=== PATIENT | female | born 1955 | race Caucasian/White ===

== ENCOUNTER 2017-01-29 12:54 | Inpatient (IN) | payer MEDICARE, OTHER ==
[~2017-01-29] VITALS: Ht 165.1 cm; Wt 75.8 kg
[2017-01-29] VITALS (8 sets, daily range): BP systolic 97–145; BP diastolic 56–80; PULSE 78–107; RESP 16–20; TEMP 96.8–97.9; O2SAT 95–98
[~2017-01-29 12:54] MED LIST: ADVA250A INH; ARIC5TAB PO; AZIT250T74 PO; BETH25TA PO; COLC1TAB7 PO; CYMB60CA PO; DIME240C PO; FURO20 PO; METO10TA PO; METO25 PO; MORP30SU PO; PERC10TA27 PO; POTA-243 PO; PRED5TAB PO; PROT40TA PO; ROSU40 PO; SUCR1TAB PO; TIZA4 PO; VENTAER INH; XANA0.5T PO; ZOLP10TA3 PO
[2017-01-29] MEDS ORDERED: SODIUM CHLOR 0.9% 1000 ML INJ 1,000 ML IV ONE (13:45)
--- NOTE | 2017-01-29 13:47 | PD ---
HPI Chief Complaint: General Weakness Time Seen by Provider: 13:19 Travel History International Travel<30 days: No Contact w/Intl Traveler<30days: No Traveled to known affect area: No History of Present Illness HPI 61yo F with PMH of HTN, DM, multiple sclerosis presents to the ED with c/o generalized weakness and hypotension for a few days. States she has not been eating much since she was diagnosed with gastric ulcers with endoscopy 1.5 months ago. Pt also has esophageal disease and had needed dilation. Pt states she has also been more unsteady on her gait in the last [address] Silveira. Denies any fever, chest pain, sob, n/v, abdominal pain, urinary complaints, focal weakness or numbness. PFSH Past Medical History Hx Anticoagulant Therapy: No Arthritis: Yes Asthma: Yes Blood Disorders: No Anxiety: Yes Depression: Yes Heart Rhythm Problems: Yes ("SKIPS A BEAT") Cancer: No Cardiovascular Problems: Yes ( CHOL) High Cholesterol: Yes Chest Pain: Yes Congestive Heart Failure: Yes COPD: Yes Cerebrovascular Accident: Yes (TIA) Diabetes: No Diminished Hearing: No Endocrine: No Gastrointestinal Disorders: Yes GERD: Yes Genitourinary: Yes Headaches: Yes Hiatal Hernia: Yes Hypertension: Yes Immune Disorder: No Implanted Vascular Access Dvce: Yes (NOT OF 01/22/16, PER ) Kidney Stones: Yes (HX) Musculoskeletal: Yes Neurologic: Yes (DIAGNOSED WITH MS IN 2005) Psychiatric: Yes Reproductive: Yes (HYSTERECOMY) Respiratory: Yes (COPD) Renal Failure: No Ulcer: Yes Tetanus Vaccination: > 5 Years Influenza Vaccination: No PNEUMOCCOCAL Vaccine (Year): 2 ?: Not Menopausal: Yes Past Surgical History Abdominal Surgery: No Appendectomy: Yes (TOOK OUT WITH OTHER SURGERY) Body Medical Devices: ALLEGRA RIGHT LEG, 2 PLATES,8 SCREWS IN NECK Cardiac Surgery: Yes (HEART CATH -06/29/08, carotid endardectomy) Cholecystectomy: Yes Ear Surgery: No Endocrine Surgery: No Eye Surgery: No Genitourinary Surgery: No Gynecologic Surgery: Yes (HYSTERECTOMY (JACKIE-BSO)) Hysterectomy: Yes Joint Replacement: Yes (PLATES AND RODS) Neurologic Surgery: Yes Oral Surgery: No Thoracic Surgery: No Tonsillectomy: Yes Other Surgery: Yes (RECTAL FISSURE 12/2005, 2 L BREAST BIOPSIES, JACKIE-BSO @ AGE 27) Social History Alcohol Use: No Tobacco Use: Yes (1/2 -1 PPD) Substance Use: No Allergies-Medications (Allergen,Severity, Reaction): Coded Allergies: No Known Allergies (Verified , 01/29/17) Reported Meds & Prescriptions Reported Meds & Active Scripts Active Reported Ventolin Hfa 18 GM Inh (Albuterol Sulfate) 90 Mcg/Act Aer 1 Puff INH Q4H PRN Mupirocin Topical (Mupirocin) 2 % Oint 1 Applic TOPICAL BID Clobetasol Emollient Topical 0.05% Cream 1 Applic TOPICAL BID Dronabinol 2.5 Mg Cap 2.5 Mg PO BID Zolpidem (Zolpidem Tartrate) 10 Mg Tab 10 Mg PO HS PRN Propranolol (Propranolol HCl) 20 Mg Tab 20 Mg PO Q12HR Metoprolol Tartrate 25 Mg Tab 25 Mg PO BID Rosuvastatin (Rosuvastatin Calcium) 5 Mg Tab 5 Mg PO DAILY Colchicine 0.6 Mg Cap 0.6 Mg PO DAILY Bethanechol 10 Mg Tab 10 Mg PO Q8HR Lyrica (Pregabalin) 100 Mg Cap 100 Mg PO DAILY Tizanidine (Tizanidine HCl) 4 Mg Cap 4 Mg PO TID Duloxetine DR (Duloxetine HCl) 60 Mg Capdr 60 Mg PO DAILY Furosemide 40 Mg Tab 40 Mg PO DAILY Advair Diskus Inh (Fluticasone-Salmeterol Inh) 100-50 Mcg/Blist Aer 1 Puff INH BID Rinse mouth after use. Alprazolam 0.5 Mg Tab 0.5 Mg PO Q8H PRN Tecfidera (Dimethyl Fumarate) 240 Mg Cap 240 Mg PO BID Percocet (Oxycodone-Acetaminophen) 5-325 mg Tab 1 Tab PO Q6H PRN Ondansetron (Ondansetron HCl) 8 Mg Tab 8 Mg PO TID Morphine ER (Morphine Sulfate) 30 Mg Tab 30 Mg PO Q4HR Review of Systems Except as stated in HPI: all other systems reviewed are Neg Physical Exam Narrative GENERAL: 61yo F in mild distress. SKIN: Focused skin assessment warm/dry. HEAD: Atraumatic. Normocephalic. EYES: Pupils equal and round. No scleral icterus. No injection or drainage. ENT: No nasal bleeding or discharge. Mucous membranes pink and moist. NECK: Trachea midline. No JVD. CARDIOVASCULAR: Regular rate and rhythm. No murmur appreciated. RESPIRATORY: No accessory muscle use. Clear to auscultation. Breath sounds equal bilaterally. GASTROINTESTINAL: Abdomen soft, non-tender, nondistended. MUSCULOSKELETAL: No obvious deformities. No clubbing. No cyanosis. +Bilateral lower ext edema. NEUROLOGICAL: Awake and alert. No obvious cranial nerve deficits. Motor grossly within normal limits. Normal speech. PSYCHIATRIC: Appropriate mood and affect; insight and judgment normal. Data Data Last Documented VS Vital Signs Date Time Temp Pulse Resp B/P Pulse Ox O2 Delivery O2 Flow Rate FiO2 01/29/17 15:13 88 16 117/74 97 Room Air 01/29/17 13:02 97.9 Orders Complete Blood Count With Diff (01/29/17 13:37) Comprehensive Metabolic Panel (01/29/17 13:37) Magnesium (Mg) (01/29/17 13:37) Sodium Chlor 0.9% 1000 Ml Inj (Ns 1000 M (01/29/17 13:45) Urinalysis - C+S If Indicated (01/29/17 13:39) Electrocardiogram (01/29/17 ) Lactic Acid Sepsis Protocol (01/29/17 13:47) Blood Culture (01/29/17 13:47) Ckmb (Isoenzyme) Profile (01/29/17 14:00) Troponin I (01/29/17 14:00) Potassium Chlor 20 Meq Premix (Kcl 20 Me (01/29/17 14:30) Potassium Chloride (Kcl) (01/29/17 14:30) Calcium Gluconate Inj (Calcium Gluconate (01/29/17 14:30) Manager Business Continuity / Telemetry TIM.Q8H (01/29/17 14:25) Consult Neurology (01/29/17 ) CKMB (01/29/17 14:15) CKMB% (01/29/17 14:15) Admit Order (Ed Use Only) (01/29/17 15:30) Labs Laboratory Tests Test 01/29/17 01/29/17 01/29/17 13:45 14:15 15:30 White Blood Count 9.2 TH/MM3 Red Blood Count 4.82 MIL/MM3 Hemoglobin 14.1 GM/DL Hematocrit 41.5 % Mean Corpuscular Volume 86.0 FL Mean Corpuscular Hemoglobin 29.2 PG Mean Corpuscular Hemoglobin 33.9 % Concent Red Cell Distribution Width 14.7 % Platelet Count 308 TH/MM3 Mean Platelet Volume 8.0 FL Neutrophils (%) (Auto) 73.8 % Lymphocytes (%) (Auto) 13.8 % Monocytes (%) (Auto) 10.4 % Eosinophils (%) (Auto) 0.5 % Basophils (%) (Auto) 1.5 % Neutrophils # (Auto) 6.8 TH/MM3 Lymphocytes # (Auto) 1.3 TH/MM3 Monocytes # (Auto) 1.0 TH/MM3 Eosinophils # (Auto) 0.0 TH/MM3 Basophils # (Auto) 0.1 TH/MM3 CBC Comment DIFF FINAL Differential Comment Sodium Level 140 MEQ/L Potassium Level 1.9 MEQ/L Chloride Level 97 MEQ/L Carbon Dioxide Level 31.8 MEQ/L Anion Gap 11 MEQ/L Blood Urea Nitrogen 14 MG/DL Creatinine 1.90 MG/DL Estimat Glomerular Filtration 27 ML/MIN Rate Random Glucose 123 MG/DL Calcium Level 6.4 MG/DL Protein Corrected Calcium 7.6 MG/DL Magnesium Level 1.1 MG/DL Total Bilirubin 0.2 MG/DL Aspartate Amino Transf 25 U/L (AST/SGOT) Alanine Aminotransferase 27 U/L (ALT/SGPT) Alkaline Phosphatase 118 U/L Total Protein 4.7 GM/DL Albumin 2.4 GM/DL Lactic Acid Level 1.7 mmol/L Total Creatine Kinase 188 U/L Creatine Kinase MB 8.4 NG/ML Troponin I 0.08 NG/ML Urine Color YELLOW Urine Turbidity CLEAR Urine pH 7.5 Urine Specific [place] 1.014 Urine Protein NEG mg/dL Urine Glucose (UA) NEG mg/dL Urine Ketones NEG mg/dL Urine Occult Blood NEG Urine Nitrite NEG Urine Bilirubin NEG Urine Leukocyte Esterase NEG Urine WBC 0-2 /hpf Urine Squamous Epithelial 0-5 /hpf Cells Microscopic Urinalysis Comment CULT NOT INDICATED MDM Medical Decision Making Medical Screen Exam Complete: Yes Emergency Medical Condition: Yes Interpretation(s) EKG: NSR 91bpm. Normal axis. ST depression/T wave inversion diffusely. Differential Diagnosis Dehydration vs. electrolyte abnormality vs. shock Narrative Course 61yo F c/o generalized weakness. Discussed with Dr. Silveira regarding worsening gait and he recommended correcting electrolytes and then reevaluate to see if steroid needed. Recommend placing neurology consult and someone correctional therapy teacher will see the patient. Labs reviewed, no leukocytosis. Severe hypokalemia at 1.9. Replaced with KCl 20mEq IV and KCl 60mEq KCl PO. Ca is 6.4, replaced with 1gm calcium gluconate. Magnesium is low at 1.1, replaced with magnesium sulfate 1gm x2. Creatinine is elevated at 1.90 which is new. Pt appears very dehydration and likely prerenal cause. Troponin is elevated at 0.08, pt has no chest pain and has a lot of electrolyte abnormalities. Will trend. UA negative. Discussed with Dr. Butler and accepted to his service. Pt initially with BP with systolic in the 80s, NS IVF given and pt responded to the IVF and BP improved to 117/74 and HR came down to 88bpm. Critical Care Narrative Aggregate critical care time was 45 minutes. Time to perform other separately billable procedures was not included in the critical care time. My time did not include minutes spent treating any other patients simultaneously or on activities that did not directly contribute to the patient's treatment. The services I provided to this patient were to treat and/or prevent clinically significant deterioration that could result in: cardiovascular collapse or . I provided critical care services requiring my management, as noted below: Chart data review, documentation time, medication orders and management, vital sign assessments/reviewing monitor data, ordering and reviewing lab tests, ordering and interpreting/reviewing x-rays and diagnostic studies, care of the patient and discussion of the patient with the admitting physicians. Diagnosis Primary Impression: ARIADNA (acute kidney injury) Additional Impression: Hypokalemia Admitting Information Admitting Physician Requests: Admit Kristina Rollins DO Jan 29, 2017 13:47
[2017-01-29 14:00] LABS: AUTOMATED NEUTROPHIL # 6.8 TH/MM3 (1.8-7.7); BASOPHIL # 0.1 TH/MM3 (0-0.2); BASOPHIL % 1.5 % (0.0-2.0); EOSINOPHIL % 0.5 % (0.0-4.0); HEMATOCRIT 41.5 % (35.0-46.0); HEMO FLAGS DIFF FINAL; LYMPH % 13.8 % (9.0-44.0); LYMPHOCYTE # 1.3 TH/MM3 (1.0-4.8); MEAN CORPUSCULAR HEMOGLOBIN 29.2 PG (27.0-34.0); MEAN CORPUSCULAR HGB CONC 33.9 % (32.0-36.0); MONO % 10.4 % (0.0-8.0); NEUT % 73.8 % (16.0-70.0); PLATELET COUNT 308 TH/MM3 (150-450); RED BLOOD COUNT 4.82 MIL/MM3 (4.00-5.30); RED CELL DISTRIBUTION WIDTH 14.7 % (11.6-17.2); WHITE BLOOD COUNT 9.2 TH/MM3 (4.0-11.0)
[2017-01-29 14:17] LABS: BICARBONATE 31.8 MEQ/L (21.0-32.0); MAGNESIUM 1.1 MG/DL (1.5-2.5)
[2017-01-29 14:20] LABS: POTASSIUM 1.9 MEQ/L (3.5-5.1)
[2017-01-29 14:21] LABS: CALCIUM-PROTEIN CORRECTED 7.6 MG/DL (8.5-10.1); TOTAL BILIRUBIN ADULT 0.2 MG/DL (0.2-1.0)
[2017-01-29] MEDS ORDERED: MORP1TAB25 PO (14:22)
[2017-01-29] MEDS ORDERED: DRON2.5C PO (14:22)
[2017-01-29] MEDS ORDERED: FURO40TA PO (14:22)
[2017-01-29] MEDS ORDERED: ONDA1TAB17 PO (14:22)
[2017-01-29] MEDS ORDERED: ZOLP10TA3 PO (14:22)
[2017-01-29] MEDS ORDERED: DULO1CAP3 PO (14:22)
[2017-01-29] MEDS ORDERED: METO25TA3 PO (14:22)
[2017-01-29] MEDS ORDERED: DIME240C PO (14:22)
[2017-01-29] MEDS ORDERED: TIZA4CAP3 PO (14:22)
[2017-01-29] MEDS ORDERED: CLOB0.0571 TOPICAL (14:22)
[2017-01-29] MEDS ORDERED: ADVA100A INH (14:22)
[2017-01-29] MEDS ORDERED: COLC1CAP3 PO (14:22)
[2017-01-29] MEDS ORDERED: PROP20TA3 PO (14:22)
[2017-01-29] MEDS ORDERED: BETH10TA2 PO (14:22)
[2017-01-29] MEDS ORDERED: ALPR0.5T3 PO (14:22)
[2017-01-29] MEDS ORDERED: PERC5TAB12 PO (14:22)
[2017-01-29] MEDS ORDERED: ROSU1TAB4 PO (14:22)
[2017-01-29] MEDS ORDERED: LYRI100C PO (14:22)
[2017-01-29] MEDS ORDERED: VENTAER INH (14:23)
[2017-01-29] MEDS ORDERED: MUPI2OIN TOPICAL (14:23)
[2017-01-29] MEDS ORDERED: POTASSIUM CHLORIDE 20 MEQ CONTROLLED RELEASE TAB PO ONE (14:30)
[2017-01-29] MEDS ORDERED: POTASSIUM CHLOR 20 MEQ PREMIX 100 ML IV ONE (14:30)
[2017-01-29] MEDS ORDERED: CALCIUM GLUCONATE INJ 1 GM in DEXTROSE 5% IN WATER 100ML INJ 100 ML IV ONE ×2 (14:30)
[2017-01-29 14:47] LABS: CREATINE KINASE 188 U/L (26-192)
[2017-01-29 14:59] LABS: CKMB 8.4 NG/ML (0.5-3.6)
[2017-01-29 15:47] LABS: BLOOD, URINE NEG (NEG); GLUCOSE,URINE NEG (NEG); KETONE, URINE NEG (NEG); NITRITE,URINE NEG (NEG); PH, URINE 7.5 (5.0-8.5)
[2017-01-29 15:53] LABS: COMMENT (UR) CULT NOT INDICATED; CULTURE IF INDICATED CULT NOT INDICATED; SQUAMOUS EPITHELIAL CELL URINE 0-5 /hpf (0-5); URINE COLOR YELLOW (YELLW/STRAW); WBC, URINE 0-2 /hpf (0-5)
[2017-01-29] MEDS ORDERED: ZOLPIDEM TARTRATE 10 MG TAB PO PRN (16:45)
[2017-01-29] MEDS ORDERED: ALBUTEROL SULFATE 90 MCG/ACT HFA 8 GM INHALER INH PRN (16:45)
[2017-01-29] MEDS ORDERED: ALPRAZolam 0.5 MG TAB PO PRN (16:45)
[2017-01-29] MEDS ORDERED: NALOXONE HCL 0.4 MG/ML AMP IV PRN (17:00)
[2017-01-29] MEDS ORDERED: SODIUM CHLORIDE 0.9% FLUSH 10 ML FLUSH IV FLUSH PRN (17:00)
[2017-01-29] MEDS ORDERED: BISACODYL 10 MG SUPP RECTAL PRN (17:00)
--- NOTE | 2017-01-29 17:06 | HHI.HP ---
HPI Service [facility] Hospitalists Primary Care Physician Torrey Gacria MD Admission Diagnosis Hypokalemia, elevated troponin Chief Complaint: several weeks to months with generalized weakness no appetite Travel History International Travel<30 Days: No Contact w/Intl Traveler <30 Da: No Traveled to Known Affected Are: No History of Present Illness 61yo F with PMH of HTN, DM, multiple sclerosis presents to the ED with c/o generalized weakness and hypotension for a few days. States she has not been eating much since she was diagnosed with gastric ulcers with endoscopy 1.5 months ago. Pt also has esophageal disease and had needed dilation. Patient has upcoming endoscopy first week of february. Patient currently on carafate and protonix and recent appetite stimulant. Pt states she has also been more unsteady on her gait in the last [address] Silveira. Denies any fever, chest pain, sob, n/v, abdominal pain, urinary complaints, focal weakness or numbness. In er found to have significant electrolyte abnormality potassium 1.6,calcium 7 ,ER discussed with neurology has gait problem and could be related to MS will correct labs and neurology will follow. Review of Systems Constitutional: COMPLAINS OF: Fatigue, Weight loss, Dizziness Gastrointestinal: COMPLAINS OF: Nausea Musculoskeletal: COMPLAINS OF: Back pain, Neck pain Neurologic: COMPLAINS OF: Abnormal gait, Localized weakness Past Family Social History Past Medical History multiple ulcers,djd,hyperlipidemia,anxiety,depression chronic pain ,weaned down from narcotics,chf,tia edema,GERD MS dx 2006 Past Surgical History hysterectomy,mario leg,gallbladder,rectal fissure Reported Medications Ventolin Hfa 18 GM Inh (Albuterol Sulfate) 90 Mcg/Act Aer 1 Puff INH Q4H PRN Mupirocin Topical (Mupirocin) 2 % Oint 1 Applic TOPICAL BID Clobetasol Emollient Topical 0.05% Cream 1 Applic TOPICAL BID Dronabinol 2.5 Mg Cap 2.5 Mg PO BID Zolpidem (Zolpidem Tartrate) 10 Mg Tab 10 Mg PO HS PRN Propranolol (Propranolol HCl) 20 Mg Tab 20 Mg PO Q12HR Metoprolol Tartrate 25 Mg Tab 25 Mg PO BID Rosuvastatin (Rosuvastatin Calcium) 5 Mg Tab 5 Mg PO DAILY Colchicine 0.6 Mg Cap 0.6 Mg PO DAILY Bethanechol 10 Mg Tab 10 Mg PO Q8HR Lyrica (Pregabalin) 100 Mg Cap 100 Mg PO DAILY Tizanidine (Tizanidine HCl) 4 Mg Cap 4 Mg PO TID Duloxetine DR (Duloxetine HCl) 60 Mg Capdr 60 Mg PO DAILY Furosemide 40 Mg Tab 40 Mg PO DAILY Advair Diskus Inh (Fluticasone-Salmeterol Inh) 100-50 Mcg/Blist Aer 1 Puff INH BID Rinse mouth after use. Alprazolam 0.5 Mg Tab 0.5 Mg PO Q8H PRN Tecfidera (Dimethyl Fumarate) 240 Mg Cap 240 Mg PO BID Percocet (Oxycodone-Acetaminophen) 5-325 mg Tab 1 Tab PO Q6H PRN Ondansetron (Ondansetron HCl) 8 Mg Tab 8 Mg PO TID Morphine ER (Morphine Sulfate) 30 Mg Tab 30 Mg PO Q4HR Allergies: Coded Allergies: No Known Allergies (Verified , 01/29/17) Social History smokes 1/2 to 1 ppd Physical Exam Vital Signs Vital Signs Date Time Temp Pulse Resp B/P Pulse Ox O2 Delivery O2 Flow Rate FiO2 01/29/17 16:25 90 16 145/80 98 01/29/17 15:13 88 16 117/74 97 Room Air 01/29/17 14:46 78 16 97/56 95 Room Air 01/29/17 13:02 97.9 107 16 110/74 98 Physical Exam GENERAL: This is a well-nourished, well-developed patient, in no apparent distress. SKIN: No rashes, ecchymoses or lesions. Cool and dry. HEAD: Atraumatic. Normocephalic. No temporal or scalp tenderness. EYES: Pupils equal round and reactive. Extraocular motions intact. No scleral icterus. No injection or drainage. ENT: Nose without bleeding, purulent drainage or septal hematoma. Throat without erythema, tonsillar hypertrophy or exudate. Uvula midline. Airway patent. NECK: Trachea midline. No JVD or lymphadenopathy. Supple, nontender, no meningeal signs. CARDIOVASCULAR: Regular rate and rhythm without murmurs, gallops, or rubs. RESPIRATORY: Clear to auscultation. Breath sounds equal bilaterally. No wheezes , rales, or rhonchi. GASTROINTESTINAL: Abdomen soft, non-tender, nondistended. No hepato-splenomegaly , or palpable masses. No guarding. MUSCULOSKELETAL: Extremities without clubbing, cyanosis, or edema. No joint tenderness, effusion, or edema noted. No calf tenderness. Negative Homans sign bilaterally. NEUROLOGICAL: Awake and alert. Cranial nerves II through XII intact. Motor and sensory grossly within normal limits. Five out of 5 muscle strength in all muscle groups. Normal speech. Laboratory Laboratory Tests Test 01/29/17 01/29/17 01/29/17 13:45 14:15 15:30 White Blood Count 9.2 Red Blood Count 4.82 Hemoglobin 14.1 Hematocrit 41.5 Mean Corpuscular Volume 86.0 Mean Corpuscular Hemoglobin 29.2 Mean Corpuscular Hemoglobin 33.9 Concent Red Cell Distribution Width 14.7 Platelet Count 308 Mean Platelet Volume 8.0 Neutrophils (%) (Auto) 73.8 Lymphocytes (%) (Auto) 13.8 Monocytes (%) (Auto) 10.4 Eosinophils (%) (Auto) 0.5 Basophils (%) (Auto) 1.5 Neutrophils # (Auto) 6.8 Lymphocytes # (Auto) 1.3 Monocytes # (Auto) 1.0 Eosinophils # (Auto) 0.0 Basophils # (Auto) 0.1 CBC Comment DIFF FINAL Differential Comment Sodium Level 140 Potassium Level 1.9 Chloride Level 97 Carbon Dioxide Level 31.8 Anion Gap 11 Blood Urea Nitrogen 14 Creatinine 1.90 Estimat Glomerular Filtration 27 Rate Random Glucose 123 Calcium Level 6.4 Protein Corrected Calcium 7.6 Magnesium Level 1.1 Total Bilirubin 0.2 Aspartate Amino Transf 25 (AST/SGOT) Alanine Aminotransferase 27 (ALT/SGPT) Alkaline Phosphatase 118 Total Protein 4.7 Albumin 2.4 Lactic Acid Level 1.7 Total Creatine Kinase 188 Creatine Kinase MB 8.4 Troponin I 0.08 Urine Color YELLOW Urine Turbidity CLEAR Urine pH 7.5 Urine Specific [place] 1.014 Urine Protein NEG Urine Glucose (UA) NEG Urine Ketones NEG Urine Occult Blood NEG Urine Nitrite NEG Urine Bilirubin NEG Urine Leukocyte Esterase NEG Urine WBC 0-2 Urine Squamous Epithelial 0-5 Cells Microscopic Urinalysis Comment CULT NOT INDICATED Date/Time Procedure Status Source Growth 01/29/17 14:30 Aerobic Blood Culture Received Blood Peripheral Pending 01/29/17 14:30 Anaerobic Blood Culture Received Blood Peripheral Pending Result Diagram: 01/29/17 1345 01/29/17 1345 Course in er given IV fluid potassium and calcium Assessment and Plan Problem List: (1) Hypokalemia Status: Acute Plan: replace potassium and follow labs recheck tonight (2) Hypocalcemia Status: Acute Plan: replace calcium (3) Hx of multiple sclerosis Status: Chronic Plan: will get neuroevaluation as has had gait problems (4) Peptic ulcer disease Status: Acute Plan: has follow up next week with GI new DX peptic ulcer disease on protonix and carafate Assessment and Plan further plan as case develops also added smoker's patch Code Status full Discussed Condition With patient Physician Certification 2 Midnight Certification Type: Admission for Inpatient Services Order for Inpatient Services The services are ordered in accordance with Medicare regulations or non- Medicare payer requirements, as applicable. In the case of services not specified as inpatient-only, they are appropriately provided as inpatient services in accordance with the 2-midnight benchmark. Estimated LOS (days): 3 3 days is the estimated time the patient will need to remain in the hospital, assuming treatment plan goals are met and no additional complications. Post-Hospital Plan: Not yet determined Bib Boles MD Jan 29, 2017 17:06
[2017-01-29] MEDS: PANTOPRAZOLE SODIUM 40 MG VIAL IV PUSH SCH (18:26)
[2017-01-29] MEDS: MAGNESIUM SULFATE 1 GM PREMIX 100 ML IV SCH ×4 (18:27→21:00)
[2017-01-29] MEDS: 1/2 NS + KCL 20 MEQ INJ 1,000 ML IV SCH (18:27)
[2017-01-29] MEDS: BUDESONIDE-FORMOTEROL 80/4.5 MCG INHALER INH SCH (20:34)
[2017-01-29] MEDS: BETHANECHOL CHL 10 MG TAB PO SCH (20:36)
[2017-01-29] MEDS: SODIUM CHLORIDE 0.9% FLUSH 10 ML FLUSH IV FLUSH SCH (20:36)
[2017-01-29] MEDS: PROPRANOLOL HCL 20 MG TAB PO SCH (20:36)
[2017-01-29] MEDS: SUCRALFATE 1 GM TAB PO SCH (20:36)
[2017-01-29] MEDS: DRONABINOL 2.5 MG CAP PO SCH (20:36)
[2017-01-29] MEDS: BETAMETHASONE DIPROPIONATE 0.05% CREAM 15 GM TOPICAL SCH (20:39)
[2017-01-29] MEDS: MUPIROCIN 2% OINT 22 GM TUBE TOPICAL SCH (20:40)
[2017-01-29] MEDS ORDERED: POTASSIUM CHLOR 10 MEQ PREMIX 100 ML IV ONE (23:45)
[2017-01-29] MEDS: oxyCODONE/ACETAMINOPHEN 5 MG/325 MG TAB PO PRN (23:50)
[2017-01-30] VITALS (7 sets, daily range): BP systolic 87–109; BP diastolic 51–69; PULSE 71–82; RESP 16–20; TEMP 95.6–97.9; O2SAT 96–100
[2017-01-30] MEDS: SODIUM CHLOR 0.45% 1000 ML INJ 1,000 ML IV SCH ×2 (05:51→19:29)
[2017-01-30] MEDS: 1/2 NS + KCL 20 MEQ INJ 1,000 ML IV SCH ×2 (05:52→16:19)
[2017-01-30] MEDS: SUCRALFATE 1 GM TAB PO SCH ×4 (05:52→21:01)
[2017-01-30] MEDS: BETHANECHOL CHL 10 MG TAB PO SCH ×3 (05:52→21:01)
[2017-01-30 06:42] LABS: AUTOMATED NEUTROPHIL # 5.7 TH/MM3 (1.8-7.7); BASOPHIL % 0.5 % (0.0-2.0); EOSINOPHIL % 0.5 % (0.0-4.0); HEMATOCRIT 37.7 % (35.0-46.0); HEMO FLAGS DIFF FINAL; LYMPH % 16.1 % (9.0-44.0); LYMPHOCYTE # 1.3 TH/MM3 (1.0-4.8); MEAN CELL VOLUME 87.5 FL (80.0-100.0); MEAN CORPUSCULAR HGB CONC 34.3 % (32.0-36.0); MONO % 10.9 % (0.0-8.0); PLATELET COUNT 241 TH/MM3 (150-450); RED BLOOD COUNT 4.31 MIL/MM3 (4.00-5.30); RED CELL DISTRIBUTION WIDTH 15.6 % (11.6-17.2); WHITE BLOOD COUNT 7.9 TH/MM3 (4.0-11.0)
[2017-01-30 07:05] LABS: CALCIUM-PROTEIN CORRECTED 7.6 MG/DL (8.5-10.1); MAGNESIUM 1.6 MG/DL (1.5-2.5); TOTAL BILIRUBIN ADULT 0.3 MG/DL (0.2-1.0)
[2017-01-30 07:09] LABS: POTASSIUM 2.2 MEQ/L (3.5-5.1)
[2017-01-30] MEDS: SODIUM CHLORIDE 0.9% FLUSH 10 ML FLUSH IV FLUSH SCH ×2 (07:57→21:05)
[2017-01-30] MEDS: COLCHICINE 0.6 MG TAB PO SCH (07:58)
[2017-01-30] MEDS: PROPRANOLOL HCL 20 MG TAB PO SCH ×2 (07:59→21:00)
[2017-01-30] MEDS: PREGABALIN 100 MG CAP PO SCH (07:59)
[2017-01-30] MEDS: DRONABINOL 2.5 MG CAP PO SCH ×2 (07:59→21:02)
[2017-01-30] MEDS: oxyCODONE/ACETAMINOPHEN 5 MG/325 MG TAB PO PRN ×3 (07:59→21:04)
[2017-01-30] MEDS: ATORVASTATIN 10 MG TAB PO SCH (08:00)
[2017-01-30] MEDS: NICOTINE 21 MG/24 HR PATCH T-DERMAL SCH (08:00)
[2017-01-30] MEDS: MUPIROCIN 2% OINT 22 GM TUBE TOPICAL SCH ×2 (08:00→21:00)
[2017-01-30] MEDS: BETAMETHASONE DIPROPIONATE 0.05% CREAM 15 GM TOPICAL SCH ×2 (08:00→21:00)
[2017-01-30] MEDS: BUDESONIDE-FORMOTEROL 80/4.5 MCG INHALER INH SCH ×2 (08:01→21:03)
[2017-01-30] MEDS: DULoxetine HCl DR 60 MG CAP PO SCH (08:19)
[2017-01-30] MEDS: REMOVE OLD PATCH T-DERMAL SCH (09:00)
--- NOTE | 2017-01-30 09:03 | EKG ---
Date Performed: 01/29/2017 Time Performed: 13:44:30 PTAGE: 61 years EKG: Sinus rhythm Extensive ST-T changes may be due to myocardial ischemia Abnormal ECG PREVIOUS TRACING : 01/22/2016 09.14 Compared to previous tracing, diffuse ST/T changes are now present. DOCTOR: Abdulkadir Bagley Interpretating Date/Time 01/30/2017 09:02:31
[2017-01-30] MEDS ORDERED: POTASSIUM CHLORIDE 20 MEQ CONTROLLED RELEASE TAB PO ONE (10:00)
--- NOTE | 2017-01-30 10:11 | HHI.PR ---
Subjective Remarks Patient feeling better and wants to go home but potassium still at 2.2 and calcium at 7.6 troponin normal kidney function back to baseline will give 20 meq IV times two and calcium IV times one and repeat labs and i will recheck later. Objective Vitals GENERAL: SKIN: Warm and dry. HEAD: Atraumatic. Normocephalic. EYES: Pupils equal and round. No scleral icterus. No injection or drainage. ENT: No nasal bleeding or discharge. Mucous membranes pink and moist. NECK: Trachea midline. No JVD. CARDIOVASCULAR: Regular rate and rhythm. RESPIRATORY: No accessory muscle use. Clear to auscultation. Breath sounds equal bilaterally. GASTROINTESTINAL: Abdomen soft, non-tender, nondistended. Hepatic and splenic margins not palpable. MUSCULOSKELETAL: Extremities without clubbing, cyanosis, or edema. No obvious deformities. NEUROLOGICAL: Awake and alert. No obvious cranial nerve deficits. Motor grossly within normal limits. Five out of 5 muscle strength in the arms and legs. Normal speech. PSYCHIATRIC: Appropriate mood and affect; insight and judgment normal. Vital Signs Date Time Temp Pulse Resp B/P Pulse Ox O2 Delivery O2 Flow Rate FiO2 01/30/17 08:00 97.0 82 18 109/66 98 01/30/17 04:00 95.6 78 18 96/58 96 01/30/17 00:00 96.3 71 16 99/69 96 01/29/17 20:05 92 01/29/17 20:00 97.8 90 20 105/68 95 01/29/17 17:32 88 01/29/17 17:29 96.8 88 18 108/69 95 01/29/17 16:25 90 16 145/80 98 01/29/17 15:13 88 16 117/74 97 Room Air 01/29/17 14:46 78 16 97/56 95 Room Air 01/29/17 13:02 97.9 107 16 110/74 98 01/29/17 01/29/17 01/30/17 15:00 23:00 07:00 Intake Total 1446 ml 1137 ml Balance 1446 ml 1137 ml Intake Oral 460 ml IV Total 1446 ml 677 ml # Voids 1 2 # Bowel Movements 0 1 Result Diagram: 01/30/1751901/30/17 0520 A/P Problem List: (1) Hypokalemia Status: Acute Plan: replace potassium and follow labs recheck (2) Hypocalcemia Status: Acute Plan: replace calcium (3) Hx of multiple sclerosis Status: Chronic Plan: will get neuroevaluation as has had gait problems (4) Peptic ulcer disease Status: Acute Plan: has follow up next week with GI new DX peptic ulcer disease on protonix and carafate Assessment and Plan hopefully labs better and can be discharged later Bib Boles MD Jan 30, 2017 10:10
[2017-01-30] MEDS ORDERED: CALCIUM CHLORIDE INJ 1 GM in SODIUM CHLORIDE 0.9% INJ 100 ML IV ONE (11:00)
[2017-01-30] MEDS ORDERED: CALCIUM GLUCONATE INJ 1 GM in SODIUM CHLORIDE 0.9% INJ 100 ML IV ONE (11:24)
[2017-01-30] MEDS ORDERED: METHOCARBAMOL 500 MG TAB PO PRN (11:30)
[2017-01-30] MEDS ORDERED: SPIRONOLACTONE 100 MG TAB PO SCH (12:00)
[2017-01-30] MEDS: POTASSIUM CHLOR 20 MEQ PREMIX 100 ML IV SCH ×2 (12:03→14:13)
[2017-01-30] MEDS: ONDANSETRON HCL 4 MG/2 ML VIAL IVP PRN (12:32)
[2017-01-30] MEDS: PANTOPRAZOLE SODIUM 40 MG VIAL IV PUSH SCH (17:23)
[2017-01-30 20:01] LABS: POTASSIUM 2.9 MEQ/L (3.5-5.1)
[2017-01-30 20:19] LABS: CALCIUM-PROTEIN CORRECTED 8.5 MG/DL (8.5-10.1)
[2017-01-30] MEDS ORDERED: POTASSIUM CHLOR 20 MEQ PREMIX 100 ML IV ONE (21:00)
[2017-01-30] MEDS: TECFIDERA 240 MG PO SCH (21:02)
[2017-01-30] MEDS: CALCIUM CARBONATE 500 MG CHEWABLE TAB PO SCH (21:02)
[2017-01-31] VITALS: BP 87/64; PULSE 74; RESP 16; TEMP 98; O2SAT 99
[2017-01-31] MEDS: ONDANSETRON HCL 4 MG/2 ML VIAL IVP PRN ×2 (02:58→12:07)
[2017-01-31] MEDS: oxyCODONE/ACETAMINOPHEN 5 MG/325 MG TAB PO PRN ×2 (02:59→08:48)
[2017-01-31 04:00] VITALS: BP 113/75; PULSE 80; RESP 16; TEMP 95.8; O2SAT 97
[2017-01-31] MEDS: 1/2 NS + KCL 20 MEQ INJ 1,000 ML IV SCH ×2 (06:02→16:40)
[2017-01-31] MEDS: BETHANECHOL CHL 10 MG TAB PO SCH ×2 (06:03→14:41)
[2017-01-31] MEDS: SUCRALFATE 1 GM TAB PO SCH ×3 (06:03→16:31)
[2017-01-31 08:00] VITALS: BP 105/66; PULSE 82; RESP 18; TEMP 97.7; O2SAT 98
[2017-01-31] MEDS ORDERED: POTASSIUM CHLOR 20 MEQ PREMIX 100 ML IV ONE (08:00)
--- NOTE | 2017-01-31 08:34 | MB ---
cc: SEVERO GARZON MD DATE OF CONSULTATION 01/30/2017 REASON FOR CONSULTATION History of multiple sclerosis. HISTORY OF PRESENT ILLNESS Ms. Mike is a 61-year-old female with past medical history of hypertension, diabetes mellitus, multiple sclerosis and heavy smoking who presented to the [facility] emergency room complaining of generalized weakness and hypotension for a few days. She complains that she has not been eating much since she was diagnosed with a gastric ulcer by endoscopy one and a half month ago. She also has a history of esophageal disease status post dilation. The patient was diagnosed with multiple sclerosis 11 years ago. She follows with Dr. Silveira. She is currently on Tecfidera 240 mg twice daily. She was at some point on Copaxone on review. The patient states that the last relapse of MS was a few months ago. She states that she denies any headache, double vision, blurred vision, speech difficulty, however, she states that she has some gait difficulty that has been worsening over time and she reports a couple of falls. The patient states that an MRI of the brain was done two months ago and was unremarkable as per Dr. Silveira. REVIEW OF SYSTEMS A 12-point review of systems is negative except for what is stated in the HPI. PAST MEDICAL HISTORY 1. Gastric ulcer 2. Hyperlipidemia 3. Anxiety depression 4. Multiple sclerosis PAST SURGICAL HISTORY 1. Hysterectomy 2. Gallbladder surgery 3. Rectal fissure MEDICATIONS 1. Ventolin 2. Mupirocin 3. Clobetasol 4. Dronabinol 5. Zolpidem 6. Propranolol 7. Metoprolol 8. Rosuvastatin 9. Colchicine 10. Bethanechol 11. Lyrica 12. Tizanidine 13. Duloxetine 14. Furosemide 15. Advair discus 16. Alprazolam 17. Tecfidera 18. Percocet 19. Ondansetron 20. Morphine 21. ALLERGIES No known drug allergies. SOCIAL HISTORY Smokes A half pack to one pack per day. FAMILY HISTORY Noncontributory EXAMINATION GENERAL: The patient sits comfortably in bed not in apparent distress. Good historian. HEENT: Atraumatic, normocephalic. Intact hearing. Intact vision. NECK: Supple, no signs of meningeal irritation. No carotid bruits. CARDIOVASCULAR: Regular rate and rhythm. No murmurs. RESPIRATORY: Clear to auscultation. No wheezes. GASTROINTESTINAL: Soft abdomen, nontender. No distension. MUSCULOSKELETAL: Without clubbing, cyanosis or edema. There is nicotine stains on her fingers. There is no joint tenderness and she moves extremities equally. NEUROLOGIC: Awake, alert, and oriented to time, person and place. Intact speech and intact memory. Cranial nerves II-XII are grossly intact. Pupils are equally reacting. Normal external ocular motility. Bilateral upper extremities 5/5. There is flapping tremor/asterixis, bilateral lower extremity 5-/5 bilateral hip flexion with give-way due to pain. Otherwise, 5/5. Reflexes 2+ bilateral and symmetrical and there is bilateral downgoing. Sensation intact throughout bilateral and symmetrical to pain and temperature and touch. [id number], [id number] is intact. PSYCHOLOGIC: Normal mood and behavior. Good comprehension and judgment. No hallucination. LABORATORY DATA Next white blood cells 9.2, hemoglobin 14.1, MCV 86. Potassium 1.9, chloride 97, anion gap 11, BUN 14, creatinine 1.9, calcium 6.4, magnesium 1.1, alkaline phosphatase 118, total protein 4.7, albumin 2.4, lactic acid 1.7, CK 188, troponin 0.08. DIAGNOSTIC IMPRESSION 1. History of multiple sclerosis diagnosed 11 years ago follows up with Dr. Silveira. The last relapse was a few months ago. Currently on Tecfidera 240 twice daily. 2. Recent brain MRI was reported as unremarkable not new enhanced lesions. 3. Electrolyte derangement. 4. Hypokalemia 5. Hypocalcemia 6. Hypocalcemia 7. Peptic ulcer disease PLAN 1. Neuro checks. 2. The patient may have included sense of MS symptoms but there is no clinical evidence of a new lesion. The patient had an MRI of the brain recently which was negative. The patient may be assessed by PT/OT, recommendations are appreciated and she may follow-up with her neurologist, Dr. Silveira. 3. Continued Tecfidera at 240 mg twice daily. Thank you for the opportunity to participate in the care of your patient. MD MARSHA Ortega/RONAK /11:50 PM /8:05 AM [place]
[2017-01-31] MEDS: BETAMETHASONE DIPROPIONATE 0.05% CREAM 15 GM TOPICAL SCH (08:49)
[2017-01-31] MEDS: MUPIROCIN 2% OINT 22 GM TUBE TOPICAL SCH (08:50)
[2017-01-31] MEDS: BUDESONIDE-FORMOTEROL 80/4.5 MCG INHALER INH SCH (08:51)
[2017-01-31] MEDS: NICOTINE 21 MG/24 HR PATCH T-DERMAL SCH (08:52)
[2017-01-31] MEDS: REMOVE OLD PATCH T-DERMAL SCH (08:52)
[2017-01-31] MEDS: DRONABINOL 2.5 MG CAP PO SCH (08:52)
[2017-01-31] MEDS: PROPRANOLOL HCL 20 MG TAB PO SCH (08:53)
[2017-01-31] MEDS: PREGABALIN 100 MG CAP PO SCH (08:54)
[2017-01-31] MEDS: COLCHICINE 0.6 MG TAB PO SCH (08:54)
[2017-01-31] MEDS: CALCIUM CARBONATE 500 MG CHEWABLE TAB PO SCH (08:54)
[2017-01-31] MEDS: ATORVASTATIN 10 MG TAB PO SCH (08:54)
[2017-01-31] MEDS: DULoxetine HCl DR 60 MG CAP PO SCH (08:54)
[2017-01-31] MEDS: TECFIDERA 240 MG PO SCH (08:55)
[2017-01-31] MEDS: SODIUM CHLORIDE 0.9% FLUSH 10 ML FLUSH IV FLUSH SCH (08:55)
[2017-01-31] MEDS ORDERED: POTASSIUM CHLORIDE 10 MEQ CONTROLLED RELEASE TAB PO SCH (09:00)
[2017-01-31] MEDS ORDERED: POTASSIUM CHLOR 20 MEQ PREMIX 100 ML IV SCH (10:00)
--- NOTE | 2017-01-31 10:49 | HHI.PR ---
Subjective Remarks Patient feeling good and wants to go home still with low potassium ,patient has severe gastroparesis ,and most likely poor ability to metabolize potassium , normally is on po potassium at home up to 4 tablets daily had been on bid lasix 40 which was cut last week to q day ,when discharge would decrease to every other day and continue for now potassium 2 tablets bid with recheck blood work this week . I will give additional 20meq in normal saline times 2 and give po potassium as well calcium has normalized will start on calcium tablets. Neurology saw patient no evidence of exacerbation of MS they did want PT to see . Objective Vitals GENERAL: SKIN: Warm and dry. HEAD: Atraumatic. Normocephalic. EYES: Pupils equal and round. No scleral icterus. No injection or drainage. ENT: No nasal bleeding or discharge. Mucous membranes pink and moist. NECK: Trachea midline. No JVD. CARDIOVASCULAR: Regular rate and rhythm. RESPIRATORY: No accessory muscle use. Clear to auscultation. Breath sounds equal bilaterally. GASTROINTESTINAL: Abdomen soft, non-tender, nondistended. Hepatic and splenic margins not palpable. MUSCULOSKELETAL: Extremities without clubbing, cyanosis, or edema. No obvious deformities. NEUROLOGICAL: Awake and alert. No obvious cranial nerve deficits. Motor grossly within normal limits. Five out of 5 muscle strength in the arms and legs. Normal speech. PSYCHIATRIC: Appropriate mood and affect; insight and judgment normal. Vital Signs Date Time Temp Pulse Resp B/P Pulse Ox O2 Delivery O2 Flow Rate FiO2 01/31/17 08:00 97.7 82 18 105/66 98 01/31/17 04:00 95.8 80 16 113/75 97 01/31/17 00:00 98.0 74 16 87/64 99 01/30/17 20:57 102/68 01/30/17 20:00 73 01/30/17 20:00 97.9 72 18 87/51 96 01/30/17 16:00 97.2 80 20 104/60 99 01/30/17 12:00 97.8 77 18 101/63 100 01/30/17 01/30/17 01/31/17 15:00 23:00 07:00 Intake Total 725 ml 1951 ml 1564 ml Balance 725 ml 1951 ml 1564 ml Intake Oral 725 ml 240 ml 840 ml IV Total 1711 ml 724 ml # Voids 2 1 6 # Bowel Movements 0 1 Result Diagram: 01/30/17 0520 01/31/17 0535 A/P Problem List: (1) Hypokalemia Status: Acute Plan: replace potassium and follow labs recheck adjust dosing (2) Hypocalcemia Status: Acute Plan: replace calcium (3) Hx of multiple sclerosis Status: Chronic Plan: neurological evaluation no exacerbation of MS (4) Peptic ulcer disease Status: Acute Plan: has follow up next week with GI new DX peptic ulcer disease on protonix and carafate Assessment and Plan hopefully labs better and can be discharged later today Discharge Planning follow labs will be ordered as outpatient Bib Boles MD Jan 31, 2017 10:49
[2017-01-31 12:54] VITALS: BP 94/66; PULSE 77; RESP 18; TEMP 96; O2SAT 96
[2017-01-31] MEDS ORDERED: CALC500C16 PO (15:49)
[2017-01-31] MEDS ORDERED: PROP10TA6 PO (15:52)
[2017-01-31] MEDS ORDERED: FURO1TAB62 PO (15:54)
[2017-01-31] MEDS ORDERED: POTA-163 PO (15:58)
[2017-01-31 16:00] VITALS: BP 112/62; PULSE 69; RESP 18; TEMP 96.2; O2SAT 98
[2017-01-31] MEDS ORDERED: POTASSIUM CHLORIDE 10 MEQ CONTROLLED RELEASE TAB PO ONE (16:00)
--- NOTE | 2017-01-31 16:08 | HHI.DS ---
Discharge Summary Admission Date Jan 29, 2017 at 15:31 Admitting Diagnosis Hypokalemia, elevated troponin (1) Hypokalemia Diagnosis: Principal (2) Hypocalcemia Diagnosis: Principal (3) Hx of multiple sclerosis Diagnosis: Secondary (4) Peptic ulcer disease Diagnosis: Secondary Brief History 61yo F with PMH of HTN, DM, multiple sclerosis presents to the ED with c/o generalized weakness and hypotension for a few days. States she has not been eating much since she was diagnosed with gastric ulcers with endoscopy 1.5 months ago. Pt also has esophageal disease and had needed dilation. Patient has upcoming endoscopy first week of february. Patient currently on carafate and protonix and recent appetite stimulant. Pt states she has also been more unsteady on her gait in the last [address] follows with Dr[address] Silveira. Denies any fever, chest pain, sob, n/v, abdominal pain, urinary complaints, focal weakness or numbness. In er found to have significant electrolyte abnormality potassium 1.6,calcium 7 ,ER discussed with neurology has gait problem and could be related to MS will correct labs and neurology will follow. CBC/BMP: 01/30/17 0520 01/31/17 1430 Significant Findings Laboratory Tests Test 01/29/17 01/29/17 01/29/17 01/30/17 13:45 14:15 21:40 05:20 Neutrophils (%) (Auto) 73.8 % 72.0 % (16.0-70.0) (16.0-70.0) Monocytes (%) (Auto) 10.4 % 10.9 % (0.0-8.0) (0.0-8.0) Monocytes # (Auto) 1.0 TH/MM3 (0-0.9) Potassium Level 1.9 MEQ/L 2.3 MEQ/L 2.2 MEQ/L (3.5-5.1) (3.5-5.1) (3.5-5.1) Chloride Level 97 MEQ/L (98-107) Creatinine 1.90 MG/DL 1.30 MG/DL (0.50-1.00) (0.50-1.00) Estimat Glomerular Filtration 27 ML/MIN (>89) 41 ML/MIN (>89) Rate Random Glucose 123 MG/DL (74-106) Calcium Level 6.4 MG/DL 6.2 MG/DL (8.5-10.1) (8.5-10.1) Protein Corrected Calcium 7.6 MG/DL 7.6 MG/DL (8.5-10.1) (8.5-10.1) Magnesium Level 1.1 MG/DL (1.5-2.5) Alkaline Phosphatase 118 U/L (45-117) Total Protein 4.7 GM/DL 4.2 GM/DL (6.4-8.2) (6.4-8.2) Albumin 2.4 GM/DL 2.1 GM/DL (3.4-5.0) (3.4-5.0) Creatine Kinase MB 8.4 NG/ML (0.5-3.6) Troponin I 0.08 NG/ML (0.02-0.05) Test 01/30/17 01/31/17 01/31/17 18:38 05:35 14:30 Potassium Level 2.9 MEQ/L 2.7 MEQ/L 3.4 MEQ/L (3.5-5.1) (3.5-5.1) (3.5-5.1) Calcium Level 6.7 MG/DL (8.5-10.1) Total Protein 3.8 GM/DL (6.4-8.2) PE at Discharge GENERAL: SKIN: Warm and dry. HEAD: Atraumatic. Normocephalic. EYES: Pupils equal and round. No scleral icterus. No injection or drainage. ENT: No nasal bleeding or discharge. Mucous membranes pink and moist. NECK: Trachea midline. No JVD. CARDIOVASCULAR: Regular rate and rhythm. RESPIRATORY: No accessory muscle use. Clear to auscultation. Breath sounds equal bilaterally. GASTROINTESTINAL: Abdomen soft, non-tender, nondistended. Hepatic and splenic margins not palpable. MUSCULOSKELETAL: Extremities without clubbing, cyanosis, or edema. No obvious deformities. NEUROLOGICAL: Awake and alert. No obvious cranial nerve deficits. Motor grossly within normal limits. Five out of 5 muscle strength in the arms and legs. Normal speech. PSYCHIATRIC: Appropriate mood and affect; insight and judgment normal. Hospital Course Patient admitted with significant low potassium ,and calcium not eating well with history of GI problems followed by GI with trouble digesting food and had poor appetite. In hospital required several IV's of potassium and 2 IV of calcium which did normalize calcium and was started on calcium tablets 500 bid , her potassium eventually went to 3.4 and will be instructed to take 20mg kcl 2 tablets bid for now and to decrease her lasix which she takes for edema to 20mg every other day for now also blood pressure was running low and her inderal will be decreased to 10mg q 12h . Patient did eat better in hospital and does have recheck scheduled with GI next week regarding her digestive system and the difficulty she has absorbing potassium . Patient discharged in good condition with lab work scheduled for sunday. Patient has history of MS and neurology did see patient and felt her initial symptoms not related to exacerbation of MS and to continue her current medications. Pt Condition on Discharge: Good Discharge Disposition: Discharge Home Discharge Instructions DIET: Follow Instructions for: As Tolerated, No Restrictions Activities you can perform: Regular-No Restrictions New Medications: Furosemide (Lasix) 20 Mg Tab 20 MG PO EVERY OTHER DAY edema #30 Ref 0 TAB Potassium Chloride ER (Potassium Chloride ER) 20 Meq Tab 20 MEQ PO two tablets bid Electrolyte Replacement Days 30 Ref 0 TAB Propranolol (Propranolol) 10 Mg Tab 10 MG PO Q12HR tachycardia #60 Ref 0 TAB Calcium Carbonate (Antacid) (Calcium Carbonate (Antacid)) 500 Mg Chew 500 MG PO BID hypocalcemia #60 EA Continued Medications: Albuterol 18 GM Inh (Ventolin Hfa 18 GM Inh) 90 Mcg/Act Aer 1 PUFF INH Q4H PRN SHORTNESS OF BREATH #1 Ref 0 INHALER Alprazolam (Alprazolam) 0.5 Mg Tab 0.5 MG PO Q8H PRN ANXIETY Ref 0 TAB Bethanechol (Bethanechol) 10 Mg Tab 10 MG PO Q8HR Urinary Symptom Managemen Ref 0 TAB Clobetasol Emollient Topical (Clobetasol Emollient Topical) 0.05% Cream 1 APPLIC TOPICAL BID #15 Ref 0 GM Colchicine (Colchicine) 0.6 Mg Cap 0.6 MG PO DAILY Gout Ref 0 CAP Dimethyl Fumarate (Tecfidera) 240 Mg Cap 240 MG PO BID Multiple sclerosis #60 Ref 0 CAP Dronabinol (Dronabinol) 2.5 Mg Cap 2.5 MG PO BID Ref [address] (Duloxetine DR) 60 Mg Capdr 60 MG PO DAILY #30 Ref 0 CAP Fluticasone-Salmeterol Inh (Advair Diskus Inh) 100-50 Mcg/Blist Aer 1 PUFF INH BID Rinse mouth after use. Asthma Management #1 Ref 0 INHALER Mupirocin Topical (Mupirocin Topical) 2 % Oint 1 APPLIC TOPICAL BID Mgmt Bacterial Infection #1 Ref 0 TUBE Ondansetron (Ondansetron) 8 Mg Tab 8 MG PO TID Nausea/Vomiting Ref 0 TAB Oxycodone-Acetaminophen (Percocet) 5-325 mg Tab 1 TAB PO Q6H PRN PAIN Ref 0 TAB Pregabalin (Lyrica) 100 Mg Cap 100 MG PO DAILY #30 Ref 0 CAP Rosuvastatin (Rosuvastatin) 5 Mg Tab 5 MG PO DAILY Cholesterol Management #30 Ref 0 TAB Tizanidine (Tizanidine) 4 Mg Cap 4 MG PO TID Muscle Spasm Ref 0 CAP Zolpidem (Zolpidem) 10 Mg Tab 10 MG PO HS PRN INSOMNIA Ref 0 TAB Discontinued Medications: Furosemide (Furosemide) 40 Mg Tab 40 MG PO DAILY #30 Ref 0 TAB Propranolol (Propranolol) 20 Mg Tab 20 MG PO Q12HR #60 Ref 0 TAB Additional Information to have repeat blood work this sunday Bib Boles MD Jan 31, 2017 16:08
== END 2017-01-31 17:27 | disposition home or self-care (01) | DRG 641 ==
LOC: PHED 12:54 → PHEDA 15:31 → PH3B 17:20
PROVIDERS: ADMIT Internal Medicine; ATTEND Internal Medicine
DX: E87.6 Hypokalemia (principal); E86.0 Dehydration; N17.9 Acute kidney failure, unspecified; I11.0 Hypertensive heart disease with heart failure; E83.51 Hypocalcemia; I50.9 Heart failure, unspecified; G35 Multiple sclerosis; K31.84 Gastroparesis; E78.5 Hyperlipidemia, unspecified; K27.9 Peptic ulcer, site unspecified, unspecified as acute or chronic, without hemorrhage or perforation; E11.9 Type 2 diabetes mellitus without complications; J44.9 Chronic obstructive pulmonary disease, unspecified; J45.909 Unspecified asthma, uncomplicated; K21.9 Gastro-esophageal reflux disease without esophagitis; F17.210 Nicotine dependence, cigarettes, uncomplicated; Z86.73 Personal history of transient ischemic attack (TIA), and cerebral infarction without residual deficits; Z87.442 Personal history of urinary calculi
CPT/HCPCS: 80053; 81001; 82550; 82552; 83605; 83735; 84132; 84155; 84484; 85025; 87040; 93005; 96365; 96375; C9113; J0610; J2405; J3475; J3480; J7030; Q0167

== ENCOUNTER 2018-01-09 14:06 | Inpatient (IN) | payer MEDICARE ==
[~2018-01-09] VITALS: Ht 177.8 cm; Wt 83.6 kg
[2018-01-09] VITALS (29 sets, daily range): BP systolic 60–155; BP diastolic 28–78; PULSE 80–96; RESP 17–24; TEMP 97.7–100; O2SAT 91–100
[~2018-01-09 14:06] MED LIST changes: +ADVA100A INH; -ADVA250A INH; +ALPR0.5T3 PO; -ARIC5TAB PO; -AZIT250T74 PO; +BETH10TA2 PO; -BETH25TA PO; +CALC1TAB12 PO; +CALC500C16 PO; +CLOB0.0571 TOPICAL; +COLC1CAP3 PO; -COLC1TAB7 PO; -CYMB60CA PO; +DRON2.5C PO; +DULO1CAP3 PO; +EPINEPHrine HCL (1:10,000) 1 MG/10 ML SYRINGE IV ONE; +FURO1TAB62 PO; -FURO20 PO; +FURO40TA PO; +LEVA500T33 PO; +LYRI100C PO; +LYRI150C PO; -METO10TA PO; -METO25 PO; +METO25TA3 PO; -MORP30SU PO; +MUPI2OIN TOPICAL; +ONDA8TAB7 PO; -PERC10TA27 PO; +PERC5TAB12 PO; +POTA-163 PO; -POTA-243 PO; -PRED5TAB PO; +PROP10TA6 PO; -PROT40TA PO; +ROSU1TAB4 PO; -ROSU40 PO; +SODIUM BICARBONATE 8.4% INJ 50 MEQ/50 ML SYR IV ONE; -SUCR1TAB PO; -TIZA4 PO; +TIZA4CAP3 PO; +VARE1PAK3 PO; -XANA0.5T PO
[2018-01-09] MEDS ORDERED: NOREPINEPHRINE 4 MG/4 ML AMP ONE (14:13)
[2018-01-09] MEDS ORDERED: SODIUM CHLOR 0.9% 1000 ML INJ 1,000 ML IV ONE ×2 (14:30)
[2018-01-09] MEDS ORDERED: TERBUTALINE INJ 1 MG/ML AMP SQ PRN (14:30)
--- NOTE | 2018-01-09 14:37 | PD ---
HPI Chief Complaint: Code Blue Time Seen by Provider: 14:15 Travel History International Travel<30 days: No Contact w/Intl Traveler<30days: No Traveled to known affect area: No History of Present Illness HPI The patient was seen and examined in the presence of the nurse. I am told by paramedics that this patient went down for a nap at noon. At 1 PM a family member found her unresponsive and not breathing. Paramedics were called. The patient was found pulseless and apneic. She was in PEA and CPR was initiated. She was given 2 rounds of epinephrine and intubated. After 10 minutes of CPR she regained a pulse. She never regained consciousness. She arrives intubated and unresponsive with a GCS of 3. She cannot provide any history or review of systems. PFSH Past Medical History Hx Anticoagulant Therapy: No Arthritis: Yes Asthma: Yes Blood Disorders: No Anxiety: Yes Depression: No Heart Rhythm Problems: Yes ("SKIPS A BEAT") Cancer: No Cardiovascular Problems: No High Cholesterol: Yes Chest Pain: Yes Congestive Heart Failure: Yes COPD: Yes Cerebrovascular Accident: Yes (TIA) Diabetes: No Diminished Hearing: No Endocrine: No Gastrointestinal Disorders: Yes GERD: Yes Genitourinary: Yes Headaches: Yes Hiatal Hernia: Yes Hypertension: Yes Immune Disorder: No Implanted Vascular Access Dvce: Yes (NOT OF 01/22/16, PER ) Kidney Stones: Yes (pt estimated 20-25 years ago) Musculoskeletal: Yes Neurologic: No Psychiatric: Yes Reproductive: No Respiratory: Yes Renal Failure: No Sleep Apnea: No Ulcer: Yes PNEUMOCCOCAL Vaccine (Year): 2 Menopausal: Yes Past Surgical History Abdominal Surgery: No Appendectomy: Yes (TOOK OUT WITH OTHER SURGERY) Body Medical Devices: ALLEGRA RIGHT LEG, 2 PLATES,8 SCREWS IN NECK Cardiac Surgery: No Cholecystectomy: Yes Ear Surgery: No Endocrine Surgery: No Eye Surgery: No Genitourinary Surgery: No Gynecologic Surgery: Yes (hysterectomy) Hysterectomy: Yes Joint Replacement: Yes (PLATES AND RODS) Neurologic Surgery: Yes Oral Surgery: No Thoracic Surgery: No Tonsillectomy: Yes Other Surgery: Yes (RECTAL FISSURE 12/2005, 2 L BREAST BIOPSIES, JACKIE-BSO @ AGE 27) Social History Tobacco Use: Yes (family reports 1PPD or greater smoking) Substance Use: No Allergies-Medications (Allergen,Severity, Reaction): Coded Allergies: No Known Allergies (Verified Adverse Reaction, Unknown, 01/09/18) Reported Meds & Prescriptions Reported Meds & Active Scripts Active Active Prescriptions or Reported Medications Unobtainable Review of Systems ROS Limitations: Clinical Condition, Intubated, Altered Mental Status, Unresponsive, Poor Historian Physical Exam Narrative GENERAL: Well-nourished, well-developed patient who is intubated and unresponsive . SKIN: Focused skin assessment reveals no rash and nodules. Skin is Warm and dry. HEAD: Atraumatic. Normocephalic. EYES: Pupils are detailed below. No scleral icterus. No injection or drainage. She has no corneal reflex ENT: No nasal bleeding or discharge. Mucous membranes pink and moist. NECK: Trachea midline. No JVD. CARDIOVASCULAR: Regular rate and rhythm. No murmur appreciated. RESPIRATORY: No accessory muscle use. Clear to auscultation. Breath sounds equal bilaterally. GASTROINTESTINAL: Abdomen soft, non-tender, nondistended. Hepatic and splenic margins not palpable. MUSCULOSKELETAL: No obvious deformities. No clubbing. No cyanosis. No edema. NEUROLOGICAL: Unresponsive. GCS 3. She has unequal pupils. Both are round and fixed. Left is 5 mm in the right is 7 mm. She is nonverbal. Unresponsive to pain stimuli. Impossible to test motor strength or sensation PSYCHIATRIC: Impossible to test mood and affect; insight and judgment poor . Data Data Last Documented VS Vital Signs Date Time Temp Pulse Resp B/P (MAP) Pulse Ox O2 Delivery O2 Flow Rate FiO2 01/09/18 18:00 90 20 134/68 (90) 100 Ventilator 100 01/09/18 14:45 98.8 01/09/18 14:33 2.00 Orders Orders Norepinephrine Inj (Levophed Inj) (01/09/18 14:13) Iv Access Insert/Monitor (01/09/18 14:26) Chest, Single Ap (01/09/18 ) Arterial Blood Gas (Abg) (01/09/18 ) Complete Blood Count With Diff (01/09/18 14:26) Comprehensive Metabolic Panel (01/09/18 14:26) Prothrombin Time / Inr (Pt) (01/09/18 14:26) Act Partial Throm Time (Ptt) (01/09/18 14:26) Ckmb (Isoenzyme) Profile (01/09/18 14:26) Troponin I (01/09/18 14:26) Electrocardiogram (01/09/18 ) Ct Brain W/O Iv Contrast(Rout) (01/09/18 ) Sodium Chlor 0.9% 1000 Ml Inj (Ns 1000 M (01/09/18 14:30) Sodium Chlor 0.9% 1000 Ml Inj (Ns 1000 M (01/09/18 14:30) Urinary Catheter Insert/Apply (01/09/18 14:26) Rosey-Gastric Tube Insert/Mon (01/09/18 14:26) Electrical Wiring Lineman / Telemetry TIM.Q8H (01/09/18 14:26) Terbutaline Inj (Brethine Inj) (01/09/18 14:30) Piperacil-Tazo 3.375 Gm Premix (Zosyn 3. (01/09/18 15:15) Restraints Non-Violent TIM.Q3H (01/09/18 15:51) Propofol 1000 Mg/100 Ml Inj (Diprivan 10 (01/09/18 16:00) CKMB (01/09/18 14:32) CKMB% (01/09/18 14:32) Labs Laboratory Tests Test 01/09/18 14:32 01/09/18 14:40 White Blood Count 17.1 TH/MM3 Red Blood Count 3.30 MIL/MM3 Hemoglobin 9.7 GM/DL Hematocrit 29.9 % Mean Corpuscular Volume 90.7 FL Mean Corpuscular Hemoglobin 29.5 PG Mean Corpuscular Hemoglobin Concent 32.6 % Red Cell Distribution Width 17.7 % Platelet Count 354 TH/MM3 Mean Platelet Volume 9.0 FL Neutrophils (%) (Auto) 89.5 % Lymphocytes (%) (Auto) 4.6 % Monocytes (%) (Auto) 5.7 % Eosinophils (%) (Auto) 0.1 % Basophils (%) (Auto) 0.1 % Neutrophils # (Auto) 15.3 TH/MM3 Lymphocytes # (Auto) 0.8 TH/MM3 Monocytes # (Auto) 1.0 TH/MM3 Eosinophils # (Auto) 0.0 TH/MM3 Basophils # (Auto) 0.0 TH/MM3 CBC Comment AUTO DIFF Differential Total Cells Counted 100 Neutrophils % (Manual) 83 % Band Neutrophils % 9 % Lymphocytes % 3 % Monocytes % 5 % Neutrophils # (Manual) 15.7 TH/MM3 Differential Comment FINAL DIFF MANUAL Platelet Estimate NORMAL Platelet Morphology Comment NORMAL Prothrombin Time 12.8 SEC Prothromb Time International Ratio 1.3 RATIO Activated Partial Thromboplast Time 27.6 SEC Blood Urea Nitrogen 20 MG/DL Creatinine 2.02 MG/DL Random Glucose 158 MG/DL Total Protein 6.3 GM/DL Albumin 2.5 GM/DL Calcium Level 8.2 MG/DL Alkaline Phosphatase 145 U/L Aspartate Amino Transf (AST/SGOT) 1492 U/L Alanine Aminotransferase (ALT/SGPT) 633 U/L Total Bilirubin 0.4 MG/DL Sodium Level 138 MEQ/L Potassium Level 3.9 MEQ/L Chloride Level 98 MEQ/L Carbon Dioxide Level 22.1 MEQ/L Anion Gap 18 MEQ/L Estimat Glomerular Filtration Rate 25 ML/MIN Total Creatine Kinase 128 U/L Creatine Kinase MB 2.3 NG/ML Troponin I 0.11 NG/ML Blood Gas Puncture Site RT BRACHIAL Blood Gas Patient Temperature 97.9 Blood Gas HCO3 23 mmol/L Blood Gas Base Excess -2.8 mmol/L Blood Gas Oxygen Saturation 91 % Arterial Blood pH 7.28 Arterial Blood Partial Pressure CO2 50 mmHg Arterial Blood Partial Pressure O2 80 mmHG Arterial Blood Oxygen Content 10.9 Vol % Arterial Blood Carboxyhemoglobin 2.4 % Arterial Blood Methemoglobin 1.0 % Blood Gas Hemoglobin 8.4 G/DL Oxygen Delivery Device VENT Blood Gas Ventilator Setting AC500/16/PEEP5 Blood Gas Inspired Oxygen 100 % MDM Medical Decision Making Medical Screen Exam Complete: Yes Emergency Medical Condition: Yes Medical Record Reviewed: Yes Differential Diagnosis Cardiac arrhythmia, AK, PE, overdose Narrative Course I have reviewed the patient's electronic medical record. Patient was discharged from the hospital approximately 1 week ago. She was intubated and diagnosed with ARDS and pneumonia. Also was found to have polysubstance abuse Patient arrives critically ill and postcode She is in a sinus rhythm at the 80s with blood pressure in the 60s systolic on manual check 3 IVs are placed I gave her 2 L normal saline IV bolus and initiated Levophed drip Extensive workup is ordered I suspect patient has suffered some degree of hypoxic brain injury given her poor neurologic status. She was intubated with no medications and remains on no sedation. I reviewed her chest x-ray which shows areas of consolidation. I gave her a dose of IV Zosyn ABG is reviewed. She has some respiratory acidosis with a normal bicarbonate. Mechanical ventilation should blow off some of the CO2. I have ordered labs although I suspect cardiac enzymes are going to be elevated given 10 minutes of CPR and will have to be interpreted in light of that. Troponin is 0.11 EKG does not show any ST elevation. She is in a sinus rhythm at 80 Blood pressure is now up to 140 systolic on the Levophed I initiated to prevent drip and placed her in restraints that she started to spontaneously move her right hand and both feet. She was starting to chew on the tube. Case reviewed with automobile rental clerk Patient has elevated LFTs, possible shock liver from extended down time Sodium and potassium and creatinine are all normal Critical Care Narrative Aggregate critical care time was 90 minutes. Time to perform other separately billable procedures was not included in the critical care time. My time did not include minutes spent treating any other patients simultaneously or on activities that did not directly contribute to the patient's treatment. The services I provided to this patient were to treat and/or prevent clinically significant deterioration that could result in: Further deterioration of poor neurologic status, hypoxemic brain injury, loss of airway, I provided critical care services requiring my management, as noted below: Chart data review, documentation time, medication orders and management, vital sign assessments/reviewing monitor data, ordering and reviewing lab tests, ordering and interpreting/reviewing x-rays and diagnostic studies, care of the patient and discussion of the patient with the admitting physicians. Admitting Information Admitting Physician Requests: Admit Scripts Unable to Obtain Active Prescriptions or Reported Serafin Coon MD Jan 09, 2018 14:37
--- NOTE | 2018-01-09 15:05 | RADRPT ---
EXAM DATE/TIME: 01/09/2018 14:44 [facility] COMPARISON: CHEST SINGLE AP, January 02, 2018, 3:54. INDICATIONS : Post intubation. MEDICAL HISTORY : Unobtainable. SURGICAL HISTORY : Unobtainable. ENCOUNTER: Initial ACUITY: 1 day PAIN SCORE: Non-responsive. LOCATION: Bilateral chest FINDINGS: Mild motion degradation of the image. Interval intubation with endotracheal tube tip 5.5 cm above th e rohan. Gastric tube traverses the [id number]. Patchy airspace opacities throughout both lungs with partial areas of consolidation laterally has developed since the prior exam. Both hemidiaphrag ms are well delineated. The heart is normal in size. Anterior plate in the cervical region. CONCLUSION: 1. ET tube in good position. 2. Interval development of diffuse bilateral airspace opacities. Markus Phillips MD on January 09, 2018 at 15:01 Board Certified Radiologist. This report was verified electronically.
[2018-01-09 15:08] LABS: INTERNATIONAL NORMALIZED RATIO 1.3 RATIO; PROTHROMBIN TIME - PATIENT 12.8 SEC (9.8-11.6)
[2018-01-09] MEDS ORDERED: PIPERACIL-TAZO 3.375 GM PREMIX 50 ML IV ONE (15:15)
[2018-01-09 15:28] LABS: AUTOMATED NEUTROPHIL # 15.3 TH/MM3 (1.8-7.7); BASOPHIL % 0.1 % (0.0-2.0); EOSINOPHIL % 0.1 % (0.0-4.0); HEMATOCRIT 29.9 % (35.0-46.0); HEMOGLOBIN 9.7 GM/DL (11.6-15.3); LYMPH % 4.6 % (9.0-44.0); LYMPHOCYTE # 0.8 TH/MM3 (1.0-4.8); MEAN CELL VOLUME 90.7 FL (80.0-100.0); MEAN CORPUSCULAR HEMOGLOBIN 29.5 PG (27.0-34.0); MEAN CORPUSCULAR HGB CONC 32.6 % (32.0-36.0); MONO % 5.7 % (0.0-8.0); NEUT % 89.5 % (16.0-70.0); PLATELET COUNT 354 TH/MM3 (150-450); RED CELL DISTRIBUTION WIDTH 17.7 % (11.6-17.2); WHITE BLOOD COUNT 17.1 TH/MM3 (4.0-11.0)
[2018-01-09 15:53] LABS: ALKALINE PHOSPHATASE 145 U/L (45-117); AST (GOT) 1492 U/L (15-37); TOTAL BILIRUBIN ADULT 0.4 MG/DL (0.2-1.0); TOTAL PROTEIN 6.3 GM/DL (6.4-8.2); TROPONIN I 0.11 NG/ML (0.02-0.05)
[2018-01-09] MEDS ORDERED: PROPOFOL 1000 MG/100 ML INJ 100 ML IV PRN (16:00)
--- NOTE | 2018-01-09 16:02 | RADRPT ---
EXAM DATE/TIME: 01/09/2018 15:39 [facility] COMPARISON: CT BRAIN W/O CONTRAST, December 30, 2017, 11:49. INDICATIONS : Post code, altered mental status. RADIATION DOSE: 56.35 CTDIvol (mGy) MEDICAL HISTORY : Cardiovascular disease. Hypertension. Chronic obstructive pulmonary disease.syncope, asthma, SURGICAL HISTORY : Hysterectomy. ENCOUNTER: Initial ACUITY: 1 day PAIN SCALE: 0/10 LOCATION: cranial TECHNIQUE: Multiple contiguous axial images were obtained of the head. Using automated exposure control and adj ustment of the mA and/or kV according to patient size, radiation dose was kept as low as reasonably a chievable to obtain optimal diagnostic quality images. DICOM format image data is available electro nically for review and comparison. FINDINGS: CEREBRUM: Diffuse decreased attenuation in the supratentorial white matter and old lacunar infarct in left thal amus a similar appearance to prior. The ventricles are mildly prominent, stable. There is good najera -white matter differentiation. No evidence of mass effect, acute blood products, or acute infarction . No extra-axial fluid collections seen. POSTERIOR FOSSA: The cerebellum and brainstem are intact. The 4th ventricle is midline. The cerebellopontine angle i s unremarkable. EXTRACRANIAL: The visualized portion of the orbits is intact. The visualized portion of the paranasal sinuses are clear. No air fluid level in the sphenoid sinuses. SKULL: The calvaria is intact. No evidence of skull fracture. CONCLUSION: 1. No acute findings in the brain. No evidence of acute hemorrhage. 2. Stable diffuse ischemic demyelination and left lacunar infarcts. Markus Phillips MD on January 09, 2018 at 15:57 Board Certified Radiologist. This report was verified electronically.
[2018-01-09 16:57] LABS: BANDS 9 % (0-6); LYMPHOCYTES 3 % (9-44); MONOCYTES 5 % (0-8); NEUTROPHIL # MANUAL DIFF 15.7 TH/MM3 (1.8-7.7); POLYS (SEG NEUTROPHILS) 83 % (16-70)
[2018-01-09 17:44] LABS: BLOOD UREA NITROGEN 20 MG/DL (7-18); CREATININE 2.02 MG/DL (0.50-1.00); GLOMERULAR FILTRATION RATE 25 ML/MIN (>89)
[2018-01-09 17:45] LABS: ALBUMIN 2.5 GM/DL (3.4-5.0); ALT (GPT) 633 U/L (10-53); BICARBONATE 22.1 MEQ/L (21.0-32.0); CALCIUM 8.2 MG/DL (8.5-10.1); CHLORIDE 98 MEQ/L (98-107); GLUCOSE,RANDOM 158 MG/DL (74-106); SODIUM (NA) 138 MEQ/L (136-145)
[2018-01-09] MEDS ORDERED: MISCELLANEOUS NURSING INFORMATION XX SCH (19:30)
[2018-01-09] MEDS ORDERED: CHLORHEXIDINE GLUCONATE 2 % 1 PACK (2 CLOTHS) TOP PRN (19:30)
[2018-01-09] MEDS ORDERED: ACETAMINOPHEN 325 MG TAB PO PRN (19:30)
[2018-01-09] MEDS ORDERED: RESP: ALBUTEROL 2.5 MG/IPRATROPIUM 0.5 MG NEB (PRN) INH (19:30)
[2018-01-09] MEDS ORDERED: ACETAMINOPHEN/HYDROcodone 325 MG/5 MG TAB PO PRN (19:30)
[2018-01-09] MEDS ORDERED: Vancomycin Consult Pharmacy 1 EA OTHER SCH (19:45)
--- NOTE | 2018-01-09 19:56 | HHI.HP ---
HPI Service Critical Care Medicine Primary Care Physician Unknown Admission Diagnosis cardiac arrest,unresponsive,?hypoxic brain injury Diagnosis: Chief Complaint: Cardiac arrest Travel History International Travel<30 Days: No Contact w/Intl Traveler <30 Da: No Traveled to Known Affected Are: No History of Present Illness HPI 62-year-old female with a medical history significant for multiple sclerosis, asthma, COPD who was recently discharged after being admitted for pneumonia from which she was intubated in the ICU for a few days following extubation patient insisted on being discharged on the floor and was discharged on 01/03 on by mouth antibiotics. According to the POA she was doing okay at home however was extremely tired. Per documentation by ER physician the patient went down for a nap at noon. At 1 PM a family member found her unresponsive and not breathing. Paramedics were called. The patient was found pulseless and apneic. She was in PEA and CPR was initiated. She was given 2 rounds of epinephrine and intubated. After 10 minutes of CPR she regained a pulse. She never regained consciousness. She arrives intubated and unresponsive with a GCS of 3. She cannot provide any history or review of systems. Patient was started on Levophed for pressor support and received IV Zosyn in the ER. Her chest x-ray showed bilateral infiltrates. She was also noted have a creatinine of 2 and a borderline elevated troponin. Head CT was negative for any bleed. Patient was accepted for admission by critical care medicine service. When I evaluated the patient she was sedated with propofol 10 mics per KG per minute and was on Levophed 4 mics per minute with a systolic blood pressure of 155. She was arousable easily and focused at me during my exam. Per patient's daughter who is also at the bedside she was trying to mouth words at her earlier. History was obtained by reviewing records and discussion with patient' s POA as well as daughter. History PFSH Past Medical History Hx Anticoagulant Therapy: No Arthritis: Yes Asthma: Yes Blood Disorders: No Anxiety: Yes Depression: No Heart Rhythm Problems: Yes ("SKIPS A BEAT") Cancer: No Cardiovascular Problems: No High Cholesterol: Yes Chest Pain: Yes Congestive Heart Failure: Yes COPD: Yes Cerebrovascular Accident: Yes (TIA) Diabetes: No Diminished Hearing: No Endocrine: No Gastrointestinal Disorders: Yes GERD: Yes Genitourinary: Yes Headaches: Yes Hiatal Hernia: Yes Hypertension: Yes Immune Disorder: No Implanted Vascular Access Dvce: Yes (NOT OF 01/22/16, PER ) Kidney Stones: Yes (pt estimated 20-25 years ago) Musculoskeletal: Yes Neurologic: No Psychiatric: Yes Reproductive: No Respiratory: Yes Renal Failure: No Sleep Apnea: No Ulcer: Yes PNEUMOCCOCAL Vaccine (Year): 2 Menopausal: Yes Past Surgical History Abdominal Surgery: No Appendectomy: Yes (TOOK OUT WITH OTHER SURGERY) Body Medical Devices: ALLEGRA RIGHT LEG, 2 PLATES,8 SCREWS IN NECK Cardiac Surgery: No Cholecystectomy: Yes Ear Surgery: No Endocrine Surgery: No Eye Surgery: No Genitourinary Surgery: No Gynecologic Surgery: Yes (hysterectomy) Hysterectomy: Yes Joint Replacement: Yes (PLATES AND RODS) Neurologic Surgery: Yes Oral Surgery: No Thoracic Surgery: No Tonsillectomy: Yes Other Surgery: Yes (RECTAL FISSURE 12/2005, 2 L BREAST BIOPSIES, JACKIE-BSO @ AGE 27) Social History Tobacco Use: Yes (family reports 1PPD or greater smoking) Substance Use: No Allergies-Medications Allergies-Medications (Allergen,Severity, Reaction): Coded Allergies: No Known Allergies (Verified Adverse Reaction, Unknown, 01/09/18) Reported Meds & Prescriptions Reported Meds & Active Scripts Active Active Prescriptions or Reported Medications Unobtainable ROS Review of Systems ROS Limitations: Clinical Condition, Intubated, sedated on mechanical ventilation Physical Exam Vital Signs Vital Signs Date Time Temp Pulse Resp B/P (MAP) Pulse Ox O2 Delivery O2 Flow Rate FiO2 01/09/18 19:00 100.0 93 19 144/65 (91) 100 Ventilator 70 01/09/18 18:59 70 01/09/18 18:45 96 155/74 (101) 01/09/18 18:30 90 147/68 (94) 01/09/18 18:15 90 138/70 (92) 01/09/18 18:00 90 20 134/68 (90) 100 Ventilator 100 01/09/18 17:30 92 136/72 (93) 01/09/18 17:15 93 146/78 (100) 01/09/18 17:00 88 19 139/72 (94) 100 Ventilator 100 01/09/18 16:45 86 132/65 (87) 01/09/18 16:30 87 130/59 (82) 01/09/18 16:15 86 132/61 (84) 01/09/18 16:00 83 18 106/58 (74) 100 Ventilator 100 01/09/18 15:45 84 111/60 (77) 01/09/18 15:30 82 118/70 (86) 01/09/18 15:15 80 102/55 (71) 01/09/18 15:00 80 20 89/52 (64) 100 Ventilator 100 01/09/18 14:58 100 01/09/18 14:45 98.8 84 22 111/59 (76) 98 Ventilator 100 01/09/18 14:43 84 98/55 01/09/18 14:34 100 100 01/09/18 14:33 97.7 83 24 128/54 (78) 99 Auto-Vent 2.00 01/09/18 14:24 70/31 (44) 01/09/18 14:16 83 20 60/28 (39) 99 Auto-Vent Automatic Cuff 01/09/18 14:16 20 99 Auto-Vent 100 Physical Exam HEENT/ Neuro: Sedated, arousable, pupils 3 mm bilaterally reactive, opens eyes on stimulation. Orally intubated, Pallor present, no icterus, tongue/ mucosa moist Neck: No JVD Chest/Pulm: on mech vent, good air entry bilaterally, bilateral rhonchi, no wheezing or crackles CVS: S1-S2 regular, no murmur GI/abdomen: soft, nontender, bowel sounds sluggish Extremities: warm bilaterally, no edema Laboratory Laboratory Tests Test 01/09/18 14:32 01/09/18 14:40 White Blood Count 17.1 Red Blood Count 3.30 Hemoglobin 9.7 Hematocrit 29.9 Mean Corpuscular Volume 90.7 Mean Corpuscular Hemoglobin 29.5 Mean Corpuscular Hemoglobin Concent 32.6 Red Cell Distribution Width 17.7 Platelet Count 354 Mean Platelet Volume 9.0 Neutrophils (%) (Auto) 89.5 Lymphocytes (%) (Auto) 4.6 Monocytes (%) (Auto) 5.7 Eosinophils (%) (Auto) 0.1 Basophils (%) (Auto) 0.1 Neutrophils # (Auto) 15.3 Lymphocytes # (Auto) 0.8 Monocytes # (Auto) 1.0 Eosinophils # (Auto) 0.0 Basophils # (Auto) 0.0 CBC Comment AUTO DIFF Differential Total Cells Counted 100 Neutrophils % (Manual) 83 Band Neutrophils % 9 Lymphocytes % 3 Monocytes % 5 Neutrophils # (Manual) 15.7 Differential Comment FINAL DIFF MANUAL Platelet Estimate NORMAL Platelet Morphology Comment NORMAL Prothrombin Time 12.8 Prothromb Time International Ratio 1.3 Activated Partial Thromboplast Time 27.6 Blood Urea Nitrogen 20 Creatinine 2.02 Random Glucose 158 Total Protein 6.3 Albumin 2.5 Calcium Level 8.2 Alkaline Phosphatase 145 Aspartate Amino Transf (AST/SGOT) 1492 Alanine Aminotransferase (ALT/SGPT) 633 Total Bilirubin 0.4 Sodium Level 138 Potassium Level 3.9 Chloride Level 98 Carbon Dioxide Level 22.1 Anion Gap 18 Estimat Glomerular Filtration Rate 25 Total Creatine Kinase 128 Creatine Kinase MB 2.3 Troponin I 0.11 Blood Gas Puncture Site RT BRACHIAL Blood Gas Patient Temperature 97.9 Blood Gas HCO3 23 Blood Gas Base Excess -2.8 Blood Gas Oxygen Saturation 91 Arterial Blood pH 7.28 Arterial Blood Partial Pressure CO2 50 Arterial Blood Partial Pressure O2 80 Arterial Blood Oxygen Content 10.9 Arterial Blood Carboxyhemoglobin 2.4 Arterial Blood Methemoglobin 1.0 Blood Gas Hemoglobin 8.4 Oxygen Delivery Device VENT Blood Gas Ventilator Setting AC500/16/PEEP5 Blood Gas Inspired Oxygen 100 Result Diagram: 01/09/18 1432 01/09/18 1432 Imaging Last Impressions Head CT 01/09/18 0000 Signed Impressions: Service Date/Time: Tuesday, January 09, 2018 15:39 - CONCLUSION: 1. No acute findings in the brain. No evidence of acute hemorrhage. 2. Stable diffuse ischemic demyelination and left lacunar infarcts. Markus Phillips MD Chest X-Ray 01/09/18 0000 Signed Impressions: Service Date/Time: Tuesday, January 09, 2018 14:44 - CONCLUSION: 1. ET tube in good position. 2. Interval development of diffuse bilateral airspace opacities. Markus Phillips MD Septic Shock Reassessment Septic shock perfusion: reassessment completed Caprini VTE Risk Assessment Caprini VTE Risk Assessment: Mod/High Risk (score >= 2) Caprini Risk Assessment Model Point Value = 1 Point Value = 2 Point Value = 3 Point Value = 5 Age 41-60 Minor surgery BMI > 25 kg/m2 Swollen legs Varicose veins or History of unexplained or recurrent spontaneous Oral contraceptives or hormone replacement Sepsis (< 1 month) Serious lung disease, including pneumonia (< 1 month) Abnormal pulmonary function Acute myocardial infarction Congestive heart failure (< 1 month) History of inflammatory bowel disease Medical patient at bed rest Age 61-74 Arthroscopic surgery Major open surgery (> 45 min) Laparoscopic surgery (> 45 min) Malignancy Confined to bed (> 72 hours) Immobilizing plaster cast Central venous access Age >= 75 History of VTE Family history of VTE Factor V Leiden Prothrombin [id number] Lupus anticoagulant Anticardiolipin antibodies Elevated serum homocysteine Heparin-induced thrombocytopenia Other congenital or acquired thrombophilia Stroke (< 1 month) Elective arthroplasty Hip, pelvis, or leg fracture Acute spinal cord injury (< 1 month) Prophylaxis Regimen Total Risk Factor Score Risk Level Prophylaxis Regimen 0-1 Low Early ambulation 2 Moderate Order ONE of the following: *Sequential Compression Device (SCD) *Heparin 5000 units SQ BID 3-4 Higher Order ONE of the following medications: *Heparin 5000 units SQ TID *Enoxaparin/Lovenox 40 mg SQ daily (WT < 150 kg, CrCl > 30 mL/min) *Enoxaparin/Lovenox 30 mg SQ daily (WT < 150 kg, CrCl > 10-29 mL/min) *Enoxaparin/Lovenox 30 mg SQ BID (WT < 150 kg, CrCl > 30 mL/min) AND/OR *Sequential Compression Device (SCD) 5 or more Highest Order ONE of the following medications: *Heparin 5000 units SQ TID (Preferred with Epidurals) *Enoxaparin/Lovenox 40 mg SQ daily (WT < 150 kg, CrCl > 30 mL/min) *Enoxaparin/Lovenox 30 mg SQ daily (WT < 150 kg, CrCl > 10-29 mL/min) *Enoxaparin/Lovenox 30 mg SQ BID (WT < 150 kg, CrCl > 30 mL/min) AND *Sequential Compression Device (SCD) Assessment and Plan Assessment and Plan 62-year-old female with: Cardiac arrest/PEA status post CPR Acute respiratory failure on mechanical ventilation Bilateral pneumonia Positive troponin ARIADNA Elevated LFTs Recent admission with pneumonia COPD/ asthma History of multiple sclerosis Chronic pain Plan: Neuro: Sedation with propofol, fentanyl when necessary for pain. Neuro checks. Appears to be recognizing daughter earlier. Daily sedation vacation. Cardiovascular: Serial cardiac enzymes. Hypotensive on arrival however Levophed being titrated down and will hopefully be weaned off in the next few hours as a systolic blood pressure is 155. Cardiology consult in view of elevated troponin. Patient was evaluated by Dr. Montilla during past admission. Pulmonary: Continue mechanical ventilation, vent bundle, bronchodilators as needed. Sputum to be sent for Gram stain and cultures. GI/liver: Follow LFTs. Suspect secondary to shock liver following cardiac arrest. Nothing by mouth for now. ID: Vancomycin IV, Zosyn for empiric antibiotic coverage. ID consult in view of worsening pneumonia despite antibiotics. Renal/: IV hydration, strict intake output, monitor and replete electro lites , follow BUN creatinine. Elevated creatinine noted. Endocrine: SSI for glycemic control as needed. Stress dose steroids as patient has been on chronic prednisone. Prophylaxis: PPI/SCDs/Lovenox Updated patient's daughter as well as POA at bedside regarding plan of care and they voiced understanding and were agreeable. Condition critical Time spent on critical care excluding procedures 70 minutes Gary Pimentel MD Jan 09, 2018 19:56
[2018-01-09] MEDS: CHLORHEXIDINE 0.12% (ORAL KIT) 15 ML CUP MT SCH (20:00)
[2018-01-09] MEDS ORDERED: RESP: ALBUTEROL 2.5 MG/IPRATROPIUM 0.5 MG NEB (PRN) NEB (20:45)
[2018-01-09] MEDS ORDERED: ENOXAPARIN SODIUM 40 MG/0.4 ML SYRINGE SQ SCH (21:00)
[2018-01-09] MEDS: SODIUM CHLORIDE 0.9% FLUSH 10 ML FLUSH IV FLUSH SCH (21:00)
[2018-01-09] MEDS ORDERED: FAMOTIDINE 20 MG/2 ML VIAL IV PUSH SCH (21:00)
[2018-01-09] MEDS ORDERED: VANCOMYCIN INJ 1,350 MG in SODIUM CHLORID 0.9% 500 ML INJ 500 ML IV ONE (21:00)
[2018-01-09] MEDS ORDERED: SODIUM CHLOR 0.9% 1000 ML INJ 1,000 ML IV SCH (21:00)
[2018-01-09] MEDS: HYDROCORTISONE SOD SUCCINATE 100 MG VIAL IV PUSH SCH ×2 (22:00→22:36)
[2018-01-09] MEDS ORDERED: PIPERACIL-TAZO 4.5 GM PREMIX 100 ML IV SCH (22:00)
[2018-01-09] MEDS: SODIUM CHLORIDE 0.9% FLUSH 10 ML FLUSH IV FLUSH PRN (22:34)
[2018-01-09] MEDS: CHLORHEXIDINE GLUCONATE 2 % 1 PACK (2 CLOTHS) TOP SCH (22:34)
[2018-01-09] MEDS: FAMOTIDINE 20 MG/2 ML VIAL IV PUSH SCH (22:35)
[2018-01-09] MEDS: PIPERACIL-TAZO 3.375 GM PREMIX 50 ML IV SCH (22:50)
[2018-01-09 23:59] LABS: TROPONIN I 0.23 NG/ML (0.02-0.05)
[2018-01-10] VITALS (19 sets, daily range): BP systolic 125–188; BP diastolic 61–83; PULSE 97–132; TEMP 98.8–99.8; O2SAT 94–100
[2018-01-10 04:23] LABS: AUTOMATED NEUTROPHIL # 8.1 TH/MM3 (1.8-7.7); BASOPHIL % 0.3 % (0.0-2.0); HEMOGLOBIN 8.4 GM/DL (11.6-15.3); LYMPH % 4.3 % (9.0-44.0); LYMPHOCYTE # 0.4 TH/MM3 (1.0-4.8); MEAN CELL VOLUME 87.1 FL (80.0-100.0); MEAN CORPUSCULAR HEMOGLOBIN 29.2 PG (27.0-34.0); MEAN CORPUSCULAR HGB CONC 33.6 % (32.0-36.0); MEAN PLATELET VOLUME 8.4 FL (7.0-11.0); MONO % 5.1 % (0.0-8.0); MONOCYTE # 0.5 TH/MM3 (0-0.9); NEUT % 90.3 % (16.0-70.0); PLATELET COUNT 269 TH/MM3 (150-450); RED BLOOD COUNT 2.88 MIL/MM3 (4.00-5.30); RED CELL DISTRIBUTION WIDTH 17.2 % (11.6-17.2)
[2018-01-10 05:05] LABS: ALBUMIN 2.3 GM/DL (3.4-5.0); ALKALINE PHOSPHATASE 148 U/L (45-117); ALT (GPT) 2180 U/L (10-53); AST (GOT) 4804 U/L (15-37); BICARBONATE 30.6 MEQ/L (21.0-32.0); BLOOD UREA NITROGEN 20 MG/DL (7-18); CALCIUM 8.2 MG/DL (8.5-10.1); CHLORIDE 104 MEQ/L (98-107); CREATININE 1.35 MG/DL (0.50-1.00); GLOMERULAR FILTRATION RATE 39 ML/MIN (>89); GLUCOSE,RANDOM 105 MG/DL (74-106); SODIUM (NA) 142 MEQ/L (136-145); TOTAL BILIRUBIN ADULT 0.4 MG/DL (0.2-1.0); TOTAL PROTEIN 5.9 GM/DL (6.4-8.2); TROPONIN I 0.22 NG/ML (0.02-0.05)
[2018-01-10] MEDS: HYDROCORTISONE SOD SUCCINATE 100 MG VIAL IV PUSH SCH ×3 (06:00→20:52)
[2018-01-10] MEDS: PIPERACIL-TAZO 3.375 GM PREMIX 50 ML IV SCH ×4 (06:56→20:52)
[2018-01-10 07:05] LABS: BANDS 12 % (0-6); LYMPHOCYTES 4 % (9-44); MONOCYTES 2 % (0-8); MYELOCYTES 1 % (0-0); NEUTROPHIL # MANUAL DIFF 8.5 TH/MM3 (1.8-7.7); POLYS (SEG NEUTROPHILS) 81 % (16-70)
--- NOTE | 2018-01-10 07:47 | PD.CONS ---
HPI Consult Requested By Primary Care Physician No Primary Care Physician History of Present Illness 62-year-old female with a past medical history of MS and a recent hospitalization for ARDS who presented after PEA arrest. Per report, the patient was feeling tired yesterday and yesterday afternoon a family member found her unresponsive and not breathing. Paramedics were called and found the patient pulseless and apneic. After 10 minutes of CPR she regained a pulse. The patient remains intubated, sedated, and unresponsive, no other history is able to be obtained. Her chest x-ray shows diffuse edema. Troponin is minimally elevated at 0.11, 0.23, 0.22 and is for this we are consulted. Telemetry with sinus tachycardia overnight. EKG with NSR and nonspecific anterolateral T-wave changes. Patient was recently seen by us on previous admission for elevated troponin thought to be demand mediated secondary to respiratory distress. Review of Systems ROS Limitations: Intubated, Altered Mental Status, Unresponsive Past Family Social History Allergies: Coded Allergies: No Known Allergies (Verified Allergy, Unknown, 01/09/18) Past Medical History Multiple sclerosis Chronic pain with chronic opiate therapy Past Surgical History Unable to obtain Reported Medications Reported Meds & Active Scripts Active Active Prescriptions or Reported Medications Unobtainable Active Ordered Medications Current Medications Medications (Trade) Dose Ordered Sig/Herminio Route Start Time Stop Time Status Last Admin (Brethine Inj) 1 mg UNSCH PRN SQ 01/09/18 14:30 Sodium Chloride 1,000 ml @ 75 mls/hr [id number] IV 01/09/18 21:00 01/09/18 22:50 (NS Flush) 2 ml UNSCH PRN IV FLUSH 01/09/18 19:30 (NS Flush) 2 ml BID IV FLUSH 01/09/18 21:00 (Tylenol) 650 mg Q6H PRN PO 01/09/18 19:30 ([place] 5-325 Mg) 1 tab Q4H PRN PO 01/09/18 19:30 (fentaNYL INJ) 100 mcg Q2HR PRN IV PUSH 01/09/18 19:30 (Duoneb Neb) 1 ampule Q2HR NEB PRN NEB 01/09/18 20:45 (Duoneb Neb) 1 ampule Q4HR NEB PRN INH 01/09/18 19:30 (Peridex 0.12% Liq) 15 ml BID@08,20 MT 01/09/18 20:00 01/09/18 20:00 (Lovenox Inj) 40 mg Q24H SQ 01/09/18 21:00 01/09/18 22:35 Miscellaneous Information 1 [id number] XX 01/09/18 19:30 (Chlorhexidine 2% Cloth) 3 pack Taper DAILY@04 TOP 01/10/18 04:00 01/06/19 03:59 01/09/18 22:34 (Chlorhexidine 2% Cloth) 3 pack UNSCH PRN TOP 01/09/18 19:30 Propofol 100 ml @ 2.7 mls/hr TITRATE PRN IV 01/09/18 19:30 Pharmacy Profile Note 0 ml @ 0 mls/hr UNSCH OTHER 01/09/18 19:45 (SoluCORTEF INJ) 100 mg Q8HR IV PUSH 01/09/18 20:00 01/10/18 06:00 Piperacillin Sod/ Tazobactam Sod 50 ml @ 100 mls/hr Q6H IV 01/09/18 22:00 01/10/18 06:56 (Pepcid Inj) 20 mg HS IV PUSH 01/09/18 21:30 01/09/18 22:35 Vancomycin HCl 1000 mg/Sodium Chloride 250 ml @ 250 mls/hr Q24H IV 01/10/18 23:00 Miscellaneous Information SPECIFIC LAB TO BE DRAWN:[facility] TROUGH DATE TO BE DRHeron.. ONCE ONCE .XX 01/12/18 22:45 01/12/18 22:46 Family History Unable to obtain Social History Tobacco use history Physical Exam Vital Signs Vital Signs Date Time Temp Pulse Resp B/P (MAP) Pulse Ox O2 Delivery O2 Flow Rate FiO2 01/10/18 06:00 98 01/10/18 04:34 96 50 01/10/18 04:00 99 01/10/18 04:00 50 01/10/18 04:00 98.8 99 153/72 (99) 98 01/10/18 02:00 104 01/10/18 00:13 97 50 01/10/18 00:00 50 01/10/18 00:00 97 01/10/18 00:00 99.0 97 162/73 (102) 98 Manual Cuff/Auscultation 01/09/18 22:00 95 01/09/18 21:00 87 01/09/18 21:00 50 01/09/18 20:46 01/09/18 20:41 98.9 89 17 122/64 (83) 91 01/09/18 20:38 100 50 01/09/18 20:00 93 136/65 (88) 100 Ventilator 70 01/09/18 19:45 94 130/64 (86) 100 Ventilator 70 01/09/18 19:30 92 128/58 (81) 100 Ventilator 70 01/09/18 19:15 92 134/61 (85) 100 Ventilator 70 01/09/18 19:00 100.0 93 19 144/65 (91) 100 Ventilator 70 01/09/18 18:59 70 01/09/18 18:45 96 155/74 (101) 01/09/18 18:30 90 147/68 (94) 01/09/18 18:15 90 138/70 (92) 01/09/18 18:00 90 20 134/68 (90) 100 Ventilator 100 01/09/18 17:30 92 136/72 (93) 01/09/18 17:15 93 146/78 (100) 01/09/18 17:00 88 19 139/72 (94) 100 Ventilator 100 01/09/18 16:45 86 132/65 (87) 01/09/18 16:30 87 130/59 (82) 01/09/18 16:15 86 132/61 (84) 01/09/18 16:00 83 18 106/58 (74) 100 Ventilator 100 01/09/18 15:45 84 111/60 (77) 01/09/18 15:30 82 118/70 (86) 01/09/18 15:15 80 102/55 (71) 01/09/18 15:00 80 20 89/52 (64) 100 Ventilator 100 01/09/18 14:58 100 01/09/18 14:45 98.8 84 22 111/59 (76) 98 Ventilator 100 01/09/18 14:43 84 98/55 01/09/18 14:34 100 100 01/09/18 14:33 97.7 83 24 128/54 (78) 99 Auto-Vent 2.00 01/09/18 14:24 70/31 (44) 01/09/18 14:16 83 20 60/28 (39) 99 Auto-Vent Automatic Cuff 01/09/18 14:16 20 99 Auto-Vent 100 Physical Exam GENERAL: Well-developed well-nourished. NECK: No carotid bruits. No JVD. CARDIOVASCULAR: Slightly tachycardic rate and rate rhythm. No murmur appreciated. RESPIRATORY: Coarse breath sounds and crackles present in all lung persaud. MUSCULOSKELETAL: No clubbing or cyanosis. No edema. NEUROLOGICAL: Intubated, sedated, mechanically ventilated. Laboratory Laboratory Tests Test 01/09/18 14:32 01/09/18 14:40 01/09/18 20:45 01/09/18 22:55 White Blood Count 17.1 Red Blood Count 3.30 Hemoglobin 9.7 Hematocrit 29.9 Mean Corpuscular Volume 90.7 Mean Corpuscular Hemoglobin 29.5 Mean Corpuscular Hemoglobin Concent 32.6 Red Cell Distribution Width 17.7 Platelet Count 354 Mean Platelet Volume 9.0 Neutrophils (%) (Auto) 89.5 Lymphocytes (%) (Auto) 4.6 Monocytes (%) (Auto) 5.7 Eosinophils (%) (Auto) 0.1 Basophils (%) (Auto) 0.1 Neutrophils # (Auto) 15.3 Lymphocytes # (Auto) 0.8 Monocytes # (Auto) 1.0 Eosinophils # (Auto) 0.0 Basophils # (Auto) 0.0 CBC Comment AUTO DIFF Differential Total Cells Counted 100 Neutrophils % (Manual) 83 Band Neutrophils % 9 Lymphocytes % 3 Monocytes % 5 Neutrophils # (Manual) 15.7 Differential Comment FINAL DIFF MANUAL Platelet Estimate NORMAL Platelet Morphology Comment NORMAL Prothrombin Time 12.8 Prothromb Time International Ratio 1.3 Activated Partial Thromboplast Time 27.6 Blood Urea Nitrogen 20 Creatinine 2.02 Random Glucose 158 Total Protein 6.3 Albumin 2.5 Calcium Level 8.2 Alkaline Phosphatase 145 Aspartate Amino Transf (AST/SGOT) 1492 Alanine Aminotransferase (ALT/SGPT) 633 Total Bilirubin 0.4 Sodium Level 138 Potassium Level 3.9 Chloride Level 98 Carbon Dioxide Level 22.1 Anion Gap 18 Estimat Glomerular Filtration Rate 25 Total Creatine Kinase 128 386 Creatine Kinase MB 2.3 7.1 Troponin I 0.11 0.23 Blood Gas Puncture Site RT BRACHIAL Blood Gas Patient Temperature 97.9 Blood Gas HCO3 23 Blood Gas Base Excess -2.8 Blood Gas Oxygen Saturation 91 Arterial Blood pH 7.28 Arterial Blood Partial Pressure CO2 50 Arterial Blood Partial Pressure O2 80 Arterial Blood Oxygen Content 10.9 Arterial Blood Carboxyhemoglobin 2.4 Arterial Blood Methemoglobin 1.0 Blood Gas Hemoglobin 8.4 Oxygen Delivery Device VENT Blood Gas Ventilator Setting AC500/16/PEEP5 Blood Gas Inspired Oxygen 100 Nasal Screen MRSA (PCR) MRSA NOT DETECTED Creatine Kinase MB % 1.8 Test 01/10/18 03:47 White Blood Count 9.0 Red Blood Count 2.88 Hemoglobin 8.4 Hematocrit 25.0 Mean Corpuscular Volume 87.1 Mean Corpuscular Hemoglobin 29.2 Mean Corpuscular Hemoglobin Concent 33.6 Red Cell Distribution Width 17.2 Platelet Count 269 Mean Platelet Volume 8.4 Neutrophils (%) (Auto) 90.3 Lymphocytes (%) (Auto) 4.3 Monocytes (%) (Auto) 5.1 Eosinophils (%) (Auto) 0.0 Basophils (%) (Auto) 0.3 Neutrophils # (Auto) 8.1 Lymphocytes # (Auto) 0.4 Monocytes # (Auto) 0.5 Eosinophils # (Auto) 0.0 Basophils # (Auto) 0.0 CBC Comment AUTO DIFF Differential Total Cells Counted 100 Neutrophils % (Manual) 81 Band Neutrophils % 12 Lymphocytes % 4 Monocytes % 2 Neutrophils # (Manual) 8.5 Myelocytes 1 Differential Comment FINAL DIFF MANUAL Platelet Estimate NORMAL Platelet Morphology Comment NORMAL Blood Urea Nitrogen 20 Creatinine 1.35 Random Glucose 105 Total Protein 5.9 Albumin 2.3 Calcium Level 8.2 Alkaline Phosphatase 148 Aspartate Amino Transf (AST/SGOT) 4804 Alanine Aminotransferase (ALT/SGPT) 2180 Total Bilirubin 0.4 Sodium Level 142 Potassium Level 3.0 Chloride Level 104 Carbon Dioxide Level 30.6 Anion Gap 7 Estimat Glomerular Filtration Rate 39 Total Creatine Kinase 384 Creatine Kinase MB 5.8 Creatine Kinase MB % 1.5 Troponin I 0.22 Date/Time Source Procedure Growth Status 01/09/18 23:00 Sputum Endotracheal Gram Stain Pending Received 01/09/18 23:00 Sputum Endotracheal Sputum Culture Pending Received Result Diagram: 01/10/18 0347 01/10/18 0347 Imaging Last Impressions Head CT 01/09/18 0000 Signed Impressions: Service Date/Time: Tuesday, January 09, 2018 15:39 - CONCLUSION: 1. No acute findings in the brain. No evidence of acute hemorrhage. 2. Stable diffuse ischemic demyelination and left lacunar infarcts. Markus Phillips MD Chest X-Ray 01/09/18 0000 Signed Impressions: Service Date/Time: Tuesday, January 09, 2018 14:44 - CONCLUSION: 1. ET tube in good position. 2. Interval development of diffuse bilateral airspace opacities. Markus Phillips MD Assessment and Plan Assessment and Plan 62-year-old female with a past medical history of MS and a recent hospitalization for ARDS who presented after PEA arrest. Per report, the patient was feeling tired yesterday and yesterday afternoon a family member found her unresponsive and not breathing. Paramedics were called and found the patient pulseless and apneic. After 10 minutes of CPR she regained a pulse. The patient remains intubated, sedated, and unresponsive, no other history is able to be obtained. Her chest x-ray shows diffuse edema. Troponin is minimally elevated at 0.11, 0.23, 0.22 and is for this we are consulted. Telemetry with sinus tachycardia overnight. EKG with NSR and nonspecific anterolateral T-wave changes. Patient was recently seen by us on previous admission for elevated troponin thought to be demand mediated secondary to respiratory distress. Status post PEA arrest: Intubated, sedated, mechanically ventilated. Management per customer experience manager. Troponin elevation: Troponins are minimally elevated likely secondary to multisystem organ failure secondary to hypoperfusion. Lavelle Perez Jan 10, 2018 07:47
[2018-01-10] MEDS: CHLORHEXIDINE 0.12% (ORAL KIT) 15 ML CUP MT SCH ×2 (09:07→20:00)
[2018-01-10] MEDS: SODIUM CHLORIDE 0.9% FLUSH 10 ML FLUSH IV FLUSH SCH ×2 (09:07→20:24)
--- NOTE | 2018-01-10 09:19 | HHI.CCPN ---
Subjective Remarks/Hospital Course 62-year-old female with a medical history significant for multiple sclerosis, asthma, COPD who was recently discharged after being admitted for pneumonia from which she was intubated in the ICU for a few days following extubation patient insisted on being discharged on the floor and was discharged on 01/03 on by mouth antibiotics. According to the POA she was doing okay at home however was extremely tired. Per documentation by ER physician the patient went down for a nap at noon. At 1 PM a family member found her unresponsive and not breathing. Paramedics were called. The patient was found pulseless and apneic. She was in PEA and CPR was initiated. She was given 2 rounds of epinephrine and intubated. After 10 minutes of CPR she regained a pulse. She never regained consciousness. She arrives intubated and unresponsive with a GCS of 3. She cannot provide any history or review of systems. Patient was started on Levophed for pressor support and received IV Zosyn in the ER. Her chest x-ray showed bilateral infiltrates. She was also noted have a creatinine of 2 and a borderline elevated troponin. Head CT was negative for any bleed. Patient was accepted for admission by critical care medicine service. When I evaluated the patient she was sedated with propofol 10 mics per KG per minute and was on Levophed 4 mics per minute with a systolic blood pressure of 155. She was arousable easily and focused at me during my exam. Per patient's daughter who is also at the bedside she was trying to mouth words at her earlier. History was obtained by reviewing records and discussion with patient' s POA as well as daughter. SUBJ 01/10: Remains intubated sedated, but wakes up easily follows commands. Remains in respiratory distress when sedation is lightened, continues to have significant bilateral rhonchi and coarse crackles all over the chest. Off pressors now hypotensive systolic blood pressure in 200s. Check BMP stat. Repeat chest x-ray pending. DC IV fluid, start IV Lasix 40 mg every 12 with IV albumin. Limited echo to evaluate for EF and also any new valvular regurgitation. Chek for Influenza, resp panel, start empiric TamiFlu Objective Vital Signs Date Time Temp Pulse Resp B/P (MAP) Pulse Ox O2 Delivery O2 Flow Rate FiO2 01/10/18 07:56 100 40 4/5/18 06:00 98 01/10/18 04:00 98.8 153/72 (99) 01/09/18 20:41 17 01/09/18 20:00 Ventilator 01/09/18 14:33 2.00 Intake and Output 01/10/18 01/10/18 01/11/18 08:00 16:00 00:00 Intake Total 513.5 ml Output Total 1200 ml Balance -686.5 ml Result Diagram: 01/10/18 0347 01/10/18 0347 Other Results Laboratory Tests Test 01/09/18 14:40 Blood Gas Puncture Site RT BRACHIAL Blood Gas Patient Temperature 97.9 Blood Gas HCO3 23 mmol/L (22-26) Blood Gas Base Excess -2.8 mmol/L (-2-2) Blood Gas Oxygen Saturation 91 % (90-100) Arterial Blood pH 7.28 (7.380-7.420) Arterial Blood Partial Pressure CO2 50 mmHg (38-42) Arterial Blood Partial Pressure O2 80 mmHG (61-120) Arterial Blood Oxygen Content 10.9 Vol % (12.0-20.0) Arterial Blood Carboxyhemoglobin 2.4 % (0-4) Arterial Blood Methemoglobin 1.0 % (0-2) Blood Gas Hemoglobin 8.4 G/DL (12.0-16.0) Oxygen Delivery Device VENT Blood Gas Ventilator Setting AC500/16/PEEP5 Blood Gas Inspired Oxygen 100 % Imaging Last Impressions Head CT 01/09/18 0000 Signed Impressions: Service Date/Time: Tuesday, January 09, 2018 15:39 - CONCLUSION: 1. No acute findings in the brain. No evidence of acute hemorrhage. 2. Stable diffuse ischemic demyelination and left lacunar infarcts. Markus Phillips MD Chest X-Ray 01/09/18 0000 Signed Impressions: Service Date/Time: Tuesday, January 09, 2018 14:44 - CONCLUSION: 1. ET tube in good position. 2. Interval development of diffuse bilateral airspace opacities. Markus Phillips MD Objective Remarks GEN: 62-year-old female, critically ill HEENT: Orally intubated, Pallor present, no icterus, tongue/ mucosa moist Neck: No JVD Chest/Pulm: on mech vent, equal air entry bilaterally, bilateral rhonchi, bilateral wheezing and crackles CVS: S1-S2 regular, no murmur GI/abdomen: soft, nontender, bowel sounds sluggish Extremities: warm bilaterally, no edema Neuro: Sedated, arousable, pupils 3 mm bilaterally reactive, opens eyes on stimulation. Follows commands 4 A/P Assessment and Plan Assessment: 62-year-old female with: Cardiac arrest/PEA status post CPR Acute hypoxemic, hypercarbic respiratory failure Severe pulmonary edema cardiogenic versus noncardiogenic Bilateral pneumonia Probable CHF Positive troponin ARIADNA Elevated LFTs/shock liver COPD/ asthma with acute exacerbation Recent admission with pneumonia History of multiple sclerosis Chronic pain Plan: Neuro: -Sedation with propofol, fentanyl when necessary for pain. Neuro checks. -Appears to have no significant anoxic brain injury. Daily sedation vacation. -History of multiple sclerosis Cardiovascular: -Serial cardiac enzymes. Hypotensive on arrival however currently hypotensive. -Cardiology consulted in view of elevated troponin. Patient was evaluated by Dr. Montilla during past admission. -Repeat limited echo to evaluate for ejection fraction and any valvular regurgitation -Chest x-ray clinically appears to be pulmonary edema unclear cardiogenic versus noncardiogenic -Check BNP, check 2D echo as above -Discontinue IV fluids. IV Lasix 40 mg every 12 hours with IV albumin, potassium replacement -Diastolic heart failure possible Pulmonary: -Continue mechanical ventilation, vent bundle, bronchodilators scheduled and as needed. -Sputum to be sent for Gram stain and cultures. -Broad-spectrum antibiotics -Receiving hydrocortisone stress dose -Add inhaled budesonide -Hold off spontaneous breathing trials until clinically improved -Check for influenza, respiratory panel, start empiric Tamiflu GI/liver: -Follow LFTs. Suspect secondary to shock liver following cardiac arrest. -Nothing by mouth for now. -There is no evidence of liver failure, will check Tylenol level stat -Also check ammonia level, INR, and hold Lovenox until liver enzymes are improved ID: -Check for influenza, respiratory panel, start empiric Tamiflu 75 mg PO BID -Follow up on sputum culture and send blood/urine culture. -Continue Vancomycin IV, Zosyn for empiric antibiotic coverage. -ID consulted Renal/: -Creatinine has improved to 1.35. Used to suspicion of CHF discontinue IV fluids -IV Lasix and IV albumin as above Endocrine: -SSI for glycemic control as needed. Stress dose steroids as patient has been on chronic prednisone. Prophylaxis: -PPI/SCDs/ holding Lovenox due to worsening liver enzymes Dr. Pimentel updated patient's daughter as well as POA at bedside regarding plan of care and they voiced understanding and were agreeable. Condition critical Time spent on critical care excluding procedures 70 minutes Chela Granado MD Jan 10, 2018 09:19
[2018-01-10] MEDS ORDERED: OSELTAMIVIR PHOSPHATE 6 MG/ML 60 ML SUSP PO SCH (09:30)
[2018-01-10] MEDS: ALBUMIN 25% INJ 50 ML IV SCH ×2 (09:42→20:24)
[2018-01-10] MEDS: PROPOFOL 1000 MG/100 ML INJ 100 ML IV PRN ×4 (09:42→20:52)
[2018-01-10] MEDS: FUROSEMIDE 40 MG/4 ML VIAL IV PUSH SCH ×2 (09:43→16:49)
[2018-01-10] MEDS: POTASSIUM CHLORIDE 25 MEQ EFFERVESCENT TAB NG SCH (09:43)
--- NOTE | 2018-01-10 10:09 | PD.ID.CON ---
History of Present Illness Service ID Consult Requested By Dr.Nimish Margarito ÁLVAREZ MD Reason for Consult Evaluation and management of sepsis and pneumonia. Primary Care Physician No Primary Care Physician Diagnoses: History of Present Illness Ms. Mike is a 62-year-old female with past medical history significant for multiple sclerosis. Per review of medical records it appears that patient is on pulse dose IV steroids and may be relatively immunosuppressed. Patient was recently admitted for COPD exacerbation, bilateral pneumonia with respiratory acidosis and ARDS needing intubation. Post extubation patient insisted on being discharged once she was on the floor. She was discharge on January 03 on oral antibiotics. According to the POA who reported the admitting doctor she was okay at home however extremely tired. Per documentation by ER physician patient went down for a nap no meningeal a family member found her unresponsive and not breathing. Reportedly paramedics were called in the patient was found to be pulseless in appetite. She was in PEA in the CPR was initiated. She was given 2 rounds of epinephrine and intubated in the field. After 10 minutes of CPR she regained pulse but did not regain consciousness. She remained intubated on arrival with a GCS of 3. Patient was initially started on levo fed for pressor support and received IV Zosyn in the emergency room for possible sepsis related to pneumonia. Her chest x-ray did show bilateral infiltrates. Her creatinine was noted to be 2 borderline elevated troponin with elevated CK. A CT of the head was done due to altered mental status which was negative for any bleed. Critical care medicine has been consulted and patient is currently in the ICU. At the time of my evaluation patient is not on any pressors, remains intubated sedated. Upon discussion with respiratory therapist patient continues to have yellow brown respiratory secretions appeared to be moderate in needing fairly frequent suctioning. Urine output is good. No diarrhea noted. Repeat chest x- ray this morning shows bilateral diffuse infiltrates with the pattern of both pneumonia as well as possible pulmonary edema. Cardiology has been consulted as well since the is concern for cardiogenic pulmonary edema and due to her PEA arrest. Infectious disease is consulted for evaluation and management of sepsis on admission with pneumonia in a patient with acute respiratory failure and respiratory acidosis, PEA prior to admission. Review of Systems ROS Limitations: Intubated Past Family Social History Allergies: Coded Allergies: No Known Allergies (Verified Allergy, Unknown, 01/09/18) Past Medical History Multiple sclerosis Recent history of pneumonia, ARDS and intubation due to respiratory acidosis. Reported history of arthritis Reported history of asthma History of some arrhythmia History of anxiety History of CHF History of hypercholesterolemia History of COPD History of TIA History of GERD History of some genitourinary problems details not known History of headaches History of hiatal hernia History of hypertension Prior history of some implanted device but reportedly was taken out in January 2016. No surgical history in [place] medical records noted. History of kidney stones History of psychiatric problems PNEUMOCCOCAL Vaccine (Year): 2 Menopausal: Yes Past Surgical History History of Appendectomy History of Matthias in the right leg with 2 plates, History of neck surgery with 8 screws in the neck History of cholecystectomy History of hysterectomy(reported history of total abdominal hysterectomy with bilateral salpingo-oophorectomy at age 27) Rectal fissure December 2005 History of tonsillectomy 2 left breast biopsies Reported Medications Could not be obtained but by review of medical records it appears that patient had IV pulse steroids in the past or multiple sclerosis Reported Meds & Active Scripts Active Active Prescriptions or Reported Medications Unobtainable Active Ordered Medications Current Medications Medications (Trade) Dose Ordered Sig/Herminio Route Start Time Stop Time Status Last Admin (Brethine Inj) 1 mg UNSCH PRN SQ 01/09/18 14:30 (NS Flush) 2 ml UNSCH PRN IV FLUSH 01/09/18 19:30 (NS Flush) 2 ml BID IV FLUSH 01/09/18 21:00 01/10/18 09:07 (Tylenol) 650 mg Q6H PRN PO 01/09/18 19:30 (Bovey 5-325 Mg) 1 tab Q4H PRN PO 01/09/18 19:30 (fentaNYL INJ) 100 mcg Q2HR PRN IV PUSH 01/09/18 19:30 (Duoneb Neb) 1 ampule Q2HR NEB PRN NEB 01/09/18 20:45 (Peridex 0.12% Liq) 15 ml BID@08,20 MT 01/09/18 20:00 01/10/18 09:07 (Lovenox Inj) 40 mg Q24H SQ 01/09/18 21:00 Future Hold 01/09/18 22:35 Miscellaneous Information 1 Q361D XX 01/09/18 19:30 (Chlorhexidine 2% Cloth) 3 pack Taper DAILY@04 TOP 01/10/18 04:00 01/06/19 03:59 01/09/18 22:34 (Chlorhexidine 2% Cloth) 3 pack UNSCH PRN TOP 01/09/18 19:30 Propofol 100 ml @ 2.7 mls/hr TITRATE PRN IV 01/09/18 19:30 01/10/18 09:42 Pharmacy Profile Note 0 ml @ 0 mls/hr UNSCH OTHER 01/09/18 19:45 (SoluCORTEF INJ) 100 mg Q8HR IV PUSH 01/09/18 20:00 01/10/18 06:00 Piperacillin Sod/ Tazobactam Sod 50 ml @ 100 mls/hr Q6H IV 01/09/18 22:00 01/10/18 09:31 (Pepcid Inj) 20 mg HS IV PUSH 01/09/18 21:30 01/09/18 22:35 Vancomycin HCl 1000 mg/Sodium Chloride 250 ml @ 250 mls/hr Q24H IV 01/10/18 23:00 Miscellaneous Information SPECIFIC LAB TO BE DRAWN:[facility]ANCO TROUGH DATE TO BE DRHeron.. ONCE ONCE .XX 01/12/18 22:45 01/12/18 22:46 (Duoneb Neb) 1 ampule Q4HR NEB INH 01/10/18 12:00 (Lasix Inj) 40 mg BID@,18 IV PUSH 01/10/18 09:15 01/10/18 09:43 Albumin Human 50 ml @ 60 mls/hr Q12H IV 01/10/18 09:15 01/13/18 09:14 01/10/18 09:42 (Apresoline Inj) 20 mg Q4H PRN IV PUSH 01/10/18 09:15 (K-Lyte Cl Eff) 25 meq DAILY NG 01/10/18 09:30 01/10/18 09:43 (Pulmicort Respule Neb) 0.5 mg Q12HR NEB NEB 01/10/18 09:30 (Tamiflu Liq) 75 mg BID PO 01/10/18 09:30 Levofloxacin/ Dextrose 150 ml @ 100 mls/hr Q24H IV 01/10/18 10:15 UNV Family History Could not be obtained Social History Reported history of smoking one pack per day for prior medical records Reported history of marijuana as well as other prescription drug abuse per review of 's note. Lives at home with her family No reported history of intravenous drug abuse. Physical Exam Vital Signs Vital Signs Date Time Temp Pulse Resp B/P (MAP) Pulse Ox O2 Delivery O2 Flow Rate FiO2 01/10/18 07:56 100 40 01/10/18 06:00 98 01/10/18 04:34 96 50 01/10/18 04:00 99 01/10/18 04:00 50 01/10/18 04:00 98.8 99 153/72 (99) 98 01/10/18 02:00 104 01/10/18 00:13 97 50 01/10/18 00:00 50 01/10/18 00:00 97 01/10/18 00:00 99.0 97 162/73 (102) 98 Manual Cuff/Auscultation 01/09/18 22:00 95 01/09/18 21:00 87 01/09/18 21:00 50 01/09/18 20:46 01/09/18 20:41 98.9 89 17 122/64 (83) 91 01/09/18 20:38 100 50 01/09/18 20:00 93 136/65 (88) 100 Ventilator 70 01/09/18 19:45 94 130/64 (86) 100 Ventilator 70 01/09/18 19:30 92 128/58 (81) 100 Ventilator 70 01/09/18 19:15 92 134/61 (85) 100 Ventilator 70 01/09/18 19:00 100.0 93 19 144/65 (91) 100 Ventilator 70 01/09/18 18:59 70 01/09/18 18:45 96 155/74 (101) 01/09/18 18:30 90 147/68 (94) 01/09/18 18:15 90 138/70 (92) 01/09/18 18:00 90 20 134/68 (90) 100 Ventilator 100 01/09/18 17:30 92 136/72 (93) 01/09/18 17:15 93 146/78 (100) 01/09/18 17:00 88 19 139/72 (94) 100 Ventilator 100 01/09/18 16:45 86 132/65 (87) 01/09/18 16:30 87 130/59 (82) 01/09/18 16:15 86 132/61 (84) 01/09/18 16:00 83 18 106/58 (74) 100 Ventilator 100 01/09/18 15:45 84 111/60 (77) 01/09/18 15:30 82 118/70 (86) 01/09/18 15:15 80 102/55 (71) 01/09/18 15:00 80 20 89/52 (64) 100 Ventilator 100 01/09/18 14:58 100 01/09/18 14:45 98.8 84 22 111/59 (76) 98 Ventilator 100 01/09/18 14:43 84 98/55 01/09/18 14:34 100 100 01/09/18 14:33 97.7 83 24 128/54 (78) 99 Auto-Vent 2.00 01/09/18 14:24 70/31 (44) 01/09/18 14:16 83 20 60/28 (39) 99 Auto-Vent Automatic Cuff 01/09/18 14:16 20 99 Auto-Vent 100 Physical Exam GENERAL: This is a well-nourished, well-developed patient, in no apparent distress. SKIN: No rashes, ecchymoses or lesions. Cool and dry. HEAD: Atraumatic. Normocephalic. No temporal or scalp tenderness. EYES: Pupils equal round and reactive. No scleral icterus. No injection or drainage. ENT: Intubated NECK: Trachea midline. Supple, nontender, no meningeal signs. CARDIOVASCULAR: Heart sounds audible. No obvious murmur. RESPIRATORY: Bilateral rhonchi as well as basilar crepitations noted. GASTROINTESTINAL: Abdomen soft, non-tender, nondistended. MUSCULOSKELETAL: Extremities without clubbing, cyanosis, or edema. No joint tenderness, effusion, or edema noted. No calf tenderness. Negative Homans sign bilaterally. NEUROLOGICAL: Opens eyes spontaneously. Did not follow any commands for me. Withdraws to pain. Psych could not be assessed IV line sites with no evidence for infection. Laboratory Laboratory Tests Test 01/09/18 14:32 01/09/18 14:40 01/09/18 20:45 01/09/18 22:55 White Blood Count 17.1 Red Blood Count 3.30 Hemoglobin 9.7 Hematocrit 29.9 Mean Corpuscular Volume 90.7 Mean Corpuscular Hemoglobin 29.5 Mean Corpuscular Hemoglobin Concent 32.6 Red Cell Distribution Width 17.7 Platelet Count 354 Mean Platelet Volume 9.0 Neutrophils (%) (Auto) 89.5 Lymphocytes (%) (Auto) 4.6 Monocytes (%) (Auto) 5.7 Eosinophils (%) (Auto) 0.1 Basophils (%) (Auto) 0.1 Neutrophils # (Auto) 15.3 Lymphocytes # (Auto) 0.8 Monocytes # (Auto) 1.0 Eosinophils # (Auto) 0.0 Basophils # (Auto) 0.0 CBC Comment AUTO DIFF Differential Total Cells Counted 100 Neutrophils % (Manual) 83 Band Neutrophils % 9 Lymphocytes % 3 Monocytes % 5 Neutrophils # (Manual) 15.7 Differential Comment FINAL DIFF MANUAL Platelet Estimate NORMAL Platelet Morphology Comment NORMAL Prothrombin Time 12.8 Prothromb Time International Ratio 1.3 Activated Partial Thromboplast Time 27.6 Blood Urea Nitrogen 20 Creatinine 2.02 Random Glucose 158 Total Protein 6.3 Albumin 2.5 Calcium Level 8.2 Alkaline Phosphatase 145 Aspartate Amino Transf (AST/SGOT) 1492 Alanine Aminotransferase (ALT/SGPT) 633 Total Bilirubin 0.4 Sodium Level 138 Potassium Level 3.9 Chloride Level 98 Carbon Dioxide Level 22.1 Anion Gap 18 Estimat Glomerular Filtration Rate 25 Total Creatine Kinase 128 386 Creatine Kinase MB 2.3 7.1 Troponin I 0.11 0.23 Blood Gas Puncture Site RT BRACHIAL Blood Gas Patient Temperature 97.9 Blood Gas HCO3 23 Blood Gas Base Excess -2.8 Blood Gas Oxygen Saturation 91 Arterial Blood pH 7.28 Arterial Blood Partial Pressure CO2 50 Arterial Blood Partial Pressure O2 80 Arterial Blood Oxygen Content 10.9 Arterial Blood Carboxyhemoglobin 2.4 Arterial Blood Methemoglobin 1.0 Blood Gas Hemoglobin 8.4 Oxygen Delivery Device VENT Blood Gas Ventilator Setting AC500/16/PEEP5 Blood Gas Inspired Oxygen 100 Nasal Screen MRSA (PCR) MRSA NOT DETECTED Creatine Kinase MB % 1.8 Test 01/10/18 03:47 White Blood Count 9.0 Red Blood Count 2.88 Hemoglobin 8.4 Hematocrit 25.0 Mean Corpuscular Volume 87.1 Mean Corpuscular Hemoglobin 29.2 Mean Corpuscular Hemoglobin Concent 33.6 Red Cell Distribution Width 17.2 Platelet Count 269 Mean Platelet Volume 8.4 Neutrophils (%) (Auto) 90.3 Lymphocytes (%) (Auto) 4.3 Monocytes (%) (Auto) 5.1 Eosinophils (%) (Auto) 0.0 Basophils (%) (Auto) 0.3 Neutrophils # (Auto) 8.1 Lymphocytes # (Auto) 0.4 Monocytes # (Auto) 0.5 Eosinophils # (Auto) 0.0 Basophils # (Auto) 0.0 CBC Comment AUTO DIFF Differential Total Cells Counted 100 Neutrophils % (Manual) 81 Band Neutrophils % 12 Lymphocytes % 4 Monocytes % 2 Neutrophils # (Manual) 8.5 Myelocytes 1 Differential Comment FINAL DIFF MANUAL Platelet Estimate NORMAL Platelet Morphology Comment NORMAL Blood Urea Nitrogen 20 Creatinine 1.35 Random Glucose 105 Total Protein 5.9 Albumin 2.3 Calcium Level 8.2 Alkaline Phosphatase 148 Aspartate Amino Transf (AST/SGOT) 4804 Alanine Aminotransferase (ALT/SGPT) 2180 Total Bilirubin 0.4 Sodium Level 142 Potassium Level 3.0 Chloride Level 104 Carbon Dioxide Level 30.6 Anion Gap 7 Estimat Glomerular Filtration Rate 39 Total Creatine Kinase 384 Creatine Kinase MB 5.8 Creatine Kinase MB % 1.5 Troponin I 0.22 Date/Time Source Procedure Growth Status 01/09/18 23:00 Sputum Endotracheal Gram Stain - Final Resulted 01/09/18 23:00 Sputum Endotracheal Sputum Culture Pending Resulted Result Diagram: 01/10/18 0347 01/10/18 0347 Imaging Last Impressions Head CT 01/09/18 0000 Signed Impressions: Service Date/Time: Tuesday, January 09, 2018 15:39 - CONCLUSION: 1. No acute findings in the brain. No evidence of acute hemorrhage. 2. Stable diffuse ischemic demyelination and left lacunar infarcts. Markus Phillips MD Chest X-Ray 01/09/18 0000 Signed Impressions: Service Date/Time: Tuesday, January 09, 2018 14:44 - CONCLUSION: 1. ET tube in good position. 2. Interval development of diffuse bilateral airspace opacities. Markus Phillips MD Assessment and Plan Assessment and Plan Possible sepsis present on admission Pneumonia present on admission Acute respiratory failure on vent Acute encephalopathy present on admission appears to be improving: Infection PEA outside hospital Recommendations: Continue Zosyn IV Continue vancomycin IV target trough 15-20 Continue Tamiflu follow respiratory panel if influenza PCR negative we'll discontinue Tamiflu Start Levaquin IV(discussed with Dr. Granado QT interval normal to be followed while on Levaquin) Influenza antigen screen to be followed Follow influenza PCR : Respiratory panel Follow blood cultures Follow sputum cultures Check urine legionella antigen Check pneumococcal urinary antigen Follow clinically Discussed with RN Discussed with Karin Doss MD Jan 10, 2018 10:08
--- NOTE | 2018-01-10 10:19 | RADRPT ---
EXAM DATE/TIME: 01/10/2018 09:16 [facility] COMPARISON: CHEST SINGLE AP, January 09, 2018, 14:44. INDICATIONS : Evaluate for respiratory diseaese. MEDICAL HISTORY : Chronic obstructive pulmonary disease. Hypertension Cardiovascular disease. syncope, asthma, SURGICAL HISTORY : Hysterectomy. ENCOUNTER: Subsequent ACUITY: 3 days PAIN SCORE: Non-responsive. LOCATION: Bilateral chest FINDINGS: ET tube tip well above the rohan. Gastric tube traverses the [id number]. Diffuse patchy airspac e opacities throughout both lungs is similar in distribution and severity when compared to prior. No evidence of pneumothorax. CONCLUSION: Diffuse airspace disease, stable from yesterday. Markus Phillips MD on January 10, 2018 at 10:16 Board Certified Radiologist. This report was verified electronically.
[2018-01-10] MEDS: RESP: ALBUTEROL 2.5 MG/IPRATROPIUM 0.5 MG NEB (SCH) INH ×4 (10:41→23:38)
[2018-01-10] MEDS ORDERED: MAGNESIUM OXIDE 400 MG TAB PO PRN (11:00)
[2018-01-10] MEDS ORDERED: MAGNESIUM SULFATE INJ 2 GM in SODIUM CHLORIDE 0.9% INJ 96 ML IV PRN (11:00)
[2018-01-10] MEDS ORDERED: POTASSIUM PHOSPHATE INJ 30 MMOL in SODIUM CHLOR 0.9% 250 ML INJ 250 ML IV PRN (11:00)
[2018-01-10] MEDS ORDERED: POTASSIUM CHLORIDE 25 MEQ EFFERVESCENT TAB PO PRN (11:00)
[2018-01-10] MEDS ORDERED: MAGNESIUM SULFATE INJ 4 GM in SODIUM CHLORIDE 0.9% INJ 92 ML IV PRN (11:00)
[2018-01-10] MEDS ORDERED: POTASSIUM PHOSPHATE MONOBASIC 500 MG TAB PO/TUBE PRN (11:00)
[2018-01-10] MEDS ORDERED: SODIUM PHOSPHATE INJ 30 MMOL in SODIUM CHLOR 0.9% 250 ML INJ 240 ML IV PRN (11:00)
[2018-01-10] MEDS ORDERED: POTASSIUM CHLOR 40 MEQ PREMIX 100 ML IV PRN ×2 (11:00)
[2018-01-10] MEDS ORDERED: POTASSIUM PHOSPHATE MONOBASIC 500 MG TAB PO PRN (11:00)
[2018-01-10 11:09] LABS: INTERNATIONAL NORMALIZED RATIO 1.1 RATIO; PROTHROMBIN TIME - PATIENT 11.4 SEC (9.8-11.6)
[2018-01-10] MEDS: LEVOFLOXACIN 750 MG PREMIX INJ 150 ML IV SCH (11:54)
[2018-01-10] MEDS ORDERED: OSELTAMIVIR PHOSPHATE 30 MG/5 ML ORAL SYRINGE PO SCH (12:00)
[2018-01-10] MEDS: RESP: BUDESONIDE 0.5 MG/2 ML NEB NEB SCH ×2 (12:35→19:53)
--- NOTE | 2018-01-10 13:46 | EKG ---
Date Performed: 01/09/2018 Time Performed: 14:12:04 PTAGE: 62 years EKG: Sinus rhythm POSSIBLE LEFT ATRIAL ENLARGEMENT ST DEVIATION AND MODERATE T-WAVE ABNORMALITY, CONSIDER ANTEROLATERA L ISCHEMIA ABNORMAL ECG Since the PREVIOUS TRACING , no significant change noted PREVIOUS TRACING 01/09/2018 14.12.04 DOCTOR: Destini Madera Interpretating Date/Time 01/10/2018 13:42:59
[2018-01-10] MEDS: hydrALAZINE HCL 20 MG/ML VIAL IV PUSH PRN (14:45)
[2018-01-10] MEDS ORDERED: MIDAZOLAM HCL 2 MG/2 ML VIAL IV PUSH ONE (16:00)
[2018-01-10] MEDS: MIDAZOLAM 100 MG/100 ML INJ 100 ML IV PRN ×2 (16:16→22:48)
[2018-01-10] MEDS: POTASSIUM CHLOR 20 MEQ PREMIX 100 ML IV PRN ×3 (16:50→21:02)
--- NOTE | 2018-01-10 19:11 | ECHRPT ---
Indication: EF and VALVES, evaluate for regurgitation CONCLUSIONS Normal left ventricular size. Wall thickness is measured at the upper limits of normal. The left ventricular systolic function is hyperdynamic with an estimated ejection fraction in the ra nge of 65- 70%. No regional wall motion abnormalities are present. There is trace to mild tricuspid valve regurgitation. The Doppler signal is suboptimal for assessi ng systolic pulmonary artery pressure. BP: 153 / 72 HR: 99 Rhythm: Sinus MEASUREMENTS (Male / Female) Normal Values Technical Quality:Fair 2D ECHO LV Diastolic Diameter PLAX 4.0 cm 4.2 - 5.9 / 3.9 - 5.3 cm LV Systolic Diameter PLAX 3.0 cm IVS Diastolic Thickness 1.1 cm 0.6 - 1.0 / 0.6 - 0.9 cm LVPW Diastolic Thickness 1.1 cm 0.6 - 1.0 / 0.6 - 0.9 cm LV Relative Wall Thickness 0.5 RV Internal Dim ED PLAX 3.0 cm LVOT Diameter 2.1 cm Aortic Root Diameter 2.9 cm LA Systolic Diameter LX 3.3 cm 3.0 - 4.0 / 2.7 - 3.8 cm M-MODE AV Cusp Separation MM 1.9 cm DOPPLER AV Peak Velocity 205.0 cm/s AV Peak Gradient 16.8 mmHg AV Mean Gradient 9.0 mmHg AV Velocity Time Integral 29.3 cm LVOT Peak Velocity 126.0 cm/s LVOT Peak Gradient 6.4 mmHg LVOT Velocity Time Integral 22.9 cm AV Area Cont Eq vti 2.7 cm AV Area Cont Eq pk 2.1 cm Mitral E Point Velocity 94.3 cm/s Mitral A Point Velocity 111.0 cm/s Mitral E to A Ratio 0.8 TR Peak Velocity 373.0 cm/s TR Peak Gradient 55.7 mmHg Right Atrial Pressure 10.0 mmHg Pulmonary Artery Systolic Pressu 65.7 mmHg Right Ventricular Systolic Press 65.7 mmHg FINDINGS LEFT VENTRICLE Normal left ventricular size. Wall thickness is measured at the upper limits of normal. The left ventricular systolic function is hyperdynamic with an estimated ejection fraction in the ra nge of 65- 70%. No regional wall motion abnormalities are present. RIGHT VENTRICLE Normal right ventricular size and systolic function. LEFT ATRIUM The left atrial size is normal. RIGHT ATRIUM The right atrial size is normal. ATRIAL SEPTUM The interatrial septum not well visualized. AORTA The aortic root and proximal ascending aorta are not well visualized. MITRAL VALVE Structurally normal mitral valve. No mitral valve stenosis or regurgitation. AORTIC VALVE Trileaflet aortic valve. No aortic valve stenosis or regurgitation. TRICUSPID VALVE There is trace to mild tricuspid valve regurgitation. The Doppler signal is suboptimal for assessi ng systolic pulmonary artery pressure. PULMONARY VALVE No pulmonary valve regurgitation or stenosis. VESSELS The inferior vena cava is normal in size. PERICARDIUM No pericardial effusion. Abdulkadir Bagley MD (Electronically Signed) Final Date:10 January 2018 19:10
[2018-01-10] MEDS ORDERED: LABETALOL HCL 100 MG/20 ML VIAL IV PRN (20:15)
[2018-01-10] MEDS: FAMOTIDINE 20 MG/2 ML VIAL IV PUSH SCH (20:24)
[2018-01-10] MEDS: OSELTAMIVIR PHOSPHATE 30 MG/5 ML ORAL SYRINGE PO SCH (20:25)
[2018-01-10] MEDS ORDERED: VANCOMYCIN 1,500 MG/NS 500 ML IV SCH ×2 (23:00)
[2018-01-10] MEDS ORDERED: VANCOMYCIN 1,000 MG/NS 250 ML IV SCH ×2 (23:00)
[2018-01-11] VITALS (37 sets, daily range): BP systolic 117–161; BP diastolic 55–76; PULSE 93–117; TEMP 98.6–99.2; O2SAT 98–100
[2018-01-11] MEDS: POTASSIUM CHLOR 20 MEQ PREMIX 100 ML IV PRN ×5 (03:22→21:43)
[2018-01-11] MEDS: PROPOFOL 1000 MG/100 ML INJ 100 ML IV PRN ×6 (03:31→23:22)
[2018-01-11] MEDS: hydrALAZINE HCL 20 MG/ML VIAL IV PUSH PRN (03:36)
[2018-01-11] MEDS: PIPERACIL-TAZO 3.375 GM PREMIX 50 ML IV SCH ×2 (04:00→09:54)
[2018-01-11] MEDS: CHLORHEXIDINE GLUCONATE 2 % 1 PACK (2 CLOTHS) TOP SCH (04:00)
[2018-01-11] MEDS: RESP: ALBUTEROL 2.5 MG/IPRATROPIUM 0.5 MG NEB (SCH) INH ×5 (04:08→20:44)
[2018-01-11] MEDS: HYDROCORTISONE SOD SUCCINATE 100 MG VIAL IV PUSH SCH ×3 (06:00→21:01)
[2018-01-11] MEDS: RESP: BUDESONIDE 0.5 MG/2 ML NEB NEB SCH ×2 (07:32→20:44)
[2018-01-11] MEDS: FUROSEMIDE 40 MG/4 ML VIAL IV PUSH SCH ×2 (08:17→17:42)
[2018-01-11] MEDS: POTASSIUM CHLORIDE 25 MEQ EFFERVESCENT TAB NG SCH (08:17)
[2018-01-11] MEDS: CHLORHEXIDINE 0.12% (ORAL KIT) 15 ML CUP MT SCH ×2 (08:17→19:44)
[2018-01-11] MEDS: SODIUM CHLORIDE 0.9% FLUSH 10 ML FLUSH IV FLUSH SCH ×2 (08:17→20:24)
[2018-01-11] MEDS: OSELTAMIVIR PHOSPHATE 30 MG/5 ML ORAL SYRINGE PO SCH ×2 (08:18→20:24)
[2018-01-11] MEDS: ALBUMIN 25% INJ 50 ML IV SCH ×2 (08:18→20:57)
--- NOTE | 2018-01-11 08:28 | PD.CARD.PN ---
Subjective Subjective Remarks Remains intubated, sedated, mechanically ventilated. RN reports some sinus tachycardia yesterday, no recurrence of any significant arrhythmia or A. fib on telemetry review. Objective Medications Current Medications Medications (Trade) Dose Ordered Sig/Herminio Route Start Time Stop Time Status Last Admin (Brethine Inj) 1 mg UNSCH PRN SQ 01/09/18 14:30 (NS Flush) 2 ml UNSCH PRN IV FLUSH 01/09/18 19:30 (NS Flush) 2 ml BID IV FLUSH 01/09/18 21:00 01/11/18 08:17 (Tylenol) 650 mg Q6H PRN PO 01/09/18 19:30 (Gifford 5-325 Mg) 1 tab Q4H PRN PO 01/09/18 19:30 (fentaNYL INJ) 100 mcg Q2HR PRN IV PUSH 01/09/18 19:30 (Duoneb Neb) 1 ampule Q2HR NEB PRN NEB 01/09/18 20:45 (Peridex 0.12% Liq) 15 ml BID@08,20 MT 01/09/18 20:00 01/11/18 08:17 (Lovenox Inj) 40 mg Q24H SQ 01/09/18 21:00 Future Hold 01/09/18 22:35 Miscellaneous Information 1 Q361D XX 01/09/18 19:30 (Chlorhexidine 2% Cloth) 3 pack Taper DAILY@04 TOP 01/10/18 04:00 01/06/19 03:59 01/11/18 04:00 (Chlorhexidine 2% Cloth) 3 pack UNSCH PRN TOP 01/09/18 19:30 Propofol 100 ml @ 2.7 mls/hr TITRATE PRN IV 01/09/18 19:30 01/11/18 03:31 Pharmacy Profile Note 0 ml @ 0 mls/hr UNSCH OTHER 01/09/18 19:45 (SoluCORTEF INJ) 100 mg Q8HR IV PUSH 01/09/18 20:00 01/11/18 06:00 Piperacillin Sod/ Tazobactam Sod 50 ml @ 100 mls/hr Q6H IV 01/09/18 22:00 01/11/18 04:00 (Pepcid Inj) 20 mg HS IV PUSH 01/09/18 21:30 01/10/18 20:24 Miscellaneous Information SPECIFIC LAB TO BE DRAWN:[facility] TROUGH DATE TO BE DRHeron.. ONCE ONCE .XX 01/12/18 22:45 01/12/18 22:46 (Duoneb Neb) 1 ampule Q4HR NEB INH 01/10/18 12:00 01/11/18 07:32 (Lasix Inj) 40 mg BID@09,18 IV PUSH 01/10/18 09:15 01/11/18 08:17 Albumin Human 50 ml @ 60 mls/hr Q12H IV 01/10/18 09:15 01/13/18 09:14 01/11/18 08:18 (Apresoline Inj) 20 mg Q4H PRN IV PUSH 01/10/18 09:15 01/11/18 03:36 (K-Lyte Cl Eff) 25 meq DAILY NG 01/10/18 09:30 01/11/18 08:17 (Pulmicort Respule Neb) 0.5 mg Q12HR NEB NEB 01/10/18 09:30 01/11/18 07:32 Levofloxacin/ Dextrose 150 ml @ 100 mls/hr Q24H IV 01/10/18 11:00 01/10/18 11:54 Potassium Chloride 100 ml @ 50 mls/hr Q2H PRN IV 01/10/18 11:00 Potassium Chloride 100 ml @ 50 mls/hr Q2H PRN IV 01/10/18 11:00 01/11/18 03:22 (K-Lyte Cl Eff) 50 meq UNSCH PRN PO 01/10/18 11:00 Potassium Chloride 100 ml @ 25 mls/hr UNSCH PRN IV 01/10/18 11:00 Potassium Chloride 100 ml @ 50 mls/hr Q2H PRN IV 01/10/18 11:00 Magnesium Sulfate 4 gm/Sodium Chloride 100 ml @ 50 mls/hr UNSCH PRN IV 01/10/18 11:00 (Mag-Ox) 800 mg UNSCH PRN PO 01/10/18 11:00 Magnesium Sulfate 2 gm/Sodium Chloride 100 ml @ 50 mls/hr UNSCH PRN IV 01/10/18 11:00 (K-Phos) 2,000 mg Q4H PRN PO 01/10/18 11:00 Sodium Phosphate 30 mmol/Sodium Chloride 250 ml @ 42 mls/hr UNSCH PRN IV 01/10/18 11:00 (K-Phos) 2,000 mg UNSCH PRN PO/TUBE 01/10/18 11:00 Potassium Phosphate 30 mmol/ Sodium Chloride 260 ml @ 42 mls/hr UNSCH PRN IV 01/10/18 11:00 (Tamiflu Liq) 75 mg Q12HR PO 01/10/18 21:00 01/11/18 08:18 Vancomycin HCl 1500 mg/Sodium Chloride 515 ml @ 257.5 mls/ hr Q24H IV 01/10/18 23:00 01/11/18 03:21 Midazolam HCl 100 ml @ 2 mls/hr TITRATE PRN IV 01/10/18 16:00 01/10/18 22:48 (Trandate Inj) 20 mg Q2H PRN IV 01/10/18 20:15 Vital Signs / I&O Vital Signs Date Time Temp Pulse Resp B/P (MAP) Pulse Ox O2 Delivery O2 Flow Rate FiO2 01/11/18 06:00 108 01/11/18 04:39 99 40 01/11/18 04:00 40 01/11/18 04:00 103 01/11/18 04:00 98.6 104 154/71 (98) 100 01/11/18 02:00 100 01/11/18 00:00 40 01/11/18 00:00 106 01/11/18 00:00 98.8 93 126/61 (82) 99 01/10/18 23:39 99 40 01/10/18 22:00 100 01/10/18 20:00 130 01/10/18 20:00 98.9 113 185/83 (117) 99 01/10/18 20:00 40 01/10/18 19:57 100 40 01/10/18 18:00 132 01/10/18 16:10 99 40 01/10/18 16:00 130 01/10/18 16:00 40 01/10/18 16:00 99.4 130 188/82 (117) 96 01/10/18 14:00 109 01/10/18 12:00 40 01/10/18 12:00 99.8 115 184/82 (116) 94 01/10/18 12:00 115 01/10/18 10:32 95 40 01/10/18 10:00 106 I/O 01/10/18 01/10/18 01/10/18 01/11/18 01/11/18 01/11/18 07:00 15:00 23:00 07:00 15:00 23:00 Intake Total 613.5 ml 350 ml 100 ml Output Total 1200 ml 4600 ml 1500 ml Balance -586.5 ml -4250 ml -1400 ml Intake Oral 0 ml 0 ml 0 ml IV Total 613.5 ml 250 ml 100 ml Other 100 ml Output Urine Total 1200 ml 4600 ml 1500 ml # Bowel Movements 0 0 0 Physical Exam GENERAL: Well-developed well-nourished. NECK: No carotid bruits. No JVD. CARDIOVASCULAR: Regular rate and rhythm. No murmur appreciated. RESPIRATORY: Coarse breath sounds and crackles present in all lung persaud. MUSCULOSKELETAL: No clubbing or cyanosis. No edema. NEUROLOGICAL: Intubated, sedated, mechanically ventilated. Laboratory Laboratory Tests Test 01/10/18 10:29 01/10/18 16:30 Prothrombin Time 11.4 SEC Prothromb Time International Ratio 1.1 RATIO Phosphorus Level 1.7 MG/DL Ammonia 65 MCMOL/L B-Type Natriuretic Peptide 281 PG/ML Procalcitonin 1.27 ng/mL Acetaminophen Level LESS THAN 2.0 MCG/ML Urine Opiates Screen POS Urine Barbiturates Screen NEG Urine Amphetamines Screen NEG Urine Benzodiazepines Screen POS Urine Cocaine Screen NEG Urine Cannabinoids Screen NEG Imaging Last 24 hours Impressions Chest X-Ray 01/10/18 0904 Signed Impressions: Service Date/Time: January 09:16 - CONCLUSION: Diffuse airspace disease, stable from yesterday. Markus Phillips MD Assessment and Plan Assessment and Plan 62-year-old female with a past medical history of MS and a recent hospitalization for ARDS who presented after PEA arrest. Per report, the patient was feeling tired yesterday and yesterday afternoon a family member found her unresponsive and not breathing. Paramedics were called and found the patient pulseless and apneic. After 10 minutes of CPR she regained a pulse. The patient remains intubated, sedated, and unresponsive, no other history is able to be obtained. Her chest x-ray shows diffuse edema. Troponin is minimally elevated at 0.11, 0.23, 0.22 and is for this we are consulted. Telemetry with sinus tachycardia overnight. EKG with NSR and nonspecific anterolateral T-wave changes. Patient was recently seen by us on previous admission for elevated troponin thought to be demand mediated secondary to respiratory distress. Status post PEA arrest: Intubated, sedated, mechanically ventilated. With maximum troponin elevation to 0.23, doubt cardiogenic. Repeat echocardiogram with EF 65% and no significant valvular abnormalities. Further management per primary team. Troponin elevation: Troponins are minimally elevated likely secondary to multisystem organ failure and hypoperfusion. Could consider ischemic evaluation upon recovery, but no plans at this time. Nothing further to add from a cardiology perspective at this time and we will sign off. Please feel free to call with any questions. Discussed Condition With RN, Lavelle Lennon Jan 11, 2018 08:28
[2018-01-11] MEDS: LEVOFLOXACIN 750 MG PREMIX INJ 150 ML IV SCH (10:45)
[2018-01-11] MEDS ORDERED: VANCOMYCIN 1,500 MG/NS 500 ML IV SCH ×2 (11:00)
--- NOTE | 2018-01-11 11:39 | HHI.CCPN ---
Subjective Remarks/Hospital Course 62-year-old female with a medical history significant for multiple sclerosis, asthma, COPD who was recently discharged after being admitted for pneumonia from which she was intubated in the ICU for a few days following extubation patient insisted on being discharged on the floor and was discharged on 01/03 on by mouth antibiotics. According to the POA she was doing okay at home however was extremely tired. Per documentation by ER physician the patient went down for a nap at noon. At 1 PM a family member found her unresponsive and not breathing. Paramedics were called. The patient was found pulseless and apneic. She was in PEA and CPR was initiated. She was given 2 rounds of epinephrine and intubated. After 10 minutes of CPR she regained a pulse. She never regained consciousness. She arrives intubated and unresponsive with a GCS of 3. She cannot provide any history or review of systems. Patient was started on Levophed for pressor support and received IV Zosyn in the ER. Her chest x-ray showed bilateral infiltrates. She was also noted have a creatinine of 2 and a borderline elevated troponin. Head CT was negative for any bleed. Patient was accepted for admission by critical care medicine service. When I evaluated the patient she was sedated with propofol 10 mics per KG per minute and was on Levophed 4 mics per minute with a systolic blood pressure of 155. She was arousable easily and focused at me during my exam. Per patient's daughter who is also at the bedside she was trying to mouth words at her earlier. History was obtained by reviewing records and discussion with patient' s POA as well as daughter. SUBJ 4/5: Remains intubated sedated, but wakes up easily follows commands. Remains in respiratory distress when sedation is lightened, continues to have significant bilateral rhonchi and coarse crackles all over the chest. Off pressors now hypotensive systolic blood pressure in 200s. Check BMP stat. Repeat chest x-ray pending. DC IV fluid, start IV Lasix 40 mg every 12 with IV albumin. Limited echo to evaluate for EF and also any new valvular regurgitation. Chek for Influenza, resp panel, start empiric Tamiflu 6: Remains intubated heavily sedated. Hypotensive requiring IV hydralazine and IV labetalol as needed. Start scheduled clonidine. Appears to have clinically congestive heart failure secondary to severe diastolic dysfunction. With aggressive diuresis 6 L urine output in last 24 hours, oxygenation has improved on 40% FiO2. Chest x-ray shows mild improvement in extensive bilateral infiltrates. Pro-calcitonin level equivocal Objective Vital Signs Date Time Temp Pulse Resp B/P (MAP) Pulse Ox O2 Delivery O2 Flow Rate FiO2 01/11/18 11:20 99 40 01/11/18 06:00 108 01/11/18 04:00 98.6 154/71 (98) 01/09/18 20:41 17 01/09/18 20:00 Ventilator 01/09/18 14:33 2.00 Intake and Output 01/11/18 01/11/18 01/12/18 08:00 16:00 00:00 Intake Total 100 ml Output Total 1500 ml Balance -1400 ml Result Diagram: 01/10/18 0347 01/10/18 0347 Other Results Microbiology Date/Time Source Procedure Growth Status 01/10/18 10:40 Nasal Washing Influenza Types A,B Antigen (EVARISTO) - Final NEGATIVE FOR FLU A AND B ANTIGEN.... Complete 01/10/18 16:30 Urine Catheterized Urine Legionella Antigen - Final PRESUMPTIVE NEGATIVE FOR LEGIONELLA P... Complete 01/10/18 16:30 Urine Catheterized Urine Streptococcus pneumoniae Antigen (M - Final PRESUMPTIVE NEGATIVE FOR STREPTOCOCCU... Complete Imaging Last Impressions Head CT 01/09/18 0000 Signed Impressions: Service Date/Time: Tuesday, January 09, 2018 15:39 - CONCLUSION: 1. No acute findings in the brain. No evidence of acute hemorrhage. 2. Stable diffuse ischemic demyelination and left lacunar infarcts. Markus Phillips MD Chest X-Ray 01/09/18 0000 Signed Impressions: Service Date/Time: Tuesday, January 09, 2018 14:44 - CONCLUSION: 1. ET tube in good position. 2. Interval development of diffuse bilateral airspace opacities. Markus Phillips MD Objective Remarks GEN: 62-year-old female, critically ill HEENT: Orally intubated, Pallor present, no icterus, tongue/ mucosa moist Neck: No JVD Chest/Pulm: on mech vent, equal air entry bilaterally, bilateral rhonchi, bilateral crackles, scattered wheezes CVS: S1-S2 regular, no murmur. Intermittently tachycardic hypotensive GI/abdomen: soft, nontender, bowel sounds sluggish Extremities: warm bilaterally, no edema Neuro: Sedated, arousable, pupils 3 mm bilaterally reactive, opens eyes on stimulation. Follows commands 4 Urinary Catheter: Yes Assessment to: Continue A/P Assessment and Plan Assessment: 62-year-old female with: Cardiac arrest/PEA most likely secondary to respiratory arrest Acute hypoxemic, hypercarbic respiratory failure Severe pulmonary edema cardiogenic versus noncardiogenic Bilateral pneumonia Diastolic heart failure Positive troponin ARIADNA Hyperammonemia Elevated LFTs/shock liver COPD/ asthma with acute exacerbation Recent admission with pneumonia History of multiple sclerosis Chronic pain Plan: Neuro: -Sedation with propofol, fentanyl for sedation and pain control. Neuro checks. -Appears to have no significant anoxic brain injury. Daily sedation vacation. -History of multiple sclerosis. Receiving steroids Cardiovascular: -Serial cardiac enzymes. Hypotensive on arrival however currently hypotensive. -Cardiology consulted in view of elevated troponin. Patient was evaluated by Dr. Montilla during past admission. -Repeat limited echo normal ejection fraction, however with uncontrolled hypertension patient probably has diastolic dysfunction and heart failure -Chest x-ray clinically appears to be pulmonary edema unclear cardiogenic versus noncardiogenic -IV Lasix 40 mg every 12 hours with IV albumin, potassium replacement -Diastolic heart failure possible Pulmonary: -Continue mechanical ventilation, vent bundle, bronchodilators scheduled and as needed. -Daily CPAP trial without extubation, until chest x-ray shows significant improvement -Sputum to be sent for Gram stain and cultures. -Receiving hydrocortisone stress dose -Inhaled budesonide, DuoNeb -Neg for influenza, follow-up respiratory panel, continue broad-spectrum antibiotics and empiric Tamiflu GI/liver: -Follow LFTs. Suspect secondary to shock liver following cardiac arrest. -Tube feeds, with Jevity started today -Trend liver enzymes -Ammonia level elevated, start lactulose ID: -Procalcitonin equivocal -Influenza negative, F/u respiratory panel, started empiric Tamiflu 75 mg PO BID -Follow up on sputum culture and send blood/urine culture. -Continue Vancomycin IV, Zosyn, IV Levaquin and Tamiflu for empiric antibiotic coverage. Renal/: -Creatinine has improved to 1.35, yesterday. CMP pending. -IV Lasix and IV albumin as above Endocrine: -SSI for glycemic control as needed. Stress dose steroids as patient has been on chronic prednisone. Prophylaxis: -PPI/SCDs/ holding Lovenox due to worsening liver enzymes Dr. Pimentel updated patient's daughter as well as POA at bedside regarding plan of care and they voiced understanding and were agreeable. Condition critical Time spent on critical care excluding procedures 35 minutes Chela Granado MD Jan 11, 2018 11:39
[2018-01-11 12:12] LABS: AUTOMATED NEUTROPHIL # 6.8 TH/MM3 (1.8-7.7); EOSINOPHIL % 0.1 % (0.0-4.0); HEMATOCRIT 26.7 % (35.0-46.0); LYMPH % 6.3 % (9.0-44.0); LYMPHOCYTE # 0.5 TH/MM3 (1.0-4.8); MEAN CELL VOLUME 86.6 FL (80.0-100.0); MEAN CORPUSCULAR HEMOGLOBIN 29.2 PG (27.0-34.0); MEAN CORPUSCULAR HGB CONC 33.7 % (32.0-36.0); MEAN PLATELET VOLUME 8.5 FL (7.0-11.0); MONOCYTE # 0.4 TH/MM3 (0-0.9); NEUT % 88.6 % (16.0-70.0); PLATELET COUNT 261 TH/MM3 (150-450); RED BLOOD COUNT 3.08 MIL/MM3 (4.00-5.30); RED CELL DISTRIBUTION WIDTH 17.1 % (11.6-17.2); WHITE BLOOD COUNT 7.7 TH/MM3 (4.0-11.0)
--- NOTE | 2018-01-11 12:15 | RADRPT ---
EXAM DATE/TIME: 01/11/2018 10:21 [facility] COMPARISON: CHEST SINGLE AP, January 10, 2018, 9:16. INDICATIONS : Respiratory disease. MEDICAL HISTORY : Chronic obstructive pulmonary disease. Cardiovascular disease. asthma SURGICAL HISTORY : Hysterectomy. ENCOUNTER: Initial ACUITY: 3 days PAIN SCORE: Non-responsive. LOCATION: Bilateral chest FINDINGS: Patchy areas of airspace opacity in the mid and lower lungs is similar distribution and severity when compared to prior. The heart is normal in size. Endotracheal tube tip well above the rohan. Ammy jessenia tube traverses the field of view. There is a metallic density superimposed on the upper thorax h aving the shape of cross which is located behind the patient's; a repeat film after removal of the je welry was also performed. CONCLUSION: 1. Stable patchy infiltrates in the medial lower lungs bilaterally. Markus Phillips MD on January 11, 2018 at 12:11 Board Certified Radiologist. This report was verified electronically.
--- NOTE | 2018-01-11 12:23 | HHI.IDPN ---
Subjective Subjective Remarks Ms. Mike is a 62-year-old female with past medical history significant for multiple sclerosis. Per review of medical records it appears that patient is on pulse dose IV steroids and may be relatively immunosuppressed. Patient was recently admitted for COPD exacerbation, bilateral pneumonia with respiratory acidosis and ARDS needing intubation. Post extubation patient insisted on being discharged once she was on the floor. She was discharge on January 03 on oral antibiotics. According to the POA who reported the admitting doctor she was okay at home however extremely tired. Per documentation by ER physician patient went down for a nap no meningeal a family member found her unresponsive and not breathing. Reportedly paramedics were called in the patient was found to be pulseless in appetite. She was in PEA in the CPR was initiated. She was given 2 rounds of epinephrine and intubated in the field. After 10 minutes of CPR she regained pulse but did not regain consciousness. She remained intubated on arrival with a GCS of 3. Patient was initially started on levo fed for pressor support and received IV Zosyn in the emergency room for possible sepsis related to pneumonia. Her chest x-ray did show bilateral infiltrates. Her creatinine was noted to be 2 borderline elevated troponin with elevated CK. A CT of the head was done due to altered mental status which was negative for any bleed. Critical care medicine has been consulted and patient is currently in the ICU. At the time of my evaluation patient is not on any pressors, remains intubated sedated. Upon discussion with respiratory therapist patient continues to have yellow brown respiratory secretions appeared to be moderate in needing fairly frequent suctioning. Urine output is good. No diarrhea noted. Repeat chest x- ray this morning shows bilateral diffuse infiltrates with the pattern of both pneumonia as well as possible pulmonary edema. Cardiology has been consulted as well since the is concern for cardiogenic pulmonary edema and due to her PEA arrest. Infectious disease is consulted for evaluation and management of sepsis on admission with pneumonia in a patient with acute respiratory failure and respiratory acidosis, PEA prior to admission. Overnight events reviewed No fevers No rash No diarrhea Antibiotics Levaquin Zosyn IV Vanco IV Lines Line sites with no e.o infection Past Medical History Past Medical History Multiple sclerosis Recent history of pneumonia, ARDS and intubation due to respiratory acidosis. Reported history of arthritis Reported history of asthma History of some arrhythmia History of anxiety History of CHF History of hypercholesterolemia History of COPD History of TIA History of GERD History of some genitourinary problems details not known History of headaches History of hiatal hernia History of hypertension Prior history of some implanted device but reportedly was taken out in January 2016. No surgical history in [place] medical records noted. History of kidney stones History of psychiatric problems PNEUMOCCOCAL Vaccine (Year): 2 Menopausal: Yes Past Surgical History History of Appendectomy History of Matthias in the right leg with 2 plates, History of neck surgery with 8 screws in the neck History of cholecystectomy History of hysterectomy(reported history of total abdominal hysterectomy with bilateral salpingo-oophorectomy at age 27) Rectal fissure December 2005 History of tonsillectomy 2 left breast biopsies Allergies: Coded Allergies: No Known Allergies (Verified Allergy, Unknown, 01/09/18) Objective . Vital Signs Date Time Temp Pulse Resp B/P (MAP) Pulse Ox O2 Delivery O2 Flow Rate FiO2 01/11/18 11:20 99 40 01/11/18 08:41 100 40 01/11/18 06:00 108 01/11/18 04:39 99 40 01/11/18 04:00 40 01/11/18 04:00 103 01/11/18 04:00 98.6 104 154/71 (98) 100 01/11/18 02:00 100 01/11/18 00:00 40 01/11/18 00:00 106 01/11/18 00:00 98.8 93 126/61 (82) 99 01/10/18 23:39 99 40 01/10/18 22:00 100 01/10/18 20:00 130 01/10/18 20:00 98.9 113 185/83 (117) 99 01/10/18 20:00 40 01/10/18 19:57 100 40 01/10/18 18:00 132 01/10/18 16:10 99 40 01/10/18 16:00 130 01/10/18 16:00 40 01/10/18 16:00 99.4 130 188/82 (117) 96 01/10/18 14:00 109 . Laboratory Tests Test 01/09/18 14:32 01/10/18 03:47 01/11/18 10:53 White Blood Count 17.1 TH/MM3 9.0 TH/MM3 7.7 TH/MM3 Red Blood Count 3.30 MIL/MM3 2.88 MIL/MM3 3.08 MIL/MM3 Hemoglobin 9.7 GM/DL 8.4 GM/DL 9.0 GM/DL Hematocrit 29.9 % 25.0 % 26.7 % Mean Corpuscular Volume 90.7 FL 87.1 FL 86.6 FL Mean Corpuscular Hemoglobin 29.5 PG 29.2 PG 29.2 PG Mean Corpuscular Hemoglobin Concent 32.6 % 33.6 % 33.7 % Red Cell Distribution Width 17.7 % 17.2 % 17.1 % Platelet Count 354 TH/MM3 269 TH/MM3 261 TH/MM3 Mean Platelet Volume 9.0 FL 8.4 FL 8.5 FL Neutrophils (%) (Auto) 89.5 % 90.3 % 88.6 % Lymphocytes (%) (Auto) 4.6 % 4.3 % 6.3 % Monocytes (%) (Auto) 5.7 % 5.1 % 5.0 % Eosinophils (%) (Auto) 0.1 % 0.0 % 0.1 % Basophils (%) (Auto) 0.1 % 0.3 % 0.0 % Neutrophils # (Auto) 15.3 TH/MM3 8.1 TH/MM3 6.8 TH/MM3 Lymphocytes # (Auto) 0.8 TH/MM3 0.4 TH/MM3 0.5 TH/MM3 Monocytes # (Auto) 1.0 TH/MM3 0.5 TH/MM3 0.4 TH/MM3 Eosinophils # (Auto) 0.0 TH/MM3 0.0 TH/MM3 0.0 TH/MM3 Basophils # (Auto) 0.0 TH/MM3 0.0 TH/MM3 0.0 TH/MM3 CBC Comment AUTO DIFF AUTO DIFF AUTO DIFF Differential Total Cells Counted 100 100 Neutrophils % (Manual) 83 % 81 % Band Neutrophils % 9 % 12 % Lymphocytes % 3 % 4 % Monocytes % 5 % 2 % Neutrophils # (Manual) 15.7 TH/MM3 8.5 TH/MM3 Differential Comment FINAL DIFF MANUAL FINAL DIFF MANUAL Platelet Estimate NORMAL NORMAL Platelet Morphology Comment NORMAL NORMAL Myelocytes 1 % Laboratory Tests Test 01/09/18 14:32 01/09/18 22:55 01/10/18 03:47 01/10/18 10:29 Blood Urea Nitrogen 20 MG/DL 20 MG/DL Creatinine 2.02 MG/DL 1.35 MG/DL Random Glucose 158 MG/DL 105 MG/DL Total Protein 6.3 GM/DL 5.9 GM/DL Albumin 2.5 GM/DL 2.3 GM/DL Calcium Level 8.2 MG/DL 8.2 MG/DL Alkaline Phosphatase 145 U/L 148 U/L Aspartate Amino Transf (AST/SGOT) 1492 U/L 4804 U/L Alanine Aminotransferase (ALT/SGPT) 633 U/L 2180 U/L Total Bilirubin 0.4 MG/DL 0.4 MG/DL Sodium Level 138 MEQ/L 142 MEQ/L Potassium Level 3.9 MEQ/L 3.0 MEQ/L Chloride Level 98 MEQ/L 104 MEQ/L Carbon Dioxide Level 22.1 MEQ/L 30.6 MEQ/L Anion Gap 18 MEQ/L 7 MEQ/L Estimat Glomerular Filtration Rate 25 ML/MIN 39 ML/MIN Total Creatine Kinase 128 U/L 386 U/L 384 U/L Creatine Kinase MB 2.3 NG/ML 7.1 NG/ML 5.8 NG/ML Troponin I 0.11 NG/ML 0.23 NG/ML 0.22 NG/ML Creatine Kinase MB % 1.8 % 1.5 % Phosphorus Level 1.7 MG/DL Ammonia 65 MCMOL/L B-Type Natriuretic Peptide 281 PG/ML Procalcitonin 1.27 ng/mL Test 01/11/18 10:53 Microbiology Date/Time Source Procedure Growth Status 01/10/18 10:33 Blood Peripheral Aerobic Blood Culture - Preliminary NO GROWTH IN 1 DAY Resulted 01/10/18 10:33 Blood Peripheral Anaerobic Blood Culture - Preliminary NO GROWTH IN 1 DAY Resulted 01/10/18 10:29 Blood Peripheral Aerobic Blood Culture - Preliminary NO GROWTH IN 1 DAY Resulted 01/10/18 10:29 Blood Peripheral Anaerobic Blood Culture - Preliminary NO GROWTH IN 1 DAY Resulted 01/10/18 10:40 Nasal Washing Influenza Types A,B Antigen (EVARISTO) - Final NEGATIVE FOR FLU A AND B ANTIGEN.... Complete 01/09/18 23:00 Sputum Endotracheal Gram Stain - Final Resulted 01/09/18 23:00 Sputum Endotracheal Sputum Culture - Preliminary HEAVY GROWTH NORMAL RESPIRATORY ALEX... Resulted 01/10/18 16:30 Urine Catheterized Urine Legionella Antigen - Final PRESUMPTIVE NEGATIVE FOR LEGIONELLA P... Complete 01/10/18 16:30 Urine Catheterized Urine Streptococcus pneumoniae Antigen (M - Final PRESUMPTIVE NEGATIVE FOR STREPTOCOCCU... Complete 01/10/18 16:30 Urine Catheterized Urine Urine Culture Pending Received Imaging Last Impressions Chest X-Ray 01/10/18 0904 Signed Impressions: Service Date/Time: January 09:16 - CONCLUSION: Diffuse airspace disease, stable from yesterday. Markus Phillips MD Head CT 01/09/18 0000 Signed Impressions: Service Date/Time: Tuesday, January 09, 2018 15:39 - CONCLUSION: 1. No acute findings in the brain. No evidence of acute hemorrhage. 2. Stable diffuse ischemic demyelination and left lacunar infarcts. Markus Phillips MD Physical Exam GENERAL: This is a well-nourished, well-developed patient, in no apparent distress. SKIN: No rashes, ecchymoses or lesions. Cool and dry. HEAD: Atraumatic. Normocephalic. No temporal or scalp tenderness. EYES: Pupils equal round and reactive. No scleral icterus. No injection or drainage. ENT: Intubated NECK: Trachea midline. Supple, nontender, no meningeal signs. CARDIOVASCULAR: Heart sounds audible. No obvious murmur. RESPIRATORY: Bilateral rhonchi as well as basilar crepitations noted. GASTROINTESTINAL: Abdomen soft, non-tender, nondistended. MUSCULOSKELETAL: Extremities without clubbing, cyanosis, or edema. No joint tenderness, effusion, or edema noted. No calf tenderness. Negative Homans sign bilaterally. NEUROLOGICAL: Opens eyes spontaneously. Did not follow any commands for me. Withdraws to pain. Psych could not be assessed IV line sites with no evidence for infection. Assessment & Plan Remarks Possible sepsis present on admission Pneumonia present on admission Acute respiratory failure on vent Acute encephalopathy present on admission appears to be improving: Infection PEA outside hospital Recommendations: Continue Zosyn IV DC vancomycin IV cecilia in view of high Cr. Continue Tamiflu follow respiratory panel if influenza PCR negative we'll discontinue Tamiflu Continue Levaquin IV may change to oral when using gut. Follow blood cultures Follow sputum cultures Follow clinically Discussed with Karin Shelby MD Jan 11, 2018 12:23
[2018-01-11 12:43] LABS: ALBUMIN 2.5 GM/DL (3.4-5.0); AST (GOT) 603 U/L (15-37); BICARBONATE 28.7 MEQ/L (21.0-32.0); BLOOD UREA NITROGEN 19 MG/DL (7-18); CALCIUM 8.5 MG/DL (8.5-10.1); CHLORIDE 100 MEQ/L (98-107); CREATININE 0.93 MG/DL (0.50-1.00); GLOMERULAR FILTRATION RATE 61 ML/MIN (>89); GLUCOSE,RANDOM 96 MG/DL (74-106); SODIUM (NA) 140 MEQ/L (136-145)
[2018-01-11 12:46] LABS: BANDS 1 % (0-6); LYMPHOCYTES 5 % (9-44); METAMYELOCYTES 1 % (0-1); MONOCYTES 4 % (0-8); MYELOCYTES 1 % (0-0); POLYS (SEG NEUTROPHILS) 87 % (16-70); PROMYELOCYTES 1 % (0-0)
[2018-01-11 12:49] LABS: ALKALINE PHOSPHATASE 153 U/L (45-117); ALT (GPT) 1431 U/L (10-53); TOTAL BILIRUBIN ADULT 0.6 MG/DL (0.2-1.0); TOTAL PROTEIN 6.4 GM/DL (6.4-8.2)
[2018-01-11] MEDS ORDERED: fentaNYL DRIP 250 ML IV PRN (13:00)
[2018-01-11] MEDS: LACTULOSE SYRUP 20 GM/30 ML CUP PO SCH ×3 (14:22→20:25)
[2018-01-11] MEDS: cloNIDine HCL 0.2 MG TAB PO SCH ×2 (14:22→21:01)
[2018-01-11] MEDS: MIDAZOLAM 100 MG/100 ML INJ 100 ML IV PRN (16:05)
[2018-01-11] MEDS: PIPERACIL-TAZO 4.5 GM PREMIX 100 ML IV SCH ×2 (16:06→21:01)
[2018-01-11] MEDS: FAMOTIDINE 20 MG/2 ML VIAL IV PUSH SCH (20:25)
[2018-01-12] VITALS (25 sets, daily range): BP systolic 111–152; BP diastolic 55–70; PULSE 80–113; RESP 20; TEMP 98.3–100; O2SAT 95–100
[2018-01-12] MEDS: RESP: ALBUTEROL 2.5 MG/IPRATROPIUM 0.5 MG NEB (SCH) INH ×6 (00:18→21:28)
[2018-01-12] MEDS: PROPOFOL 1000 MG/100 ML INJ 100 ML IV PRN ×4 (02:49→20:22)
[2018-01-12] MEDS: MIDAZOLAM 100 MG/100 ML INJ 100 ML IV PRN ×2 (02:50→14:16)
[2018-01-12] MEDS: CHLORHEXIDINE GLUCONATE 2 % 1 PACK (2 CLOTHS) TOP SCH (03:08)
[2018-01-12] MEDS: PIPERACIL-TAZO 4.5 GM PREMIX 100 ML IV SCH ×4 (03:08→21:41)
[2018-01-12] MEDS: HYDROCORTISONE SOD SUCCINATE 100 MG VIAL IV PUSH SCH ×3 (05:01→21:41)
[2018-01-12] MEDS: cloNIDine HCL 0.2 MG TAB PO SCH ×3 (05:01→21:41)
[2018-01-12 05:43] LABS: AUTOMATED NEUTROPHIL # 5.1 TH/MM3 (1.8-7.7); BASOPHIL % 0.1 % (0.0-2.0); HEMATOCRIT 23.9 % (35.0-46.0); HEMOGLOBIN 8.1 GM/DL (11.6-15.3); LYMPH % 7.8 % (9.0-44.0); LYMPHOCYTE # 0.5 TH/MM3 (1.0-4.8); MEAN CELL VOLUME 85.6 FL (80.0-100.0); MEAN CORPUSCULAR HEMOGLOBIN 29.1 PG (27.0-34.0); MEAN PLATELET VOLUME 7.9 FL (7.0-11.0); MONO % 7.3 % (0.0-8.0); MONOCYTE # 0.4 TH/MM3 (0-0.9); NEUT % 84.8 % (16.0-70.0); PLATELET COUNT 230 TH/MM3 (150-450); RED BLOOD COUNT 2.79 MIL/MM3 (4.00-5.30); RED CELL DISTRIBUTION WIDTH 17.1 % (11.6-17.2)
[2018-01-12 06:07] LABS: ALBUMIN 2.7 GM/DL (3.4-5.0); AST (GOT) 233 U/L (15-37); BICARBONATE 28.1 MEQ/L (21.0-32.0); BLOOD UREA NITROGEN 21 MG/DL (7-18); CALCIUM 8.3 MG/DL (8.5-10.1); CHLORIDE 102 MEQ/L (98-107); CREATININE 1.09 MG/DL (0.50-1.00); GLOMERULAR FILTRATION RATE 51 ML/MIN (>89); GLUCOSE,RANDOM 135 MG/DL (74-106); MAGNESIUM 1.6 MG/DL (1.5-2.5); SODIUM (NA) 141 MEQ/L (136-145)
[2018-01-12 06:08] LABS: ALT (GPT) 993 U/L (10-53); PHOSPHORUS 3.6 MG/DL (2.5-4.9)
[2018-01-12 06:14] LABS: ALKALINE PHOSPHATASE 133 U/L (45-117); TOTAL BILIRUBIN ADULT 0.7 MG/DL (0.2-1.0); TOTAL PROTEIN 6.2 GM/DL (6.4-8.2)
[2018-01-12] MEDS: POTASSIUM CHLOR 20 MEQ PREMIX 100 ML IV SCH ×4 (06:47→12:25)
[2018-01-12 07:46] LABS: BANDS 20 % (0-6); LYMPHOCYTES 7 % (9-44); MONOCYTES 6 % (0-8); NEUTROPHIL # MANUAL DIFF 5.2 TH/MM3 (1.8-7.7); POLYS (SEG NEUTROPHILS) 67 % (16-70)
[2018-01-12] MEDS: ALBUMIN 25% INJ 50 ML IV SCH ×2 (08:34→20:35)
[2018-01-12] MEDS: POTASSIUM CHLORIDE 25 MEQ EFFERVESCENT TAB NG SCH (08:34)
[2018-01-12] MEDS: OSELTAMIVIR PHOSPHATE 30 MG/5 ML ORAL SYRINGE PO SCH (08:34)
[2018-01-12] MEDS: FUROSEMIDE 40 MG/4 ML VIAL IV PUSH SCH ×2 (08:35→18:13)
[2018-01-12] MEDS: CHLORHEXIDINE 0.12% (ORAL KIT) 15 ML CUP MT SCH ×2 (08:45→20:36)
[2018-01-12] MEDS: RESP: BUDESONIDE 0.5 MG/2 ML NEB NEB SCH ×2 (08:54→21:27)
[2018-01-12] MEDS: LACTULOSE SYRUP 20 GM/30 ML CUP PO SCH ×4 (09:00→20:35)
[2018-01-12] MEDS: SODIUM CHLORIDE 0.9% FLUSH 10 ML FLUSH IV FLUSH SCH ×2 (09:34→20:34)
--- NOTE | 2018-01-12 10:32 | HHI.IDPN ---
Subjective Subjective Remarks Ms. Mike is a 62-year-old female with past medical history significant for multiple sclerosis. Per review of medical records it appears that patient is on pulse dose IV steroids and may be relatively immunosuppressed. Patient was recently admitted for COPD exacerbation, bilateral pneumonia with respiratory acidosis and ARDS needing intubation. Post extubation patient insisted on being discharged once she was on the floor. She was discharge on January 03 on oral antibiotics. According to the POA who reported the admitting doctor she was okay at home however extremely tired. Per documentation by ER physician patient went down for a nap no meningeal a family member found her unresponsive and not breathing. Reportedly paramedics were called in the patient was found to be pulseless in appetite. She was in PEA in the CPR was initiated. She was given 2 rounds of epinephrine and intubated in the field. After 10 minutes of CPR she regained pulse but did not regain consciousness. She remained intubated on arrival with a GCS of 3. Patient was initially started on levo fed for pressor support and received IV Zosyn in the emergency room for possible sepsis related to pneumonia. Her chest x-ray did show bilateral infiltrates. Her creatinine was noted to be 2 borderline elevated troponin with elevated CK. A CT of the head was done due to altered mental status which was negative for any bleed. Critical care medicine has been consulted and patient is currently in the ICU. At the time of my evaluation patient is not on any pressors, remains intubated sedated. Upon discussion with respiratory therapist patient continues to have yellow brown respiratory secretions appeared to be moderate in needing fairly frequent suctioning. Urine output is good. No diarrhea noted. Repeat chest x- ray this morning shows bilateral diffuse infiltrates with the pattern of both pneumonia as well as possible pulmonary edema. Cardiology has been consulted as well since the is concern for cardiogenic pulmonary edema and due to her PEA arrest. Infectious disease is consulted for evaluation and management of sepsis on admission with pneumonia in a patient with acute respiratory failure and respiratory acidosis, PEA prior to admission. Overnight events reviewed No fevers No rash No diarrhea Secretions white thick clear Antibiotics Levaquin Zosyn IV Vanco IV Lines Line sites with no e.o infection Past Medical History Past Medical History Multiple sclerosis Recent history of pneumonia, ARDS and intubation due to respiratory acidosis. Reported history of arthritis Reported history of asthma History of some arrhythmia History of anxiety History of CHF History of hypercholesterolemia History of COPD History of TIA History of GERD History of some genitourinary problems details not known History of headaches History of hiatal hernia History of hypertension Prior history of some implanted device but reportedly was taken out in January 2016. No surgical history in [place] medical records noted. History of kidney stones History of psychiatric problems PNEUMOCCOCAL Vaccine (Year): 2 Menopausal: Yes Past Surgical History History of Appendectomy History of Matthias in the right leg with 2 plates, History of neck surgery with 8 screws in the neck History of cholecystectomy History of hysterectomy(reported history of total abdominal hysterectomy with bilateral salpingo-oophorectomy at age 27) Rectal fissure December 2005 History of tonsillectomy 2 left breast biopsies Allergies: Coded Allergies: No Known Allergies (Verified Allergy, Unknown, 01/09/18) Objective . Vital Signs Date Time Temp Pulse Resp B/P (MAP) Pulse Ox O2 Delivery O2 Flow Rate FiO2 01/12/18 08:55 97 30 01/12/18 08:55 30 01/12/18 06:00 85 01/12/18 04:07 100 40 01/12/18 04:00 40 01/12/18 04:00 91 01/12/18 04:00 99.0 92 115/57 (76) 100 01/12/18 03:30 86 100 01/12/18 03:00 88 111/56 (74) 100 01/12/18 02:30 96 100 01/12/18 02:00 97 01/12/18 02:00 97 118/55 (76) 100 01/12/18 01:30 101 100 01/12/18 01:14 100 40 01/12/18 01:00 105 130/60 (83) 100 01/12/18 00:30 99 100 01/12/18 00:00 98.8 101 132/64 (86) 100 01/12/18 00:00 40 01/12/18 00:00 104 01/11/18 23:30 103 100 01/11/18 23:00 104 130/64 (86) 100 01/11/18 22:30 105 100 01/11/18 22:00 108 136/65 (88) 100 01/11/18 22:00 107 01/11/18 21:30 109 100 01/11/18 21:00 109 137/67 (90) 100 01/11/18 20:45 100 40 01/11/18 20:30 105 125/61 (82) 100 418 20:15 105 117/55 (75) 100 4 20:00 107 01/11/18 20:00 40 01/11/18 20:00 98.9 107 124/58 (80) 100 01/11/18 19:45 106 124/57 (79) 100 01/11/18 19:30 109 130/63 (85) 100 01/11/18 19:15 109 127/60 (82) 100 01/11/18 19:00 108 123/57 (79) 100 01/11/18 18:45 117 160/73 (102) 98 01/11/18 18:30 115 151/71 (97) 99 01/11/18 18:15 115 149/70 (96) 99 01/11/18 18:00 114 01/11/18 18:00 114 142/68 (92) 99 01/11/18 17:45 109 138/63 (88) 99 01/11/18 17:30 111 140/61 (87) 98 18 17:15 114 149/70 (96) 99 01/11/18 17:00 113 151/72 (98) 99 01/11/18 16:45 108 149/66 (93) 99 01/11/18 16:30 111 157/73 (101) 98 01/11/18 16:16 100 40 01/11/18 16:00 109 01/11/18 16:00 99.2 109 161/76 (104) 100 01/11/18 16:00 40 01/11/18 14:00 109 01/11/18 12:00 106 01/11/18 12:00 40 01/11/18 12:00 98.6 106 133/62 (85) 100 01/11/18 11:20 99 40 01/12/18 01/12/18 01/13/18 15:00 23:00 07:00 Intake Total 100 ml Balance 100 ml IV Total 100 ml . Laboratory Tests Test 01/11/18 10:53 01/12/18 04:34 White Blood Count 7.7 TH/MM3 6.0 TH/MM3 Red Blood Count 3.08 MIL/MM3 2.79 MIL/MM3 Hemoglobin 9.0 GM/DL 8.1 GM/DL Hematocrit 26.7 % 23.9 % Mean Corpuscular Volume 86.6 FL 85.6 FL Mean Corpuscular Hemoglobin 29.2 PG 29.1 PG Mean Corpuscular Hemoglobin Concent 33.7 % 34.0 % Red Cell Distribution Width 17.1 % 17.1 % Platelet Count 261 TH/MM3 230 TH/MM3 Mean Platelet Volume 8.5 FL 7.9 FL Neutrophils (%) (Auto) 88.6 % 84.8 % Lymphocytes (%) (Auto) 6.3 % 7.8 % Monocytes (%) (Auto) 5.0 % 7.3 % Eosinophils (%) (Auto) 0.1 % 0.0 % Basophils (%) (Auto) 0.0 % 0.1 % Neutrophils # (Auto) 6.8 TH/MM3 5.1 TH/MM3 Lymphocytes # (Auto) 0.5 TH/MM3 0.5 TH/MM3 Monocytes # (Auto) 0.4 TH/MM3 0.4 TH/MM3 Eosinophils # (Auto) 0.0 TH/MM3 0.0 TH/MM3 Basophils # (Auto) 0.0 TH/MM3 0.0 TH/MM3 CBC Comment AUTO DIFF AUTO DIFF Differential Total Cells Counted 100 100 Neutrophils % (Manual) 87 % 67 % Band Neutrophils % 1 % 20 % Lymphocytes % 5 % 7 % Monocytes % 4 % 6 % Neutrophils # (Manual) 7.0 TH/MM3 5.2 TH/MM3 Metamyelocytes 1 % Myelocytes 1 % Promyelocytes 1 % Differential Comment FINAL DIFF MANUAL FINAL DIFF MANUAL Platelet Estimate NORMAL NORMAL Platelet Morphology Comment NORMAL NORMAL Red Cell Morphology Comment NORMAL Laboratory Tests Test 01/11/18 10:53 01/12/18 04:34 Blood Urea Nitrogen 19 MG/DL 21 MG/DL Creatinine 0.93 MG/DL 1.09 MG/DL Random Glucose 96 MG/DL 135 MG/DL Total Protein 6.4 GM/DL 6.2 GM/DL Albumin 2.5 GM/DL 2.7 GM/DL Calcium Level 8.5 MG/DL 8.3 MG/DL Alkaline Phosphatase 153 U/L 133 U/L Aspartate Amino Transf (AST/SGOT) 603 U/L 233 U/L Alanine Aminotransferase (ALT/SGPT) 1431 U/L 993 U/L Total Bilirubin 0.6 MG/DL 0.7 MG/DL Sodium Level 140 MEQ/L 141 MEQ/L Potassium Level 2.7 MEQ/L 2.7 MEQ/L Chloride Level 100 MEQ/L 102 MEQ/L Carbon Dioxide Level 28.7 MEQ/L 28.1 MEQ/L Anion Gap 11 MEQ/L 11 MEQ/L Estimat Glomerular Filtration Rate 61 ML/MIN 51 ML/MIN Phosphorus Level 3.6 MG/DL Magnesium Level 1.6 MG/DL Microbiology Date/Time Source Procedure Growth Status 01/10/18 10:33 Blood Peripheral Aerobic Blood Culture - Preliminary NO GROWTH IN 1 DAY Resulted 01/10/18 10:33 Blood Peripheral Anaerobic Blood Culture - Preliminary NO GROWTH IN 1 DAY Resulted 01/10/18 10:29 Blood Peripheral Aerobic Blood Culture - Preliminary NO GROWTH IN 1 DAY Resulted 01/10/18 10:29 Blood Peripheral Anaerobic Blood Culture - Preliminary NO GROWTH IN 1 DAY Resulted 01/10/18 10:40 Nasal Washing Influenza Types A,B Antigen (EVARISTO) - Final NEGATIVE FOR FLU A AND B ANTIGEN.... Complete 01/09/18 23:00 Sputum Endotracheal Gram Stain - Final Complete 01/09/18 23:00 Sputum Endotracheal Sputum Culture - Final HEAVY GROWTH NORMAL RESPIRATORY ALEX Complete 01/10/18 16:30 Urine Catheterized Urine Legionella Antigen - Final PRESUMPTIVE NEGATIVE FOR LEGIONELLA P... Complete 01/10/18 16:30 Urine Catheterized Urine Streptococcus pneumoniae Antigen (M - Final PRESUMPTIVE NEGATIVE FOR STREPTOCOCCU... Complete 01/10/18 16:30 Urine Catheterized Urine Urine Culture - Preliminary NO GROWTH IN 24 HOURS. Resulted Imaging Last Impressions Chest X-Ray 01/10/18 0904 Signed Impressions: Service Date/Time: January 09:16 - CONCLUSION: Diffuse airspace disease, stable from yesterday. Markus Phillips MD Head CT 01/09/18 0000 Signed Impressions: Service Date/Time: Tuesday, January 09, 2018 15:39 - CONCLUSION: 1. No acute findings in the brain. No evidence of acute hemorrhage. 2. Stable diffuse ischemic demyelination and left lacunar infarcts. Markus Phillips MD Physical Exam GENERAL: This is a well-nourished, well-developed patient, in no apparent distress. SKIN: No rashes, ecchymoses or lesions. Cool and dry. HEAD: Atraumatic. Normocephalic. No temporal or scalp tenderness. EYES: Pupils equal round and reactive. No scleral icterus. No injection or drainage. ENT: Intubated NECK: Trachea midline. Supple, nontender, no meningeal signs. CARDIOVASCULAR: Heart sounds audible. No obvious murmur. RESPIRATORY: Bilateral rhonchi as well as basilar crepitations noted. GASTROINTESTINAL: Abdomen soft, non-tender, nondistended. MUSCULOSKELETAL: Extremities without clubbing, cyanosis, or edema. No joint tenderness, effusion, or edema noted. No calf tenderness. Negative Homans sign bilaterally. NEUROLOGICAL: Opens eyes spontaneously. Did not follow any commands for me. Withdraws to pain. Psych could not be assessed IV line sites with no evidence for infection. Assessment & Plan Remarks Possible sepsis present on admission Pneumonia present on admission Acute respiratory failure on vent Acute renal failure: prerenal, sepsis. Abnormal liver function tests: sepsis, Acute encephalopathy present on admission appears to be improving: Infection PEA outside hospital Recommendations: Continue Zosyn IV Continue Tamiflu follow respiratory panel if influenza PCR negative we'll discontinue Tamiflu Continue Levaquin IV may change to oral when using gut. Elevated Procalcitonin: 1.27 moderate risk interpretation. Given she was recently treated with antibiotics this could also be a partially treated pneumonia. Recheck procalcitonin on day 5 of treatment to assess for continuing antibiotic use. Follow blood cultures Follow sputum cultures Follow clinically Discussed with RN dw switchboard operator receptionist to follow up on Resp panel for influenza PCR. Patient on Tamiflu would like to assess continuing need and treat appropriately. Karin Pimentel MD Jan 12, 2018 10:32
[2018-01-12] MEDS: LEVOFLOXACIN 750 MG PREMIX INJ 150 ML IV SCH (10:41)
[2018-01-12] MEDS ORDERED: DEXTROSE 50% IN WATER 50 ML VIAL(D50) IV PUSH PRN (12:15)
[2018-01-12] MEDS: INSULIN NovoLIN REGULAR SUPPLEMENTAL SCALE SQ SCH ×3 (12:40→23:39)
--- NOTE | 2018-01-12 14:08 | HHI.CCPN ---
Subjective Remarks/Hospital Course 62-year-old female with a medical history significant for multiple sclerosis, asthma, COPD who was recently discharged after being admitted for pneumonia from which she was intubated in the ICU for a few days following extubation patient insisted on being discharged on the floor and was discharged on 01/03 on by mouth antibiotics. According to the POA she was doing okay at home however was extremely tired. Per documentation by ER physician the patient went down for a nap at noon. At 1 PM a family member found her unresponsive and not breathing. Paramedics were called. The patient was found pulseless and apneic. She was in PEA and CPR was initiated. She was given 2 rounds of epinephrine and intubated. After 10 minutes of CPR she regained a pulse. She never regained consciousness. She arrives intubated and unresponsive with a GCS of 3. She cannot provide any history or review of systems. Patient was started on Levophed for pressor support and received IV Zosyn in the ER. Her chest x-ray showed bilateral infiltrates. She was also noted have a creatinine of 2 and a borderline elevated troponin. Head CT was negative for any bleed. Patient was accepted for admission by critical care medicine service. When I evaluated the patient she was sedated with propofol 10 mics per KG per minute and was on Levophed 4 mics per minute with a systolic blood pressure of 155. She was arousable easily and focused at me during my exam. Per patient's daughter who is also at the bedside she was trying to mouth words at her earlier. History was obtained by reviewing records and discussion with patient' s POA as well as daughter. SUBJ 4/5: Remains intubated sedated, but wakes up easily follows commands. Remains in respiratory distress when sedation is lightened, continues to have significant bilateral rhonchi and coarse crackles all over the chest. Off pressors now hypotensive systolic blood pressure in 200s. Check BMP stat. Repeat chest x-ray pending. DC IV fluid, start IV Lasix 40 mg every 12 with IV albumin. Limited echo to evaluate for EF and also any new valvular regurgitation. Chek for Influenza, resp panel, start empiric Tamiflu 6: Remains intubated heavily sedated. Hypotensive requiring IV hydralazine and IV labetalol as needed. Start scheduled clonidine. Appears to have clinically congestive heart failure secondary to severe diastolic dysfunction. With aggressive diuresis 6 L urine output in last 24 hours, oxygenation has improved on 40% FiO2. Chest x-ray shows mild improvement in extensive bilateral infiltrates. Pro-calcitonin level equivocal 01/12: remains intubated. blood pressure under better control. good diuresis. Cr slight uptrend, but clinically continues to appear volume overloaded. Objective Vital Signs Date Time Temp Pulse Resp B/P (MAP) Pulse Ox O2 Delivery O2 Flow Rate FiO2 01/12/18 11:57 96 30 01/12/18 06:00 85 01/12/18 04:00 99.0 115/57 (76) 01/09/18 20:41 17 01/09/18 20:00 Ventilator 01/09/18 14:33 2.00 Intake and Output 01/12/18 01/12/18 01/12/18 07:59 15:59 23:59 Intake Total 552 ml Output Total 850 ml Balance -298 ml Result Diagram: 01/12/18 0434 01/12/18 0434 Other Results Microbiology Date/Time Source Procedure Growth Status 01/10/18 10:40 Nasal Washing Influenza Types A,B Antigen (EVARISTO) - Final NEGATIVE FOR FLU A AND B ANTIGEN.... Complete 01/09/18 23:00 Sputum Endotracheal Gram Stain - Final Complete 01/09/18 23:00 Sputum Endotracheal Sputum Culture - Final HEAVY GROWTH NORMAL RESPIRATORY ALEX Complete 01/10/18 16:30 Urine Catheterized Urine Legionella Antigen - Final PRESUMPTIVE NEGATIVE FOR LEGIONELLA P... Complete 01/10/18 16:30 Urine Catheterized Urine Streptococcus pneumoniae Antigen (M - Final PRESUMPTIVE NEGATIVE FOR STREPTOCOCCU... Complete 01/10/18 16:30 Urine Catheterized Urine Urine Culture - Final NO GROWTH IN 48 HOURS. Complete Imaging Last Impressions Head CT 01/09/18 0000 Signed Impressions: Service Date/Time: Tuesday, January 09, 2018 15:39 - CONCLUSION: 1. No acute findings in the brain. No evidence of acute hemorrhage. 2. Stable diffuse ischemic demyelination and left lacunar infarcts. Markus Phillips MD Chest X-Ray 01/09/18 0000 Signed Impressions: Service Date/Time: Tuesday, January 09, 2018 14:44 - CONCLUSION: 1. ET tube in good position. 2. Interval development of diffuse bilateral airspace opacities. Markus Phillips MD Objective Remarks GEN: 62-year-old female, critically ill HEENT: Orally intubated, Pallor present, no icterus, tongue/ mucosa moist Neck: No JVD Chest/Pulm: on mech vent, fio2 40%. equal chest rise. CVS: normal rate, regular rhythm. sinus. GI/abdomen: soft, nontender, no guarding. Extremities: warm bilaterally, 1+ edema. Neuro: Sedated, arousable, pupils 3 mm bilaterally reactive, opens eyes on stimulation. Follows commands 4 A/P Assessment and Plan Assessment: 62-year-old female with: Cardiac arrest/PEA most likely secondary to respiratory arrest Acute hypoxemic, hypercarbic respiratory failure Severe pulmonary edema - cardiogenic secondary to diastolic dysfunction Bilateral pneumonia Acute Diastolic heart failure exacerbation Positive troponin ARIADNA Hyperammonemia Elevated LFTs/shock liver COPD/ asthma with acute exacerbation Recent admission with pneumonia History of multiple sclerosis Chronic pain Plan: Neuro: -Sedation with propofol, fentanyl for sedation and pain control. Neuro checks. -Appears to have no significant anoxic brain injury. Daily sedation vacation. -History of multiple sclerosis. Receiving steroids Cardiovascular: -Serial cardiac enzymes. -Cardiology consulted in view of elevated troponin. Patient was evaluated by Dr. Montilla during past admission. -Repeat limited echo normal ejection fraction, however with uncontrolled hypertension patient probably has diastolic dysfunction and heart failure -Chest x-ray clinically appears to be pulmonary edema unclear cardiogenic versus noncardiogenic -IV Lasix 40 mg every 12 hours with IV albumin, potassium replacement - continue forced diuresis. Pulmonary: -Continue mechanical ventilation, vent bundle, bronchodilators scheduled and as needed. -Daily CPAP trial without extubation, until chest x-ray shows significant improvement: still no meaningful improvement in pulmonary mechanics. not ready for SBT and extubation. -Sputum to be sent for Gram stain and cultures. -Receiving hydrocortisone stress dose -Inhaled budesonide, DuoNeb -Neg for influenza, follow-up respiratory panel, continue broad-spectrum antibiotics and empiric Tamiflu GI/liver: -Follow LFTs. Suspect secondary to shock liver following cardiac arrest: downtrending. -Tube feeds, with Jevity -Trend liver enzymes -Ammonia level elevated, start lactulose ID: -Procalcitonin equivocal -Influenza negative, F/u respiratory panel, started empiric Tamiflu 75 mg PO BID -Follow up on sputum culture and send blood/urine culture. -Continue Vancomycin IV, Zosyn, IV Levaquin and Tamiflu for empiric antibiotic coverage. Renal/: -IV Lasix and IV albumin as above - continue cullen today for aggressive forced diuresis Endocrine: -SSI for glycemic control as needed. Stress dose steroids as patient has been on chronic prednisone. start q6h med scale. Prophylaxis: -PPI/SCDs/ holding Lovenox due to worsening liver enzymes OVERALL IMPRESSION: multifactorial hypoxic respiratory failure which is severe: combination of infectious etiology with severe diastolic dysfunction CHF exacerbation. unlikely to separate successfully from mechanical ventilation until all factors are optimized. continue forced diuresis and abx. off pathway and may have prolonged ventilatory course. very critically ill. multiple acute on chronic life-threatening organ dysfunctions. Condition critical Time spent on critical care excluding procedures 33 minutes J Luis Cook MD Jan 12, 2018 14:08
[2018-01-12] MEDS: FAMOTIDINE 20 MG/2 ML VIAL IV PUSH SCH (20:35)
[2018-01-12] MEDS: POTASSIUM CHLOR 20 MEQ PREMIX 100 ML IV PRN (22:44)
[2018-01-13] VITALS (17 sets, daily range): BP systolic 134–200; BP diastolic 66–85; PULSE 100–114; RESP 19–20; TEMP 99–101.6; O2SAT 93–100
[2018-01-13] MEDS: RESP: ALBUTEROL 2.5 MG/IPRATROPIUM 0.5 MG NEB (SCH) INH ×6 (00:40→20:29)
[2018-01-13] MEDS: POTASSIUM CHLOR 20 MEQ PREMIX 100 ML IV PRN (02:16)
[2018-01-13] MEDS: PROPOFOL 1000 MG/100 ML INJ 100 ML IV PRN ×4 (02:17→22:39)
[2018-01-13] MEDS: PIPERACIL-TAZO 4.5 GM PREMIX 100 ML IV SCH ×4 (03:10→21:11)
[2018-01-13] MEDS: CHLORHEXIDINE GLUCONATE 2 % 1 PACK (2 CLOTHS) TOP SCH (04:01)
[2018-01-13] MEDS: MIDAZOLAM 100 MG/100 ML INJ 100 ML IV PRN ×2 (04:01→18:48)
[2018-01-13] MEDS: INSULIN NovoLIN REGULAR SUPPLEMENTAL SCALE SQ SCH ×4 (05:32→18:48)
[2018-01-13] MEDS: cloNIDine HCL 0.2 MG TAB PO SCH ×3 (05:32→21:11)
[2018-01-13] MEDS: HYDROCORTISONE SOD SUCCINATE 100 MG VIAL IV PUSH SCH ×3 (05:32→21:11)
[2018-01-13 07:01] LABS: BICARBONATE 26.1 MEQ/L (21.0-32.0); CALCIUM 8.5 MG/DL (8.5-10.1); CREATININE 1.17 MG/DL (0.50-1.00)
[2018-01-13] MEDS: POTASSIUM CHLORIDE 25 MEQ EFFERVESCENT TAB NG SCH (07:39)
[2018-01-13] MEDS: LACTULOSE SYRUP 20 GM/30 ML CUP PO SCH ×4 (07:39→20:13)
[2018-01-13] MEDS: FUROSEMIDE 40 MG/4 ML VIAL IV PUSH SCH (07:40)
[2018-01-13] MEDS: CHLORHEXIDINE 0.12% (ORAL KIT) 15 ML CUP MT SCH ×2 (09:14→19:31)
[2018-01-13] MEDS: SODIUM CHLORIDE 0.9% FLUSH 10 ML FLUSH IV FLUSH SCH ×2 (09:15→20:12)
[2018-01-13] MEDS: RESP: BUDESONIDE 0.5 MG/2 ML NEB NEB SCH ×2 (09:18→20:29)
[2018-01-13] MEDS: LEVOFLOXACIN 750 MG PREMIX INJ 150 ML IV SCH (10:10)
--- NOTE | 2018-01-13 10:13 | HHI.IDPN ---
Subjective Subjective Remarks Ms. Mike is a 62-year-old female with past medical history significant for multiple sclerosis. Per review of medical records it appears that patient is on pulse dose IV steroids and may be relatively immunosuppressed. Patient was recently admitted for COPD exacerbation, bilateral pneumonia with respiratory acidosis and ARDS needing intubation. Post extubation patient insisted on being discharged once she was on the floor. She was discharge on January 03 on oral antibiotics. According to the POA who reported the admitting doctor she was okay at home however extremely tired. Per documentation by ER physician patient went down for a nap no meningeal a family member found her unresponsive and not breathing. Reportedly paramedics were called in the patient was found to be pulseless in appetite. She was in PEA in the CPR was initiated. She was given 2 rounds of epinephrine and intubated in the field. After 10 minutes of CPR she regained pulse but did not regain consciousness. She remained intubated on arrival with a GCS of 3. Patient was initially started on levo fed for pressor support and received IV Zosyn in the emergency room for possible sepsis related to pneumonia. Her chest x-ray did show bilateral infiltrates. Her creatinine was noted to be 2 borderline elevated troponin with elevated CK. A CT of the head was done due to altered mental status which was negative for any bleed. Critical care medicine has been consulted and patient is currently in the ICU. At the time of my evaluation patient is not on any pressors, remains intubated sedated. Upon discussion with respiratory therapist patient continues to have yellow brown respiratory secretions appeared to be moderate in needing fairly frequent suctioning. Urine output is good. No diarrhea noted. Repeat chest x- ray this morning shows bilateral diffuse infiltrates with the pattern of both pneumonia as well as possible pulmonary edema. Cardiology has been consulted as well since the is concern for cardiogenic pulmonary edema and due to her PEA arrest. Infectious disease is consulted for evaluation and management of sepsis on admission with pneumonia in a patient with acute respiratory failure and respiratory acidosis, PEA prior to admission. Overnight events reviewed No fevers No rash No diarrhea Secretions white thick clear Remains intubated. Did not tolerate CPAP trial for more than few mins. Antibiotics Levaquin Zosyn IV Vanco IV Lines Line sites with no e.o infection Past Medical History Past Medical History Multiple sclerosis Recent history of pneumonia, ARDS and intubation due to respiratory acidosis. Reported history of arthritis Reported history of asthma History of some arrhythmia History of anxiety History of CHF History of hypercholesterolemia History of COPD History of TIA History of GERD History of some genitourinary problems details not known History of headaches History of hiatal hernia History of hypertension Prior history of some implanted device but reportedly was taken out in January 2016. No surgical history in [facility] medical records noted. History of kidney stones History of psychiatric problems PNEUMOCCOCAL Vaccine (Year): 2 Menopausal: Yes Past Surgical History History of Appendectomy History of Matthias in the right leg with 2 plates, History of neck surgery with 8 screws in the neck History of cholecystectomy History of hysterectomy(reported history of total abdominal hysterectomy with bilateral salpingo-oophorectomy at age 27) Rectal fissure December 2005 History of tonsillectomy 2 left breast biopsies Allergies: Coded Allergies: No Known Allergies (Verified Allergy, Unknown, 01/09/18) Objective . Vital Signs Date Time Temp Pulse Resp B/P (MAP) Pulse Ox O2 Delivery O2 Flow Rate FiO2 01/13/18 09:06 30 01/13/18 09:06 100 30 01/13/18 06:00 101 01/13/18 04:11 98 30 01/13/18 04:00 106 01/13/18 04:00 99.0 106 20 134/66 (88) 99 01/13/18 04:00 30 01/13/18 02:00 112 01/13/18 00:00 30 01/13/18 00:00 99.6 111 19 151/67 (95) 99 01/13/18 00:00 111 01/12/18 22:00 113 01/12/18 21:28 98 30 01/12/18 20:00 30 01/12/18 20:00 99.7 104 20 138/62 (87) 98 01/12/18 20:00 104 01/12/18 18:00 105 01/12/18 17:07 95 30 01/12/18 16:01 99 01/12/18 16:01 100.0 99 152/70 (97) 95 01/12/18 16:00 30 01/12/18 16:00 98 01/12/18 14:00 97 01/12/18 12:00 98.3 97 128/61 (83) 97 01/12/18 12:00 97 01/12/18 12:00 30 01/12/18 11:57 96 30 . Laboratory Tests Test 01/11/18 10:53 01/12/18 04:34 White Blood Count 7.7 TH/MM3 6.0 TH/MM3 Red Blood Count 3.08 MIL/MM3 2.79 MIL/MM3 Hemoglobin 9.0 GM/DL 8.1 GM/DL Hematocrit 26.7 % 23.9 % Mean Corpuscular Volume 86.6 FL 85.6 FL Mean Corpuscular Hemoglobin 29.2 PG 29.1 PG Mean Corpuscular Hemoglobin Concent 33.7 % 34.0 % Red Cell Distribution Width 17.1 % 17.1 % Platelet Count 261 TH/MM3 230 TH/MM3 Mean Platelet Volume 8.5 FL 7.9 FL Neutrophils (%) (Auto) 88.6 % 84.8 % Lymphocytes (%) (Auto) 6.3 % 7.8 % Monocytes (%) (Auto) 5.0 % 7.3 % Eosinophils (%) (Auto) 0.1 % 0.0 % Basophils (%) (Auto) 0.0 % 0.1 % Neutrophils # (Auto) 6.8 TH/MM3 5.1 TH/MM3 Lymphocytes # (Auto) 0.5 TH/MM3 0.5 TH/MM3 Monocytes # (Auto) 0.4 TH/MM3 0.4 TH/MM3 Eosinophils # (Auto) 0.0 TH/MM3 0.0 TH/MM3 Basophils # (Auto) 0.0 TH/MM3 0.0 TH/MM3 CBC Comment AUTO DIFF AUTO DIFF Differential Total Cells Counted 100 100 Neutrophils % (Manual) 87 % 67 % Band Neutrophils % 1 % 20 % Lymphocytes % 5 % 7 % Monocytes % 4 % 6 % Neutrophils # (Manual) 7.0 TH/MM3 5.2 TH/MM3 Metamyelocytes 1 % Myelocytes 1 % Promyelocytes 1 % Differential Comment FINAL DIFF MANUAL FINAL DIFF MANUAL Platelet Estimate NORMAL NORMAL Platelet Morphology Comment NORMAL NORMAL Red Cell Morphology Comment NORMAL Laboratory Tests Test 01/11/18 10:53 01/12/18 04:34 01/12/18 15:53 01/13/18 02:50 Blood Urea Nitrogen 19 MG/DL 21 MG/DL Creatinine 0.93 MG/DL 1.09 MG/DL Random Glucose 96 MG/DL 135 MG/DL Total Protein 6.4 GM/DL 6.2 GM/DL Albumin 2.5 GM/DL 2.7 GM/DL Calcium Level 8.5 MG/DL 8.3 MG/DL Alkaline Phosphatase 153 U/L 133 U/L Aspartate Amino Transf (AST/SGOT) 603 U/L 233 U/L Alanine Aminotransferase (ALT/SGPT) 1431 U/L 993 U/L Total Bilirubin 0.6 MG/DL 0.7 MG/DL Sodium Level 140 MEQ/L 141 MEQ/L Potassium Level 2.7 MEQ/L 2.7 MEQ/L 3.3 MEQ/L Chloride Level 100 MEQ/L 102 MEQ/L Carbon Dioxide Level 28.7 MEQ/L 28.1 MEQ/L Anion Gap 11 MEQ/L 11 MEQ/L Estimat Glomerular Filtration Rate 61 ML/MIN 51 ML/MIN Phosphorus Level 3.6 MG/DL Magnesium Level 1.6 MG/DL 2.0 MG/DL Troponin I 0.08 NG/ML Test 01/13/18 05:30 Blood Urea Nitrogen 30 MG/DL Creatinine 1.17 MG/DL Random Glucose 136 MG/DL Calcium Level 8.5 MG/DL Sodium Level 146 MEQ/L Potassium Level 3.0 MEQ/L Chloride Level 107 MEQ/L Carbon Dioxide Level 26.1 MEQ/L Anion Gap 13 MEQ/L Estimat Glomerular Filtration Rate 47 ML/MIN Microbiology Date/Time Source Procedure Growth Status 01/10/18 10:33 Blood Peripheral Aerobic Blood Culture - Preliminary NO GROWTH IN 2 DAYS Resulted 01/10/18 10:33 Blood Peripheral Anaerobic Blood Culture - Preliminary NO GROWTH IN 2 DAYS Resulted 01/10/18 10:29 Blood Peripheral Aerobic Blood Culture - Preliminary NO GROWTH IN 2 DAYS Resulted 01/10/18 10:29 Blood Peripheral Anaerobic Blood Culture - Preliminary NO GROWTH IN 2 DAYS Resulted 01/10/18 10:40 Nasal Washing Influenza Types A,B Antigen (EVARISTO) - Final NEGATIVE FOR FLU A AND B ANTIGEN.... Complete 01/10/18 16:30 Urine Catheterized Urine Legionella Antigen - Final PRESUMPTIVE NEGATIVE FOR LEGIONELLA P... Complete 01/10/18 16:30 Urine Catheterized Urine Streptococcus pneumoniae Antigen (M - Final PRESUMPTIVE NEGATIVE FOR STREPTOCOCCU... Complete 01/10/18 16:30 Urine Catheterized Urine Urine Culture - Final NO GROWTH IN 48 HOURS. Complete Imaging Last Impressions Chest X-Ray 01/10/18 0904 Signed Impressions: Service Date/Time: January 09:16 - CONCLUSION: Diffuse airspace disease, stable from yesterday. Markus Phillips MD Head CT 01/09/18 0000 Signed Impressions: Service Date/Time: Tuesday, January 09, 2018 15:39 - CONCLUSION: 1. No acute findings in the brain. No evidence of acute hemorrhage. 2. Stable diffuse ischemic demyelination and left lacunar infarcts. Markus Phillips MD Physical Exam GENERAL: This is a well-nourished, well-developed patient, in no apparent distress. SKIN: No rashes, ecchymoses or lesions. Cool and dry. HEAD: Atraumatic. Normocephalic. No temporal or scalp tenderness. EYES: Pupils equal round and reactive. No scleral icterus. No injection or drainage. ENT: Intubated NECK: Trachea midline. Supple, nontender, no meningeal signs. CARDIOVASCULAR: Heart sounds audible. No obvious murmur. RESPIRATORY: Bilateral rhonchi as well as basilar crepitations noted. GASTROINTESTINAL: Abdomen soft, non-tender, nondistended. MUSCULOSKELETAL: Extremities without clubbing, cyanosis, or edema. No joint tenderness, effusion, or edema noted. No calf tenderness. Negative Homans sign bilaterally. NEUROLOGICAL: Opens eyes spontaneously. Did not follow any commands for me. Withdraws to pain. Psych could not be assessed IV line sites with no evidence for infection. Assessment & Plan Remarks Possible sepsis present on admission Pneumonia present on admission Acute respiratory failure on vent Acute renal failure: prerenal, sepsis. Abnormal liver function tests: sepsis, Acute encephalopathy present on admission appears to be improving: Infection PEA outside hospital Recommendations: Continue Zosyn IV DC Tamiflu. Resp panel negative. Continue Levaquin IV may change to oral when using gut. repeat procalcitonin. If fevers get sputum culture repeated. Follow cultures Follow clinically Discussed with Karin Shelby MD Jan 13, 2018 10:13
[2018-01-13] MEDS ORDERED: PHARMACY ORDERED LAB ONE (10:45)
--- NOTE | 2018-01-13 10:46 | HHI.CCPN ---
Subjective Remarks/Hospital Course 62-year-old female with a medical history significant for multiple sclerosis, asthma, COPD who was recently discharged after being admitted for pneumonia from which she was intubated in the ICU for a few days following extubation patient insisted on being discharged on the floor and was discharged on 01/03 on by mouth antibiotics. According to the POA she was doing okay at home however was extremely tired. Per documentation by ER physician the patient went down for a nap at noon. At 1 PM a family member found her unresponsive and not breathing. Paramedics were called. The patient was found pulseless and apneic. She was in PEA and CPR was initiated. She was given 2 rounds of epinephrine and intubated. After 10 minutes of CPR she regained a pulse. She never regained consciousness. She arrives intubated and unresponsive with a GCS of 3. She cannot provide any history or review of systems. Patient was started on Levophed for pressor support and received IV Zosyn in the ER. Her chest x-ray showed bilateral infiltrates. She was also noted have a creatinine of 2 and a borderline elevated troponin. Head CT was negative for any bleed. Patient was accepted for admission by critical care medicine service. When I evaluated the patient she was sedated with propofol 10 mics per KG per minute and was on Levophed 4 mics per minute with a systolic blood pressure of 155. She was arousable easily and focused at me during my exam. Per patient's daughter who is also at the bedside she was trying to mouth words at her earlier. History was obtained by reviewing records and discussion with patient' s POA as well as daughter. 01/10: Remains intubated sedated, but wakes up easily follows commands. Remains in respiratory distress when sedation is lightened, continues to have significant bilateral rhonchi and coarse crackles all over the chest. Off pressors now hypotensive systolic blood pressure in 200s. Check BMP stat. Repeat chest x-ray pending. DC IV fluid, start IV Lasix 40 mg every 12 with IV albumin. Limited echo to evaluate for EF and also any new valvular regurgitation. Chek for Influenza, resp panel, start empiric Tamiflu 6: Remains intubated heavily sedated. Hypotensive requiring IV hydralazine and IV labetalol as needed. Start scheduled clonidine. Appears to have clinically congestive heart failure secondary to severe diastolic dysfunction. With aggressive diuresis 6 L urine output in last 24 hours, oxygenation has improved on 40% FiO2. Chest x-ray shows mild improvement in extensive bilateral infiltrates. Pro-calcitonin level equivocal 01/12: remains intubated. blood pressure under better control. good diuresis. Cr slight uptrend, but clinically continues to appear volume overloaded. SUBJECTIVE: 01/13: T-max 100. Currently 99.4. Tolerating tube feeds. Continues with aggressive diuresis with furosemide. Creatinine currently 1.13. Currently in A. fib with RVR. Acutely replacing potassium. Magnesium pending. Troponin was 0.08 this AM Objective Vital Signs Date Time Temp Pulse Resp B/P (MAP) Pulse Ox O2 Delivery O2 Flow Rate FiO2 01/13/18 09:06 30 01/13/18 09:06 100 01/13/18 06:00 101 01/13/18 04:00 99.0 20 134/66 (88) 01/09/18 20:00 Ventilator 01/09/18 14:33 2.00 Intake and Output 01/13/18 01/13/18 01/14/18 08:00 16:00 00:00 Intake Total 793 ml Output Total 1550 ml Balance -757 ml Result Diagram: 01/12/18 0434 01/13/18 0530 Other Results Microbiology Date/Time Source Procedure Growth Status 01/10/18 10:33 Blood Peripheral Aerobic Blood Culture - Preliminary NO GROWTH IN 2 DAYS Resulted 01/10/18 10:33 Blood Peripheral Anaerobic Blood Culture - Preliminary NO GROWTH IN 2 DAYS Resulted 01/10/18 10:40 Nasal Washing Influenza Types A,B Antigen (EVARISTO) - Final NEGATIVE FOR FLU A AND B ANTIGEN.... Complete 01/10/18 16:30 Urine Catheterized Urine Legionella Antigen - Final PRESUMPTIVE NEGATIVE FOR LEGIONELLA P... Complete 01/10/18 16:30 Urine Catheterized Urine Streptococcus pneumoniae Antigen (M - Final PRESUMPTIVE NEGATIVE FOR STREPTOCOCCU... Complete Imaging Last Impressions Chest X-Ray 01/11/18 0000 Signed Impressions: Service Date/Time: Thursday, January 11, 2018 10:21 - CONCLUSION: 1. Stable patchy infiltrates in the medial lower lungs bilaterally. Markus Phillips MD Head CT 01/09/18 0000 Signed Impressions: Service Date/Time: Tuesday, January 09, 2018 15:39 - CONCLUSION: 1. No acute findings in the brain. No evidence of acute hemorrhage. 2. Stable diffuse ischemic demyelination and left lacunar infarcts. Markus Phillips MD Objective Remarks GEN: 62-year-old female currently orotracheally intubated HEENT: Pupils are about 3 mm bilaterally and reactive. Neck: No JVD Chest/Pulm: Essentially clear to auscultation bilaterally without wheezes rales rhonchi CVS: Tachycardic, IR. S1, S2 no strip without murmur GI/abdomen: soft, nontender, no guarding. Extremities: warm bilaterally, 1+ edema. Neuro: Sedated on the ventilator. Positive gag. Positive corneal reflex. Withdraws to pain in all 4 extremities. Urinary Catheter: Yes Assessment to: Continue Sheriff insert reason: Prolonged Immobilization Vascular Central Line Catheter: No Assessment to: Continue A/P Assessment and Plan Neuro/Psych: History of MS Acute hypoxic encephalopathy Chronic pain syndrome THC use Chronic prescription drug use Insomnia Depression/anxiety History of MS History of TIA -Sedation with propofol drip at 30 mcg/kg/min, midazolam at 8 mg an hour for analgesia while intubated Neuro checks. Goal of RASS -2 Daily sedation vacation. -History of multiple sclerosis. Receiving IV hydrocortisone 100 mg IV every 8 hours Medication reconciliation officially pending Dimethyl fumarate 240 mg p.o. twice daily for relapsing remitting MS currently on hold Alprazolam 0.5 mg every 8 hours as needed anxiety currently on hold Chronic morphine sulfate 30 mg every 4 hours scheduled currently on hold Duloxetine 60 mg p.o. daily currently on hold Pregabalin 100 mg p.o. daily currently on hold Tizanidine 4 mg every 6-8 hours currently on hold On as needed fentanyl 25 mg every 30 minutes as needed Schedule oxycodone liquid 5 mg by tube every 4 hours Cardiovascular: Cardiac arrest/PEA most likely secondary to respiratory arrest Acute Diastolic heart failure exacerbation Elevated troponin History of hypertension Dyslipidemia -Serial cardiac enzymes. The same was 0.08 -Cardiology consulted in view of elevated troponin. Echocardiogram reveals EF 65-70%. Hyperdynamic. Currently on clonidine 0.2 mg every 8 hours and as needed labetalol Atrial fibrillation. Replacing potassium aggressively. Check magnesium. One dose of digoxin Most likely start scheduled furosemide 40 mg daily in a.m. 4/9 Started on metoprolol tartrate 5 mg IV every 6 hours scheduled In home on metoprolol 25 twice daily for hypertension and rosuvastatin 5 mg daily for dyslipidemia Pulmonary: Acute respiratory failure COPD/ asthma with acute exacerbation [facility] 16500/10/12/29 vent bundle, Albuterol/ipratropium aerosols every 6 hours with albuterol aerosols every 2 hours as needed dyspnea -Daily CPAP trial without extubation, Spontaneous breathing trials when clinically indicated -Receiving hydrocortisone stress dose 100 mg IV every 8 hours -Inhaled budesonide 0.5/2 1 inhalation twice daily Follow chest x-ray in a.m. Patient is on Advair inhalers at home? GI/liver: Elevated transaminases -likely secondary to shock liver Hyperammonia Gastroesophageal reflux disease Hiatal hernia History of small bowel obstruction -Follow LFTs. Suspect secondary to shock liver following cardiac arrest: downtrending. -Tube feeds, with vital high-protein goal 50 cc an hour Famotidine for GI prophylaxis Docusate sodium/senna 1 tablet twice daily for bowel regimen Lactulose 30 cc every 6 hours. Check ammonia level in a.m. 01/14 ID: -Procalcitonin equivocal. Repeat pending -Influenza negative, F/u respiratory panel, discontinued Oseltamivir 75 mg PO BID from 01/10-01/12 -Follow up on sputum culture 01/09 no growth and send blood/urine culture 01/10 no growth. Negative influenza/respiratory panel and urine Legionella pneumococcal urinary antigens -Continue piperacillin/tazobactam since 01/11, IV levofloxacin started 01/10 Followed by infectious disease Renal/: Acute kidney injury Will hold off furosemide today Recheck BMP in a.m. Check renal ultrasound and urine electrolytes and eosinophils Avoid nephrotoxic medications Endocrine: Gout -SSI with NovoLog for glycemic control every 6 hours medium. Stress dose steroids as patient has been on chronic prednisone. Holding colchicine 0.6 mg daily MSK: DJD Osteoarthritis PT evaluate and treat FEN: Hypokalemia Recheck potassium magnesium at 1600. Received 80 mEq IV/p.o. 1 now. Prophylaxis -GI-famotidine -DVT -SCD/heparin subcutaneous Level 2 follow-up Brian Burgos MD Jan 13, 2018 10:46
[2018-01-13] MEDS ORDERED: DIGOXIN 0.5 MG/2 ML VIAL IV PUSH ONE ×2 (11:00→17:00)
[2018-01-13] MEDS ORDERED: POTASSIUM CHLORIDE 20 MEQ PWD PACKET PO ONE (11:00)
[2018-01-13] MEDS: POTASSIUM CHLOR 10 MEQ PREMIX 100 ML IV SCH ×3 (11:15→13:53)
[2018-01-13] MEDS: oxyCODONE HCL ORAL CONC 5 MG/0.25 ML SYRINGE PO SCH ×3 (12:17→20:13)
[2018-01-13 12:22] LABS: HEMATOCRIT 28.2 % (35.0-46.0); HEMOGLOBIN 9.5 GM/DL (11.6-15.3); MEAN CELL VOLUME 85.9 FL (80.0-100.0); MEAN CORPUSCULAR HEMOGLOBIN 28.9 PG (27.0-34.0); MEAN CORPUSCULAR HGB CONC 33.7 % (32.0-36.0); MEAN PLATELET VOLUME 7.7 FL (7.0-11.0); PLATELET COUNT 263 TH/MM3 (150-450); RED BLOOD COUNT 3.28 MIL/MM3 (4.00-5.30); RED CELL DISTRIBUTION WIDTH 17.2 % (11.6-17.2); WHITE BLOOD COUNT 8.3 TH/MM3 (4.0-11.0)
[2018-01-13 13:00] LABS: MAGNESIUM 1.8 MG/DL (1.5-2.5); PHOSPHORUS 2.5 MG/DL (2.5-4.9)
[2018-01-13] MEDS ORDERED: RESP: ALBUTEROL 2.5 MG/3 ML NEB (PRN) NEB (13:00)
[2018-01-13] MEDS ORDERED: LABETALOL HCL 100 MG/20 ML VIAL IV PRN (13:15)
[2018-01-13] MEDS ORDERED: ARTIFICIAL TEARS OPTH SOLN 15 ML BTL EACH EYE SCH (14:00)
[2018-01-13] MEDS: ARTIFICIAL TEARS OPTH SOLN 15 ML BTL EACH EYE SCH ×2 (14:00→21:11)
[2018-01-13 15:27] LABS: BACTERIA, URINE RARE /hpf; BILIRUBIN, URINE NEG (NEG); BLOOD, URINE NEG (NEG); GLUCOSE,URINE NEG (NEG); KETONE, URINE NEG (NEG); NITRITE,URINE NEG (NEG); SQUAMOUS EPITHELIAL CELL URINE <1 /hpf (0-5); URINE COLOR YELLOW (YELLW/STRAW); URINE LEUKOCYTE ESTERASE NEG (NEG)
[2018-01-13] MEDS: LABETALOL HCL 100 MG/20 ML VIAL IV PUSH PRN ×2 (16:13→20:04)
[2018-01-13] MEDS: HEPARIN SODIUM - SQ 10,000 UNITS/ML VIAL SQ SCH (20:13)
[2018-01-13] MEDS: FAMOTIDINE 20 MG TAB NG SCH (20:13)
[2018-01-13] MEDS: ACETAMINOPHEN 650 MG/20.3 ML UDC PO PRN (21:11)
[2018-01-14] VITALS (19 sets, daily range): BP systolic 146–203; BP diastolic 66–88; PULSE 85–122; RESP 17–21; TEMP 97.6–100.4; O2SAT 94–100
[2018-01-14] MEDS: INSULIN NovoLIN REGULAR SUPPLEMENTAL SCALE SQ SCH ×5 (00:03→23:42)
[2018-01-14] MEDS: oxyCODONE HCL ORAL CONC 5 MG/0.25 ML SYRINGE PO SCH ×7 (00:04→23:42)
[2018-01-14] MEDS: RESP: ALBUTEROL 2.5 MG/IPRATROPIUM 0.5 MG NEB (SCH) INH ×6 (00:40→21:40)
[2018-01-14] MEDS: CHLORHEXIDINE GLUCONATE 2 % 1 PACK (2 CLOTHS) TOP SCH (03:29)
[2018-01-14] MEDS: PIPERACIL-TAZO 4.5 GM PREMIX 100 ML IV SCH ×4 (03:29→21:05)
[2018-01-14] MEDS: PROPOFOL 1000 MG/100 ML INJ 100 ML IV PRN ×2 (04:31→10:10)
--- NOTE | 2018-01-14 05:28 | RADRPT ---
EXAM DATE/TIME: 01/14/2018 03:09 [place] COMPARISON: CHEST SINGLE AP, January 11, 2018, 10:21. INDICATIONS : Shortness of breath,possible pulmonary disease. MEDICAL HISTORY : Chronic obstructive pulmonary disease. Cardiovascular disease. Asthma SURGICAL HISTORY : Hysterectomy. ENCOUNTER: Subsequent ACUITY: 1 week PAIN SCORE: Non-responsive. LOCATION: Bilateral chest FINDINGS: A single view of the chest demonstrates bibasilar densities, slightly improved. Endotracheal tube and nasogastric tube unchanged. Osseous structures are intact. CONCLUSION: 1. Improvement in bibasilar densities. 2. Nasogastric tube with tip in the region of the GE junction and could be advanced. Silvano Hoskins MD on January 14, 2018 at 5:25 Board Certified Radiologist. This report was verified electronically.
[2018-01-14] MEDS: HYDROCORTISONE SOD SUCCINATE 100 MG VIAL IV PUSH SCH ×3 (05:49→21:05)
[2018-01-14] MEDS: cloNIDine HCL 0.2 MG TAB PO SCH ×3 (05:49→21:05)
[2018-01-14] MEDS: ARTIFICIAL TEARS OPTH SOLN 15 ML BTL EACH EYE SCH ×3 (05:50→21:05)
[2018-01-14] MEDS: RESP: BUDESONIDE 0.5 MG/2 ML NEB NEB SCH ×2 (07:43→21:40)
[2018-01-14 08:33] LABS: AUTOMATED NEUTROPHIL # 6.8 TH/MM3 (1.8-7.7); HEMATOCRIT 28.1 % (35.0-46.0); HEMOGLOBIN 9.3 GM/DL (11.6-15.3); LYMPH % 8.4 % (9.0-44.0); LYMPHOCYTE # 0.7 TH/MM3 (1.0-4.8); MEAN CORPUSCULAR HEMOGLOBIN 28.9 PG (27.0-34.0); MEAN CORPUSCULAR HGB CONC 33.2 % (32.0-36.0); MEAN PLATELET VOLUME 7.5 FL (7.0-11.0); MONO % 8.8 % (0.0-8.0); MONOCYTE # 0.7 TH/MM3 (0-0.9); NEUT % 82.8 % (16.0-70.0); PLATELET COUNT 206 TH/MM3 (150-450); RED BLOOD COUNT 3.22 MIL/MM3 (4.00-5.30); RED CELL DISTRIBUTION WIDTH 17.3 % (11.6-17.2); WHITE BLOOD COUNT 8.3 TH/MM3 (4.0-11.0)
[2018-01-14 09:01] LABS: ALBUMIN 3.1 GM/DL (3.4-5.0); ALT (GPT) 403 U/L (10-53); AST (GOT) 26 U/L (15-37); BICARBONATE 24.3 MEQ/L (21.0-32.0); BLOOD UREA NITROGEN 33 MG/DL (7-18); CALCIUM 8.4 MG/DL (8.5-10.1); CHLORIDE 115 MEQ/L (98-107); CREATININE 1.06 MG/DL (0.50-1.00); GLOMERULAR FILTRATION RATE 52 ML/MIN (>89); GLUCOSE,RANDOM 194 MG/DL (74-106); MAGNESIUM 2.2 MG/DL (1.5-2.5); PHOSPHORUS 4.2 MG/DL (2.5-4.9); SODIUM (NA) 149 MEQ/L (136-145)
[2018-01-14 09:33] LABS: ALKALINE PHOSPHATASE 118 U/L (45-117); TOTAL BILIRUBIN ADULT 0.4 MG/DL (0.2-1.0); TOTAL PROTEIN 6.6 GM/DL (6.4-8.2)
--- NOTE | 2018-01-14 09:37 | EKG ---
Date Performed: 01/13/2018 Time Performed: 02:03:32 PTAGE: 62 years EKG: Sinus tachycardia Diffuse nonspecific ST-T change Abnormal ECG PREVIOUS TRACING : 01/09/2018 14.12 Since previous tracing, the heart rate is faster, ST-T mauricio ges slightly more prominent on this tracing. DOCTOR: Conor Hernández Interpretating Date/Time 01/14/2018 09:36:37
[2018-01-14] MEDS: LACTULOSE SYRUP 20 GM/30 ML CUP PO SCH ×4 (09:40→21:00)
[2018-01-14] MEDS: MIDAZOLAM 100 MG/100 ML INJ 100 ML IV PRN (09:40)
[2018-01-14 09:41] LABS: BANDS 10 % (0-6); LYMPHOCYTES 2 % (9-44); METAMYELOCYTES 6 % (0-1); MONOCYTES 8 % (0-8); NEUTROPHIL # MANUAL DIFF 7.5 TH/MM3 (1.8-7.7); POLYS (SEG NEUTROPHILS) 74 % (16-70)
[2018-01-14] MEDS: FAMOTIDINE 20 MG TAB NG SCH ×2 (09:41→21:00)
[2018-01-14] MEDS: HEPARIN SODIUM - SQ 10,000 UNITS/ML VIAL SQ SCH ×2 (09:41→21:05)
[2018-01-14 09:42] LABS: OVALOCYTES 1+ (NORMAL); TOXIC GRANULATION 2+ (NORMAL)
[2018-01-14] MEDS: CHLORHEXIDINE 0.12% (ORAL KIT) 15 ML CUP MT SCH ×2 (09:42→20:00)
[2018-01-14] MEDS: SODIUM CHLORIDE 0.9% FLUSH 10 ML FLUSH IV FLUSH SCH ×2 (09:42→21:04)
[2018-01-14] MEDS: LABETALOL HCL 100 MG/20 ML VIAL IV PUSH PRN ×3 (10:09→21:06)
[2018-01-14] MEDS: POTASSIUM CHLOR 20 MEQ PREMIX 100 ML IV PRN ×2 (10:10→22:45)
--- NOTE | 2018-01-14 10:24 | HHI.IDPN ---
Subjective Subjective Remarks Ms. Mike is a 62-year-old female with past medical history significant for multiple sclerosis. Per review of medical records it appears that patient is on pulse dose IV steroids and may be relatively immunosuppressed. Patient was recently admitted for COPD exacerbation, bilateral pneumonia with respiratory acidosis and ARDS needing intubation. Post extubation patient insisted on being discharged once she was on the floor. She was discharge on January 03 on oral antibiotics. According to the POA who reported the admitting doctor she was okay at home however extremely tired. Per documentation by ER physician patient went down for a nap no meningeal a family member found her unresponsive and not breathing. Reportedly paramedics were called in the patient was found to be pulseless in appetite. She was in PEA in the CPR was initiated. She was given 2 rounds of epinephrine and intubated in the field. After 10 minutes of CPR she regained pulse but did not regain consciousness. She remained intubated on arrival with a GCS of 3. Patient was initially started on levo fed for pressor support and received IV Zosyn in the emergency room for possible sepsis related to pneumonia. Her chest x-ray did show bilateral infiltrates. Her creatinine was noted to be 2 borderline elevated troponin with elevated CK. A CT of the head was done due to altered mental status which was negative for any bleed. Critical care medicine has been consulted and patient is currently in the ICU. At the time of my evaluation patient is not on any pressors, remains intubated sedated. Upon discussion with respiratory therapist patient continues to have yellow brown respiratory secretions appeared to be moderate in needing fairly frequent suctioning. Urine output is good. No diarrhea noted. Repeat chest x- ray this morning shows bilateral diffuse infiltrates with the pattern of both pneumonia as well as possible pulmonary edema. Cardiology has been consulted as well since the is concern for cardiogenic pulmonary edema and due to her PEA arrest. Infectious disease is consulted for evaluation and management of sepsis on admission with pneumonia in a patient with acute respiratory failure and respiratory acidosis, PEA prior to admission. Overnight events reviewed Fevers overnight. Brian cultured. No rash No diarrhea Secretions white thick clear Remains intubated. On CPAP trials. Antibiotics Levaquin Zosyn IV Lines Line sites with no e.o infection Past Medical History Past Medical History Multiple sclerosis Recent history of pneumonia, ARDS and intubation due to respiratory acidosis. Reported history of arthritis Reported history of asthma History of some arrhythmia History of anxiety History of CHF History of hypercholesterolemia History of COPD History of TIA History of GERD History of some genitourinary problems details not known History of headaches History of hiatal hernia History of hypertension Prior history of some implanted device but reportedly was taken out in January 2016. No surgical history in [place] medical records noted. History of kidney stones History of psychiatric problems PNEUMOCCOCAL Vaccine (Year): 2 Menopausal: Yes Past Surgical History History of Appendectomy History of Matthias in the right leg with 2 plates, History of neck surgery with 8 screws in the neck History of cholecystectomy History of hysterectomy(reported history of total abdominal hysterectomy with bilateral salpingo-oophorectomy at age 27) Rectal fissure December 2005 History of tonsillectomy 2 left breast biopsies Allergies: Coded Allergies: No Known Allergies (Verified Allergy, Unknown, 01/09/18) Objective . Vital Signs Date Time Temp Pulse Resp B/P (MAP) Pulse Ox O2 Delivery O2 Flow Rate FiO2 01/14/18 10:03 30 01/14/18 07:44 100 30 01/14/18 06:00 85 01/14/18 04:34 100 30 01/14/18 04:29 16 01/14/18 04:00 104 01/14/18 04:00 30 01/14/18 04:00 99.0 104 20 146/66 (92) 100 01/14/18 02:00 101 01/14/18 00:40 98 30 01/14/18 00:00 100.4 104 21 155/68 (97) 98 01/14/18 00:00 30 01/14/18 00:00 104 01/13/18 22:00 102 01/13/18 20:30 99 30 01/13/18 20:00 30 01/13/18 20:00 104 01/13/18 20:00 101.6 104 20 200/85 (123) 100 01/13/18 18:00 100 01/13/18 18:00 30 01/13/18 16:00 107 01/13/18 16:00 30 01/13/18 16:00 99.4 107 188/84 (118) 93 01/13/18 14:11 100 30 01/13/18 14:00 100 01/13/18 14:00 30 01/13/18 12:00 30 01/13/18 12:00 102 01/13/18 12:00 101.2 102 148/78 (101) 97 01/13/18 11:47 100 30 . Laboratory Tests Test 01/13/18 12:00 01/14/18 08:15 White Blood Count 8.3 TH/MM3 8.3 TH/MM3 Red Blood Count 3.28 MIL/MM3 3.22 MIL/MM3 Hemoglobin 9.5 GM/DL 9.3 GM/DL Hematocrit 28.2 % 28.1 % Mean Corpuscular Volume 85.9 FL 87.0 FL Mean Corpuscular Hemoglobin 28.9 PG 28.9 PG Mean Corpuscular Hemoglobin Concent 33.7 % 33.2 % Red Cell Distribution Width 17.2 % 17.3 % Platelet Count 263 TH/MM3 206 TH/MM3 Mean Platelet Volume 7.7 FL 7.5 FL Neutrophils (%) (Auto) 82.8 % Lymphocytes (%) (Auto) 8.4 % Monocytes (%) (Auto) 8.8 % Eosinophils (%) (Auto) 0.0 % Basophils (%) (Auto) 0.0 % Neutrophils # (Auto) 6.8 TH/MM3 Lymphocytes # (Auto) 0.7 TH/MM3 Monocytes # (Auto) 0.7 TH/MM3 Eosinophils # (Auto) 0.0 TH/MM3 Basophils # (Auto) 0.0 TH/MM3 CBC Comment AUTO DIFF Differential Total Cells Counted 100 Neutrophils % (Manual) 74 % Band Neutrophils % 10 % Lymphocytes % 2 % Monocytes % 8 % Neutrophils # (Manual) 7.5 TH/MM3 Metamyelocytes 6 % Differential Comment FINAL DIFF MANUAL Toxic Granulation 2+ Platelet Estimate NORMAL Platelet Morphology Comment NORMAL Ovalocytes 1+ Laboratory Tests Test 01/12/18 15:53 01/13/18 02:50 01/13/18 05:30 01/13/18 10:16 Potassium Level 3.3 MEQ/L 3.0 MEQ/L Magnesium Level 2.0 MG/DL Troponin I 0.08 NG/ML 0.08 NG/ML Blood Urea Nitrogen 30 MG/DL Creatinine 1.17 MG/DL Random Glucose 136 MG/DL Calcium Level 8.5 MG/DL Sodium Level 146 MEQ/L Chloride Level 107 MEQ/L Carbon Dioxide Level 26.1 MEQ/L Anion Gap 13 MEQ/L Estimat Glomerular Filtration Rate 47 ML/MIN Test 01/13/18 12:00 01/14/18 08:15 Phosphorus Level 2.5 MG/DL 4.2 MG/DL Magnesium Level 1.8 MG/DL 2.2 MG/DL Procalcitonin 0.19 ng/mL Thyroid Stimulating Hormone 3rd Gen 0.202 uIU/ML Blood Urea Nitrogen 33 MG/DL Creatinine 1.06 MG/DL Random Glucose 194 MG/DL Total Protein 6.6 GM/DL Albumin 3.1 GM/DL Calcium Level 8.4 MG/DL Alkaline Phosphatase 118 U/L Aspartate Amino Transf (AST/SGOT) 26 U/L Alanine Aminotransferase (ALT/SGPT) 403 U/L Total Bilirubin 0.4 MG/DL Sodium Level 149 MEQ/L Potassium Level 3.2 MEQ/L Chloride Level 115 MEQ/L Carbon Dioxide Level 24.3 MEQ/L Anion Gap 10 MEQ/L Estimat Glomerular Filtration Rate 52 ML/MIN Ammonia 41 MCMOL/L Amylase Level 37 U/L Microbiology Date/Time Source Procedure Growth Status 01/13/18 14:30 Blood Peripheral Aerobic Blood Culture Pending Received 01/13/18 14:30 Blood Peripheral Anaerobic Blood Culture Pending Received 01/13/18 14:23 Blood Peripheral Aerobic Blood Culture Pending Received 01/13/18 14:23 Blood Peripheral Anaerobic Blood Culture Pending Received 01/13/18 13:53 Sputum Endotracheal Gram Stain - Final Resulted 01/13/18 13:53 Sputum Endotracheal Sputum Culture Pending Resulted 01/13/18 14:30 Urine Catheterized Urine Urine Culture Pending Received Imaging Last Impressions Chest X-Ray 01/10/18 0904 Signed Impressions: Service Date/Time: January 09:16 - CONCLUSION: Diffuse airspace disease, stable from yesterday. Markus Phillips MD Head CT 01/09/18 0000 Signed Impressions: Service Date/Time: Tuesday, January 09, 2018 15:39 - CONCLUSION: 1. No acute findings in the brain. No evidence of acute hemorrhage. 2. Stable diffuse ischemic demyelination and left lacunar infarcts. Markus Phillips MD Physical Exam GENERAL: This is a well-nourished, well-developed patient, in no apparent distress. SKIN: No rashes, ecchymoses or lesions. Cool and dry. HEAD: Atraumatic. Normocephalic. No temporal or scalp tenderness. EYES: Pupils equal round and reactive. No scleral icterus. No injection or drainage. ENT: Intubated NECK: Trachea midline. Supple, nontender, no meningeal signs. CARDIOVASCULAR: Heart sounds audible. No obvious murmur. RESPIRATORY: Bilateral rhonchi as well as basilar crepitations noted. GASTROINTESTINAL: Abdomen soft, non-tender, nondistended. MUSCULOSKELETAL: Extremities without clubbing, cyanosis, or edema. No joint tenderness, effusion, or edema noted. No calf tenderness. Negative Homans sign bilaterally. NEUROLOGICAL: Opens eyes spontaneously. Follows commands, Withdraws to pain. Psych could not be assessed IV line sites with no evidence for infection. Assessment & Plan Remarks Possible sepsis present on admission Pneumonia present on admission Acute respiratory failure on vent Acute renal failure: prerenal, sepsis. Abnormal liver function tests: sepsis, Acute encephalopathy present on admission appears to be improving: Infection PEA outside hospital Recommendations: Continue Zosyn IV Continue Levaquin IV may change to oral. Follow brian cultures. If signs of sepsis consider adding Vanco IV and Micafungin IV. Clinically stable BP actually on higher side. Non resolving pneumonia will check HIV screen and Hepatitis profile. Follow clinically Discussed with RN and . Karin Pimentel MD Jan 14, 2018 10:24
[2018-01-14] MEDS: LEVOFLOXACIN 750 MG PREMIX INJ 150 ML IV SCH (10:35)
--- NOTE | 2018-01-14 10:36 | HHI.CCPN ---
Subjective Remarks/Hospital Course 62-year-old female with a medical history significant for multiple sclerosis, asthma, COPD who was recently discharged after being admitted for pneumonia from which she was intubated in the ICU for a few days following extubation patient insisted on being discharged on the floor and was discharged on 01/03 on by mouth antibiotics. According to the POA she was doing okay at home however was extremely tired. Per documentation by ER physician the patient went down for a nap at noon. At 1 PM a family member found her unresponsive and not breathing. Paramedics were called. The patient was found pulseless and apneic. She was in PEA and CPR was initiated. She was given 2 rounds of epinephrine and intubated. After 10 minutes of CPR she regained a pulse. She never regained consciousness. She arrives intubated and unresponsive with a GCS of 3. She cannot provide any history or review of systems. Patient was started on Levophed for pressor support and received IV Zosyn in the ER. Her chest x-ray showed bilateral infiltrates. She was also noted have a creatinine of 2 and a borderline elevated troponin. Head CT was negative for any bleed. Patient was accepted for admission by critical care medicine service. When I evaluated the patient she was sedated with propofol 10 mics per KG per minute and was on Levophed 4 mics per minute with a systolic blood pressure of 155. She was arousable easily and focused at me during my exam. Per patient's daughter who is also at the bedside she was trying to mouth words at her earlier. History was obtained by reviewing records and discussion with patient' s POA as well as daughter. 01/10: Remains intubated sedated, but wakes up easily follows commands. Remains in respiratory distress when sedation is lightened, continues to have significant bilateral rhonchi and coarse crackles all over the chest. Off pressors now hypotensive systolic blood pressure in 200s. Check BMP stat. Repeat chest x-ray pending. DC IV fluid, start IV Lasix 40 mg every 12 with IV albumin. Limited echo to evaluate for EF and also any new valvular regurgitation. Chek for Influenza, resp panel, start empiric Tamiflu 6: Remains intubated heavily sedated. Hypotensive requiring IV hydralazine and IV labetalol as needed. Start scheduled clonidine. Appears to have clinically congestive heart failure secondary to severe diastolic dysfunction. With aggressive diuresis 6 L urine output in last 24 hours, oxygenation has improved on 40% FiO2. Chest x-ray shows mild improvement in extensive bilateral infiltrates. Pro-calcitonin level equivocal 01/12: remains intubated. blood pressure under better control. good diuresis. Cr slight uptrend, but clinically continues to appear volume overloaded. 01/13: T-max 100. Currently 99.4. Tolerating tube feeds. Continues with aggressive diuresis with furosemide. Creatinine currently 1.13. Currently in A. fib with RVR. Acutely replacing potassium. Magnesium pending. Troponin was 0.08 this AM SUBJECTIVE: 01/14: Creatinine around 1. Continues to be diuresed aggressively. Tolerating tube feeding. Positive BM. T-max 101.6. Currently 99. Attempting spontaneous breathing trials today with lessening sedation. Objective Vital Signs Date Time Temp Pulse Resp B/P (MAP) Pulse Ox O2 Delivery O2 Flow Rate FiO2 01/14/18 10:03 30 01/14/18 07:44 100 01/14/18 06:00 85 01/14/18 04:29 16 01/14/18 04:00 99.0 146/66 (92) Intake and Output 01/14/18 01/14/18 01/15/18 08:00 16:00 00:00 Intake Total 829 ml Output Total 1800 ml Balance -971 ml Result Diagram: 01/14/18 0815 01/14/18 0815 Other Results Microbiology Date/Time Source Procedure Growth Status 01/13/18 14:30 Blood Peripheral Aerobic Blood Culture Pending Received 01/13/18 14:30 Blood Peripheral Anaerobic Blood Culture Pending Received 01/13/18 13:53 Sputum Endotracheal Gram Stain - Final Resulted 01/13/18 13:53 Sputum Endotracheal Sputum Culture Pending Resulted 01/13/18 14:30 Urine Catheterized Urine Urine Culture Pending Received Imaging Last Impressions Chest X-Ray 01/14/18 0600 Signed Impressions: Service Date/Time: Sunday, January 14, 2018 03:09 - CONCLUSION: 1. Improvement in bibasilar densities. 2. Nasogastric tube with tip in the region of the GE junction and could be advanced. Silvano Hoskins MD Head CT 01/09/18 0000 Signed Impressions: Service Date/Time: Tuesday, January 09, 2018 15:39 - CONCLUSION: 1. No acute findings in the brain. No evidence of acute hemorrhage. 2. Stable diffuse ischemic demyelination and left lacunar infarcts. Markus Phillips MD Objective Remarks GEN: 62-year-old female currently orotracheally intubated HEENT: Pupils are about 3 mm bilaterally and reactive. Neck: No JVD Chest/Pulm: Essentially clear to auscultation bilaterally without wheezes rales rhonchi CVS: Tachycardic, IR. S1, S2 no strip without murmur GI/abdomen: soft, nontender, no guarding. Extremities: warm bilaterally, 1+ edema. Neuro: Sedated on the ventilator. Positive gag. Positive corneal reflex. Withdraws to pain in all 4 extremities. Urinary Catheter: Yes Assessment to: Continue Sheriff insert reason: Prolonged Immobilization Vascular Central Line Catheter: No Assessment to: Continue A/P Assessment and Plan Neuro/Psych: History of MS Acute hypoxic encephalopathy Chronic pain syndrome THC use Chronic prescription drug use Insomnia Depression/anxiety History of MS History of TIA -Sedation with propofol drip at 30 mcg/kg/min, midazolam at 8 mg an hour for analgesia while intubated Neuro checks. Goal of RASS -2 Daily sedation vacation. -History of multiple sclerosis. Receiving IV hydrocortisone 100 mg IV every 8 hours Medication reconciliation officially pending Dimethyl fumarate 240 mg p.o. twice daily for relapsing remitting MS currently on hold Alprazolam 0.5 mg every 8 hours as needed anxiety currently on hold Chronic morphine sulfate 30 mg every 4 hours scheduled currently on hold Duloxetine 60 mg p.o. daily currently on hold Pregabalin 100 mg p.o. daily currently on hold Tizanidine 4 mg every 6-8 hours currently on hold On as needed fentanyl 25 mcg every 30 minutes as needed Schedule oxycodone liquid 5 mg by tube every 4 hours Cardiovascular: Cardiac arrest/PEA most likely secondary to respiratory arrest Acute Diastolic heart failure exacerbation Elevated troponin History of hypertension Dyslipidemia -Serial cardiac enzymes. Troponin 0.08 -Cardiology consulted in view of elevated troponin. Echocardiogram reveals EF 65-70%. Hyperdynamic. Currently on clonidine 0.2 mg every 8 hours and as needed labetalol Atrial fibrillation currently normal sinus rhythm Most likely start scheduled furosemide 40 mg daily in a.m. 01/14 Started on metoprolol tartrate 5 mg IV every 6 hours scheduled In home on metoprolol 25 twice daily for hypertension and rosuvastatin 5 mg daily for dyslipidemia Pulmonary: Acute respiratory failure COPD/ asthma with acute exacerbation [facility] 16/500/10/12/29 vent bundle, Albuterol/ipratropium aerosols every 6 hours with albuterol aerosols every 2 hours as needed dyspnea -Daily CPAP trial without extubation, Spontaneous breathing trials when clinically indicated -Receiving hydrocortisone stress dose 50 mg IV every 8 hours -Inhaled budesonide 0.5/2 1 inhalation twice daily Follow chest x-ray in a.m. 01/15 Patient is on Advair inhalers at home? GI/liver: Elevated transaminases -likely secondary to shock liver Hyperammonia Gastroesophageal reflux disease Hiatal hernia History of small bowel obstruction -Follow LFTs. Suspect secondary to shock liver following cardiac arrest: downtrending. -Tube feeds, with vital high-protein goal 50 cc an hour Famotidine for GI prophylaxis Docusate sodium/senna 1 tablet twice daily for bowel regimen Lactulose 30 cc every 6 hours. Check ammonia level in a.m. 01/14 was slightly elevated at 41 ID: -Procalcitonin equivocal. Repeat pending -Influenza negative, F/u respiratory panel, discontinued Oseltamivir 75 mg PO BID from 01/10-01/12 -Follow up on sputum culture 01/09 no growth and send blood/urine culture 01/10 no growth. Negative influenza/respiratory panel and urine Legionella pneumococcal urinary antigens -Continue piperacillin/tazobactam since 01/11, IV levofloxacin started 01/10 Followed by infectious disease Renal/: Acute kidney injury Will hold off furosemide 01/13. Restart today Recheck BMP in a.m. Check renal ultrasound and urine electrolytes and eosinophils Avoid nephrotoxic medications Endocrine: Gout -SSI with NovoLog for glycemic control every 6 hours medium. Stress dose steroids as patient has been on chronic prednisone. Holding colchicine 0.6 mg daily MSK: DJD Osteoarthritis PT evaluate and treat FEN: Hypernatremia Hypopotassemia Aggressive supplementation. See orders Prophylaxis -GI-famotidine -DVT -SCD/heparin subcutaneous Level 2 follow-up Brian Burgos MD Jan 14, 2018 10:36
[2018-01-14] MEDS ORDERED: POTASSIUM CHLORIDE 20 MEQ PWD PACKET PO ONE (10:45)
[2018-01-14] MEDS: POTASSIUM CHLOR 10 MEQ PREMIX 100 ML IV SCH ×3 (11:38→13:47)
[2018-01-14] MEDS: FREE WATER G-TUBE SCH ×2 (11:39→16:00)
[2018-01-14] MEDS: hydrALAZINE HCL 20 MG/ML VIAL IV PUSH PRN ×3 (12:19→23:43)
[2018-01-14 13:02] LABS: INTERNATIONAL NORMALIZED RATIO 1.1 RATIO; PROTHROMBIN TIME - PATIENT 10.9 SEC (9.8-11.6)
--- NOTE | 2018-01-14 15:44 | EKG ---
Date Performed: 01/13/2018 Time Performed: 13:40:43 PTAGE: 62 years EKG: SINUS TACHYCARDIA MODERATE T-WAVE ABNORMALITY, CONSIDER LATERAL ISCHEMIA Compared to previo us tracing, the widespread nonspecific ischemia changes have improved. HR has slowed significantly AB NORMAL ECG PREVIOUS TRACING : 01/13/2018 02.03 DOCTOR: Roe Nava Interpretating Date/Time 01/14/2018 15:42:15
[2018-01-14] MEDS ORDERED: MORPHINE SULFATE 2 MG/ML SYRINGE IV PUSH PRN (17:15)
[2018-01-14] MEDS ORDERED: FUROSEMIDE 20 MG/2 ML VIAL IV PUSH ONE (19:00)
[2018-01-15] VITALS (14 sets, daily range): BP systolic 163–191; BP diastolic 73–90; PULSE 104–134; RESP 18–19; TEMP 97.7–98.8; O2SAT 97–100
[2018-01-15] MEDS: RESP: ALBUTEROL 2.5 MG/IPRATROPIUM 0.5 MG NEB (SCH) INH ×7 (00:32→23:41)
[2018-01-15] MEDS: oxyCODONE HCL ORAL CONC 5 MG/0.25 ML SYRINGE PO SCH (03:38)
[2018-01-15] MEDS: PIPERACIL-TAZO 4.5 GM PREMIX 100 ML IV SCH (03:38)
[2018-01-15] MEDS: CHLORHEXIDINE GLUCONATE 2 % 1 PACK (2 CLOTHS) TOP SCH (03:38)
[2018-01-15] MEDS: POTASSIUM CHLOR 20 MEQ PREMIX 100 ML IV PRN (03:40)
--- NOTE | 2018-01-15 04:15 | RADRPT ---
EXAM DATE/TIME: 01/15/2018 02:56 [facility] COMPARISON: CHEST SINGLE AP, January 14, 2018, 3:09. INDICATIONS : Short of breath. MEDICAL HISTORY : Chronic obstructive pulmonary disease. Cardiovascular disease. Asthma SURGICAL HISTORY : Hysterectomy. ENCOUNTER: Subsequent ACUITY: 1 week PAIN SCORE: 0/10 LOCATION: Bilateral chest FINDINGS: A single view of the chest demonstrates minimal bibasilar densities. Endotracheal tube removed. The cardiomediastinal contours are unremarkable. Osseous structures are intact. CONCLUSION: Lungs have significantly improved with minimal residual disease in the lung bases. Silvano Hoskins MD on January 15, 2018 at 4:13 Board Certified Radiologist. This report was verified electronically.
[2018-01-15 05:23] LABS: AUTOMATED NEUTROPHIL # 13.3 TH/MM3 (1.8-7.7); BASOPHIL % 0.2 % (0.0-2.0); EOSINOPHIL % 0.1 % (0.0-4.0); HEMATOCRIT 34.6 % (35.0-46.0); HEMOGLOBIN 11.2 GM/DL (11.6-15.3); LYMPH % 6.3 % (9.0-44.0); MEAN CELL VOLUME 86.1 FL (80.0-100.0); MEAN CORPUSCULAR HEMOGLOBIN 27.9 PG (27.0-34.0); MEAN CORPUSCULAR HGB CONC 32.4 % (32.0-36.0); MONO % 8.9 % (0.0-8.0); MONOCYTE # 1.4 TH/MM3 (0-0.9); NEUT % 84.5 % (16.0-70.0); PLATELET COUNT 298 TH/MM3 (150-450); RED BLOOD COUNT 4.02 MIL/MM3 (4.00-5.30); RED CELL DISTRIBUTION WIDTH 17.4 % (11.6-17.2); WHITE BLOOD COUNT 15.7 TH/MM3 (4.0-11.0)
[2018-01-15 06:00] LABS: ALBUMIN 3.4 GM/DL (3.4-5.0); ALKALINE PHOSPHATASE 123 U/L (45-117); ALT (GPT) 324 U/L (10-53); AST (GOT) 24 U/L (15-37); BICARBONATE 20.9 MEQ/L (21.0-32.0); BLOOD UREA NITROGEN 33 MG/DL (7-18); CALCIUM 9.6 MG/DL (8.5-10.1); CHLORIDE 116 MEQ/L (98-107); CREATININE 0.95 MG/DL (0.50-1.00); GLOMERULAR FILTRATION RATE 59 ML/MIN (>89); GLUCOSE,RANDOM 126 MG/DL (74-106); PHOSPHORUS 2.4 MG/DL (2.5-4.9); SODIUM (NA) 150 MEQ/L (136-145); TOTAL BILIRUBIN ADULT 0.6 MG/DL (0.2-1.0); TOTAL PROTEIN 7.2 GM/DL (6.4-8.2)
[2018-01-15] MEDS: INSULIN NovoLIN REGULAR SUPPLEMENTAL SCALE SQ SCH ×4 (06:00→21:00)
[2018-01-15] MEDS: cloNIDine HCL 0.2 MG TAB PO SCH ×3 (06:00→22:06)
[2018-01-15] MEDS: ARTIFICIAL TEARS OPTH SOLN 15 ML BTL EACH EYE SCH (06:00)
[2018-01-15] MEDS: hydrALAZINE HCL 20 MG/ML VIAL IV PUSH PRN ×2 (06:14→15:03)
[2018-01-15] MEDS: HYDROCORTISONE SOD SUCCINATE 100 MG VIAL IV PUSH SCH ×3 (06:14→22:06)
[2018-01-15 06:56] LABS: BANDS 2 % (0-6); CORRECTED NUCLEATED RBC 1 /100 WBC (0-0); LYMPHOCYTES 8 % (9-44); MONOCYTES 5 % (0-8); NEUTROPHIL # MANUAL DIFF 13.7 TH/MM3 (1.8-7.7); NUCLEATED RED BLOOD CELL 1 (0-0); OVALOCYTES 1+ (NORMAL); POLYS (SEG NEUTROPHILS) 85 % (16-70)
[2018-01-15] MEDS: CHLORHEXIDINE 0.12% (ORAL KIT) 15 ML CUP MT SCH ×2 (08:00→20:00)
[2018-01-15] MEDS ORDERED: POTASSIUM CHLOR 10 MEQ PREMIX 100 ML IV SCH (08:15)
[2018-01-15] MEDS ORDERED: POTASSIUM CHLORIDE 10 MEQ CONTROLLED RELEASE TAB PO ONE (08:15)
[2018-01-15] MEDS ORDERED: NITROGLYCERIN 2% OINT 1 GM PACKET TOPICAL PRN (08:15)
--- NOTE | 2018-01-15 08:19 | HHI.CCPN ---
Subjective Remarks/Hospital Course 62-year-old female with a medical history significant for multiple sclerosis, asthma, COPD who was recently discharged after being admitted for pneumonia from which she was intubated in the ICU for a few days following extubation patient insisted on being discharged on the floor and was discharged on 01/03 on by mouth antibiotics. According to the POA she was doing okay at home however was extremely tired. Per documentation by ER physician the patient went down for a nap at noon. At 1 PM a family member found her unresponsive and not breathing. Paramedics were called. The patient was found pulseless and apneic. She was in PEA and CPR was initiated. She was given 2 rounds of epinephrine and intubated. After 10 minutes of CPR she regained a pulse. She never regained consciousness. She arrives intubated and unresponsive with a GCS of 3. She cannot provide any history or review of systems. Patient was started on Levophed for pressor support and received IV Zosyn in the ER. Her chest x-ray showed bilateral infiltrates. She was also noted have a creatinine of 2 and a borderline elevated troponin. Head CT was negative for any bleed. Patient was accepted for admission by critical care medicine service. When I evaluated the patient she was sedated with propofol 10 mics per KG per minute and was on Levophed 4 mics per minute with a systolic blood pressure of 155. She was arousable easily and focused at me during my exam. Per patient's daughter who is also at the bedside she was trying to mouth words at her earlier. History was obtained by reviewing records and discussion with patient' s POA as well as daughter. 01/10: Remains intubated sedated, but wakes up easily follows commands. Remains in respiratory distress when sedation is lightened, continues to have significant bilateral rhonchi and coarse crackles all over the chest. Off pressors now hypotensive systolic blood pressure in 200s. Check BMP stat. Repeat chest x-ray pending. DC IV fluid, start IV Lasix 40 mg every 12 with IV albumin. Limited echo to evaluate for EF and also any new valvular regurgitation. Chek for Influenza, resp panel, start empiric Tamiflu 6: Remains intubated heavily sedated. Hypotensive requiring IV hydralazine and IV labetalol as needed. Start scheduled clonidine. Appears to have clinically congestive heart failure secondary to severe diastolic dysfunction. With aggressive diuresis 6 L urine output in last 24 hours, oxygenation has improved on 40% FiO2. Chest x-ray shows mild improvement in extensive bilateral infiltrates. Pro-calcitonin level equivocal 01/12: remains intubated. blood pressure under better control. good diuresis. Cr slight uptrend, but clinically continues to appear volume overloaded. 01/13: T-max 100. Currently 99.4. Tolerating tube feeds. Continues with aggressive diuresis with furosemide. Creatinine currently 1.13. Currently in A. fib with RVR. Acutely replacing potassium. Magnesium pending. Troponin was 0.08 this AM 01/14: Creatinine around 1. Continues to be diuresed aggressively. Tolerating tube feeding. Positive BM. T-max 101.6. Currently 99. Attempting spontaneous breathing trials today with lessening sedation. SUBJECTIVE: 01/15: Afebrile. Extubated 01/14 without complication currently nasal cannula. Agitated and tachycardic this a.m. Ultrasound of left upper extremity pending. Failed bedside swallow evaluation yesterday. Formal speech evaluation pending. Remains hypertensive Objective Vital Signs Date Time Temp Pulse Resp B/P (MAP) Pulse Ox O2 Delivery O2 Flow Rate FiO2 01/15/18 06:00 116 01/15/18 04:00 98.8 18 180/81 (114) 100 01/14/18 21:45 Nasal Cannula 3.00 01/14/18 13:41 30 Intake and Output 01/15/18 01/15/18 01/16/18 08:00 16:00 00:00 Intake Total 200 ml Output Total 1700 ml Balance -1500 ml Result Diagram: 01/15/18 0358 01/15/18 0358 Other Results Microbiology Date/Time Source Procedure Growth Status 01/13/18 14:30 Blood Peripheral Aerobic Blood Culture - Preliminary NO GROWTH IN 1 DAY Resulted 01/13/18 14:30 Blood Peripheral Anaerobic Blood Culture - Preliminary NO GROWTH IN 1 DAY Resulted 01/13/18 13:53 Sputum Endotracheal Gram Stain - Final Resulted 01/13/18 13:53 Sputum Endotracheal Sputum Culture - Preliminary HEAVY GROWTH NORMAL RESPIRATORY ALEX... Resulted 01/13/18 14:30 Urine Catheterized Urine Urine Culture - Preliminary NO GROWTH IN 24 HOURS. Resulted Imaging Last Impressions Chest X-Ray 01/15/18 0600 Signed Impressions: Service Date/Time: Monday, January 15, 2018 02:56 - CONCLUSION: Lungs have significantly improved with minimal residual disease in the lung bases. Silvano Hoskins MD Head CT 01/09/18 0000 Signed Impressions: Service Date/Time: Tuesday, January 09, 2018 15:39 - CONCLUSION: 1. No acute findings in the brain. No evidence of acute hemorrhage. 2. Stable diffuse ischemic demyelination and left lacunar infarcts. Markus Phillips MD Objective Remarks GEN: 62-year-old female resting in bed in no acute distress HEENT: Pupils are about 3 mm bilaterally and reactive. Neck: No JVD Chest/Pulm: Essentially clear to auscultation bilaterally without wheezes rales rhonchi CVS: Tachycardic, IR. S1, S2 no strip without murmur GI/abdomen: soft, nontender, no guarding. Extremities: warm bilaterally, 1+ edema involving left upper external. Neuro: Cranial nerves II through XII grossly intact. Strength is equal and symmetric. Normal sensation. Urinary Catheter: Yes Assessment to: Continue Sheriff insert reason: Prolonged Immobilization Vascular Central Line Catheter: No Assessment to: Continue A/P Assessment and Plan Neuro/Psych: History of MS Acute hypoxic encephalopathy Chronic pain syndrome THC use Chronic prescription drug use Insomnia Depression/anxiety History of MS History of TIA -History of multiple sclerosis. Receiving IV hydrocortisone 100 mg IV every 8 hours Medication reconciliation officially pending Dimethyl fumarate 240 mg p.o. twice daily for relapsing remitting MS currently on hold Alprazolam 0.5 mg every 8 hours as needed anxiety resumed today 01/15 Chronic morphine sulfate 30 mg every 4 hours scheduled currently on hold Duloxetine 60 mg p.o. daily resume 01/15 Pregabalin 100 mg p.o. daily switch to 50 mg twice daily Tizanidine 4 mg every 6-8 hours currently on hold Morphine sulfate 2 mg IV every 2 hours as needed pain Schedule oxycodone liquid 5 mg by tube every 4 hours Alprazolam 0.5 mg 3 times daily as needed anxiety Temazepam 650 mg at night as needed insomnia Cardiovascular: Cardiac arrest/PEA most likely secondary to respiratory arrest Acute Diastolic heart failure exacerbation Elevated troponin History of hypertension Dyslipidemia -Serial cardiac enzymes. Troponin 0.08 -Cardiology consulted in view of elevated troponin. Echocardiogram reveals EF 65-70%. Hyperdynamic. Currently on clonidine 0.2 mg every 8 hours and as needed labetalol/hydralazine Nitropaste Atrial fibrillation currently normal sinus rhythm Initiate furosemide 20 mg daily in a.m. 01/14 Started on metoprolol tartrate 5 mg IV every 6 hours scheduled In home on metoprolol 25 twice daily for hypertension and rosuvastatin 5 mg daily for dyslipidemia Start atorvastatin 10 mg p.o. daily Pulmonary: Acute respiratory failure COPD/ asthma with acute exacerbation Nasal cannula to maintain saturations greater than or equal to 92% Incentive spirometry while awake Budesonide/formoterol 160/4.5 2 puffs twice daily Albuterol/ipratropium aerosols every 6 hours with albuterol aerosols every 2 hours as needed dyspnea -Daily CPAP trial without extubation, -Receiving hydrocortisone stress dose 50 mg IV every 8 hours Patient is on Advair inhalers at home? GI/liver: Elevated transaminases -likely secondary to shock liver Hyperammonia Gastroesophageal reflux disease Hiatal hernia History of small bowel obstruction -Follow LFTs. Suspect secondary to shock liver following cardiac arrest: downtrending. Currently n.p.o. pending swallow evaluation by speech therapy Famotidine for GI prophylaxis Docusate sodium/senna 1 tablet twice daily for bowel regimen Lactulose 30 cc every 6 hours. Check ammonia level in a.m. 01/14 was slightly elevated at 41 ID: -Procalcitonin equivocal. Repeat pending -Influenza negative, F/u respiratory panel, discontinued Oseltamivir 75 mg PO BID from 01/10-01/12 -Follow up on sputum culture 01/09 no growth and send blood/urine culture 01/10 no growth. Negative influenza/respiratory panel and urine Legionella pneumococcal urinary antigens -Continue piperacillin/tazobactam since 01/11, IV levofloxacin started 01/10 Followed by infectious disease/Dr. Michael Pimentel Renal/: Acute kidney injury Recheck BMP in a.m. Check renal ultrasound and urine electrolytes and eosinophils Avoid nephrotoxic medications Endocrine: Gout Low TSH -SSI with NovoLog for glycemic control every before meals/at bedtime medium. Stress dose steroids as patient has been on chronic prednisone. Holding colchicine 0.6 mg daily Check free T3/T4 MSK: DJD Osteoarthritis PT evaluate and treat FEN: Hypernatremia Hypopotassemia Aggressive supplementation. Recheck K+ at 1800 Prophylaxis -GI-famotidine -DVT -SCD/heparin subcutaneous Level 2 follow-up Brian Burgos MD Jan 15, 2018 08:19
[2018-01-15] MEDS ORDERED: PILL SPLITTER OTHER PRN (08:30)
[2018-01-15] MEDS ORDERED: DULoxetine HCl DR 30 MG CAP PO SCH (09:00)
[2018-01-15] MEDS: BUDESONIDE-FORMOTEROL 160/4.5 MCG INHALER INH SCH ×2 (09:00→22:03)
[2018-01-15] MEDS ORDERED: POTASSIUM CHLORIDE 20 MEQ PWD PACKET PO ONE (09:30)
--- NOTE | 2018-01-15 10:42 | HHI.IDPN ---
Subjective Subjective Remarks Ms. Mike is a 62-year-old female with past medical history significant for multiple sclerosis. Per review of medical records it appears that patient is on pulse dose IV steroids and may be relatively immunosuppressed. Patient was recently admitted for COPD exacerbation, bilateral pneumonia with respiratory acidosis and ARDS needing intubation. Post extubation patient insisted on being discharged once she was on the floor. She was discharge on January 03 on oral antibiotics. According to the POA who reported the admitting doctor she was okay at home however extremely tired. Per documentation by ER physician patient went down for a nap no meningeal a family member found her unresponsive and not breathing. Reportedly paramedics were called in the patient was found to be pulseless in appetite. She was in PEA in the CPR was initiated. She was given 2 rounds of epinephrine and intubated in the field. After 10 minutes of CPR she regained pulse but did not regain consciousness. She remained intubated on arrival with a GCS of 3. Patient was initially started on levo fed for pressor support and received IV Zosyn in the emergency room for possible sepsis related to pneumonia. Her chest x-ray did show bilateral infiltrates. Her creatinine was noted to be 2 borderline elevated troponin with elevated CK. A CT of the head was done due to altered mental status which was negative for any bleed. Critical care medicine has been consulted and patient is currently in the ICU. At the time of my evaluation patient is not on any pressors, remains intubated sedated. Upon discussion with respiratory therapist patient continues to have yellow brown respiratory secretions appeared to be moderate in needing fairly frequent suctioning. Urine output is good. No diarrhea noted. Repeat chest x- ray this morning shows bilateral diffuse infiltrates with the pattern of both pneumonia as well as possible pulmonary edema. Cardiology has been consulted as well since the is concern for cardiogenic pulmonary edema and due to her PEA arrest. Infectious disease is consulted for evaluation and management of sepsis on admission with pneumonia in a patient with acute respiratory failure and respiratory acidosis, PEA prior to admission. Overnight events reviewed Extubated overnight on NC Speech normal. No focal deficits. Oriented x 2 No fevers No rash No diarrhea Antibiotics Levaquin Zosyn IV Lines Line sites with no e.o infection Past Medical History Past Medical History Multiple sclerosis Recent history of pneumonia, ARDS and intubation due to respiratory acidosis. Reported history of arthritis Reported history of asthma History of some arrhythmia History of anxiety History of CHF History of hypercholesterolemia History of COPD History of TIA History of GERD History of some genitourinary problems details not known History of headaches History of hiatal hernia History of hypertension Prior history of some implanted device but reportedly was taken out in January 2016. No surgical history in [place] medical records noted. History of kidney stones History of psychiatric problems PNEUMOCCOCAL Vaccine (Year): 2 Menopausal: Yes Past Surgical History History of Appendectomy History of Matthias in the right leg with 2 plates, History of neck surgery with 8 screws in the neck History of cholecystectomy History of hysterectomy(reported history of total abdominal hysterectomy with bilateral salpingo-oophorectomy at age 27) Rectal fissure December 2005 History of tonsillectomy 2 left breast biopsies Allergies: Coded Allergies: No Known Allergies (Verified Allergy, Unknown, 01/09/18) Objective . Vital Signs Date Time Temp Pulse Resp B/P (MAP) Pulse Ox O2 Delivery O2 Flow Rate FiO2 01/15/18 07:35 99 Nasal Cannula 2.00 01/15/18 06:00 116 01/15/18 04:00 98.8 121 18 180/81 (114) 100 01/15/18 04:00 121 01/15/18 02:00 128 01/15/18 00:00 98.5 118 18 163/73 (103) 97 01/15/18 00:00 122 01/14/18 22:00 103 01/14/18 21:45 98 Nasal Cannula 3.00 01/14/18 20:00 97.7 122 17 163/73 (103) 100 01/14/18 20:00 122 01/14/18 18:58 18 01/14/18 18:00 114 01/14/18 16:00 104 01/14/18 16:00 99.2 104 174/79 (110) 99 01/14/18 14:33 96 Nasal Cannula 3.00 01/14/18 14:32 94 Nasal Cannula 3 01/14/18 14:00 113 01/14/18 13:41 30 01/14/18 12:55 19 01/14/18 12:00 100 01/14/18 12:00 30 01/14/18 12:00 98.9 100 203/88 (126) 99 01/14/18 11:46 100 30 . Laboratory Tests Test 01/13/18 12:00 01/14/18 08:15 01/15/18 03:58 White Blood Count 8.3 TH/MM3 8.3 TH/MM3 15.7 TH/MM3 Red Blood Count 3.28 MIL/MM3 3.22 MIL/MM3 4.02 MIL/MM3 Hemoglobin 9.5 GM/DL 9.3 GM/DL 11.2 GM/DL Hematocrit 28.2 % 28.1 % 34.6 % Mean Corpuscular Volume 85.9 FL 87.0 FL 86.1 FL Mean Corpuscular Hemoglobin 28.9 PG 28.9 PG 27.9 PG Mean Corpuscular Hemoglobin Concent 33.7 % 33.2 % 32.4 % Red Cell Distribution Width 17.2 % 17.3 % 17.4 % Platelet Count 263 TH/MM3 206 TH/MM3 298 TH/MM3 Mean Platelet Volume 7.7 FL 7.5 FL 8.0 FL Neutrophils (%) (Auto) 82.8 % 84.5 % Lymphocytes (%) (Auto) 8.4 % 6.3 % Monocytes (%) (Auto) 8.8 % 8.9 % Eosinophils (%) (Auto) 0.0 % 0.1 % Basophils (%) (Auto) 0.0 % 0.2 % Neutrophils # (Auto) 6.8 TH/MM3 13.3 TH/MM3 Lymphocytes # (Auto) 0.7 TH/MM3 1.0 TH/MM3 Monocytes # (Auto) 0.7 TH/MM3 1.4 TH/MM3 Eosinophils # (Auto) 0.0 TH/MM3 0.0 TH/MM3 Basophils # (Auto) 0.0 TH/MM3 0.0 TH/MM3 CBC Comment AUTO DIFF AUTO DIFF Differential Total Cells Counted 100 100 Neutrophils % (Manual) 74 % 85 % Band Neutrophils % 10 % 2 % Lymphocytes % 2 % 8 % Monocytes % 8 % 5 % Neutrophils # (Manual) 7.5 TH/MM3 13.7 TH/MM3 Metamyelocytes 6 % Differential Comment FINAL DIFF MANUAL FINAL DIFF MANUAL Toxic Granulation 2+ Platelet Estimate NORMAL NORMAL Platelet Morphology Comment NORMAL NORMAL Ovalocytes 1+ 1+ Nucleated Red Blood Cells 1 /100 WBC Laboratory Tests Test 01/13/18 12:00 01/14/18 08:15 01/14/18 19:09 01/15/18 03:58 Phosphorus Level 2.5 MG/DL 4.2 MG/DL 2.4 MG/DL Magnesium Level 1.8 MG/DL 2.2 MG/DL 2.0 MG/DL Procalcitonin 0.19 ng/mL Thyroid Stimulating Hormone 3rd Gen 0.202 uIU/ML Blood Urea Nitrogen 33 MG/DL 33 MG/DL Creatinine 1.06 MG/DL 0.95 MG/DL Random Glucose 194 MG/DL 126 MG/DL Total Protein 6.6 GM/DL 7.2 GM/DL Albumin 3.1 GM/DL 3.4 GM/DL Calcium Level 8.4 MG/DL 9.6 MG/DL Alkaline Phosphatase 118 U/L 123 U/L Aspartate Amino Transf (AST/SGOT) 26 U/L 24 U/L Alanine Aminotransferase (ALT/SGPT) 403 U/L 324 U/L Total Bilirubin 0.4 MG/DL 0.6 MG/DL Sodium Level 149 MEQ/L 150 MEQ/L Potassium Level 3.2 MEQ/L 3.0 MEQ/L 2.8 MEQ/L Chloride Level 115 MEQ/L 116 MEQ/L Carbon Dioxide Level 24.3 MEQ/L 20.9 MEQ/L Anion Gap 10 MEQ/L 13 MEQ/L Estimat Glomerular Filtration Rate 52 ML/MIN 59 ML/MIN Ammonia 41 MCMOL/L Amylase Level 37 U/L Microbiology Date/Time Source Procedure Growth Status 01/13/18 14:30 Blood Peripheral Aerobic Blood Culture - Preliminary NO GROWTH IN 1 DAY Resulted 01/13/18 14:30 Blood Peripheral Anaerobic Blood Culture - Preliminary NO GROWTH IN 1 DAY Resulted 01/13/18 14:23 Blood Peripheral Aerobic Blood Culture - Preliminary NO GROWTH IN 1 DAY Resulted 01/13/18 14:23 Blood Peripheral Anaerobic Blood Culture - Preliminary NO GROWTH IN 1 DAY Resulted 01/13/18 13:53 Sputum Endotracheal Gram Stain - Final Complete 01/13/18 13:53 Sputum Endotracheal Sputum Culture - Final HEAVY GROWTH NORMAL RESPIRATORY ALEX Complete 01/13/18 14:30 Urine Catheterized Urine Urine Culture - Preliminary Yeast-Id To Follow Resulted Imaging Last Impressions Chest X-Ray 01/10/18 0904 Signed Impressions: Service Date/Time: January 09:16 - CONCLUSION: Diffuse airspace disease, stable from yesterday. Markus Phillips MD Head CT 01/09/18 0000 Signed Impressions: Service Date/Time: Tuesday, January 09, 2018 15:39 - CONCLUSION: 1. No acute findings in the brain. No evidence of acute hemorrhage. 2. Stable diffuse ischemic demyelination and left lacunar infarcts. Markus Phillips MD Physical Exam GENERAL: This is a well-nourished, well-developed patient, in no apparent distress. SKIN: No rashes, ecchymoses or lesions. Cool and dry. HEAD: Atraumatic. Normocephalic. No temporal or scalp tenderness. EYES: Pupils equal round and reactive. No scleral icterus. No injection or drainage. ENT: Gross exam NAD NECK: Trachea midline. Supple, nontender, no meningeal signs. CARDIOVASCULAR: Heart sounds audible. No obvious murmur. RESPIRATORY: AE garland. No adv sounds. GASTROINTESTINAL: Abdomen soft, non-tender, nondistended. MUSCULOSKELETAL: Extremities without clubbing, cyanosis, or edema. No joint tenderness, effusion, or edema noted. No calf tenderness. Negative Homans sign bilaterally. NEUROLOGICAL: Alert, oriented x 2. No focal deficit. Psych could not be assessed IV line sites with no evidence for infection. Assessment & Plan Remarks Possible sepsis present on admission Pneumonia present on admission Candiduria Acute respiratory failure on vent Acute renal failure: prerenal, sepsis. Abnormal liver function tests: sepsis, Acute encephalopathy present on admission appears to be improving: Infection PEA outside hospital Recommendations: CXR reviewed by me improved compared to days prior. Minimal residual basilar disease. DC Zosyn IV Continue Levaquin IV for another day or so. Start Diflucan oral for candiduria possible cause of fever and leucocytosis. Follow clinically Discussed with Karin Shelby MD Jan 15, 2018 10:42
[2018-01-15] MEDS: LACTULOSE SYRUP 20 GM/30 ML CUP PO SCH ×4 (10:49→21:00)
[2018-01-15] MEDS: PREGABALIN 25 MG CAP PO SCH ×2 (10:50→22:05)
[2018-01-15] MEDS: DULoxetine HCl DR 60 MG CAP PO SCH (10:50)
[2018-01-15] MEDS: METOPROLOL TARTRATE 5 MG/5 ML VIAL IV PUSH SCH ×3 (10:52→22:03)
[2018-01-15] MEDS: FAMOTIDINE 20 MG TAB NG SCH ×2 (10:55→21:00)
[2018-01-15] MEDS: FUROSEMIDE 20 MG TAB PO SCH (10:55)
[2018-01-15] MEDS: POTASSIUM CHLORIDE 10 MEQ CAP PO SCH ×2 (10:55→22:04)
[2018-01-15] MEDS: SODIUM CHLORIDE 0.9% FLUSH 10 ML FLUSH IV FLUSH SCH ×2 (10:56→22:03)
[2018-01-15] MEDS: LEVOFLOXACIN 750 MG PREMIX INJ 150 ML IV SCH (10:57)
[2018-01-15] MEDS: MORPHINE SULFATE 2 MG/ML SYRINGE IV PUSH PRN ×2 (10:59→15:06)
[2018-01-15] MEDS: DILTIAZEM HCL 30 MG TAB PO SCH ×2 (12:01→17:27)
[2018-01-15] MEDS: FLUCONAZOLE 100 MG TAB PO SCH (12:06)
[2018-01-15 12:23] LABS: HEMOGLOBIN 12.6 GM/DL (11.6-15.3); MEAN CELL VOLUME 86.5 FL (80.0-100.0); MEAN CORPUSCULAR HGB CONC 32.4 % (32.0-36.0); MEAN PLATELET VOLUME 7.9 FL (7.0-11.0); PLATELET COUNT 363 TH/MM3 (150-450); RED BLOOD COUNT 4.51 MIL/MM3 (4.00-5.30); RED CELL DISTRIBUTION WIDTH 17.8 % (11.6-17.2); WHITE BLOOD COUNT 20.2 TH/MM3 (4.0-11.0)
[2018-01-15] MEDS: HEPARIN-D5W 25,000 U/250 ML 250 ML IV PRN (13:26)
[2018-01-15] MEDS: ALPRAZolam 0.5 MG TAB PO PRN (13:32)
[2018-01-15 13:33] LABS: INTERNATIONAL NORMALIZED RATIO 1.1 RATIO; PROTHROMBIN TIME - PATIENT 11.1 SEC (9.8-11.6)
[2018-01-15] MEDS ORDERED: POTASSIUM PHOSPHATE INJ 30 MMOL in SODIUM CHLOR 0.9% 250 ML INJ 250 ML IV ONE (14:00)
--- NOTE | 2018-01-15 14:13 | RADRPT ---
EXAM DATE/TIME: 01/15/2018 10:11 [facility] COMPARISON: No previous studies available for comparison. INDICATIONS : Bilateral arm swelling. MEDICAL HISTORY : Congestive heart failure. Chronic obstructive pulmonary disease. Hypercholesterolemia. CVA. Hypertens ion. Ulcer. Hiatal hernia. GERD. Kidney stones. Arthritis. Anxiety. SURGICAL HISTORY : Tonsillectomy.Appendectomy. Cholecystectomy.Right leg surgery. Hysterectomy. Rectal fissure repair. Left breast biopsies. ENCOUNTER: Initial ACUITY: 1 day PAIN SCORE: 1/10 LOCATION: Bilateral arm. FINDINGS: RIGHT UPPER EXTREMITY: Nonocclusive thrombus is noted within the right internal jugular vein. There is spontaneous flow docu mented in the brachial, basilic, cephalic, axillary, and subclavian veins. The vessels are compressi ble and augmentation response is documented. No filling defects are seen. The flow is phasic with r espiration. Direction of flow in the jugular vein is caudal. LEFT UPPER EXTREMITY: Nonocclusive thrombus is noted within the left cephalic vein distally. There is spontaneous flow docu mented in the brachial, basilic, axillary, and subclavian veins. The vessels are compressible and au gmentation response is documented. No filling defects are seen. The flow is phasic with respiration . Direction of flow in the jugular vein is caudal. CONCLUSION: Nonocclusive thrombus within the right internal jugular vein and left distal cephalic vein. Gianluca Jackson MD on January 15, 2018 at 14:08 Board Certified Radiologist. This report was verified electronically.
[2018-01-15] MEDS ORDERED: IOHEXOL 350 MG/ML 10 ML VIAL (for RAD DIAG) IVCONTRAST ONE (15:26)
--- NOTE | 2018-01-15 15:38 | RADRPT ---
EXAM DATE/TIME: 01/15/2018 15:11 [facility] COMPARISON: CT PULMONARY ANGIOGRAM, December 30, 2017, 12:00. INDICATIONS : Chest pain. Short of breath. IV CONTRAST: 71 cc Omnipaque 350 (iohexol) IV RADIATION DOSE: 10.26 CTDIvol (mGy) MEDICAL HISTORY : Multiple sclerosis. Cerebrovascular disease. Chronic obstructive pulmonary disease.Asthma. Hyperten emelina. Cardiovascular disease. SURGICAL HISTORY : Hysterectomy. ENCOUNTER: Initial ACUITY: 2 days PAIN SCALE: 4/10 LOCATION: Bilateral chest TECHNIQUE: Volumetric scanning of the chest was performed using a pulmonary embolism protocol MIP images were re constructed. Using automated exposure control and adjustment of the mA and/or kV according to patien t size, radiation dose was kept as low as reasonably achievable to obtain optimal diagnostic quality images. DICOM format image data is available electronically for review and comparison. Follow-up recommendations for detected pulmonary nodules are based at a minimum on nodule size and pa tient risk factors according to Fleischner Society Guidelines. FINDINGS: PULMONARY ARTERIES: Small pulmonary emboli are noted within segmental branches of the right lower lobe. LUNGS: Scattered ground-glass opacities are noted bilaterally. There is no pneumothorax . No concerning pul monary nodule is visualized. PLEURAE: There is no pleural thickening or pleural effusion. MEDIASTINUM: There is good visualization of the great vessels of the middle mediastinum. No evidence of mediastin al or hilar adenopathy/mass. Coronary artery calcifications are noted. The heart is mildly prominent. MUSCULOSKELETAL: Within normal limits for patient age. MISCELLANEOUS: The visualized upper abdominal organs demonstrate no acute abnormality. Bilateral thyroid nodules are noted. CONCLUSION: 1. Small pulmonary emboli are noted within right lower lobe segmental branches. 2. Mild diffuse ground-glass opacities bilaterally. 3. Stable bilateral thyroid nodules. 4. Coronary artery calcifications. Gianluca Jackson MD on January 15, 2018 at 15:29 Board Certified Radiologist. This report was verified electronically.
[2018-01-15 16:21] LABS: CREATININE, RANDOM URINE 74.1 MG/DL
[2018-01-15] MEDS ORDERED: DEXTROAMPHETAMINE/AMPHETAMINE 10 MG TAB PO ONE (17:30)
--- NOTE | 2018-01-15 17:34 | RADRPT ---
EXAM DATE/TIME: 01/15/2018 10:37 [facility] COMPARISON: CT ABDOMEN & PELVIS W CONTRAST, December 30, 2017, 12:00. EXTERNAL COMPARISON : [facility], CT Abdomen, November 30, 2016 INDICATIONS : Increased Bun and creatinine. MEDICAL HISTORY : Congestive heart failure. Chronic obstructive pulmonary disease. Hypercholesterolemia. CVA. Hypertens ion. Ulcer. Hiatal hernia. GERD. Kidney stones. Arthritis. Anxiety. SURGICAL HISTORY : Tonsillectomy. Appendectomy. Cholecystectomy. Right leg surgery. Hysterectomy. Rectal fissure repair . Left breast biopsies. ENCOUNTER: Initial ACUITY: 1 day PAIN SCORE: 10 LOCATION: Bilateral flank MEASUREMENTS: RIGHT KIDNEY: 10.4 x 5.3 x 5.7 cm LEFT KIDNEY: 11.7 x 5.3 x 5.6 cm FINDINGS: RIGHT KIDNEY: Increased renal cortical echogenicity without stone or hydronephrosis. There is a complex hypoechoic lesion in the inferior pole of the right kidney measuring 2.0 x 1.8 x 2.2 cm. This was not demonstrat ed on prior CT exam. LEFT KIDNEY: Increased renal cortical echogenicity without stone, hydronephrosis or mass. BLADDER: Decompressed secondary to Sheriff catheter. CONCLUSION: 1. Bilateral echogenic kidneys consistent with medical renal disease. 2. No obstructive uropathy. 3. 2 cm complex cystic lesion in the inferior right kidney not demonstrated on recent CT examination. Consider followup ultrasound examination to validate this finding. If persistent and complex, consid er MRI examination of better characterization. [place] Almodovar MD on January 15, 2018 at 17:28 Board Certified Radiologist. This report was verified electronically.
[2018-01-15 20:11] LABS: FREE T3 4.99 PG/ML (2.18-3.98); FREE T4 0.84 NG/DL (0.76-1.46)
[2018-01-15] MEDS ORDERED: TEMAZEPAM 15 MG CAP PO PRN (21:00)
[2018-01-15] MEDS: ACETYLCYSTEINE 20% 6,000 MG/30 ML ORAL SOLN VIAL PO SCH (21:00)
[2018-01-15] MEDS: ATORVASTATIN 10 MG TAB PO SCH (22:04)
[2018-01-15] MEDS: MORPHINE SULFATE 15 MG CONTROLLED RELEASE TAB PO SCH (22:05)
[2018-01-15] MEDS: ZOLPIDEM TARTRATE 10 MG TAB PO PRN (22:06)
[2018-01-15] MEDS: ONDANSETRON HCL 4 MG/2 ML VIAL IV PUSH PRN (22:06)
--- NOTE | 2018-01-15 23:44 | RADRPT ---
EXAM DATE/TIME: 01/15/2018 23:18 [facility] COMPARISON: CT ABDOMEN & PELVIS W/O CONTRAST, January 22, 2016, 10:28. INDICATIONS : Abdomen pain. ORAL CONTRAST: No oral contrast ingested. RADIATION DOSE: 6.64 CTDIvol (mGy) MEDICAL HISTORY : Congestive heart failure. Hypertension. SURGICAL HISTORY : Appendectomy. Cholecystectomy.Hysterectomy. ENCOUNTER: Initial ACUITY: 1 day PAIN SCALE: 5/10 LOCATION: abdomen TECHNIQUE: Volumetric scanning of the abdomen and pelvis was performed. Using automated exposure control and ad justment of the mA and/or kV according to patient size, radiation dose was kept as low as reasonably achievable to obtain optimal diagnostic quality images. DICOM format image data is available electro nically for review and comparison. FINDINGS: LOWER LUNGS: Scattered groundglass densities in the lung bases. LIVER: Homogeneous density without lesion. There is no dilation of the biliary tree. No calcified gallston es. SPLEEN: Normal size without lesion. PANCREAS: Within normal limits. KIDNEYS: Normal in size and shape. There is no mass, stone, or hydronephrosis. There is residual contrast wit hin the collecting system bilaterally. ADRENAL GLANDS: Within normal limits. VASCULAR: There is no aortic aneurysm. Extensive atherosclerotic changes. BOWEL/MESENTERY: Multiple dilated and fluid filled large bowel loops. No definite obstruction.. There is no free intr aperitoneal air or fluid. ABDOMINAL WALL: Within normal limits. RETROPERITONEUM: There is no lymphadenopathy. BLADDER: No wall thickening or mass. Residual contrast within the bladder. Sheriff catheter present. REPRODUCTIVE: Within normal limits. INGUINAL: There is no lymphadenopathy or hernia. MUSCULOSKELETAL: Within normal limits for patient age. CONCLUSION: 1. Mildly dilated and fluid filled large bowel loops likely ileus or possible colitis. No bowel obstr uction. 2. Groundglass densities in the lung bases. Silvano Hoskins MD on January 15, 2018 at 23:39 Board Certified Radiologist. This report was verified electronically.
[2018-01-16] VITALS (14 sets, daily range): BP systolic 102–157; BP diastolic 58–69; PULSE 97–124; RESP 12–23; TEMP 97.7–98.7; O2SAT 97–100
[2018-01-16 01:28] LABS: ALBUMIN 3.3 GM/DL (3.4-5.0); ALKALINE PHOSPHATASE 125 U/L (45-117); ALT (GPT) 225 U/L (10-53); AST (GOT) 26 U/L (15-37); BICARBONATE 20.3 MEQ/L (21.0-32.0); BLOOD UREA NITROGEN 28 MG/DL (7-18); CALCIUM 8.8 MG/DL (8.5-10.1); CHLORIDE 110 MEQ/L (98-107); CREATININE 0.81 MG/DL (0.50-1.00); GLOMERULAR FILTRATION RATE 71 ML/MIN (>89); GLUCOSE,RANDOM 140 MG/DL (74-106); MAGNESIUM 1.8 MG/DL (1.5-2.5); PHOSPHORUS 4.1 MG/DL (2.5-4.9); SODIUM (NA) 144 MEQ/L (136-145); TOTAL BILIRUBIN ADULT 0.5 MG/DL (0.2-1.0); TOTAL PROTEIN 6.7 GM/DL (6.4-8.2)
[2018-01-16] MEDS: METOPROLOL TARTRATE 5 MG/5 ML VIAL IV PUSH SCH ×2 (01:52→09:02)
[2018-01-16] MEDS: POTASSIUM CHLOR 20 MEQ PREMIX 100 ML IV PRN ×4 (01:53→09:00)
[2018-01-16] MEDS: CHLORHEXIDINE GLUCONATE 2 % 1 PACK (2 CLOTHS) TOP SCH (01:53)
[2018-01-16] MEDS: hydrALAZINE HCL 20 MG/ML VIAL IV PUSH PRN (03:22)
[2018-01-16] MEDS: RESP: ALBUTEROL 2.5 MG/IPRATROPIUM 0.5 MG NEB (SCH) INH ×6 (03:59→23:01)
[2018-01-16] MEDS: ONDANSETRON HCL 4 MG/2 ML VIAL IV PUSH PRN ×4 (04:45→23:47)
[2018-01-16] MEDS: HEPARIN-D5W 25,000 U/250 ML 250 ML IV PRN (04:47)
[2018-01-16] MEDS: cloNIDine HCL 0.2 MG TAB PO SCH ×3 (05:35→21:13)
[2018-01-16] MEDS: DILTIAZEM HCL 30 MG TAB PO SCH ×5 (05:35→23:47)
[2018-01-16] MEDS: HYDROCORTISONE SOD SUCCINATE 100 MG VIAL IV PUSH SCH ×2 (05:36→20:35)
[2018-01-16] MEDS: MORPHINE SULFATE 2 MG/ML SYRINGE IV PUSH PRN ×2 (05:36→15:40)
[2018-01-16 07:38] LABS: AUTOMATED NEUTROPHIL # 15.7 TH/MM3 (1.8-7.7); BASOPHIL % 0.1 % (0.0-2.0); EOSINOPHIL % 0.1 % (0.0-4.0); HEMATOCRIT 35.1 % (35.0-46.0); HEMOGLOBIN 11.2 GM/DL (11.6-15.3); LYMPH % 6.1 % (9.0-44.0); LYMPHOCYTE # 1.1 TH/MM3 (1.0-4.8); MEAN CELL VOLUME 87.9 FL (80.0-100.0); MEAN CORPUSCULAR HGB CONC 31.8 % (32.0-36.0); MEAN PLATELET VOLUME 8.6 FL (7.0-11.0); MONO % 6.5 % (0.0-8.0); MONOCYTE # 1.2 TH/MM3 (0-0.9); NEUT % 87.2 % (16.0-70.0); PLATELET COUNT 307 TH/MM3 (150-450); RED BLOOD COUNT 3.99 MIL/MM3 (4.00-5.30); RED CELL DISTRIBUTION WIDTH 17.8 % (11.6-17.2)
[2018-01-16] MEDS: INSULIN NovoLIN REGULAR SUPPLEMENTAL SCALE SQ SCH ×4 (08:00→21:00)
[2018-01-16 08:26] LABS: BANDS 3 % (0-6); LYMPHOCYTES 4 % (9-44); METAMYELOCYTES 2 % (0-1); MONOCYTES 6 % (0-8); MYELOCYTES 2 % (0-0); NEUTROPHIL # MANUAL DIFF 16.2 TH/MM3 (1.8-7.7); POLYS (SEG NEUTROPHILS) 83 % (16-70)
[2018-01-16 08:28] LABS: OVALOCYTES 1+ (NORMAL); TOXIC GRANULATION 1+ (NORMAL)
[2018-01-16] MEDS ORDERED: POTASSIUM CHLORIDE 20 MEQ PWD PACKET PO ONE ×2 (08:45→17:00)
[2018-01-16] MEDS: CHLORHEXIDINE 0.12% (ORAL KIT) 15 ML CUP MT SCH ×2 (08:59→20:00)
[2018-01-16] MEDS: DULoxetine HCl DR 60 MG CAP PO SCH (09:01)
[2018-01-16] MEDS: LACTULOSE SYRUP 20 GM/30 ML CUP PO SCH ×4 (09:01→21:00)
[2018-01-16] MEDS: POTASSIUM CHLORIDE 10 MEQ CAP PO SCH ×2 (09:02→20:36)
[2018-01-16] MEDS: FUROSEMIDE 20 MG TAB PO SCH (09:02)
[2018-01-16] MEDS: PREGABALIN 25 MG CAP PO SCH ×2 (09:02→20:36)
[2018-01-16] MEDS: FLUCONAZOLE 100 MG TAB PO SCH (09:02)
[2018-01-16] MEDS: FAMOTIDINE 20 MG TAB NG SCH ×2 (09:02→20:36)
[2018-01-16] MEDS: BUDESONIDE-FORMOTEROL 160/4.5 MCG INHALER INH SCH (09:04)
[2018-01-16] MEDS: SODIUM CHLORIDE 0.9% FLUSH 10 ML FLUSH IV FLUSH SCH ×2 (09:04→21:12)
[2018-01-16] MEDS: DEXTROAMPHETAMINE/AMPHETAMINE 10 MG TAB PO SCH (09:04)
[2018-01-16] MEDS: MORPHINE SULFATE 15 MG CONTROLLED RELEASE TAB PO SCH ×2 (09:16→20:37)
[2018-01-16] MEDS: MAGNESIUM SULFATE 1 GM PREMIX 100 ML IV SCH ×2 (09:16→10:38)
[2018-01-16] MEDS: ACETYLCYSTEINE 20% 6,000 MG/30 ML ORAL SOLN VIAL PO SCH ×2 (10:08→21:00)
[2018-01-16] MEDS: LEVOFLOXACIN 750 MG PREMIX INJ 150 ML IV SCH (11:45)
--- NOTE | 2018-01-16 12:13 | HHI.CCPN ---
Subjective Remarks/Hospital Course 62-year-old female with a medical history significant for multiple sclerosis, asthma, COPD who was recently discharged after being admitted for pneumonia from which she was intubated in the ICU for a few days following extubation patient insisted on being discharged on the floor and was discharged on 01/03 on by mouth antibiotics. According to the POA she was doing okay at home however was extremely tired. Per documentation by ER physician the patient went down for a nap at noon. At 1 PM a family member found her unresponsive and not breathing. Paramedics were called. The patient was found pulseless and apneic. She was in PEA and CPR was initiated. She was given 2 rounds of epinephrine and intubated. After 10 minutes of CPR she regained a pulse. She never regained consciousness. She arrives intubated and unresponsive with a GCS of 3. She cannot provide any history or review of systems. Patient was started on Levophed for pressor support and received IV Zosyn in the ER. Her chest x-ray showed bilateral infiltrates. She was also noted have a creatinine of 2 and a borderline elevated troponin. Head CT was negative for any bleed. Patient was accepted for admission by critical care medicine service. When I evaluated the patient she was sedated with propofol 10 mics per KG per minute and was on Levophed 4 mics per minute with a systolic blood pressure of 155. She was arousable easily and focused at me during my exam. Per patient's daughter who is also at the bedside she was trying to mouth words at her earlier. History was obtained by reviewing records and discussion with patient' s POA as well as daughter. 01/10: Remains intubated sedated, but wakes up easily follows commands. Remains in respiratory distress when sedation is lightened, continues to have significant bilateral rhonchi and coarse crackles all over the chest. Off pressors now hypotensive systolic blood pressure in 200s. Check BMP stat. Repeat chest x-ray pending. DC IV fluid, start IV Lasix 40 mg every 12 with IV albumin. Limited echo to evaluate for EF and also any new valvular regurgitation. Chek for Influenza, resp panel, start empiric Tamiflu 6: Remains intubated heavily sedated. Hypotensive requiring IV hydralazine and IV labetalol as needed. Start scheduled clonidine. Appears to have clinically congestive heart failure secondary to severe diastolic dysfunction. With aggressive diuresis 6 L urine output in last 24 hours, oxygenation has improved on 40% FiO2. Chest x-ray shows mild improvement in extensive bilateral infiltrates. Pro-calcitonin level equivocal 01/12: remains intubated. blood pressure under better control. good diuresis. Cr slight uptrend, but clinically continues to appear volume overloaded. 01/13: T-max 100. Currently 99.4. Tolerating tube feeds. Continues with aggressive diuresis with furosemide. Creatinine currently 1.13. Currently in A. fib with RVR. Acutely replacing potassium. Magnesium pending. Troponin was 0.08 this AM 01/14: Creatinine around 1. Continues to be diuresed aggressively. Tolerating tube feeding. Positive BM. T-max 101.6. Currently 99. Attempting spontaneous breathing trials today with lessening sedation. 01/15: Afebrile. Extubated 01/14 without complication currently nasal cannula. Agitated and tachycardic this a.m. Ultrasound of left upper extremity pending. Failed bedside swallow evaluation yesterday. Formal speech evaluation pending. Remains hypertensive SUBJECTIVE: 01/16: Afebrile. Remains on 1 L nasal cannula. Projectile emesis overnight. CT abdomen/pelvis revealed slightly dilated large bowel. No signs of obstruction. Resume diet. Potassium still low at 2.7. Aggressively replacing p.o. she will not tolerate intravenous potassium chloride. Noted new diagnosis of right lower lobe pulmonary embolism/right IJ occlusive thrombus Objective Vital Signs Date Time Temp Pulse Resp B/P (MAP) Pulse Ox O2 Delivery O2 Flow Rate FiO2 01/16/18 10:02 18 01/16/18 10:00 102 01/16/18 08:00 97.7 135/58 (83) 100 01/16/18 07:46 Nasal Cannula 1.00 01/14/18 13:41 30 Intake and Output 01/16/18 01/16/18 01/17/18 08:00 16:00 00:00 Intake Total 570 ml Output Total 1025 ml Balance -455 ml Result Diagram: 01/16/18 0534 01/16/18 0055 Other Results Microbiology Date/Time Source Procedure Growth Status 01/13/18 14:30 Blood Peripheral Aerobic Blood Culture - Preliminary NO GROWTH IN 3 DAYS Resulted 01/13/18 14:30 Blood Peripheral Anaerobic Blood Culture - Preliminary NO GROWTH IN 3 DAYS Resulted 01/15/18 13:50 Stool Stool Stool Occult Blood (EVARISTO) - Final HEMOCCULT POSITIVE Complete 01/13/18 13:53 Sputum Endotracheal Gram Stain - Final Complete 01/13/18 13:53 Sputum Endotracheal Sputum Culture - Final HEAVY GROWTH NORMAL RESPIRATORY ALEX Complete 01/13/18 14:30 Urine Catheterized Urine Urine Culture - Preliminary Yeast-Id To Follow Resulted Microbiology Date/Time Source Procedure Growth Status 01/15/18 13:50 Stool Stool Stool Occult Blood (EVARISTO) - Final HEMOCCULT POSITIVE Complete 01/13/18 13:53 Sputum Endotracheal Gram Stain - Final Complete 01/13/18 13:53 Sputum Endotracheal Sputum Culture - Final HEAVY GROWTH NORMAL RESPIRATORY ALEX Complete Imaging Last Impressions Chest X-Ray 01/15/18 0600 Signed Impressions: Service Date/Time: Monday, January 15, 2018 02:56 - CONCLUSION: Lungs have significantly improved with minimal residual disease in the lung bases. Silvano Hoskins MD Upper Extremity Ultrasound 01/15/18 0000 Signed Impressions: Service Date/Time: Monday, January 15, 2018 10:11 - CONCLUSION: Nonocclusive thrombus within the right internal jugular vein and left distal cephalic vein. Gianluca Jackson MD Renal Ultrasound 01/15/18 0000 Signed Impressions: Service Date/Time: Monday, January 15, 2018 10:37 - CONCLUSION: 1. Bilateral echogenic kidneys consistent with medical renal disease. 2. No obstructive uropathy. 3. 2 cm complex cystic lesion in the inferior right kidney not demonstrated on recent CT examination. Consider followup ultrasound examination to validate this finding. If persistent and complex, consider MRI examination of better characterization. Cuba Almodovar MD CT Angiography 01/15/18 0000 Signed Impressions: Service Date/Time: Monday, January 15, 2018 15:11 - CONCLUSION: 1. Small pulmonary emboli are noted within right lower lobe segmental branches. 2. Mild diffuse ground-glass opacities bilaterally. 3. Stable bilateral thyroid nodules. 4. Coronary artery calcifications. Gianluca Jackson MD Abdomen/Pelvis CT 01/15/18 0000 Signed Impressions: Service Date/Time: Monday, January 15, 2018 23:18 - CONCLUSION: 1. Mildly dilated and fluid filled large bowel loops likely ileus or possible colitis. No bowel obstruction. 2. Groundglass densities in the lung bases. Silvano Hoskins MD Head CT 01/09/18 0000 Signed Impressions: Service Date/Time: Tuesday, January 09, 2018 15:39 - CONCLUSION: 1. No acute findings in the brain. No evidence of acute hemorrhage. 2. Stable diffuse ischemic demyelination and left lacunar infarcts. Markus Phillips MD Objective Remarks GEN: 62-year-old female resting in bed in no acute distress HEENT: Pupils are about 3 mm bilaterally and reactive. Neck: No JVD Chest/Pulm: Essentially clear to auscultation bilaterally without wheezes rales rhonchi CVS: Tachycardic, IR. S1, S2 no strip without murmur GI/abdomen: soft, nontender, no guarding. Extremities: warm bilaterally, 1+ edema involving left upper external. Neuro: Cranial nerves II through XII grossly intact. Strength is equal and symmetric. Normal sensation. A/P Assessment and Plan Neuro/Psych: History of MS Acute hypoxic encephalopathy Chronic pain syndrome THC use Chronic prescription drug use Insomnia Depression/anxiety History of MS History of TIA -History of multiple sclerosis. Receiving IV hydrocortisone 100 mg IV every 8 hours Medication reconciliation officially pending Dimethyl fumarate 240 mg p.o. twice daily for relapsing remitting MS currently on hold Alprazolam 0.5 mg every 8 hours as needed anxiety resumed today 01/15 Chronic morphine sulfate 30 mg every 4 hours scheduled currently on hold Duloxetine 60 mg p.o. daily resume 10 Pregabalin 100 mg p.o. daily switch to 50 mg twice daily Tizanidine 4 mg every 6-8 hours currently on hold Dexamphetamine/amphetamine 10 mg daily Morphine sulfate 2 mg IV every 2 hours as needed pain Zolpidem 10 mg at night as needed insomnia Cardiovascular: Cardiac arrest/PEA most likely secondary to respiratory arrest Acute Diastolic heart failure exacerbation Elevated troponin History of hypertension Dyslipidemia -Serial cardiac enzymes. Troponin 0.08 -Cardiology consulted in view of elevated troponin. Echocardiogram reveals EF 65-70%. Hyperdynamic. Currently on clonidine 0.2 mg every 8 hours and as needed labetalol/hydralazine Nitropaste Started on metoprolol tartrate 25 mg twice daily and diltiazem 30 mg p.o. 4 times daily Atrial fibrillation currently normal sinus rhythm Initiate furosemide 20 mg daily in a.m. 01/14 In home on metoprolol 25 twice daily for hypertension and rosuvastatin 5 mg daily for dyslipidemia Start atorvastatin 10 mg p.o. daily Pulmonary: Right lower lobe PE COPD/ asthma with acute exacerbation Nasal cannula to maintain saturations greater than or equal to 92% Incentive spirometry while awake Budesonide/formoterol 160/4.5 2 puffs twice daily Albuterol/ipratropium aerosols every 6 hours with albuterol aerosols every 2 hours as needed dyspnea -Receiving hydrocortisone stress dose 50 mg IV every 12 hours Patient is on Advair inhalers at home? Heparin drip see orders CT pulmonary revealed right lower lobe pulmonary disease. Groundglass opacities. GI/liver: Elevated transaminases -likely secondary to shock liver Hyperammonia Gastroesophageal reflux disease Hiatal hernia History of small bowel obstruction -Follow LFTs. Suspect secondary to shock liver following cardiac arrest: downtrending. Regular diet. Famotidine for GI prophylaxis Docusate sodium/senna 1 tablet twice daily for bowel regimen Lactulose 30 cc every 6 hours. Check ammonia level in a.m. 01/14 was slightly elevated at 41 CT abdomen/pelvis revealed dilated large bowel. No obstructive process. HEME: Right IJ thrombus/nonocclusive Left cephalic superficial thrombus Leukocytosis Normocytic anemia Heparin drip see orders. Monitor CBC daily. Follow trends Hemoccult-positive ID: Funguria -Procalcitonin equivocal. -Influenza negative, F/u respiratory panel, discontinued Oseltamivir 75 mg PO BID from 01/10-01/12 -Follow up on sputum culture 01/09 no growth and send blood/urine culture 01/10 no growth. Negative influenza/respiratory panel and urine Legionella pneumococcal urinary antigens -Continue piperacillin/tazobactam since 01/11, IV levofloxacin started 01/10 Started on fluconazole 100 mg daily Followed by infectious disease/Dr. Michael Pimentel Renal/: Acute kidney injury 2 cm right renal cyst. Recommend follow-up 3 months Recheck BMP in a.m. Medical renal disease/and negative urine eosinophils Avoid nephrotoxic medications Endocrine: Gout Low TSH -SSI with NovoLog for glycemic control every before meals/at bedtime medium. Stress dose steroids as patient has been on chronic prednisone. Holding colchicine 0.6 mg daily T4 normal. Free T3 high. Recommend recheck 6 weeks MSK: DJD Osteoarthritis PT evaluate and treat FEN: Hypopotassemia Aggressive supplementation. Recheck K+ at 1800 Prophylaxis -GI-famotidine -DVT -SCD/heparin gtt Level 2 follow-up Brian Burgos MD Jan 16, 2018 12:13
[2018-01-16] MEDS: METOCLOPRAMIDE HCL 10 MG/2 ML VIAL IV PUSH SCH ×2 (14:05→21:12)
--- NOTE | 2018-01-16 15:14 | HHI.IDPN ---
Subjective Subjective Remarks ID COVERAGE Ms. Mike is a 62-year-old female with past medical history significant for multiple sclerosis. Per review of medical records it appears that patient is on pulse dose IV steroids and may be relatively immunosuppressed. Patient was recently admitted for COPD exacerbation, bilateral pneumonia with respiratory acidosis and ARDS needing intubation. Post extubation patient insisted on being discharged once she was on the floor. She was discharge on January 03 on oral antibiotics. According to the POA who reported the admitting doctor she was okay at home however extremely tired. Per documentation by ER physician patient went down for a nap no meningeal a family member found her unresponsive and not breathing. Reportedly paramedics were called in the patient was found to be pulseless in appetite. She was in PEA in the CPR was initiated. She was given 2 rounds of epinephrine and intubated in the field. After 10 minutes of CPR she regained pulse but did not regain consciousness. She remained intubated on arrival with a GCS of 3. Patient was initially started on levo fed for pressor support and received IV Zosyn in the emergency room for possible sepsis related to pneumonia. Her chest x-ray did show bilateral infiltrates. Her creatinine was noted to be 2 borderline elevated troponin with elevated CK. A CT of the head was done due to altered mental status which was negative for any bleed. Critical care medicine has been consulted and patient is currently in the ICU. At the time of my evaluation patient is not on any pressors, remains intubated sedated. Upon discussion with respiratory therapist patient continues to have yellow brown respiratory secretions appeared to be moderate in needing fairly frequent suctioning. Urine output is good. No diarrhea noted. Repeat chest x- ray this morning shows bilateral diffuse infiltrates with the pattern of both pneumonia as well as possible pulmonary edema. Cardiology has been consulted as well since the is concern for cardiogenic pulmonary edema and due to her PEA arrest. Infectious disease is consulted for evaluation and management of sepsis on admission with pneumonia in a patient with acute respiratory failure and respiratory acidosis, PEA prior to admission. Notes reviewed Temps ok C/O SOB; minimal cough On nasal O2, has good sats Extubated 01/14 No itching No rash No diarrhea WBC down to 18K Antibiotics Levaquin IV Diflucan Current Medications Medications (Trade) Dose Ordered Sig/Herminio Route Start Time Stop Time Status Last Admin (Brethine Inj) 1 mg UNSCH PRN SQ 01/09/18 14:30 (NS Flush) 2 ml UNSCH PRN IV FLUSH 01/09/18 19:30 (NS Flush) 2 ml BID IV FLUSH 01/09/18 21:00 01/16/18 09:04 (Peridex 0.12% Liq) 15 ml BID@08,20 MT 01/09/18 20:00 01/16/18 08:59 Miscellaneous Information 1 Q361D XX 01/09/18 19:30 (Chlorhexidine 2% Cloth) Taper DAILY@04 TOP 01/10/18 04:00 01/06/19 03:59 01/16/18 01:53 (Chlorhexidine 2% Cloth) 3 pack UNSCH PRN TOP 01/09/18 19:30 Levofloxacin/ Dextrose 150 ml @ 100 mls/hr Q24H IV 01/10/18 11:00 01/16/18 11:45 Potassium Chloride 100 ml @ 50 mls/hr Q2H PRN IV 01/10/18 11:00 Potassium Chloride 100 ml @ 50 mls/hr Q2H PRN IV 01/10/18 11:00 01/16/18 09:00 (K-Lyte Cl Eff) 50 meq UNSCH PRN PO 01/10/18 11:00 Potassium Chloride 100 ml @ 25 mls/hr UNSCH PRN IV 01/10/18 11:00 Potassium Chloride 100 ml @ 50 mls/hr Q2H PRN IV 01/10/18 11:00 01/13/18 02:16 Magnesium Sulfate 4 gm/Sodium Chloride 100 ml @ 50 mls/hr UNSCH PRN IV 01/10/18 11:00 (Mag-Ox) 800 mg UNSCH PRN PO 01/10/18 11:00 Magnesium Sulfate 2 gm/Sodium Chloride 100 ml @ 50 mls/hr UNSCH PRN IV 01/10/18 11:00 01/12/18 09:34 (K-Phos) 2,000 mg Q4H PRN PO 01/10/18 11:00 Sodium Phosphate 30 mmol/Sodium Chloride 250 ml @ 42 mls/hr UNSCH PRN IV 01/10/18 11:00 (K-Phos) 2,000 mg UNSCH PRN PO/TUBE 01/10/18 11:00 Potassium Phosphate 30 mmol/ Sodium Chloride 260 ml @ 42 mls/hr UNSCH PRN IV 01/10/18 11:00 (Catapres) 0.2 mg Q8HR PO 01/11/18 14:00 01/16/18 14:05 (Lactulose Liq) 30 ml QID PO 01/11/18 13:00 01/16/18 12:17 (D50w (Vial) Inj) 25 ml UNSCH PRN IV PUSH 01/12/18 12:15 (Duoneb Neb) 1 ampule Q4HR NEB INH 01/13/18 16:00 01/16/18 12:03 (Tylenol 650 Mg/ 20 ml Liq) 650 mg Q6H PRN PO 01/13/18 13:00 01/13/18 21:11 (Albuterol Neb) 2.5 mg Q2HR NEB PRN NEB 01/13/18 13:00 (Trandate Inj) 10 mg Q1H PRN IV PUSH 01/13/18 15:00 01/14/18 21:06 (Pepcid) 10 mg BID NG 01/15/18 09:00 01/16/18 09:02 (Apresoline Inj) 10 mg Q1HR PRN IV PUSH 01/15/18 08:15 01/16/18 03:22 (NovoLIN R SUPPLEMENTAL SCALE) 1 ACHS SQ 01/15/18 12:00 01/15/18 17:27 (Morphine Inj) 2 mg Q2H PRN IV PUSH 01/15/18 08:15 01/16/18 05:36 (Symbicort 160-4.5 Mcg Inh) 2 puff Q12HR INH 01/15/18 09:00 01/16/18 09:04 (Lipitor) 10 mg HS PO 01/15/18 21:00 01/15/18 22:04 (Cardizem) 30 mg Q6HR PO 01/15/18 12:00 01/16/18 12:17 (Lyrica) 50 mg Q12HR PO 01/15/18 09:00 01/16/18 09:02 (Nitroglycerin 2% Oint) 2 inch Q6HR PRN TOPICAL 01/15/18 08:15 (Pill Splitter) 1 ea UNSCH PRN OTHER 01/15/18 08:30 (Lasix) 20 mg DAILY PO 01/15/18 09:00 01/16/18 09:02 (KCl) 10 meq BID PO 01/15/18 09:00 01/16/18 09:02 (Xanax) 0.5 mg Q8H PRN PO 01/15/18 08:30 01/15/18 13:32 (Cymbalta Dr) 60 mg DAILY PO 01/15/18 09:00 01/16/18 09:01 Heparin Sodium/ Dextrose 250 ml @ 15 mls/hr TITRATE PRN IV 01/15/18 10:30 01/16/18 04:47 (Diflucan) 100 mg DAILY PO 01/15/18 11:30 01/16/18 09:02 (Mucomyst 20% Liq) 600 mg BID PO 01/15/18 21:00 01/17/18 09:01 01/16/18 10:08 (Ambien) 10 mg HS PRN PO 01/15/18 21:00 01/15/18 22:06 (Adderall) 10 mg DAILY PO 01/16/18 09:00 01/16/18 09:04 (Oramorph Sr) 15 mg Q12HR PO 01/15/18 21:00 01/16/18 09:16 (Zofran Inj) 4 mg Q6HR PRN IV PUSH 01/15/18 18:45 01/16/18 10:20 (Reglan Inj) 5 mg Q8HR IV PUSH 01/16/18 14:00 01/16/18 14:05 (KCl Powder) 80 meq ONCE ONCE PO 01/16/18 17:00 01/16/18 17:01 (SoluCORTEF INJ) 50 mg Q12HR IV PUSH 01/16/18 21:00 (Lopressor) 25 mg Q12HR PO 01/16/18 21:00 Lines Line sites with no e.o infection Past Medical History Past Medical History Multiple sclerosis Recent history of pneumonia, ARDS and intubation due to respiratory acidosis. Reported history of arthritis Reported history of asthma History of some arrhythmia History of anxiety History of CHF History of hypercholesterolemia History of COPD History of TIA History of GERD History of some genitourinary problems details not known History of headaches History of hiatal hernia History of hypertension Prior history of some implanted device but reportedly was taken out in January 2016. No surgical history in [facility] medical records noted. History of kidney stones History of psychiatric problems PNEUMOCCOCAL Vaccine (Year): 2 Menopausal: Yes Past Surgical History History of Appendectomy History of Matthias in the right leg with 2 plates, History of neck surgery with 8 screws in the neck History of cholecystectomy History of hysterectomy(reported history of total abdominal hysterectomy with bilateral salpingo-oophorectomy at age 27) Rectal fissure December 2005 History of tonsillectomy 2 left breast biopsies Allergies: Coded Allergies: No Known Allergies (Verified Allergy, Unknown, 01/09/18) Objective . Vital Signs Date Time Temp Pulse Resp B/P (MAP) Pulse Ox O2 Delivery O2 Flow Rate FiO2 01/16/18 14:00 108 01/16/18 12:00 102 01/16/18 12:00 97.7 102 23 129/68 (88) 100 01/16/18 10:02 18 01/16/18 10:02 18 01/16/18 10:00 102 01/16/18 08:00 119 01/16/18 08:00 97.7 119 22 135/58 (83) 100 01/16/18 07:46 100 Nasal Cannula 1.00 01/16/18 06:00 121 01/16/18 04:00 98.7 121 19 157/67 (97) 100 01/16/18 04:00 122 01/16/18 02:00 106 01/16/18 00:00 98.5 123 18 155/69 (97) 100 01/16/18 00:00 124 01/15/18 22:00 127 01/15/18 20:32 100 Nasal Cannula 2.00 01/15/18 20:00 123 01/15/18 20:00 97.7 123 19 167/78 (107) 100 01/15/18 18:00 120 01/15/18 16:00 120 01/15/18 16:00 98.0 121 188/89 (122) 98 01/15/18 15:11 18 . Laboratory Tests Test 01/15/18 03:58 01/15/18 11:30 01/16/18 05:34 White Blood Count 15.7 TH/MM3 20.2 TH/MM3 18.0 TH/MM3 Red Blood Count 4.02 MIL/MM3 4.51 MIL/MM3 3.99 MIL/MM3 Hemoglobin 11.2 GM/DL 12.6 GM/DL 11.2 GM/DL Hematocrit 34.6 % 39.0 % 35.1 % Mean Corpuscular Volume 86.1 FL 86.5 FL 87.9 FL Mean Corpuscular Hemoglobin 27.9 PG 28.0 PG 28.0 PG Mean Corpuscular Hemoglobin Concent 32.4 % 32.4 % 31.8 % Red Cell Distribution Width 17.4 % 17.8 % 17.8 % Platelet Count 298 TH/MM3 363 TH/MM3 307 TH/MM3 Mean Platelet Volume 8.0 FL 7.9 FL 8.6 FL Neutrophils (%) (Auto) 84.5 % 87.2 % Lymphocytes (%) (Auto) 6.3 % 6.1 % Monocytes (%) (Auto) 8.9 % 6.5 % Eosinophils (%) (Auto) 0.1 % 0.1 % Basophils (%) (Auto) 0.2 % 0.1 % Neutrophils # (Auto) 13.3 TH/MM3 15.7 TH/MM3 Lymphocytes # (Auto) 1.0 TH/MM3 1.1 TH/MM3 Monocytes # (Auto) 1.4 TH/MM3 1.2 TH/MM3 Eosinophils # (Auto) 0.0 TH/MM3 0.0 TH/MM3 Basophils # (Auto) 0.0 TH/MM3 0.0 TH/MM3 CBC Comment AUTO DIFF AUTO DIFF Differential Total Cells Counted 100 100 Neutrophils % (Manual) 85 % 83 % Band Neutrophils % 2 % 3 % Lymphocytes % 8 % 4 % Monocytes % 5 % 6 % Neutrophils # (Manual) 13.7 TH/MM3 16.2 TH/MM3 Nucleated Red Blood Cells 1 /100 WBC Differential Comment FINAL DIFF MANUAL FINAL DIFF MANUAL Platelet Estimate NORMAL NORMAL Platelet Morphology Comment NORMAL NORMAL Ovalocytes 1+ 1+ Metamyelocytes 2 % Myelocytes 2 % Toxic Granulation 1+ Laboratory Tests Test 01/14/18 19:09 01/15/18 03:58 01/15/18 18:50 01/16/18 00:55 Potassium Level 3.0 MEQ/L 2.8 MEQ/L 3.1 MEQ/L 2.7 MEQ/L Blood Urea Nitrogen 33 MG/DL 28 MG/DL Creatinine 0.95 MG/DL 0.81 MG/DL Random Glucose 126 MG/DL 140 MG/DL Total Protein 7.2 GM/DL 6.7 GM/DL Albumin 3.4 GM/DL 3.3 GM/DL Calcium Level 9.6 MG/DL 8.8 MG/DL Phosphorus Level 2.4 MG/DL 4.1 MG/DL Magnesium Level 2.0 MG/DL 1.8 MG/DL Alkaline Phosphatase 123 U/L 125 U/L Aspartate Amino Transf (AST/SGOT) 24 U/L 26 U/L Alanine Aminotransferase (ALT/SGPT) 324 U/L 225 U/L Total Bilirubin 0.6 MG/DL 0.5 MG/DL Sodium Level 150 MEQ/L 144 MEQ/L Chloride Level 116 MEQ/L 110 MEQ/L Carbon Dioxide Level 20.9 MEQ/L 20.3 MEQ/L Anion Gap 13 MEQ/L 14 MEQ/L Estimat Glomerular Filtration Rate 59 ML/MIN 71 ML/MIN Free Thyroxine 0.84 NG/DL Free Triiodothyronine (T3) pg/dL 4.99 PG/ML Test 01/16/18 05:34 Phosphorus Level 4.3 MG/DL Microbiology Date/Time Source Procedure Growth Status 01/15/18 13:50 Stool Stool Stool Occult Blood (EVARISTO) - Final HEMOCCULT POSITIVE Complete Imaging Chest X-Ray 01/15/18 0600 Signed Impressions: Service Date/Time: Monday, January 15, 2018 02:56 - CONCLUSION: Lungs have significantly improved with minimal residual disease in the lung bases. Silvano Hoskins MD Upper Extremity Ultrasound 01/15/18 0000 Signed Impressions: Service Date/Time: Monday, January 15, 2018 10:11 - CONCLUSION: Nonocclusive thrombus within the right internal jugular vein and left distal cephalic vein. Gianluca Jackson MD Renal Ultrasound 01/15/18 0000 Signed Impressions: Service Date/Time: Monday, January 15, 2018 10:37 - CONCLUSION: 1. Bilateral echogenic kidneys consistent with medical renal disease. 2. No obstructive uropathy. 3. 2 cm complex cystic lesion in the inferior right kidney not demonstrated on recent CT examination. Consider followup ultrasound examination to validate this finding. If persistent and complex, consider MRI examination of better characterization. [place] Almodovar MD CT Angiography 01/15/18 0000 Signed Impressions: Service Date/Time: Monday, January 15, 2018 15:11 - CONCLUSION: 1. Small pulmonary emboli are noted within right lower lobe segmental branches. 2. Mild diffuse ground-glass opacities bilaterally. 3. Stable bilateral thyroid nodules. 4. Coronary artery calcifications. Gianluca Jackson MD Abdomen/Pelvis CT 01/15/18 0000 Signed Impressions: Service Date/Time: Monday, January 15, 2018 23:18 - CONCLUSION: 1. Mildly dilated and fluid filled large bowel loops likely ileus or possible colitis. No bowel obstruction. 2. Groundglass densities in the lung bases. Silvano Hoskins MD Chest X-Ray 01/14/18 0600 Signed Impressions: Service Date/Time: Sunday, January 14, 2018 03:09 - CONCLUSION: 1. Improvement in bibasilar densities. 2. Nasogastric tube with tip in the region of the GE junction and could be advanced. Silvano Hoskins MD Last Impressions Chest X-Ray 01/10/18 0904 Signed Impressions: Service Date/Time: January 09:16 - CONCLUSION: Diffuse airspace disease, stable from yesterday. Markus Phillips MD Head CT 01/09/18 0000 Signed Impressions: Service Date/Time: Tuesday, January 09, 2018 15:39 - CONCLUSION: 1. No acute findings in the brain. No evidence of acute hemorrhage. 2. Stable diffuse ischemic demyelination and left lacunar infarcts. Markus Phillips MD Physical Exam GENERAL: This is a well-nourished, well-developed patient, awake and alert, NAD SKIN: No rashes, ecchymoses or lesions. Cool and dry. HEAD: Atraumatic. Normocephalic. No temporal or scalp tenderness. EYES: Pupils equal round and reactive. No scleral icterus. No injection or drainage. ENT: Moist oral mucosa, no nasal discharge NECK: Trachea midline. Supple, nontender, no meningeal signs. CARDIOVASCULAR: Heart sounds audible. No obvious murmur. RESPIRATORY: AE garland. No adv sounds. GASTROINTESTINAL: Abdomen soft, non-tender, nondistended. MUSCULOSKELETAL: Extremities without clubbing, cyanosis, or edema. No joint tenderness, effusion, or edema noted. No calf tenderness. Negative Homans sign bilaterally. NEUROLOGICAL: Alert, oriented x 2. No focal deficit. Psych could not be assessed IV line sites with no evidence for infection. Assessment & Plan Remarks Possible sepsis present on admission Pneumonia present on admission Candiduria Acute respiratory failure on vent Acute renal failure: prerenal, sepsis. Abnormal liver function tests: sepsis, Acute encephalopathy present on admission appears to be improving: Infection PEA outside hospital Recommendations: Continue Levaquin IV Continue Diflucan oral for candiduria possible cause of fever and leucocytosis. Follow temps Follow CBC Monitor progress Selene Lanier MD Jan 16, 2018 15:14
[2018-01-16] MEDS: METOPROLOL TARTRATE 25 MG TAB PO SCH (20:36)
[2018-01-16] MEDS: ATORVASTATIN 10 MG TAB PO SCH (21:00)
[2018-01-16] MEDS: ZOLPIDEM TARTRATE 10 MG TAB PO PRN (21:13)
[2018-01-16] MEDS: ALPRAZolam 0.5 MG TAB PO PRN (22:40)
[2018-01-17] VITALS (16 sets, daily range): BP systolic 120–155; BP diastolic 57–77; PULSE 79–108; RESP 15; TEMP 97.5–98.8; O2SAT 91–100
[2018-01-17 02:05] LABS: BICARBONATE 16.3 MEQ/L (21.0-32.0); CALCIUM 8.4 MG/DL (8.5-10.1); CREATININE 0.9 MG/DL (0.50-1.00)
[2018-01-17 02:37] LABS: AUTOMATED NEUTROPHIL # 18.9 TH/MM3 (1.8-7.7); BASOPHIL % 0.1 % (0.0-2.0); EOSINOPHIL % 0.1 % (0.0-4.0); HEMATOCRIT 32.3 % (35.0-46.0); HEMOGLOBIN 10.5 GM/DL (11.6-15.3); LYMPH % 3.5 % (9.0-44.0); LYMPHOCYTE # 0.7 TH/MM3 (1.0-4.8); MEAN CELL VOLUME 86.8 FL (80.0-100.0); MEAN CORPUSCULAR HEMOGLOBIN 28.3 PG (27.0-34.0); MEAN CORPUSCULAR HGB CONC 32.6 % (32.0-36.0); MEAN PLATELET VOLUME 8.1 FL (7.0-11.0); MONO % 5.4 % (0.0-8.0); MONOCYTE # 1.1 TH/MM3 (0-0.9); NEUT % 90.9 % (16.0-70.0); PLATELET COUNT 271 TH/MM3 (150-450); RED BLOOD COUNT 3.72 MIL/MM3 (4.00-5.30); RED CELL DISTRIBUTION WIDTH 17.4 % (11.6-17.2); WHITE BLOOD COUNT 20.8 TH/MM3 (4.0-11.0)
[2018-01-17] MEDS: HEPARIN-D5W 25,000 U/250 ML 250 ML IV PRN ×3 (02:44→22:31)
[2018-01-17] MEDS: RESP: ALBUTEROL 2.5 MG/IPRATROPIUM 0.5 MG NEB (SCH) INH ×7 (03:20→23:41)
[2018-01-17] MEDS: MORPHINE SULFATE 2 MG/ML SYRINGE IV PUSH PRN ×4 (03:29→18:29)
[2018-01-17 03:39] LABS: BANDS 3 % (0-6); LYMPHOCYTES 2 % (9-44); MONOCYTES 4 % (0-8); MYELOCYTES 1 % (0-0); NEUTROPHIL # MANUAL DIFF 19.6 TH/MM3 (1.8-7.7); POLYS (SEG NEUTROPHILS) 89 % (16-70); PROMYELOCYTES 1 % (0-0)
[2018-01-17 03:41] LABS: OVALOCYTES 1+ (NORMAL); TOXIC VACUOLATION PRESENT (NONE SEEN)
[2018-01-17 03:43] LABS: POLYCHROMASIA 2.1 % (0.0-1.9)
[2018-01-17] MEDS: CHLORHEXIDINE GLUCONATE 2 % 1 PACK (2 CLOTHS) TOP SCH (04:00)
[2018-01-17] MEDS: METOCLOPRAMIDE HCL 10 MG/2 ML VIAL IV PUSH SCH ×3 (05:18→22:21)
[2018-01-17] MEDS: DILTIAZEM HCL 30 MG TAB PO SCH ×4 (05:18→23:52)
[2018-01-17] MEDS: cloNIDine HCL 0.2 MG TAB PO SCH ×3 (05:18→22:20)
[2018-01-17] MEDS: ONDANSETRON HCL 4 MG/2 ML VIAL IV PUSH PRN ×2 (05:26→12:51)
[2018-01-17] MEDS ORDERED: INSULIN HUMAN REGULAR 1,000 UNITS/10 ML VIAL IV PUSH ONE (07:15)
[2018-01-17] MEDS ORDERED: DEXTROSE 50% IN WATER 50 ML VIAL(D50) IV PUSH ONE (07:15)
[2018-01-17] MEDS ORDERED: SODIUM BICARBONATE 8.4% SOLN 50 MEQ/50 ML VIAL SLOW IVP ONE (07:15)
[2018-01-17] MEDS ORDERED: SODIUM POLYSTYRENE SULFONATE SUSP 15 GM/60 ML CUP PO ONE (07:15)
[2018-01-17] MEDS ORDERED: CALCIUM GLUCONATE 10% 1 GM/10 ML VIAL SLOW IVP ONE (07:15)
[2018-01-17] MEDS: CHLORHEXIDINE 0.12% (ORAL KIT) 15 ML CUP MT SCH ×2 (08:00→20:00)
[2018-01-17] MEDS: INSULIN NovoLIN REGULAR SUPPLEMENTAL SCALE SQ SCH ×4 (08:00→21:00)
[2018-01-17] MEDS: DULoxetine HCl DR 60 MG CAP PO SCH (09:00)
[2018-01-17] MEDS: FLUCONAZOLE 100 MG TAB PO SCH (09:00)
[2018-01-17] MEDS: HYDROCORTISONE SOD SUCCINATE 100 MG VIAL IV PUSH SCH ×2 (09:00→20:35)
[2018-01-17] MEDS: FAMOTIDINE 20 MG TAB NG SCH ×2 (09:00→20:36)
[2018-01-17] MEDS: POTASSIUM CHLORIDE 10 MEQ CAP PO SCH ×2 (09:00→20:36)
[2018-01-17] MEDS: DEXTROAMPHETAMINE/AMPHETAMINE 10 MG TAB PO SCH (09:00)
[2018-01-17] MEDS: LACTULOSE SYRUP 20 GM/30 ML CUP PO SCH ×4 (09:00→21:00)
[2018-01-17] MEDS: BUDESONIDE-FORMOTEROL 160/4.5 MCG INHALER INH SCH ×2 (09:00→21:00)
[2018-01-17] MEDS: METOPROLOL TARTRATE 25 MG TAB PO SCH ×2 (09:00→20:35)
[2018-01-17] MEDS: SODIUM CHLORIDE 0.9% FLUSH 10 ML FLUSH IV FLUSH SCH ×2 (09:31→21:00)
[2018-01-17] MEDS: ACETYLCYSTEINE 20% 6,000 MG/30 ML ORAL SOLN VIAL PO SCH (09:32)
[2018-01-17] MEDS: FUROSEMIDE 20 MG TAB PO SCH (09:32)
[2018-01-17] MEDS: MORPHINE SULFATE 15 MG CONTROLLED RELEASE TAB PO SCH ×2 (09:32→20:36)
[2018-01-17] MEDS: PREGABALIN 25 MG CAP PO SCH ×2 (09:32→20:36)
[2018-01-17] MEDS: NICOTINE 14 MG/24 HR PATCH T-DERMAL SCH (09:51)
[2018-01-17] MEDS: LEVOFLOXACIN 750 MG PREMIX INJ 150 ML IV SCH (10:30)
--- NOTE | 2018-01-17 11:52 | HHI.CCPN ---
Subjective Remarks/Hospital Course 62-year-old female with a medical history significant for multiple sclerosis, asthma, COPD who was recently discharged after being admitted for pneumonia from which she was intubated in the ICU for a few days following extubation patient insisted on being discharged on the floor and was discharged on 01/03 on by mouth antibiotics. According to the POA she was doing okay at home however was extremely tired. Per documentation by ER physician the patient went down for a nap at noon. At 1 PM a family member found her unresponsive and not breathing. Paramedics were called. The patient was found pulseless and apneic. She was in PEA and CPR was initiated. She was given 2 rounds of epinephrine and intubated. After 10 minutes of CPR she regained a pulse. She never regained consciousness. She arrives intubated and unresponsive with a GCS of 3. She cannot provide any history or review of systems. Patient was started on Levophed for pressor support and received IV Zosyn in the ER. Her chest x-ray showed bilateral infiltrates. She was also noted have a creatinine of 2 and a borderline elevated troponin. Head CT was negative for any bleed. Patient was accepted for admission by critical care medicine service. When I evaluated the patient she was sedated with propofol 10 mics per KG per minute and was on Levophed 4 mics per minute with a systolic blood pressure of 155. She was arousable easily and focused at me during my exam. Per patient's daughter who is also at the bedside she was trying to mouth words at her earlier. History was obtained by reviewing records and discussion with patient' s POA as well as daughter. 01/10: Remains intubated sedated, but wakes up easily follows commands. Remains in respiratory distress when sedation is lightened, continues to have significant bilateral rhonchi and coarse crackles all over the chest. Off pressors now hypotensive systolic blood pressure in 200s. Check BMP stat. Repeat chest x-ray pending. DC IV fluid, start IV Lasix 40 mg every 12 with IV albumin. Limited echo to evaluate for EF and also any new valvular regurgitation. Chek for Influenza, resp panel, start empiric Tamiflu 6: Remains intubated heavily sedated. Hypotensive requiring IV hydralazine and IV labetalol as needed. Start scheduled clonidine. Appears to have clinically congestive heart failure secondary to severe diastolic dysfunction. With aggressive diuresis 6 L urine output in last 24 hours, oxygenation has improved on 40% FiO2. Chest x-ray shows mild improvement in extensive bilateral infiltrates. Pro-calcitonin level equivocal 01/12: remains intubated. blood pressure under better control. good diuresis. Cr slight uptrend, but clinically continues to appear volume overloaded. 01/13: T-max 100. Currently 99.4. Tolerating tube feeds. Continues with aggressive diuresis with furosemide. Creatinine currently 1.13. Currently in A. fib with RVR. Acutely replacing potassium. Magnesium pending. Troponin was 0.08 this AM 01/14: Creatinine around 1. Continues to be diuresed aggressively. Tolerating tube feeding. Positive BM. T-max 101.6. Currently 99. Attempting spontaneous breathing trials today with lessening sedation. 01/15: Afebrile. Extubated 01/14 without complication currently nasal cannula. Agitated and tachycardic this a.m. Ultrasound of left upper extremity pending. Failed bedside swallow evaluation yesterday. Formal speech evaluation pending. Remains hypertensive 01/16: Afebrile. Remains on 1 L nasal cannula. Projectile emesis overnight. CT abdomen/pelvis revealed slightly dilated large bowel. No signs of obstruction. Resume diet. Potassium still low at 2.7. Aggressively replacing p.o. she will not tolerate intravenous potassium chloride. Noted new diagnosis of right lower lobe pulmonary embolism/right IJ occlusive thrombus SUBJECTIVE: 01/17: Afebrile. On room air. Complaining of gastroesophageal reflux disease/ heartburn. Positive BM. Abdomen somewhat distended. Objective Vital Signs Date Time Temp Pulse Resp B/P (MAP) Pulse Ox O2 Delivery O2 Flow Rate FiO2 01/17/18 10:21 32 01/17/18 10:00 97 01/17/18 08:33 97.5 132/64 (86) 100 01/17/18 07:55 21 01/16/18 07:46 Nasal Cannula 1.00 Intake and Output 01/17/18 01/17/18 01/18/18 08:00 16:00 00:00 Intake Total 900 ml Output Total 1100 ml Balance -200 ml Result Diagram: 01/17/18 0227 01/17/18 0112 Other Results Microbiology Date/Time Source Procedure Growth Status 01/13/18 14:30 Blood Peripheral Aerobic Blood Culture - Preliminary NO GROWTH IN 4 DAYS Resulted 01/13/18 14:30 Blood Peripheral Anaerobic Blood Culture - Preliminary NO GROWTH IN 4 DAYS Resulted 01/15/18 13:50 Stool Stool Stool Occult Blood (EVARISTO) - Final HEMOCCULT POSITIVE Complete 01/13/18 13:53 Sputum Endotracheal Gram Stain - Final Complete 01/13/18 13:53 Sputum Endotracheal Sputum Culture - Final HEAVY GROWTH NORMAL RESPIRATORY ALEX Complete 01/13/18 14:30 Urine Catheterized Urine Urine Culture - Final Emerald Krusei Complete Imaging Last Impressions Chest X-Ray 01/15/18 0600 Signed Impressions: Service Date/Time: Monday, January 15, 2018 02:56 - CONCLUSION: Lungs have significantly improved with minimal residual disease in the lung bases. Silvano Hoskins MD Upper Extremity Ultrasound 01/15/18 0000 Signed Impressions: Service Date/Time: Monday, January 15, 2018 10:11 - CONCLUSION: Nonocclusive thrombus within the right internal jugular vein and left distal cephalic vein. Gianluca Jackson MD Renal Ultrasound 01/15/18 0000 Signed Impressions: Service Date/Time: Monday, January 15, 2018 10:37 - CONCLUSION: 1. Bilateral echogenic kidneys consistent with medical renal disease. 2. No obstructive uropathy. 3. 2 cm complex cystic lesion in the inferior right kidney not demonstrated on recent CT examination. Consider followup ultrasound examination to validate this finding. If persistent and complex, consider MRI examination of better characterization. Cuba Almodovar MD CT Angiography 01/15/18 0000 Signed Impressions: Service Date/Time: Monday, January 15, 2018 15:11 - CONCLUSION: 1. Small pulmonary emboli are noted within right lower lobe segmental branches. 2. Mild diffuse ground-glass opacities bilaterally. 3. Stable bilateral thyroid nodules. 4. Coronary artery calcifications. Gianluca Jackson MD Abdomen/Pelvis CT 01/15/18 0000 Signed Impressions: Service Date/Time: Monday, January 15, 2018 23:18 - CONCLUSION: 1. Mildly dilated and fluid filled large bowel loops likely ileus or possible colitis. No bowel obstruction. 2. Groundglass densities in the lung bases. Silvano Hoskins MD Head CT 01/09/18 0000 Signed Impressions: Service Date/Time: Tuesday, January 09, 2018 15:39 - CONCLUSION: 1. No acute findings in the brain. No evidence of acute hemorrhage. 2. Stable diffuse ischemic demyelination and left lacunar infarcts. Markus Phillips MD Objective Remarks GEN: 62-year-old female resting in bed in no acute distress HEENT: Pupils are about 3 mm bilaterally and reactive. Neck: No JVD Chest/Pulm: Essentially clear to auscultation bilaterally without wheezes rales rhonchi CVS: Regular rhythm rate currently. S1, S2 no strip without murmur GI/abdomen: Somewhat protuberant. Reducible. Hypoactive bowel sounds appreciated. Extremities: warm bilaterally, 1+ edema involving left upper external. Neuro: Cranial nerves II through XII grossly intact. Strength is equal and symmetric. Normal sensation. Urinary Catheter: No Assessment to: Continue Vascular Central Line Catheter: No Assessment to: Continue A/P Assessment and Plan Neuro/Psych: History of MS Acute hypoxic encephalopathy Chronic pain syndrome THC use Chronic prescription drug use Insomnia Depression/anxiety History of MS History of TIA -History of multiple sclerosis. Receiving IV hydrocortisone 100 mg IV every 8 hours Medication reconciliation officially pending Dimethyl fumarate 240 mg p.o. twice daily for relapsing remitting MS currently on hold Alprazolam 0.5 mg every 8 hours as needed anxiety resumed 01/15 Chronic morphine sulfate 30 mg every 4 hours scheduled currently on hold. Currently on 50 mg twice daily Duloxetine 60 mg p.o. daily resume 01/15 Pregabalin 100 mg p.o. daily switch to 50 mg twice daily Tizanidine 4 mg every 6-8 hours currently on hold Dexamphetamine/amphetamine 10 mg daily Morphine sulfate 2 mg IV every 2 hours as needed pain Zolpidem 10 mg at night as needed insomnia Cardiovascular: Cardiac arrest/PEA most likely secondary to respiratory arrest Acute Diastolic heart failure exacerbation Elevated troponin History of hypertension Dyslipidemia -Serial cardiac enzymes. Troponin 0.08 -Cardiology consulted in view of elevated troponin. Echocardiogram reveals EF 65-70%. Hyperdynamic. Currently on clonidine 0.2 mg every 8 hours and as needed labetalol/hydralazine Nitropaste Started on metoprolol tartrate 25 mg twice daily and diltiazem 30 mg p.o. 4 times daily Atrial fibrillation currently normal sinus rhythm Initiate furosemide 20 mg daily in a.m. 4/9 In home on metoprolol 25 twice daily for hypertension and rosuvastatin 5 mg daily for dyslipidemia Start atorvastatin 10 mg p.o. daily Pulmonary: Right lower lobe PE COPD/ asthma with acute exacerbation Nasal cannula to maintain saturations greater than or equal to 92% Incentive spirometry while awake Budesonide/formoterol 160/4.5 2 puffs twice daily Albuterol/ipratropium aerosols every 6 hours with albuterol aerosols every 2 hours as needed dyspnea -Receiving hydrocortisone stress dose 50 mg IV every 12 hours Patient is on Advair inhalers at home? Heparin drip see orders On nicotine patch [address] pulmonary revealed right lower lobe pulmonary disease. Groundglass opacities. GI/liver: Elevated transaminases -likely secondary to shock liver Hyperammonia Gastroesophageal reflux disease Hiatal hernia History of small bowel obstruction -Follow LFTs. Suspect secondary to shock liver following cardiac arrest: downtrending. Regular diet. Famotidine for GI prophylaxis Docusate sodium/senna 1 tablet twice daily for bowel regimen Lactulose 30 cc every 6 hours. Check ammonia level in a.m. 01/14 was slightly elevated at 41 CT abdomen/pelvis revealed dilated large bowel. No obstructive process. Ondansetron 4 mg IV every 4 hours as needed nausea HEME: Right IJ thrombus/nonocclusive Left cephalic superficial thrombus Leukocytosis Normocytic anemia Heparin drip see orders. Monitor CBC daily. Follow trends Hemoccult-positive ID: Funguria -Procalcitonin equivocal. -Influenza negative, F/u respiratory panel, discontinued Oseltamivir 75 mg PO BID from 01/10-01/12 -Follow up on sputum culture 01/09 no growth and send blood/urine culture 01/10 no growth. Negative influenza/respiratory panel and urine Legionella pneumococcal urinary antigens -Continue piperacillin/tazobactam since 01/11, IV levofloxacin started 01/10 Started on fluconazole 100 mg daily Followed by infectious disease/Dr. Michael Pimentel Renal/: Acute kidney injury 2 cm right renal cyst. Recommend follow-up 3 months Recheck BMP in a.m. Medical renal disease/and negative urine eosinophils Avoid nephrotoxic medications Endocrine: Gout Low TSH -SSI with NovoLog for glycemic control every before meals/at bedtime medium. Stress dose steroids as patient has been on chronic prednisone. Holding colchicine 0.6 mg daily T4 normal. Free T3 high. Recommend recheck 6 weeks MSK: MARTA Osteoarthritis PT evaluate and treat FEN: Hyper potassium D50/insulin/bicarbonate, calcium gluconate, [place] [id number] Prophylaxis -GI-famotidine -DVT -SCD/heparin gtt Level 2 follow-up Stable from critical care medicine standpoint. Assign care to hospitalist in a.m. 01/18/2018 Brian Burgos MD Jan 17, 2018 11:51
[2018-01-17] MEDS: ALPRAZolam 0.5 MG TAB PO PRN (12:17)
[2018-01-17] MEDS: ALUMINUM/MAGNESIUM/SIMETH 30 ML CUP PO PRN ×2 (14:13→21:53)
--- NOTE | 2018-01-17 14:54 | HHI.IDPN ---
Subjective Subjective Remarks Ms. Mike is a 62-year-old female with past medical history significant for multiple sclerosis. Per review of medical records it appears that patient is on pulse dose IV steroids and may be relatively immunosuppressed. Patient was recently admitted for COPD exacerbation, bilateral pneumonia with respiratory acidosis and ARDS needing intubation. Post extubation patient insisted on being discharged once she was on the floor. She was discharge on January 03 on oral antibiotics. According to the POA who reported the admitting doctor she was okay at home however extremely tired. Per documentation by ER physician patient went down for a nap no meningeal a family member found her unresponsive and not breathing. Reportedly paramedics were called in the patient was found to be pulseless in appetite. She was in PEA in the CPR was initiated. She was given 2 rounds of epinephrine and intubated in the field. After 10 minutes of CPR she regained pulse but did not regain consciousness. She remained intubated on arrival with a GCS of 3. Patient was initially started on levo fed for pressor support and received IV Zosyn in the emergency room for possible sepsis related to pneumonia. Her chest x-ray did show bilateral infiltrates. Her creatinine was noted to be 2 borderline elevated troponin with elevated CK. A CT of the head was done due to altered mental status which was negative for any bleed. Critical care medicine has been consulted and patient is currently in the ICU. At the time of my evaluation patient is not on any pressors, remains intubated sedated. Upon discussion with respiratory therapist patient continues to have yellow brown respiratory secretions appeared to be moderate in needing fairly frequent suctioning. Urine output is good. No diarrhea noted. Repeat chest x- ray this morning shows bilateral diffuse infiltrates with the pattern of both pneumonia as well as possible pulmonary edema. Cardiology has been consulted as well since the is concern for cardiogenic pulmonary edema and due to her PEA arrest. Infectious disease is consulted for evaluation and management of sepsis on admission with pneumonia in a patient with acute respiratory failure and respiratory acidosis, PEA prior to admission. Overnight events reviewed. Temps ok. Denies CP, SOB. Alert oriented x 3. NF. No itching No rash No diarrhea Antibiotics Levaquin IV Diflucan Lines Line sites with no e.o infection Past Medical History Past Medical History Multiple sclerosis Recent history of pneumonia, ARDS and intubation due to respiratory acidosis. Reported history of arthritis Reported history of asthma History of some arrhythmia History of anxiety History of CHF History of hypercholesterolemia History of COPD History of TIA History of GERD History of some genitourinary problems details not known History of headaches History of hiatal hernia History of hypertension Prior history of some implanted device but reportedly was taken out in January 2016. No surgical history in [facility] medical records noted. History of kidney stones History of psychiatric problems PNEUMOCCOCAL Vaccine (Year): 2 Menopausal: Yes Past Surgical History History of Appendectomy History of Matthias in the right leg with 2 plates, History of neck surgery with 8 screws in the neck History of cholecystectomy History of hysterectomy(reported history of total abdominal hysterectomy with bilateral salpingo-oophorectomy at age 27) Rectal fissure December 2005 History of tonsillectomy 2 left breast biopsies Allergies: Coded Allergies: No Known Allergies (Verified Allergy, Unknown, 01/09/18) Objective . Vital Signs Date Time Temp Pulse Resp B/P (MAP) Pulse Ox O2 Delivery O2 Flow Rate FiO2 01/17/18 12:00 100 01/17/18 12:00 98.5 100 155/60 (91) 100 01/17/18 10:21 32 01/17/18 10:21 32 01/17/18 10:00 97 01/17/18 08:33 97.5 93 132/64 (86) 100 01/17/18 08:32 97.5 01/17/18 08:00 85 01/17/18 07:55 99 21 01/17/18 06:00 90 01/17/18 04:00 80 01/17/18 04:00 98.8 82 15 133/57 (82) 99 01/17/18 03:34 21 01/17/18 02:00 79 01/17/18 00:00 98.5 91 15 130/77 (94) 100 01/17/18 00:00 92 01/16/18 22:00 104 01/16/18 20:03 100 21 01/16/18 20:00 98.0 97 12 132/67 (88) 97 01/16/18 20:00 97 01/16/18 18:00 98 01/16/18 16:00 99 01/16/18 16:00 98.1 99 23 102/60 (74) 100 . Laboratory Tests Test 01/16/18 05:34 01/17/18 02:27 White Blood Count 18.0 TH/MM3 20.8 TH/MM3 Red Blood Count 3.99 MIL/MM3 3.72 MIL/MM3 Hemoglobin 11.2 GM/DL 10.5 GM/DL Hematocrit 35.1 % 32.3 % Mean Corpuscular Volume 87.9 FL 86.8 FL Mean Corpuscular Hemoglobin 28.0 PG 28.3 PG Mean Corpuscular Hemoglobin Concent 31.8 % 32.6 % Red Cell Distribution Width 17.8 % 17.4 % Platelet Count 307 TH/MM3 271 TH/MM3 Mean Platelet Volume 8.6 FL 8.1 FL Neutrophils (%) (Auto) 87.2 % 90.9 % Lymphocytes (%) (Auto) 6.1 % 3.5 % Monocytes (%) (Auto) 6.5 % 5.4 % Eosinophils (%) (Auto) 0.1 % 0.1 % Basophils (%) (Auto) 0.1 % 0.1 % Neutrophils # (Auto) 15.7 TH/MM3 18.9 TH/MM3 Lymphocytes # (Auto) 1.1 TH/MM3 0.7 TH/MM3 Monocytes # (Auto) 1.2 TH/MM3 1.1 TH/MM3 Eosinophils # (Auto) 0.0 TH/MM3 0.0 TH/MM3 Basophils # (Auto) 0.0 TH/MM3 0.0 TH/MM3 CBC Comment AUTO DIFF AUTO DIFF Differential Total Cells Counted 100 100 Neutrophils % (Manual) 83 % 89 % Band Neutrophils % 3 % 3 % Lymphocytes % 4 % 2 % Monocytes % 6 % 4 % Neutrophils # (Manual) 16.2 TH/MM3 19.6 TH/MM3 Metamyelocytes 2 % Myelocytes 2 % 1 % Differential Comment FINAL DIFF MANUAL FINAL DIFF MANUAL Toxic Granulation 1+ Platelet Estimate NORMAL NORMAL Platelet Morphology Comment NORMAL NORMAL Ovalocytes 1+ 1+ Promyelocytes 1 % Toxic Vacuolation PRESENT Polychromasia 2.1 % Laboratory Tests Test 01/15/18 18:50 01/16/18 00:55 01/16/18 05:34 01/16/18 17:20 Potassium Level 3.1 MEQ/L 2.7 MEQ/L 4.4 MEQ/L Free Thyroxine 0.84 NG/DL Free Triiodothyronine (T3) pg/dL 4.99 PG/ML Blood Urea Nitrogen 28 MG/DL Creatinine 0.81 MG/DL Random Glucose 140 MG/DL Total Protein 6.7 GM/DL Albumin 3.3 GM/DL Calcium Level 8.8 MG/DL Phosphorus Level 4.1 MG/DL 4.3 MG/DL Magnesium Level 1.8 MG/DL Alkaline Phosphatase 125 U/L Aspartate Amino Transf (AST/SGOT) 26 U/L Alanine Aminotransferase (ALT/SGPT) 225 U/L Total Bilirubin 0.5 MG/DL Sodium Level 144 MEQ/L Chloride Level 110 MEQ/L Carbon Dioxide Level 20.3 MEQ/L Anion Gap 14 MEQ/L Estimat Glomerular Filtration Rate 71 ML/MIN Test 01/17/18 01:12 01/17/18 11:47 Blood Urea Nitrogen 25 MG/DL Creatinine 0.90 MG/DL Random Glucose 129 MG/DL Calcium Level 8.4 MG/DL Sodium Level 136 MEQ/L Potassium Level 5.7 MEQ/L 4.0 MEQ/L Chloride Level 112 MEQ/L Carbon Dioxide Level 16.3 MEQ/L Anion Gap 8 MEQ/L Estimat Glomerular Filtration Rate 63 ML/MIN Microbiology Date/Time Source Procedure Growth Status 01/15/18 13:50 Stool Stool Stool Occult Blood (EVARISTO) - Final HEMOCCULT POSITIVE Complete Imaging Chest X-Ray 01/15/18 0600 Signed Impressions: Service Date/Time: Monday, January 15, 2018 02:56 - CONCLUSION: Lungs have significantly improved with minimal residual disease in the lung bases. Silvano Hoskins MD Upper Extremity Ultrasound 01/15/18 0000 Signed Impressions: Service Date/Time: Monday, January 15, 2018 10:11 - CONCLUSION: Nonocclusive thrombus within the right internal jugular vein and left distal cephalic vein. Gianluca Jackson MD Renal Ultrasound 01/15/18 0000 Signed Impressions: Service Date/Time: Monday, January 15, 2018 10:37 - CONCLUSION: 1. Bilateral echogenic kidneys consistent with medical renal disease. 2. No obstructive uropathy. 3. 2 cm complex cystic lesion in the inferior right kidney not demonstrated on recent CT examination. Consider followup ultrasound examination to validate this finding. If persistent and complex, consider MRI examination of better characterization. Cuba Almodovar MD CT Angiography 01/15/18 0000 Signed Impressions: Service Date/Time: Monday, January 15, 2018 15:11 - CONCLUSION: 1. Small pulmonary emboli are noted within right lower lobe segmental branches. 2. Mild diffuse ground-glass opacities bilaterally. 3. Stable bilateral thyroid nodules. 4. Coronary artery calcifications. Gianluca Jackson MD Abdomen/Pelvis CT 01/15/18 0000 Signed Impressions: Service Date/Time: Monday, January 15, 2018 23:18 - CONCLUSION: 1. Mildly dilated and fluid filled large bowel loops likely ileus or possible colitis. No bowel obstruction. 2. Groundglass densities in the lung bases. Silvano Hoskins MD Chest X-Ray 01/14/18 0600 Signed Impressions: Service Date/Time: Sunday, January 14, 2018 03:09 - CONCLUSION: 1. Improvement in bibasilar densities. 2. Nasogastric tube with tip in the region of the GE junction and could be advanced. Silvano Hoskins MD Last Impressions Chest X-Ray 01/10/18 0904 Signed Impressions: Service Date/Time: January 09:16 - CONCLUSION: Diffuse airspace disease, stable from yesterday. Markus Phillips MD Head CT 01/09/18 0000 Signed Impressions: Service Date/Time: Tuesday, January 09, 2018 15:39 - CONCLUSION: 1. No acute findings in the brain. No evidence of acute hemorrhage. 2. Stable diffuse ischemic demyelination and left lacunar infarcts. Markus Phillips MD Physical Exam GENERAL: This is a well-nourished, well-developed patient, awake and alert, NAD SKIN: No rashes, ecchymoses or lesions. Cool and dry. HEAD: Atraumatic. Normocephalic. No temporal or scalp tenderness. EYES: Pupils equal round and reactive. No scleral icterus. No injection or drainage. ENT: Moist oral mucosa, no nasal discharge NECK: Trachea midline. Supple, nontender, no meningeal signs. CARDIOVASCULAR: Heart sounds audible. No obvious murmur. RESPIRATORY: AE garland. No adv sounds. GASTROINTESTINAL: Abdomen soft, non-tender, nondistended. MUSCULOSKELETAL: Extremities without clubbing, cyanosis, or edema. NEUROLOGICAL: Alert, oriented x 2. No focal deficit. Psych could not be assessed IV line sites with no evidence for infection. Assessment & Plan Remarks Possible sepsis present on admission Pneumonia present on admission Candiduria Acute respiratory failure on vent Acute renal failure: prerenal, sepsis. Abnormal liver function tests: sepsis PE and RIJ thrombus Acute encephalopathy present on admission appears to be improving: Infection PEA outside hospital Leucocytosis: ? steroids related, PE Recommendations: HERNAN Levaquin: CXR improved clinically much improved as well s/p 8 days of antibiotic treatment. Continue Diflucan oral for candiduria. Monitor progress Follow clinically. Follow WBC count. Will sign off please call back if any change in clinical condition or questions. Karin Pimentel MD Jan 17, 2018 14:54
[2018-01-17] MEDS: ATORVASTATIN 10 MG TAB PO SCH (20:36)
[2018-01-17] MEDS: REMOVE OLD PATCH T-DERMAL SCH (21:00)
[2018-01-17] MEDS: ZOLPIDEM TARTRATE 10 MG TAB PO PRN (21:13)
[2018-01-18] VITALS (18 sets, daily range): BP systolic 122–169; BP diastolic 55–77; PULSE 76–93; RESP 17; TEMP 97.8–98.6; O2SAT 67–100
[2018-01-18] MEDS: RESP: ALBUTEROL 2.5 MG/IPRATROPIUM 0.5 MG NEB (SCH) INH ×6 (03:35→23:51)
[2018-01-18] MEDS: CHLORHEXIDINE GLUCONATE 2 % 1 PACK (2 CLOTHS) TOP SCH (04:00)
[2018-01-18] MEDS: MORPHINE SULFATE 2 MG/ML SYRINGE IV PUSH PRN ×3 (04:02→12:30)
[2018-01-18] MEDS: cloNIDine HCL 0.2 MG TAB PO SCH ×3 (05:11→20:52)
[2018-01-18] MEDS: DILTIAZEM HCL 30 MG TAB PO SCH ×3 (05:11→17:18)
[2018-01-18] MEDS: METOCLOPRAMIDE HCL 10 MG/2 ML VIAL IV PUSH SCH ×3 (05:12→20:56)
--- NOTE | 2018-01-18 06:31 | RADRPT ---
EXAM DATE/TIME: 01/18/2018 04:47 [facility] COMPARISON: No previous studies available for comparison. INDICATIONS : Ileus. MEDICAL HISTORY : Congestive heart failure. Hypertension. SURGICAL HISTORY : Appendectomy. Cholecystectomy.Hysterectomy. ENCOUNTER: Initial ACUITY: 1 day PAIN SCORE: 2/10 LOCATION: abdomen FINDINGS: There is moderate gaseous distention of what appears to be colon throughout the abdomen. There are no suspicious calcific densities. Nothing to suggest mass or visceromegaly. Degenerative changes are pr esent in the spine and hips. CONCLUSION: Diffuse gaseous distention of the colon Loy Obregon MD on January 18, 2018 at 6:27 Board Certified Radiologist. This report was verified electronically.
[2018-01-18 07:25] LABS: AUTOMATED NEUTROPHIL # 10.2 TH/MM3 (1.8-7.7); BASOPHIL % 0.1 % (0.0-2.0); EOSINOPHIL % 0.1 % (0.0-4.0); HEMATOCRIT 30.6 % (35.0-46.0); HEMOGLOBIN 9.8 GM/DL (11.6-15.3); LYMPH % 5.8 % (9.0-44.0); LYMPHOCYTE # 0.7 TH/MM3 (1.0-4.8); MEAN CELL VOLUME 87.6 FL (80.0-100.0); MEAN CORPUSCULAR HEMOGLOBIN 28.1 PG (27.0-34.0); MEAN CORPUSCULAR HGB CONC 32.1 % (32.0-36.0); MEAN PLATELET VOLUME 9.1 FL (7.0-11.0); PLATELET COUNT 254 TH/MM3 (150-450); RED CELL DISTRIBUTION WIDTH 17.5 % (11.6-17.2); WHITE BLOOD COUNT 11.9 TH/MM3 (4.0-11.0)
[2018-01-18 07:34] LABS: AST (GOT) 23 U/L (15-37); BICARBONATE 18.3 MEQ/L (21.0-32.0); BLOOD UREA NITROGEN 22 MG/DL (7-18); CALCIUM 8.8 MG/DL (8.5-10.1); CHLORIDE 109 MEQ/L (98-107); CREATININE 0.84 MG/DL (0.50-1.00); GLOMERULAR FILTRATION RATE 68 ML/MIN (>89); GLUCOSE,RANDOM 104 MG/DL (74-106); MAGNESIUM 2.1 MG/DL (1.5-2.5); SODIUM (NA) 137 MEQ/L (136-145)
[2018-01-18 07:35] LABS: ALT (GPT) 103 U/L (10-53); PHOSPHORUS 4.1 MG/DL (2.5-4.9)
[2018-01-18 07:37] LABS: ALKALINE PHOSPHATASE 111 U/L (45-117); TOTAL BILIRUBIN ADULT 0.5 MG/DL (0.2-1.0); TOTAL PROTEIN 5.9 GM/DL (6.4-8.2)
[2018-01-18] MEDS: CHLORHEXIDINE 0.12% (ORAL KIT) 15 ML CUP MT SCH ×2 (08:00→20:00)
[2018-01-18] MEDS: INSULIN NovoLIN REGULAR SUPPLEMENTAL SCALE SQ SCH ×4 (08:00→21:00)
[2018-01-18] MEDS: BUDESONIDE-FORMOTEROL 160/4.5 MCG INHALER INH SCH ×2 (08:12→20:56)
[2018-01-18] MEDS: SODIUM CHLORIDE 0.9% FLUSH 10 ML FLUSH IV FLUSH SCH ×2 (08:12→20:55)
[2018-01-18] MEDS: HYDROCORTISONE SOD SUCCINATE 100 MG VIAL IV PUSH SCH (08:12)
[2018-01-18] MEDS: SODIUM CHLORIDE 0.9% FLUSH 10 ML FLUSH IV FLUSH PRN (08:12)
[2018-01-18] MEDS: FAMOTIDINE 20 MG TAB NG SCH ×2 (08:13→20:52)
[2018-01-18] MEDS: DEXTROAMPHETAMINE/AMPHETAMINE 10 MG TAB PO SCH (08:13)
[2018-01-18] MEDS: DULoxetine HCl DR 60 MG CAP PO SCH (08:13)
[2018-01-18] MEDS: FLUCONAZOLE 100 MG TAB PO SCH (08:13)
[2018-01-18] MEDS: METOPROLOL TARTRATE 25 MG TAB PO SCH ×2 (08:13→20:54)
[2018-01-18] MEDS: FUROSEMIDE 20 MG TAB PO SCH (08:13)
[2018-01-18] MEDS: LACTULOSE SYRUP 20 GM/30 ML CUP PO SCH ×5 (08:13→20:55)
[2018-01-18] MEDS: POTASSIUM CHLORIDE 10 MEQ CAP PO SCH ×2 (08:13→20:55)
[2018-01-18] MEDS: MORPHINE SULFATE 15 MG CONTROLLED RELEASE TAB PO SCH ×2 (08:14→20:54)
[2018-01-18] MEDS: NICOTINE 14 MG/24 HR PATCH T-DERMAL SCH (08:15)
[2018-01-18] MEDS: PREGABALIN 25 MG CAP PO SCH ×2 (08:28→20:52)
[2018-01-18 08:43] LABS: BANDS 2 % (0-6); LYMPHOCYTES 6 % (9-44); MONOCYTES 6 % (0-8); NEUTROPHIL # MANUAL DIFF 10.5 TH/MM3 (1.8-7.7); POLYS (SEG NEUTROPHILS) 86 % (16-70)
[2018-01-18 08:45] LABS: OVALOCYTES 1+ (NORMAL)
[2018-01-18] MEDS: ALUMINUM/MAGNESIUM/SIMETH 30 ML CUP PO PRN ×2 (08:45→17:18)
--- NOTE | 2018-01-18 11:55 | HHI.PR ---
Subjective Remarks This is a 62-year-old female with a medical history significant for multiple sclerosis, asthma, COPD who was recently discharged after being admitted for pneumonia from which she was intubated in the ICU for a few days following extubation patient insisted on being discharged on the floor and was discharged on 01/03 on by mouth antibiotics. According to the POA she was doing okay at home however was extremely tired. Per documentation by ER physician the patient went down for a nap at noon. At 1 PM a family member found her unresponsive and not breathing. Paramedics were called. The patient was found pulseless and apneic. She was in PEA and CPR was initiated. She was given 2 rounds of epinephrine and intubated. After 10 minutes of CPR she regained a pulse. She never regained consciousness. She arrives intubated and unresponsive. Patient was started on Levophed for pressor support and received IV Zosyn in the ER. Her chest x-ray showed bilateral infiltrates. Patient was accepted for admission by critical care medicine service. Patient was treated in ICU, extubated 01/14. Patient was also evaluated and treated by ID while in ICU. Patient received Zosyn from (01/09 to 01/13), Vancomycin (01/09 - 01/11) and Levaquin from (01/10 - 01/17) ID DC abx recommended continuing Fluconazole oral for candiduria. ID has signed off. Patient had elevation troponin 0.23 and was seen by cardiology as well. Per cardiology: Troponins are minimally elevated likely secondary to multisystem organ failure and hypoperfusion. Could consider ischemic evaluation upon recovery, but no plans at this time. Nothing further to add from a cardiology perspective and cardiology has signed off. PT is recommending patient go to rehab at time of DC Patient is sitting up in bed with family members at bedside. Patient c/o distended abdomen. Is unsure if she is having flatus or recent BM. Reports breathing is much better. Denies cough, congestion, chest pain, N/V. Objective Vitals Vital Signs Date Time Temp Pulse Resp B/P (MAP) Pulse Ox O2 Delivery O2 Flow Rate FiO2 01/18/18 09:00 77 127/65 (85) 01/18/18 08:00 77 01/18/18 08:00 98.6 77 122/55 (77) 01/18/18 07:28 97 21 01/18/18 07:00 77 125/57 (79) 67 01/18/18 04:07 15 01/18/18 04:00 85 01/18/18 04:00 98.6 01/18/18 04:00 98.6 85 126/58 (80) 100 01/18/18 02:00 76 01/18/18 00:00 98.5 85 165/77 (106) 93 01/18/18 00:00 85 01/17/18 22:00 91 01/17/18 21:36 15 01/17/18 21:36 15 01/17/18 20:43 99 21 01/17/18 20:00 98.8 102 120/68 (85) 99 01/17/18 20:00 102 01/17/18 18:00 102 01/17/18 16:00 98.4 96 128/59 (82) 91 01/17/18 16:00 98.4 98 128/59 (82) 01/17/18 16:00 108 01/17/18 14:00 103 01/17/18 12:00 100 01/17/18 12:00 98.5 100 155/60 (91) 100 01/18/18 01/18/18 01/19/18 15:00 23:00 07:00 Intake Total 150 ml Balance 150 ml IV Total 150 ml Result Diagram: 01/18/18 0446 01/18/18 0446 Other Results Laboratory Tests Test 01/15/18 12:56 01/15/18 13:50 01/15/18 18:50 01/16/18 00:55 Prothrombin Time 11.1 SEC Prothromb Time International Ratio 1.1 RATIO Activated Partial Thromboplast Time 18.7 SEC 30.6 SEC 32.7 SEC Urine Eosinophils NONE SEEN /HPF Urine Random Creatinine 74.1 MG/DL Urine Random Sodium 29 MEQ/L Potassium Level 3.1 MEQ/L 2.7 MEQ/L Free Thyroxine 0.84 NG/DL Free Triiodothyronine (T3) pg/dL 4.99 PG/ML Blood Urea Nitrogen 28 MG/DL Creatinine 0.81 MG/DL Random Glucose 140 MG/DL Total Protein 6.7 GM/DL Albumin 3.3 GM/DL Calcium Level 8.8 MG/DL Phosphorus Level 4.1 MG/DL Magnesium Level 1.8 MG/DL Alkaline Phosphatase 125 U/L Aspartate Amino Transf (AST/SGOT) 26 U/L Alanine Aminotransferase (ALT/SGPT) 225 U/L Total Bilirubin 0.5 MG/DL Sodium Level 144 MEQ/L Chloride Level 110 MEQ/L Carbon Dioxide Level 20.3 MEQ/L Anion Gap 14 MEQ/L Estimat Glomerular Filtration Rate 71 ML/MIN Test 01/16/18 05:34 01/16/18 17:20 01/17/18 01:12 01/17/18 02:27 White Blood Count 18.0 TH/MM3 20.8 TH/MM3 Red Blood Count 3.99 MIL/MM3 3.72 MIL/MM3 Hemoglobin 11.2 GM/DL 10.5 GM/DL Hematocrit 35.1 % 32.3 % Mean Corpuscular Volume 87.9 FL 86.8 FL Mean Corpuscular Hemoglobin 28.0 PG 28.3 PG Mean Corpuscular Hemoglobin Concent 31.8 % 32.6 % Red Cell Distribution Width 17.8 % 17.4 % Platelet Count 307 TH/MM3 271 TH/MM3 Mean Platelet Volume 8.6 FL 8.1 FL Neutrophils (%) (Auto) 87.2 % 90.9 % Lymphocytes (%) (Auto) 6.1 % 3.5 % Monocytes (%) (Auto) 6.5 % 5.4 % Eosinophils (%) (Auto) 0.1 % 0.1 % Basophils (%) (Auto) 0.1 % 0.1 % Neutrophils # (Auto) 15.7 TH/MM3 18.9 TH/MM3 Lymphocytes # (Auto) 1.1 TH/MM3 0.7 TH/MM3 Monocytes # (Auto) 1.2 TH/MM3 1.1 TH/MM3 Eosinophils # (Auto) 0.0 TH/MM3 0.0 TH/MM3 Basophils # (Auto) 0.0 TH/MM3 0.0 TH/MM3 CBC Comment AUTO DIFF AUTO DIFF Differential Total Cells Counted 100 100 Neutrophils % (Manual) 83 % 89 % Band Neutrophils % 3 % 3 % Lymphocytes % 4 % 2 % Monocytes % 6 % 4 % Neutrophils # (Manual) 16.2 TH/MM3 19.6 TH/MM3 Metamyelocytes 2 % Myelocytes 2 % 1 % Differential Comment FINAL DIFF MANUAL FINAL DIFF MANUAL Toxic Granulation 1+ Platelet Estimate NORMAL NORMAL Platelet Morphology Comment NORMAL NORMAL Ovalocytes 1+ 1+ Phosphorus Level 4.3 MG/DL Activated Partial Thromboplast Time 39.2 SEC 30.3 SEC Potassium Level 4.4 MEQ/L 5.7 MEQ/L Blood Urea Nitrogen 25 MG/DL Creatinine 0.90 MG/DL Random Glucose 129 MG/DL Calcium Level 8.4 MG/DL Sodium Level 136 MEQ/L Chloride Level 112 MEQ/L Carbon Dioxide Level 16.3 MEQ/L Anion Gap 8 MEQ/L Estimat Glomerular Filtration Rate 63 ML/MIN Promyelocytes 1 % Toxic Vacuolation PRESENT Polychromasia 2.1 % Test 01/17/18 09:12 01/17/18 11:47 01/17/18 17:29 01/18/18 00:21 Activated Partial Thromboplast Time 57.4 SEC 65.0 SEC 63.0 SEC Potassium Level 4.0 MEQ/L Test 01/18/18 04:46 01/18/18 10:29 White Blood Count 11.9 TH/MM3 Red Blood Count 3.50 MIL/MM3 Hemoglobin 9.8 GM/DL Hematocrit 30.6 % Mean Corpuscular Volume 87.6 FL Mean Corpuscular Hemoglobin 28.1 PG Mean Corpuscular Hemoglobin Concent 32.1 % Red Cell Distribution Width 17.5 % Platelet Count 254 TH/MM3 Mean Platelet Volume 9.1 FL Neutrophils (%) (Auto) 86.0 % Lymphocytes (%) (Auto) 5.8 % Monocytes (%) (Auto) 8.0 % Eosinophils (%) (Auto) 0.1 % Basophils (%) (Auto) 0.1 % Neutrophils # (Auto) 10.2 TH/MM3 Lymphocytes # (Auto) 0.7 TH/MM3 Monocytes # (Auto) 1.0 TH/MM3 Eosinophils # (Auto) 0.0 TH/MM3 Basophils # (Auto) 0.0 TH/MM3 CBC Comment AUTO DIFF Differential Total Cells Counted 100 Neutrophils % (Manual) 86 % Band Neutrophils % 2 % Lymphocytes % 6 % Monocytes % 6 % Neutrophils # (Manual) 10.5 TH/MM3 Differential Comment FINAL DIFF MANUAL Platelet Estimate NORMAL Platelet Morphology Comment NORMAL Ovalocytes 1+ Blood Urea Nitrogen 22 MG/DL Creatinine 0.84 MG/DL Random Glucose 104 MG/DL Total Protein 5.9 GM/DL Albumin 3.0 GM/DL Calcium Level 8.8 MG/DL Phosphorus Level 4.1 MG/DL Magnesium Level 2.1 MG/DL Alkaline Phosphatase 111 U/L Aspartate Amino Transf (AST/SGOT) 23 U/L Alanine Aminotransferase (ALT/SGPT) 103 U/L Total Bilirubin 0.5 MG/DL Sodium Level 137 MEQ/L Potassium Level 3.6 MEQ/L Chloride Level 109 MEQ/L Carbon Dioxide Level 18.3 MEQ/L Anion Gap 10 MEQ/L Estimat Glomerular Filtration Rate 68 ML/MIN Activated Partial Thromboplast Time 60.4 SEC Imaging Last Impressions Abdomen X-Ray 01/18/18599 Signed Impressions: Service Date/Time: Thursday, January 18, 2018 04:47 - CONCLUSION: Diffuse gaseous distention of the colon Loy Obregon MD Chest X-Ray 01/15/18599 Signed Impressions: Service Date/Time: Monday, January 15, 2018 02:56 - CONCLUSION: Lungs have significantly improved with minimal residual disease in the lung bases. Silvano Hoskins MD Upper Extremity Ultrasound 01/15/18 Signed Impressions: Service Date/Time: Monday, January 15, 2018 10:11 - CONCLUSION: Nonocclusive thrombus within the right internal jugular vein and left distal cephalic vein. Gianluca Jackson MD Renal Ultrasound 01/15/18 Signed Impressions: Service Date/Time: Monday, January 15, 2018 10:37 - CONCLUSION: 1. Bilateral echogenic kidneys consistent with medical renal disease. 2. No obstructive uropathy. 3. 2 cm complex cystic lesion in the inferior right kidney not demonstrated on recent CT examination. Consider followup ultrasound examination to validate this finding. If persistent and complex, consider MRI examination of better characterization. [place] Almodovar MD CT Angiography 01/15/18 Signed Impressions: Service Date/Time: Monday, January 15, 2018 15:11 - CONCLUSION: 1. Small pulmonary emboli are noted within right lower lobe segmental branches. 2. Mild diffuse ground-glass opacities bilaterally. 3. Stable bilateral thyroid nodules. 4. Coronary artery calcifications. Gianluca Jackson MD Abdomen/Pelvis CT 01/15/18 Signed Impressions: Service Date/Time: Monday, January 15, 2018 23:18 - CONCLUSION: 1. Mildly dilated and fluid filled large bowel loops likely ileus or possible colitis. No bowel obstruction. 2. Groundglass densities in the lung bases. Silvano Hoskins MD Head CT 01/09/18 0000 Signed Impressions: Service Date/Time: Tuesday, January 09, 2018 15:39 - CONCLUSION: 1. No acute findings in the brain. No evidence of acute hemorrhage. 2. Stable diffuse ischemic demyelination and left lacunar infarcts. Markus Phillips MD Objective Remarks GENERAL: This is a well-nourished, well-developed patient, in no apparent distress. CARDIOVASCULAR: Regular rate and rhythm RESPIRATORY: Clear to auscultation. Breath sounds equal bilaterally. GASTROINTESTINAL: Abdomen soft, non-tender, distended. high pitched tingling bowel sounds MUSCULOSKELETAL: Extremities without clubbing, cyanosis, or edema. NEURO: Alert & Oriented. Moves all ext x4 A/P Problem List: (1) Respiratory failure ICD Codes: J96.90 - Respiratory failure, unspecified, unspecified whether with hypoxia or hypercapnia Status: Acute Plan: This is a 62-year-old female with a medical history significant for multiple sclerosis, asthma, COPD who was recently discharged after being admitted for pneumonia from which she was intubated in the ICU for a few days following extubation patient insisted on being discharged on the floor and was discharged on 01/03 on by mouth antibiotics. Family member found her unresponsive and not breathing. The patient was found pulseless and apneic. She was in PEA and CPR was initiated. She was given 2 rounds of epinephrine and intubated. After 10 minutes of CPR she regained a pulse. She never regained consciousness. She arrives intubated and unresponsive. Patient was treated in ICU, extubated 01/14. Patient was also evaluated and treated by ID while in ICU. Patient received Zosyn from (01/09 to 01/13), Vancomycin (01/09 - 01/11) and Levaquin from (01/10 - 01/17) ID DC abx. CTA demonstrated PE patient on heparin drip will start Xarelto 15 mg PO BID and DC heparin drip] (2) PEA (Pulseless electrical activity) ICD Codes: I46.9 - Cardiac arrest, cause unspecified Plan: see above (3) Pulmonary embolism ICD Codes: I26.99 - Other pulmonary embolism without acute cor pulmonale Plan: CTA 01/15/18 revealed small pulmonary emboli are noted within right lower lobe segmental branches. Mild diffuse ground-glass opacities bilaterally. Stable bilateral thyroid nodules. Coronary artery calcifications. Patient currently on heparin drip will DC heparin drip and start Xarelto 15 mg PO BID (4) Fungus present in urine ICD Codes: B49 - Unspecified mycosis Plan: urine culture 01/13/18 reveled 50,000 - 75,000 Emerald Krusei per ID recommendation continue oral Diflucan (5) Renal cyst ICD Codes: N28.1 - Cyst of kidney, acquired Plan: Renal US (01/15) reveled Bilateral echogenic kidneys consistent with medical renal disease. No obstructive uropathy. 2 cm complex cystic lesion in the inferior right kidney not demonstrated on recent CT examination. Consider follow up US if persistent consider MRI (6) Low TSH level ICD Codes: R94.6 - Abnormal results of thyroid function studies (7) Ileus ICD Codes: K56.7 - Ileus, unspecified Plan: high pitched bowel sounds, abd is distended and tympanic on percussion. KUB (01/18) --> diffuse gaseous distension NPO repeat KUB in AM Assessment and Plan Patient examined. Assessment and plan formulated with Miladis Spears PA-C. I agree with the above. Pt c/o abdominal distention and bloating. On PE pt has high pitched bowel sounds, abd is distended and tympanic on percussion. KUB (01/18) --> diffuse gaseous distension Pt denies nausea. Change diet to NPO, except ice chips. stop prn IV morphine MOM, ducolax suppository repeat KUB in AM Miladis Spears Jan 18, 2018 11:55 Harmeet Balderas DO Jan 18, 2018 21:57
[2018-01-18] MEDS: HEPARIN-D5W 25,000 U/250 ML 250 ML IV PRN (12:13)
[2018-01-18] MEDS: ONDANSETRON HCL 4 MG/2 ML VIAL IV PUSH PRN (17:18)
[2018-01-18] MEDS ORDERED: MAGNESIUM HYDROXIDE SUSP 30 ML CUP PO ONE (18:15)
[2018-01-18] MEDS ORDERED: BISACODYL 10 MG SUPP RECTAL ONE (18:15)
[2018-01-18] MEDS: ATORVASTATIN 10 MG TAB PO SCH (20:52)
[2018-01-18] MEDS: RIVAROXABAN 15 MG TAB PO SCH (20:52)
[2018-01-18] MEDS: REMOVE OLD PATCH T-DERMAL SCH (20:58)
[2018-01-18] MEDS: ZOLPIDEM TARTRATE 10 MG TAB PO PRN (21:23)
[2018-01-19] VITALS (21 sets, daily range): BP systolic 109–167; BP diastolic 53–76; PULSE 70–120; RESP 17; TEMP 97.9–98.9; O2SAT 94–100
[2018-01-19] MEDS: DILTIAZEM HCL 30 MG TAB PO SCH ×5 (00:17→23:34)
[2018-01-19] MEDS: CHLORHEXIDINE GLUCONATE 2 % 1 PACK (2 CLOTHS) TOP SCH (04:00)
[2018-01-19] MEDS: RESP: ALBUTEROL 2.5 MG/IPRATROPIUM 0.5 MG NEB (SCH) INH ×6 (04:55→23:33)
[2018-01-19] MEDS: cloNIDine HCL 0.2 MG TAB PO SCH ×3 (05:28→20:19)
[2018-01-19] MEDS: METOCLOPRAMIDE HCL 10 MG/2 ML VIAL IV PUSH SCH ×2 (05:30→14:42)
[2018-01-19 06:28] LABS: BICARBONATE 19.6 MEQ/L (21.0-32.0); CALCIUM 8.7 MG/DL (8.5-10.1); CREATININE 0.93 MG/DL (0.50-1.00); MAGNESIUM 2.5 MG/DL (1.5-2.5)
[2018-01-19 06:38] LABS: AUTOMATED NEUTROPHIL # 7.1 TH/MM3 (1.8-7.7); EOSINOPHIL % 0.4 % (0.0-4.0); HEMATOCRIT 29.4 % (35.0-46.0); HEMOGLOBIN 9.7 GM/DL (11.6-15.3); LYMPHOCYTE # 0.6 TH/MM3 (1.0-4.8); MEAN CELL VOLUME 86.9 FL (80.0-100.0); MEAN CORPUSCULAR HEMOGLOBIN 28.6 PG (27.0-34.0); MEAN CORPUSCULAR HGB CONC 32.9 % (32.0-36.0); MEAN PLATELET VOLUME 8.6 FL (7.0-11.0); MONO % 11.7 % (0.0-8.0); NEUT % 80.9 % (16.0-70.0); PLATELET COUNT 248 TH/MM3 (150-450); RED BLOOD COUNT 3.38 MIL/MM3 (4.00-5.30); RED CELL DISTRIBUTION WIDTH 17.4 % (11.6-17.2); WHITE BLOOD COUNT 8.8 TH/MM3 (4.0-11.0)
[2018-01-19] MEDS: POTASSIUM CHLOR 20 MEQ PREMIX 100 ML IV PRN (07:38)
[2018-01-19] MEDS: CHLORHEXIDINE 0.12% (ORAL KIT) 15 ML CUP MT SCH ×2 (08:00→20:00)
[2018-01-19] MEDS: INSULIN NovoLIN REGULAR SUPPLEMENTAL SCALE SQ SCH ×4 (08:00→20:19)
[2018-01-19] MEDS: SODIUM CHLORIDE 0.9% FLUSH 10 ML FLUSH IV FLUSH SCH ×2 (08:27→20:18)
[2018-01-19] MEDS: BUDESONIDE-FORMOTEROL 160/4.5 MCG INHALER INH SCH ×2 (08:27→20:17)
[2018-01-19] MEDS: SODIUM CHLORIDE 0.9% FLUSH 10 ML FLUSH IV FLUSH PRN (08:28)
[2018-01-19] MEDS: DEXTROAMPHETAMINE/AMPHETAMINE 10 MG TAB PO SCH (08:28)
[2018-01-19] MEDS: DULoxetine HCl DR 60 MG CAP PO SCH (08:28)
[2018-01-19] MEDS: FLUCONAZOLE 100 MG TAB PO SCH (08:28)
[2018-01-19] MEDS: FAMOTIDINE 20 MG TAB NG SCH ×2 (08:28→20:18)
[2018-01-19 08:29] LABS: ACANTHOCYTES OCC (NORMAL); BANDS 5 % (0-6); LYMPHOCYTES 7 % (9-44); METAMYELOCYTES 1 % (0-1); MONOCYTES 11 % (0-8); MYELOCYTES 2 % (0-0); NEUTROPHIL # MANUAL DIFF 7.2 TH/MM3 (1.8-7.7); OVALOCYTES 1+ (NORMAL); POLYS (SEG NEUTROPHILS) 74 % (16-70); TEARDROP RBCS 1+ (NORMAL)
[2018-01-19] MEDS: FUROSEMIDE 20 MG TAB PO SCH (08:29)
[2018-01-19] MEDS: LACTULOSE SYRUP 20 GM/30 ML CUP PO SCH ×2 (08:29→13:00)
[2018-01-19] MEDS: PREGABALIN 25 MG CAP PO SCH ×2 (08:29→20:19)
[2018-01-19] MEDS: METOPROLOL TARTRATE 25 MG TAB PO SCH ×2 (08:29→20:19)
[2018-01-19] MEDS: MORPHINE SULFATE 15 MG CONTROLLED RELEASE TAB PO SCH ×2 (08:29→20:19)
[2018-01-19] MEDS: POTASSIUM CHLORIDE 10 MEQ CAP PO SCH ×2 (08:29→20:18)
[2018-01-19] MEDS: RIVAROXABAN 15 MG TAB PO SCH ×2 (08:30→20:19)
[2018-01-19] MEDS: NICOTINE 14 MG/24 HR PATCH T-DERMAL SCH (08:30)
[2018-01-19] MEDS: POTASSIUM CHLORIDE 20 MEQ CONTROLLED RELEASE TAB PO SCH ×2 (10:31→13:45)
[2018-01-19] MEDS: ACETAMINOPHEN 650 MG/20.3 ML UDC PO PRN (10:31)
--- NOTE | 2018-01-19 11:02 | RADRPT ---
EXAM DATE/TIME: 01/19/2018 10:02 [facility] COMPARISON: No previous studies available for comparison. INDICATIONS : Shortness of breath and pain. MEDICAL HISTORY : Congestive heart failure. Hypertension. SURGICAL HISTORY : Appendectomy. Cholecystectomy.Hysterectomy. ENCOUNTER: Initial ACUITY: 1 day PAIN SCORE: 5/10 LOCATION: Bilateral chest FINDINGS: Minimal parenchymal changes left base. Right lung clear. The heart and pulmonary vascularity are nor mal. The portion of the bony skeleton visualized is unremarkable. . The cardiomediastinal contours are unremarkable. Osseous structures are intact. CONCLUSION: Minimal parenchymal changes left base. Oziel Dow MD FACR on January 19, 2018 at 11:00 Board Certified Radiologist. This report was verified electronically.
--- NOTE | 2018-01-19 11:03 | RADRPT ---
EXAM DATE/TIME: 01/19/2018 10:10 [facility] COMPARISON: ABDOMEN KUB ONLY, January 18, 2018, 4:47. INDICATIONS : Distention. MEDICAL HISTORY : Congestive heart failure. Hypertension. SURGICAL HISTORY : Appendectomy. Cholecystectomy.Hysterectomy. ORIF right femur. ENCOUNTER: Subsequent ACUITY: 3 days PAIN SCORE: 5/10 LOCATION: Abdomen. FINDINGS: Moderate gaseous distention of colon. No small bowel dilatation. Degenerative changes lumbar spine. No free air. CONCLUSION: Moderate colonic distention with minimal progression from 01/18. No nasogastric tube visualized. Oziel Dow MD FACR on January 19, 2018 at 11:00 Board Certified Radiologist. This report was verified electronically.
[2018-01-19] MEDS ORDERED: PERC10TA27 PO (12:26)
[2018-01-19] MEDS ORDERED: MSIR30 PO (12:26)
[2018-01-19] MEDS ORDERED: COLC1CAP3 PO (12:26)
[2018-01-19] MEDS ORDERED: LYRI50CA PO (12:29)
[2018-01-19] MEDS ORDERED: BETH10TA2 PO (13:29)
[2018-01-19] MEDS ORDERED: ALBU.5I NEB (13:29)
[2018-01-19] MEDS ORDERED: ZOLP10TA3 PO (13:29)
[2018-01-19] MEDS ORDERED: METO25TA3 PO (13:29)
[2018-01-19] MEDS ORDERED: PROP20TA3 PO (13:29)
[2018-01-19] MEDS ORDERED: TIZA4TAB PO (13:29)
[2018-01-19] MEDS ORDERED: FURO40TA PO (13:29)
[2018-01-19] MEDS ORDERED: DULO1CAP3 PO (13:29)
[2018-01-19] MEDS ORDERED: REGL10TA5 PO (13:29)
[2018-01-19] MEDS ORDERED: VENTAER INH (13:29)
[2018-01-19] MEDS ORDERED: ADDE20 PO (13:29)
[2018-01-19] MEDS ORDERED: DRON5CAP PO (13:29)
[2018-01-19] MEDS ORDERED: ALPR0.5T3 PO (13:29)
[2018-01-19] MEDS ORDERED: PROM1SUP9 RECTAL (13:29)
[2018-01-19] MEDS ORDERED: POTA-163 PO (13:29)
[2018-01-19] MEDS ORDERED: LYRI150C PO (13:29)
[2018-01-19] MEDS ORDERED: PANT40TA3 PO (13:29)
[2018-01-19] MEDS ORDERED: DONE10TA7 PO (13:29)
[2018-01-19] MEDS ORDERED: VITA1000 PO (13:29)
[2018-01-19] MEDS ORDERED: ROSU1TAB6 PO (13:29)
--- NOTE | 2018-01-19 16:16 | RADRPT ---
EXAM DATE/TIME: 01/19/2018 15:48 [facility] COMPARISON: ABDOMEN KUB ONLY, January 19, 2018, 10:10. INDICATIONS : Follow-up distention. MEDICAL HISTORY : Congestive heart failure. Hypertension. SURGICAL HISTORY : Appendectomy. Cholecystectomy.Hysterectomy. ORIF right femur. ENCOUNTER: Subsequent ACUITY: 3 days PAIN SCORE: 5/10 LOCATION: Abdomen. FINDINGS: There is been no change since the prior exam. There is persistent diffuse gaseous distention of what appears to be mainly colon. CONCLUSION: No change Loy Obregon MD on January 19, 2018 at 16:10 Board Certified Radiologist. This report was verified electronically.
--- NOTE | 2018-01-19 17:46 | HHI.PR ---
Subjective Remarks Patient asking for food RN reports large BM today Objective Vitals Vital Signs Date Time Temp Pulse Resp B/P (MAP) Pulse Ox O2 Delivery O2 Flow Rate FiO2 01/19/18 16:00 98.0 83 116/53 (74) 97 01/19/18 16:00 83 01/19/18 14:00 85 01/19/18 12:00 98.0 80 152/73 (99) 01/19/18 12:00 80 01/19/18 11:00 81 137/67 (90) 100 01/19/18 10:30 75 01/19/18 10:28 75 128/61 (83) 98 01/19/18 09:00 76 125/56 (79) 01/19/18 09:00 76 01/19/18 08:00 78 01/19/18 08:00 97.9 78 125/59 (81) 95 01/19/18 07:00 72 115/53 (73) 94 01/19/18 06:00 76 01/19/18 04:00 70 01/19/18 04:00 98.2 79 17 134/62 (86) 100 01/19/18 02:00 76 01/19/18 00:00 98.3 120 17 156/76 (102) 100 01/19/18 00:00 120 01/18/18 22:00 91 01/18/18 21:52 17 01/18/18 21:52 17 01/18/18 20:00 98.1 93 17 133/61 (85) 100 01/18/18 20:00 93 01/18/18 19:12 100 21 01/18/18 18:00 92 01/19/18 01/19/18 01/20/18 15:00 23:00 07:00 Intake Total 100 ml Balance 100 ml IV Total 100 ml Result Diagram: 01/19/18 0501 01/19/18 0501 Other Results Laboratory Tests Test 01/17/18 01:12 01/17/18 02:27 01/17/18 09:12 01/17/18 11:47 Blood Urea Nitrogen 25 MG/DL Creatinine 0.90 MG/DL Random Glucose 129 MG/DL Calcium Level 8.4 MG/DL Sodium Level 136 MEQ/L Potassium Level 5.7 MEQ/L 4.0 MEQ/L Chloride Level 112 MEQ/L Carbon Dioxide Level 16.3 MEQ/L Anion Gap 8 MEQ/L Estimat Glomerular Filtration Rate 63 ML/MIN White Blood Count 20.8 TH/MM3 Red Blood Count 3.72 MIL/MM3 Hemoglobin 10.5 GM/DL Hematocrit 32.3 % Mean Corpuscular Volume 86.8 FL Mean Corpuscular Hemoglobin 28.3 PG Mean Corpuscular Hemoglobin Concent 32.6 % Red Cell Distribution Width 17.4 % Platelet Count 271 TH/MM3 Mean Platelet Volume 8.1 FL Neutrophils (%) (Auto) 90.9 % Lymphocytes (%) (Auto) 3.5 % Monocytes (%) (Auto) 5.4 % Eosinophils (%) (Auto) 0.1 % Basophils (%) (Auto) 0.1 % Neutrophils # (Auto) 18.9 TH/MM3 Lymphocytes # (Auto) 0.7 TH/MM3 Monocytes # (Auto) 1.1 TH/MM3 Eosinophils # (Auto) 0.0 TH/MM3 Basophils # (Auto) 0.0 TH/MM3 CBC Comment AUTO DIFF Differential Total Cells Counted 100 Neutrophils % (Manual) 89 % Band Neutrophils % 3 % Lymphocytes % 2 % Monocytes % 4 % Neutrophils # (Manual) 19.6 TH/MM3 Myelocytes 1 % Promyelocytes 1 % Differential Comment FINAL DIFF MANUAL Toxic Vacuolation PRESENT Platelet Estimate NORMAL Platelet Morphology Comment NORMAL Polychromasia 2.1 % Ovalocytes 1+ Activated Partial Thromboplast Time 30.3 SEC 57.4 SEC Test 01/17/18 17:29 01/18/18 00:21 01/18/18 04:46 01/18/18 10:29 Activated Partial Thromboplast Time 65.0 SEC 63.0 SEC 60.4 SEC White Blood Count 11.9 TH/MM3 Red Blood Count 3.50 MIL/MM3 Hemoglobin 9.8 GM/DL Hematocrit 30.6 % Mean Corpuscular Volume 87.6 FL Mean Corpuscular Hemoglobin 28.1 PG Mean Corpuscular Hemoglobin Concent 32.1 % Red Cell Distribution Width 17.5 % Platelet Count 254 TH/MM3 Mean Platelet Volume 9.1 FL Neutrophils (%) (Auto) 86.0 % Lymphocytes (%) (Auto) 5.8 % Monocytes (%) (Auto) 8.0 % Eosinophils (%) (Auto) 0.1 % Basophils (%) (Auto) 0.1 % Neutrophils # (Auto) 10.2 TH/MM3 Lymphocytes # (Auto) 0.7 TH/MM3 Monocytes # (Auto) 1.0 TH/MM3 Eosinophils # (Auto) 0.0 TH/MM3 Basophils # (Auto) 0.0 TH/MM3 CBC Comment AUTO DIFF Differential Total Cells Counted 100 Neutrophils % (Manual) 86 % Band Neutrophils % 2 % Lymphocytes % 6 % Monocytes % 6 % Neutrophils # (Manual) 10.5 TH/MM3 Differential Comment FINAL DIFF MANUAL Platelet Estimate NORMAL Platelet Morphology Comment NORMAL Ovalocytes 1+ Blood Urea Nitrogen 22 MG/DL Creatinine 0.84 MG/DL Random Glucose 104 MG/DL Total Protein 5.9 GM/DL Albumin 3.0 GM/DL Calcium Level 8.8 MG/DL Phosphorus Level 4.1 MG/DL Magnesium Level 2.1 MG/DL Alkaline Phosphatase 111 U/L Aspartate Amino Transf (AST/SGOT) 23 U/L Alanine Aminotransferase (ALT/SGPT) 103 U/L Total Bilirubin 0.5 MG/DL Sodium Level 137 MEQ/L Potassium Level 3.6 MEQ/L Chloride Level 109 MEQ/L Carbon Dioxide Level 18.3 MEQ/L Anion Gap 10 MEQ/L Estimat Glomerular Filtration Rate 68 ML/MIN Test 01/19/18 05:01 White Blood Count 8.8 TH/MM3 Red Blood Count 3.38 MIL/MM3 Hemoglobin 9.7 GM/DL Hematocrit 29.4 % Mean Corpuscular Volume 86.9 FL Mean Corpuscular Hemoglobin 28.6 PG Mean Corpuscular Hemoglobin Concent 32.9 % Red Cell Distribution Width 17.4 % Platelet Count 248 TH/MM3 Mean Platelet Volume 8.6 FL Neutrophils (%) (Auto) 80.9 % Lymphocytes (%) (Auto) 7.0 % Monocytes (%) (Auto) 11.7 % Eosinophils (%) (Auto) 0.4 % Basophils (%) (Auto) 0.0 % Neutrophils # (Auto) 7.1 TH/MM3 Lymphocytes # (Auto) 0.6 TH/MM3 Monocytes # (Auto) 1.0 TH/MM3 Eosinophils # (Auto) 0.0 TH/MM3 Basophils # (Auto) 0.0 TH/MM3 CBC Comment AUTO DIFF Differential Total Cells Counted 100 Neutrophils % (Manual) 74 % Band Neutrophils % 5 % Lymphocytes % 7 % Monocytes % 11 % Neutrophils # (Manual) 7.2 TH/MM3 Metamyelocytes 1 % Myelocytes 2 % Differential Comment FINAL DIFF MANUAL Platelet Estimate NORMAL Platelet Morphology Comment NORMAL Tear Drop Cells 1+ Ovalocytes 1+ Acanthocytes OCC Blood Urea Nitrogen 21 MG/DL Creatinine 0.93 MG/DL Random Glucose 98 MG/DL Calcium Level 8.7 MG/DL Magnesium Level 2.5 MG/DL Sodium Level 138 MEQ/L Potassium Level 3.2 MEQ/L Chloride Level 108 MEQ/L Carbon Dioxide Level 19.6 MEQ/L Anion Gap 10 MEQ/L Estimat Glomerular Filtration Rate 61 ML/MIN Imaging Last Impressions Abdomen X-Ray 01/18/18599 Signed Impressions: Service Date/Time: Thursday, January 18, 2018 04:47 - CONCLUSION: Diffuse gaseous distention of the colon Loy Obregon MD Chest X-Ray 01/15/18599 Signed Impressions: Service Date/Time: Monday, January 15, 2018 02:56 - CONCLUSION: Lungs have significantly improved with minimal residual disease in the lung bases. Silvano Hoskins MD Upper Extremity Ultrasound 01/15/18 Signed Impressions: Service Date/Time: Monday, January 15, 2018 10:11 - CONCLUSION: Nonocclusive thrombus within the right internal jugular vein and left distal cephalic vein. Gianluca Jackson MD Renal Ultrasound 01/15/18 Signed Impressions: Service Date/Time: Monday, January 15, 2018 10:37 - CONCLUSION: 1. Bilateral echogenic kidneys consistent with medical renal disease. 2. No obstructive uropathy. 3. 2 cm complex cystic lesion in the inferior right kidney not demonstrated on recent CT examination. Consider followup ultrasound examination to validate this finding. If persistent and complex, consider MRI examination of better characterization. Cuba Almodovar MD CT Angiography 01/15/18 Signed Impressions: Service Date/Time: Monday, January 15, 2018 15:11 - CONCLUSION: 1. Small pulmonary emboli are noted within right lower lobe segmental branches. 2. Mild diffuse ground-glass opacities bilaterally. 3. Stable bilateral thyroid nodules. 4. Coronary artery calcifications. Gianluca Jackson MD Abdomen/Pelvis CT 01/15/18 Signed Impressions: Service Date/Time: Monday, January 15, 2018 23:18 - CONCLUSION: 1. Mildly dilated and fluid filled large bowel loops likely ileus or possible colitis. No bowel obstruction. 2. Groundglass densities in the lung bases. Silvano Hoskins MD Head CT 01/09/18 0000 Signed Impressions: Service Date/Time: Tuesday, January 09, 2018 15:39 - CONCLUSION: 1. No acute findings in the brain. No evidence of acute hemorrhage. 2. Stable diffuse ischemic demyelination and left lacunar infarcts. Markus Phillips MD Objective Remarks GENERAL: This is a well-nourished, well-developed patient, in no apparent distress. CARDIOVASCULAR: Regular rate and rhythm RESPIRATORY: Clear to auscultation. Breath sounds equal bilaterally. GASTROINTESTINAL: Abdomen soft, non-tender, distended. MUSCULOSKELETAL: Extremities without clubbing, cyanosis, or edema. NEURO: Alert & Oriented. Moves all ext x4 A/P Problem List: (1) Respiratory failure ICD Codes: J96.90 - Respiratory failure, unspecified, unspecified whether with hypoxia or hypercapnia Status: Acute Plan: This is a 62-year-old female with a medical history significant for multiple sclerosis, asthma, COPD who was recently discharged after being admitted for pneumonia from which she was intubated in the ICU for a few days following extubation patient insisted on being discharged on the floor and was discharged on 01/03 on by mouth antibiotics. Family member found her unresponsive and not breathing. The patient was found pulseless and apneic. She was in PEA and CPR was initiated. She was given 2 rounds of epinephrine and intubated. After 10 minutes of CPR she regained a pulse. She never regained consciousness. She arrives intubated and unresponsive. Patient was treated in ICU, extubated 01/14. Patient was also evaluated and treated by ID while in ICU. Patient received Zosyn from (01/09 to 01/13), Vancomycin (01/09 - 01/11) and Levaquin from (01/10 - 01/17) ID DC abx. CTA demonstrated PE patient initially on heparin drip continue Xarelto 15 mg PO BID (2) PEA (Pulseless electrical activity) ICD Codes: I46.9 - Cardiac arrest, cause unspecified Plan: see above (3) Pulmonary embolism ICD Codes: I26.99 - Other pulmonary embolism without acute cor pulmonale Plan: CTA 01/15/18 revealed small pulmonary emboli are noted within right lower lobe segmental branches. Mild diffuse ground-glass opacities bilaterally. Stable bilateral thyroid nodules. Coronary artery calcifications. Patient currently on heparin drip will DC heparin drip and start Xarelto 15 mg PO BID (4) Fungus present in urine ICD Codes: B49 - Unspecified mycosis Plan: urine culture 01/13/18 reveled 50,000 - 75,000 Emerald Krusei per ID recommendation continue oral Diflucan (5) Renal cyst ICD Codes: N28.1 - Cyst of kidney, acquired Plan: Renal US (01/15) reveled Bilateral echogenic kidneys consistent with medical renal disease. No obstructive uropathy. 2 cm complex cystic lesion in the inferior right kidney not demonstrated on recent CT examination. Consider follow up US if persistent consider MRI (6) Low TSH level ICD Codes: R94.6 - Abnormal results of thyroid function studies (7) Ileus ICD Codes: K56.7 - Ileus, unspecified Plan: high pitched bowel sounds, abd is distended and tympanic on percussion. KUB (01/18) --> diffuse gaseous distension KUB (01/19) --> Moderate colonic distention with minimal progression from 01/18. repeat KUB (01/19) 1614 --> no change continue NPO Small bowel series requested consult GI (8) Agitation ICD Codes: R45.1 - Restlessness and agitation Plan: Patient appear agitated today will add Ativan IV as needed for agitation patient has also been refusing Lactulose ammonia level now and in AM Assessment and Plan Patient examined. Assessment and plan formulated with Miladis Spears PA-C. I agree with the above. Pt's abdomen is distended and tympanic. Obtain Gastrografin small bowel series. consult GI Miladis Spears Jan 19, 2018 17:46 Harmeet Balderas DO Jan 20, 2018 16:59
[2018-01-19] MEDS ORDERED: LORazepam 2 MG/ML VIAL IV PUSH PRN (18:30)
[2018-01-19] MEDS: 1/2 NS + KCL 20 MEQ INJ 1,000 ML IV SCH (20:17)
[2018-01-19] MEDS: ATORVASTATIN 10 MG TAB PO SCH (20:18)
[2018-01-19] MEDS: REMOVE OLD PATCH T-DERMAL SCH (20:19)
[2018-01-19] MEDS: ZOLPIDEM TARTRATE 10 MG TAB PO PRN (20:29)
[2018-01-20] VITALS (22 sets, daily range): BP systolic 132–189; BP diastolic 61–83; PULSE 82–118; RESP 18–25; TEMP 97.6–99.3; O2SAT 84–100
[2018-01-20] MEDS: RESP: ALBUTEROL 2.5 MG/IPRATROPIUM 0.5 MG NEB (SCH) INH ×6 (03:26→23:15)
[2018-01-20] MEDS: CHLORHEXIDINE GLUCONATE 2 % 1 PACK (2 CLOTHS) TOP SCH ×2 (04:00→19:23)
[2018-01-20] MEDS: cloNIDine HCL 0.2 MG TAB PO SCH ×3 (05:27→21:12)
[2018-01-20] MEDS: DILTIAZEM HCL 30 MG TAB PO SCH ×2 (05:27→13:11)
[2018-01-20] MEDS: 1/2 NS + KCL 20 MEQ INJ 1,000 ML IV SCH ×3 (06:12→19:23)
[2018-01-20 07:21] LABS: AUTOMATED NEUTROPHIL # 7.8 TH/MM3 (1.8-7.7); BASOPHIL % 0.4 % (0.0-2.0); EOSINOPHIL % 0.2 % (0.0-4.0); HEMATOCRIT 28.1 % (35.0-46.0); HEMOGLOBIN 9.4 GM/DL (11.6-15.3); LYMPH % 4.5 % (9.0-44.0); LYMPHOCYTE # 0.4 TH/MM3 (1.0-4.8); MEAN CELL VOLUME 86.6 FL (80.0-100.0); MEAN CORPUSCULAR HEMOGLOBIN 29.1 PG (27.0-34.0); MEAN CORPUSCULAR HGB CONC 33.5 % (32.0-36.0); MEAN PLATELET VOLUME 8.5 FL (7.0-11.0); MONO % 10.4 % (0.0-8.0); NEUT % 84.5 % (16.0-70.0); PLATELET COUNT 260 TH/MM3 (150-450); RED BLOOD COUNT 3.24 MIL/MM3 (4.00-5.30); RED CELL DISTRIBUTION WIDTH 17.2 % (11.6-17.2); WHITE BLOOD COUNT 9.3 TH/MM3 (4.0-11.0)
[2018-01-20] MEDS: INSULIN NovoLIN REGULAR SUPPLEMENTAL SCALE SQ SCH ×3 (07:46→16:16)
[2018-01-20] MEDS: CHLORHEXIDINE 0.12% (ORAL KIT) 15 ML CUP MT SCH ×2 (07:46→19:22)
[2018-01-20] MEDS: SODIUM CHLORIDE 0.9% FLUSH 10 ML FLUSH IV FLUSH PRN (07:47)
[2018-01-20] MEDS: SODIUM CHLORIDE 0.9% FLUSH 10 ML FLUSH IV FLUSH SCH ×2 (07:47→21:13)
[2018-01-20] MEDS: BUDESONIDE-FORMOTEROL 160/4.5 MCG INHALER INH SCH ×2 (07:47→21:00)
[2018-01-20] MEDS: METOPROLOL TARTRATE 25 MG TAB PO SCH ×2 (07:48→21:12)
[2018-01-20] MEDS: DULoxetine HCl DR 60 MG CAP PO SCH (07:48)
[2018-01-20] MEDS: FLUCONAZOLE 100 MG TAB PO SCH (07:48)
[2018-01-20] MEDS: FAMOTIDINE 20 MG TAB NG SCH ×2 (07:48→21:12)
[2018-01-20] MEDS: POTASSIUM CHLORIDE 10 MEQ CAP PO SCH ×2 (07:48→21:12)
[2018-01-20] MEDS: DEXTROAMPHETAMINE/AMPHETAMINE 10 MG TAB PO SCH (07:48)
[2018-01-20] MEDS: FUROSEMIDE 20 MG TAB PO SCH (07:48)
[2018-01-20] MEDS: NICOTINE 14 MG/24 HR PATCH T-DERMAL SCH (07:49)
[2018-01-20] MEDS: RIVAROXABAN 15 MG TAB PO SCH ×2 (07:49→21:29)
[2018-01-20] MEDS: MORPHINE SULFATE 15 MG CONTROLLED RELEASE TAB PO SCH ×2 (07:49→21:12)
[2018-01-20] MEDS: PREGABALIN 25 MG CAP PO SCH ×2 (07:49→22:26)
[2018-01-20 07:52] LABS: CALCIUM 8.9 MG/DL (8.5-10.1); CREATININE 0.79 MG/DL (0.50-1.00); MAGNESIUM 1.9 MG/DL (1.5-2.5)
--- NOTE | 2018-01-20 13:27 | PD.CONS ---
HPI History of Present Illness This is a 62 year old with medical history significant for multiple sclerosis, asthma, COPD who had recent admission for pneumonia. Patient was found non responsive by family and was in PEA s/p CPR, intubation. Patient currently is extubated doing good. GI consulted for ileus. Patient has been having liquid stools, currently has rectal tube in. She has nausea and distended abd. No hematochezia or melena. Pt with hx of gastroparesis and has been on regimen of Protonix, Bethanechol and Sucralfate as needed. Her GI was Dr. Malik. CT on 07/25 showed mildly dilated and fluid filled large bowel loops likely ileus or possible colitis, no obstruction. abd X-ray on 01/18 showed diffuse gaseous distension of the colon, X-ray on 01/19 with no change, SBFT pending. Pt states she is due for colonoscopy, not sure timing of last one. (Tata Pedro) PFSH Past Medical History Multiple sclerosis Chronic pain with chronic opiate therapy Gastroparesis GERD Hyperlipidemia Past Surgical History hysterectomy,mario in leg,gallbladder,rectal fissure, EGD, colonoscopy (Tata Pedro) Coded Allergies: No Known Allergies (Verified Allergy, Unknown, 01/09/18) Medications Current Medications Medications (Trade) Dose Ordered Sig/Herminio Route Start Time Stop Time Status Last Admin (Brethine Inj) 1 mg UNSCH PRN SQ 01/09/18 14:30 (NS Flush) 2 ml UNSCH PRN IV FLUSH 01/09/18 19:30 01/20/18 07:47 (NS Flush) 2 ml BID IV FLUSH 01/09/18 21:00 01/20/18 07:47 (Peridex 0.12% Liq) 15 ml BID@08,20 MT 01/09/18 20:00 01/17/18 20:00 Miscellaneous Information 1 Q361D XX 01/09/18 19:30 (Chlorhexidine 2% Cloth) Taper DAILY@04 TOP 01/10/18 04:00 01/06/19 03:59 01/16/18 01:53 (Chlorhexidine 2% Cloth) 3 pack UNSCH PRN TOP 01/09/18 19:30 (Catapres) 0.2 mg Q8HR PO 01/11/18 14:00 01/20/18 05:27 (D50w (Vial) Inj) 25 ml UNSCH PRN IV PUSH 01/12/18 12:15 (Tylenol 650 Mg/ 20 ml Liq) 650 mg Q6H PRN PO 01/13/18 13:00 01/19/18 10:31 (Albuterol Neb) 2.5 mg Q2HR NEB PRN NEB 01/13/18 13:00 (Trandate Inj) 10 mg Q1H PRN IV PUSH 01/13/18 15:00 01/14/18 21:06 (Pepcid) 10 mg BID NG 01/15/18 09:00 01/20/18 07:48 (Apresoline Inj) 10 mg Q1HR PRN IV PUSH 01/15/18 08:15 01/16/18 03:22 (NovoLIN R SUPPLEMENTAL SCALE) 1 ACHS SQ 01/15/18 12:00 01/16/18 18:14 (Symbicort 160-4.5 Mcg Inh) 2 puff Q12HR INH 01/15/18 09:00 01/20/18 07:47 (Lipitor) 10 mg HS PO 01/15/18 21:00 01/19/18 20:18 (Cardizem) 30 mg Q6HR PO 01/15/18 12:00 01/20/18 05:27 (Lyrica) 50 mg Q12HR PO 01/15/18 09:00 01/20/18 07:49 (Nitroglycerin 2% Oint) 2 inch Q6HR PRN TOPICAL 01/15/18 08:15 (Pill Splitter) 1 ea UNSCH PRN OTHER 01/15/18 08:30 (Lasix) 20 mg DAILY PO 01/15/18 09:00 01/20/18 07:48 (KCl) 10 meq BID PO 01/15/18 09:00 01/20/18 07:48 (Xanax) 0.5 mg Q8H PRN PO 01/15/18 08:30 01/17/18 12:17 (Cymbalta Dr) 60 mg DAILY PO 01/15/18 09:00 01/20/18 07:48 (Diflucan) 100 mg DAILY PO 01/15/18 11:30 01/20/18 07:48 (Ambien) 10 mg HS PRN PO 01/15/18 21:00 01/19/18 20:29 (Adderall) 10 mg DAILY PO 01/16/18 09:00 01/20/18 07:48 (Oramorph Sr) 15 mg Q12HR PO 01/15/18 21:00 01/20/18 07:49 (Lopressor) 25 mg Q12HR PO 01/16/18 21:00 01/20/18 07:48 (Zofran Inj) 4 mg Q4HR PRN IV PUSH 01/17/18 08:45 01/18/18 17:18 (Mag-Al Plus Susp Liq) 30 ml Q6H PRN PO 01/17/18 08:30 01/18/18 17:18 (Habitrol 14 Mg Patch.24 Hr) 1 patch DAILY T-DERMAL 01/17/18 09:00 01/20/18 07:49 Miscellaneous Information 1 HS T-DERMAL 01/17/18 21:00 01/19/18 20:19 (Duoneb Neb) 1 ampule Q4HR NEB INH 01/17/18 12:00 01/20/18 12:39 (Xarelto) 15 mg BID PO 01/18/18 21:00 01/20/18 07:49 Potassium Chloride/Sodium Chloride 1,000 ml @ 84 mls/hr [id number] IV 01/19/18 18:30 01/20/18 06:12 (Ativan Inj) 1 mg Q4H PRN IV PUSH 01/19/18 18:30 Family History No family hx of colon cancer Social History rare alcohol smoker (Tata Pedro) Review of Systems Constitutional: DENIES: Chills Endocrine: DENIES: Polyuria Eyes: DENIES: Double Vision Ears, nose, mouth, throat: DENIES: Hoarseness Respiratory: DENIES: Shortness of breath Gastrointestinal: COMPLAINS OF: Abdominal pain, Diarrhea, Nausea, Swelling of Abdomen, DENIES: Black stools, Bloody stools, Constipation, Vomiting, Difficulty Swallowing, Anorexia, Odynophagia, Heartburn, Hematemesis Genitourinary: DENIES: Hematuria Musculoskeletal: DENIES: Neck pain Integumentary: DENIES: Jaundice Hematologic/lymphatic: DENIES: Bruising Immunologic/allergic: DENIES: Eczema Neurologic: DENIES: Abnormal gait Psychiatric: DENIES: Anxiety (Tata PedroP) GI Exam Vitals I&O Vital Signs Date Time Temp Pulse Resp B/P (MAP) Pulse Ox O2 Delivery O2 Flow Rate FiO2 01/20/18 12:00 90 01/20/18 12:00 98.6 90 185/77 (113) 96 01/20/18 11:00 91 167/77 (107) 97 01/20/18 10:00 90 149/68 (95) 95 01/20/18 10:00 82 01/20/18 09:00 87 25 161/77 (105) 98 01/20/18 08:16 100 01/20/18 08:00 97.9 98 18 174/81 (112) 98 01/20/18 08:00 98 01/20/18 08:00 93 01/20/18 06:00 93 01/20/18 04:00 98.6 91 18 147/69 (95) 100 01/20/18 04:00 91 01/20/18 03:34 99 21 01/20/18 02:00 89 01/20/18 00:00 98.5 91 18 157/70 (99) 84 01/20/18 00:00 90 01/19/18 23:33 100 21 01/19/18 22:00 87 01/19/18 20:55 97 21 01/19/18 20:00 98.9 96 17 167/72 (103) 100 01/19/18 20:00 96 01/19/18 18:00 94 01/19/18 18:00 94 164/73 (103) 99 01/19/18 17:00 87 144/69 (94) 96 01/19/18 16:00 98.0 83 116/53 (74) 97 01/19/18 16:00 83 01/19/18 15:00 85 138/63 (88) 96 01/19/18 14:00 85 01/19/18 14:00 85 138/60 (86) I/O 01/19/18 01/19/18 01/19/18 01/20/18 01/20/18 01/20/18 07:00 15:00 23:00 07:00 15:00 23:00 Intake Total 0 ml 100 ml 1000 ml Output Total 450 ml 2100 ml 350 ml Balance -450 ml -2000 ml 650 ml Intake Oral 0 ml 0 ml IV Total 100 ml 1000 ml Output Urine Total 450 ml 2100 ml 350 ml # Bowel Movements 3 3 1 Imaging Last Impressions Chest X-Ray 01/19/18 0800 Signed Impressions: Service Date/Time: Friday, January 19, 2018 10:02 - CONCLUSION: Minimal parenchymal changes left base. Oziel Dow MD FACR Abdomen X-Ray 01/19/18 0600 Signed Impressions: Service Date/Time: Friday, January 19, 2018 10:10 - CONCLUSION: Moderate colonic distention with minimal progression from 01/18. No nasogastric tube visualized. Oziel Dow MD FACR Upper Extremity Ultrasound 01/15/18 0000 Signed Impressions: Service Date/Time: Monday, January 15, 2018 10:11 - CONCLUSION: Nonocclusive thrombus within the right internal jugular vein and left distal cephalic vein. Gianluca Jackson MD Renal Ultrasound 01/15/18 0000 Signed Impressions: Service Date/Time: Monday, January 15, 2018 10:37 - CONCLUSION: 1. Bilateral echogenic kidneys consistent with medical renal disease. 2. No obstructive uropathy. 3. 2 cm complex cystic lesion in the inferior right kidney not demonstrated on recent CT examination. Consider followup ultrasound examination to validate this finding. If persistent and complex, consider MRI examination of better characterization. Cuba Almodovar MD CT Angiography 01/15/18 0000 Signed Impressions: Service Date/Time: Monday, January 15, 2018 15:11 - CONCLUSION: 1. Small pulmonary emboli are noted within right lower lobe segmental branches. 2. Mild diffuse ground-glass opacities bilaterally. 3. Stable bilateral thyroid nodules. 4. Coronary artery calcifications. Gianluca Jackson MD Abdomen/Pelvis CT 01/15/18 0000 Signed Impressions: Service Date/Time: Monday, January 15, 2018 23:18 - CONCLUSION: 1. Mildly dilated and fluid filled large bowel loops likely ileus or possible colitis. No bowel obstruction. 2. Groundglass densities in the lung bases. Silvano Hoskins MD Head CT 01/09/18 0000 Signed Impressions: Service Date/Time: Tuesday, January 09, 2018 15:39 - CONCLUSION: 1. No acute findings in the brain. No evidence of acute hemorrhage. 2. Stable diffuse ischemic demyelination and left lacunar infarcts. Markus Phillips MD Laboratory Test 01/19/18 18:55 01/20/18 06:20 01/20/18 07:00 Ammonia 17 MCMOL/L 13 MCMOL/L White Blood Count 9.3 TH/MM3 Red Blood Count 3.24 MIL/MM3 Hemoglobin 9.4 GM/DL Hematocrit 28.1 % Mean Corpuscular Volume 86.6 FL Mean Corpuscular Hemoglobin 29.1 PG Mean Corpuscular Hemoglobin Concent 33.5 % Red Cell Distribution Width 17.2 % Platelet Count 260 TH/MM3 Mean Platelet Volume 8.5 FL Neutrophils (%) (Auto) 84.5 % Lymphocytes (%) (Auto) 4.5 % Monocytes (%) (Auto) 10.4 % Eosinophils (%) (Auto) 0.2 % Basophils (%) (Auto) 0.4 % Neutrophils # (Auto) 7.8 TH/MM3 Lymphocytes # (Auto) 0.4 TH/MM3 Monocytes # (Auto) 1.0 TH/MM3 Eosinophils # (Auto) 0.0 TH/MM3 Basophils # (Auto) 0.0 TH/MM3 CBC Comment DIFF FINAL Differential Comment Blood Urea Nitrogen 14 MG/DL Creatinine 0.79 MG/DL Random Glucose 89 MG/DL Calcium Level 8.9 MG/DL Magnesium Level 1.9 MG/DL Sodium Level 138 MEQ/L Potassium Level 3.7 MEQ/L Chloride Level 109 MEQ/L Carbon Dioxide Level 20.0 MEQ/L Anion Gap 9 MEQ/L Estimat Glomerular Filtration Rate 73 ML/MIN Date/Time Source Procedure Growth Status 01/13/18 14:30 Blood Peripheral Aerobic Blood Culture - Final NO GROWTH IN 5 DAYS Complete 01/13/18 14:30 Blood Peripheral Anaerobic Blood Culture - Final NO GROWTH IN 5 DAYS Complete 01/15/18 13:50 Stool Stool Stool Occult Blood (EVARISTO) - Final HEMOCCULT POSITIVE Complete 01/13/18 13:53 Sputum Endotracheal Gram Stain - Final Complete 01/13/18 13:53 Sputum Endotracheal Sputum Culture - Final HEAVY GROWTH NORMAL RESPIRATORY ALEX Complete 01/13/18 14:30 Urine Catheterized Urine Urine Culture - Final Emerald Krusei Complete Physical Examination HEENT: normocephalic; atraumatic; no jaundice. CHEST: with rhonchi and congestion CARDIAC: Regular rate and rhythm ABDOMEN: Soft, distended, nontender; no hepatosplenomegaly; bowel sounds are hypoactive EXTREMITIES: No clubbing, cyanosis, or edema. SKIN: Normal; no rash; no jaundice. IND[employer]IST: alert and oriented times three. (Tata Pedro) Assessment and Plan Plan - Colitis vs ileus- Patient has been having liquid stools, currently has rectal tube in. She has nausea and distended abd. No hematochezia or melena. Pt with hx of gastroparesis and has been on regimen of Protonix, Bethanechol and Sucralfate as needed. Her GI was Dr. Malik. CT on 01/15/18 showed mildly dilated and fluid filled large bowel loops likely ileus or possible colitis, no obstruction. abd X-ray on 01/18 showed diffuse gaseous distension of the colon, X-ray on 01/19 with no change, SBFT pending. Pt states she is due for colonoscopy, not sure timing of last one. Stool studies pending - PEA s/p CPR, intubation - multiple sclerosis, asthma, COPD per attending Plan: - NPO - Okay for ice chips - Await SBFT results - Await stools results - Consider colonoscopy pending clinical course - Supportive care - Pt seen and examined by Dr. Red and myself and this note is written on his behalf. (Tata Pedro) Plan Patient was seen and examined, agree with above note, awaiting small bowel follow-through result which is being done now, stool studies pending, most likely this is related to narcotic overdose that being corrected with stool softeners, colonoscopy should be considered (Brown Red MD) Tata Pedro Jan 20, 2018 13:27 Brown Red MD Jan 20, 2018 15:30
--- NOTE | 2018-01-20 13:36 | HHI.PR ---
Subjective Remarks Patient's abd continues to be distended Patient and nurse report liquid stool Objective Vitals Vital Signs Date Time Temp Pulse Resp B/P (MAP) Pulse Ox O2 Delivery O2 Flow Rate FiO2 01/20/18 12:00 90 01/20/18 12:00 98.6 90 185/77 (113) 96 01/20/18 11:00 91 167/77 (107) 97 01/20/18 10:00 90 149/68 (95) 95 01/20/18 10:00 82 01/20/18 09:00 87 25 161/77 (105) 98 01/20/18 08:16 100 01/20/18 08:00 97.9 98 18 174/81 (112) 98 01/20/18 08:00 98 01/20/18 08:00 93 01/20/18 06:00 93 01/20/18 04:00 98.6 91 18 147/69 (95) 100 01/20/18 04:00 91 01/20/18 03:34 99 21 01/20/18 02:00 89 01/20/18 00:00 98.5 91 18 157/70 (99) 84 01/20/18 00:00 90 01/19/18 23:33 100 21 01/19/18 22:00 87 01/19/18 20:55 97 21 01/19/18 20:00 98.9 96 17 167/72 (103) 100 01/19/18 20:00 96 01/19/18 18:00 94 01/19/18 18:00 94 164/73 (103) 99 01/19/18 17:00 87 144/69 (94) 96 01/19/18 16:00 98.0 83 116/53 (74) 97 01/19/18 16:00 83 01/19/18 15:00 85 138/63 (88) 96 01/19/18 14:00 85 01/19/18 14:00 85 138/60 (86) Result Diagram: 01/20/18 0700 01/20/18 0700 Other Results Laboratory Tests Test 01/17/18 17:29 01/18/18 00:21 01/18/18 04:46 01/18/18 10:29 Activated Partial Thromboplast Time 65.0 SEC 63.0 SEC 60.4 SEC White Blood Count 11.9 TH/MM3 Red Blood Count 3.50 MIL/MM3 Hemoglobin 9.8 GM/DL Hematocrit 30.6 % Mean Corpuscular Volume 87.6 FL Mean Corpuscular Hemoglobin 28.1 PG Mean Corpuscular Hemoglobin Concent 32.1 % Red Cell Distribution Width 17.5 % Platelet Count 254 TH/MM3 Mean Platelet Volume 9.1 FL Neutrophils (%) (Auto) 86.0 % Lymphocytes (%) (Auto) 5.8 % Monocytes (%) (Auto) 8.0 % Eosinophils (%) (Auto) 0.1 % Basophils (%) (Auto) 0.1 % Neutrophils # (Auto) 10.2 TH/MM3 Lymphocytes # (Auto) 0.7 TH/MM3 Monocytes # (Auto) 1.0 TH/MM3 Eosinophils # (Auto) 0.0 TH/MM3 Basophils # (Auto) 0.0 TH/MM3 CBC Comment AUTO DIFF Differential Total Cells Counted 100 Neutrophils % (Manual) 86 % Band Neutrophils % 2 % Lymphocytes % 6 % Monocytes % 6 % Neutrophils # (Manual) 10.5 TH/MM3 Differential Comment FINAL DIFF MANUAL Platelet Estimate NORMAL Platelet Morphology Comment NORMAL Ovalocytes 1+ Blood Urea Nitrogen 22 MG/DL Creatinine 0.84 MG/DL Random Glucose 104 MG/DL Total Protein 5.9 GM/DL Albumin 3.0 GM/DL Calcium Level 8.8 MG/DL Phosphorus Level 4.1 MG/DL Magnesium Level 2.1 MG/DL Alkaline Phosphatase 111 U/L Aspartate Amino Transf (AST/SGOT) 23 U/L Alanine Aminotransferase (ALT/SGPT) 103 U/L Total Bilirubin 0.5 MG/DL Sodium Level 137 MEQ/L Potassium Level 3.6 MEQ/L Chloride Level 109 MEQ/L Carbon Dioxide Level 18.3 MEQ/L Anion Gap 10 MEQ/L Estimat Glomerular Filtration Rate 68 ML/MIN Test 01/19/18 05:01 01/19/18 18:55 01/20/18 06:20 01/20/18 07:00 White Blood Count 8.8 TH/MM3 9.3 TH/MM3 Red Blood Count 3.38 MIL/MM3 3.24 MIL/MM3 Hemoglobin 9.7 GM/DL 9.4 GM/DL Hematocrit 29.4 % 28.1 % Mean Corpuscular Volume 86.9 FL 86.6 FL Mean Corpuscular Hemoglobin 28.6 PG 29.1 PG Mean Corpuscular Hemoglobin Concent 32.9 % 33.5 % Red Cell Distribution Width 17.4 % 17.2 % Platelet Count 248 TH/MM3 260 TH/MM3 Mean Platelet Volume 8.6 FL 8.5 FL Neutrophils (%) (Auto) 80.9 % 84.5 % Lymphocytes (%) (Auto) 7.0 % 4.5 % Monocytes (%) (Auto) 11.7 % 10.4 % Eosinophils (%) (Auto) 0.4 % 0.2 % Basophils (%) (Auto) 0.0 % 0.4 % Neutrophils # (Auto) 7.1 TH/MM3 7.8 TH/MM3 Lymphocytes # (Auto) 0.6 TH/MM3 0.4 TH/MM3 Monocytes # (Auto) 1.0 TH/MM3 1.0 TH/MM3 Eosinophils # (Auto) 0.0 TH/MM3 0.0 TH/MM3 Basophils # (Auto) 0.0 TH/MM3 0.0 TH/MM3 CBC Comment AUTO DIFF DIFF FINAL Differential Total Cells Counted 100 Neutrophils % (Manual) 74 % Band Neutrophils % 5 % Lymphocytes % 7 % Monocytes % 11 % Neutrophils # (Manual) 7.2 TH/MM3 Metamyelocytes 1 % Myelocytes 2 % Differential Comment FINAL DIFF MANUAL Platelet Estimate NORMAL Platelet Morphology Comment NORMAL Tear Drop Cells 1+ Ovalocytes 1+ Acanthocytes OCC Blood Urea Nitrogen 21 MG/DL 14 MG/DL Creatinine 0.93 MG/DL 0.79 MG/DL Random Glucose 98 MG/DL 89 MG/DL Calcium Level 8.7 MG/DL 8.9 MG/DL Magnesium Level 2.5 MG/DL 1.9 MG/DL Sodium Level 138 MEQ/L 138 MEQ/L Potassium Level 3.2 MEQ/L 3.7 MEQ/L Chloride Level 108 MEQ/L 109 MEQ/L Carbon Dioxide Level 19.6 MEQ/L 20.0 MEQ/L Anion Gap 10 MEQ/L 9 MEQ/L Estimat Glomerular Filtration Rate 61 ML/MIN 73 ML/MIN Ammonia 17 MCMOL/L 13 MCMOL/L Imaging Last Impressions Abdomen X-Ray 01/18/18599 Signed Impressions: Service Date/Time: Thursday, January 18, 2018 04:47 - CONCLUSION: Diffuse gaseous distention of the colon Loy Obregon MD Chest X-Ray 01/15/18 0600 Signed Impressions: Service Date/Time: Monday, January 15, 2018 02:56 - CONCLUSION: Lungs have significantly improved with minimal residual disease in the lung bases. Silvano Hoskins MD Upper Extremity Ultrasound 01/15/18 Signed Impressions: Service Date/Time: Monday, January 15, 2018 10:11 - CONCLUSION: Nonocclusive thrombus within the right internal jugular vein and left distal cephalic vein. Gianluca Jackson MD Renal Ultrasound 01/15/18 Signed Impressions: Service Date/Time: Monday, January 15, 2018 10:37 - CONCLUSION: 1. Bilateral echogenic kidneys consistent with medical renal disease. 2. No obstructive uropathy. 3. 2 cm complex cystic lesion in the inferior right kidney not demonstrated on recent CT examination. Consider followup ultrasound examination to validate this finding. If persistent and complex, consider MRI examination of better characterization. [place] Almodovar MD CT Angiography 01/15/18 Signed Impressions: Service Date/Time: Monday, January 15, 2018 15:11 - CONCLUSION: 1. Small pulmonary emboli are noted within right lower lobe segmental branches. 2. Mild diffuse ground-glass opacities bilaterally. 3. Stable bilateral thyroid nodules. 4. Coronary artery calcifications. Gianluca Jackson MD Abdomen/Pelvis CT 01/15/18 Signed Impressions: Service Date/Time: Monday, January 15, 2018 23:18 - CONCLUSION: 1. Mildly dilated and fluid filled large bowel loops likely ileus or possible colitis. No bowel obstruction. 2. Groundglass densities in the lung bases. Silvano Hoskins MD Head CT 01/09/18 Signed Impressions: Service Date/Time: Tuesday, January 09, 2018 15:39 - CONCLUSION: 1. No acute findings in the brain. No evidence of acute hemorrhage. 2. Stable diffuse ischemic demyelination and left lacunar infarcts. Markus Phillips MD Objective Remarks GENERAL: This is a well-nourished, well-developed patient, in no apparent distress. CARDIOVASCULAR: Regular rate and rhythm RESPIRATORY: Clear to auscultation. Breath sounds equal bilaterally. GASTROINTESTINAL: Abdomen soft, non-tender, distended. MUSCULOSKELETAL: Extremities without clubbing, cyanosis, or edema. NEURO: Alert & Oriented. Moves all ext x4 A/P Problem List: (1) Respiratory failure ICD Codes: J96.90 - Respiratory failure, unspecified, unspecified whether with hypoxia or hypercapnia Status: Acute Plan: This is a 62-year-old female with a medical history significant for multiple sclerosis, asthma, COPD who was recently discharged after being admitted for pneumonia from which she was intubated in the ICU for a few days following extubation patient insisted on being discharged on the floor and was discharged on 01/03 on by mouth antibiotics. Family member found her unresponsive and not breathing. The patient was found pulseless and apneic. She was in PEA and CPR was initiated. She was given 2 rounds of epinephrine and intubated. After 10 minutes of CPR she regained a pulse. She never regained consciousness. She arrives intubated and unresponsive. Patient was treated in ICU, extubated 01/14. Patient was also evaluated and treated by ID while in ICU. Patient received Zosyn from (01/09 to 01/13), Vancomycin (01/09 - 01/11) and Levaquin from (01/10 - 01/17) ID DC abx. CTA demonstrated PE patient initially on heparin drip continue Xarelto 15 mg PO BID (2) PEA (Pulseless electrical activity) ICD Codes: I46.9 - Cardiac arrest, cause unspecified Plan: see above (3) Pulmonary embolism ICD Codes: I26.99 - Other pulmonary embolism without acute cor pulmonale Status: Acute Plan: CTA 01/15/18 revealed small pulmonary emboli are noted within right lower lobe segmental branches. Mild diffuse ground-glass opacities bilaterally. Stable bilateral thyroid nodules. Coronary artery calcifications. Patient currently on heparin drip will DC heparin drip and start Xarelto 15 mg PO BID (4) Fungus present in urine ICD Codes: B49 - Unspecified mycosis Status: Acute Plan: urine culture 01/13/18 reveled 50,000 - 75,000 Emerald Krusei per ID recommendation continue oral Diflucan (5) Renal cyst ICD Codes: N28.1 - Cyst of kidney, acquired Status: Chronic Plan: Renal US (01/15) reveled Bilateral echogenic kidneys consistent with medical renal disease. No obstructive uropathy. 2 cm complex cystic lesion in the inferior right kidney not demonstrated on recent CT examination. Consider follow up US if persistent consider MRI (6) Low TSH level ICD Codes: R94.6 - Abnormal results of thyroid function studies Status: Chronic (7) Ileus ICD Codes: K56.7 - Ileus, unspecified Status: Acute Plan: high pitched bowel sounds, abd is distended and tympanic on percussion. KUB (01/18) --> diffuse gaseous distension KUB (01/19) --> Moderate colonic distention with minimal progression from 01/18. repeat KUB (01/19) 1614 --> no change continue NPO Small bowel series pending consult GI, appreciated input. Considering colonoscopy pending clinical course C diff negative patient also had hemocult positive stool 01/15 hgb drifting down (01/16) 11.2 --> (01/17) 10.5 --> (01/18) 9.8 --> (01/19) 9.7 --> (01/20) 9.4 recheck CBC in AM (8) Agitation ICD Codes: R45.1 - Restlessness and agitation Plan: Patient appear agitated Ativan IV as needed for agitation patient has also been refusing Lactulose ammonia level 13 (01/20) (9) Tachycardia ICD Codes: R00.0 - Tachycardia, unspecified Plan: Patient with sinus tachycardia Will increase metoprolol to 50 mg PO BID DC Cardizem continue telemetry (10) HTN (hypertension) ICD Codes: I10 - Essential (primary) hypertension Status: Chronic Plan: Add Procardia Xl 30 mg PO BID will increase as needed decrease clonidine to 0.1 mg PO TID will continue to wean Assessment and Plan Patient examined. Assessment and plan formulated with Miladis Spears PA-C. I agree with the above. Gastrograffin study reviewed with Radiology. No evidence of obstructing mass. Appearance c/w chronic dilation seen in chronic use of narcotics/laxative. Need improved BP control prior to discharge. Pt more agitated today. Pt requesting hospital discharge SHIRA. Pt NOT yet stable enough for hospital discharge. Miladis Spears Jan 20, 2018 13:36 Harmeet Balderas DO Jan 22, 2018 10:32
[2018-01-20] MEDS: hydrALAZINE HCL 20 MG/ML VIAL IV PUSH PRN (15:26)
--- NOTE | 2018-01-20 16:59 | RADRPT ---
EXAM DATE/TIME: 01/20/2018 12:14 [facility] COMPARISON: No previous studies available for comparison. INDICATIONS : Constipation. Bloating. Abdominal pain. FLUORO TIME: 0 minutes IMAGE COUNT: 6 CONTRAST: [facility] IMAGING TIME(S): 15 min, 30 min, 45 min, 1 hr, 2.5 hrs, 5.5 hrs MEDICAL HISTORY : Congestive heart failure. Hypertension. SURGICAL HISTORY : Appendectomy. Cholecystectomy.Hysterectomy. ORIF right femur. ENCOUNTER: Initial ACUITY: 4 - 6 days PAIN SCORE: 9/10 LOCATION: Bilateral abdomen FINDINGS: Water-soluble contrast was administered and small bowel follow-through performed. The small bowel is normal in caliber and appearance throughout. Transit time is grossly within normal limits with appear ance of contrast in the colon as a 2-1/2 hour KUB. The colon is moderately dilated throughout with ai r and contents. CONCLUSION: Unremarkable small bowel. Diffusely dilated colon. Loy Obregon MD on January 20, 2018 at 16:56 Board Certified Radiologist. This report was verified electronically.
[2018-01-20] MEDS ORDERED: DIME240C PO (17:14)
[2018-01-20] MEDS ORDERED: ARIC23TA PO (17:14)
[2018-01-20] MEDS ORDERED: DONE10TA7 PO (17:15)
[2018-01-20] MEDS: NIFEdipine 30 MG SUSTAINED RELEASE TAB PO SCH ×2 (17:16→21:13)
[2018-01-20] MEDS: PATIENT OWN MEDICATION PO SCH (21:00)
[2018-01-20] MEDS ORDERED: METOPROLOL TARTRATE 25 MG TAB PO SCH (21:00)
[2018-01-20] MEDS: REMOVE OLD PATCH T-DERMAL SCH (21:00)
[2018-01-20] MEDS: DONEPEZIL HCL 5 MG TAB PO SCH (21:12)
[2018-01-20] MEDS: ATORVASTATIN 10 MG TAB PO SCH (21:13)
[2018-01-20] MEDS ORDERED: DIATRIZOATE MEGLUM/DIATRIZOATE SOD 120 ML BTL (for RAD DIAG) PO ONE (21:24)
[2018-01-20] MEDS: ALPRAZolam 0.5 MG TAB PO PRN (21:31)
[2018-01-21] VITALS (11 sets, daily range): BP systolic 100–140; BP diastolic 50–74; PULSE 84–104; RESP 16–18; TEMP 97.5–98.3; O2SAT 91–98
[2018-01-21] MEDS: ACETAMINOPHEN 650 MG/20.3 ML UDC PO PRN ×3 (02:32→21:49)
[2018-01-21] MEDS: RESP: ALBUTEROL 2.5 MG/IPRATROPIUM 0.5 MG NEB (SCH) INH ×6 (03:06→23:33)
[2018-01-21] MEDS: 1/2 NS + KCL 20 MEQ INJ 1,000 ML IV SCH (05:39)
[2018-01-21] MEDS: cloNIDine HCL 0.2 MG TAB PO SCH ×3 (05:46→21:54)
[2018-01-21] MEDS: ALPRAZolam 0.5 MG TAB PO PRN ×3 (05:46→21:48)
[2018-01-21 06:15] LABS: AUTOMATED NEUTROPHIL # 9.3 TH/MM3 (1.8-7.7); BASOPHIL % 0.1 % (0.0-2.0); EOSINOPHIL % 0.2 % (0.0-4.0); HEMATOCRIT 26.5 % (35.0-46.0); HEMOGLOBIN 8.9 GM/DL (11.6-15.3); LYMPH % 4.2 % (9.0-44.0); LYMPHOCYTE # 0.5 TH/MM3 (1.0-4.8); MEAN CELL VOLUME 86.6 FL (80.0-100.0); MEAN CORPUSCULAR HEMOGLOBIN 29.1 PG (27.0-34.0); MEAN CORPUSCULAR HGB CONC 33.6 % (32.0-36.0); MEAN PLATELET VOLUME 8.6 FL (7.0-11.0); MONO % 14.4 % (0.0-8.0); MONOCYTE # 1.6 TH/MM3 (0-0.9); NEUT % 81.1 % (16.0-70.0); PLATELET COUNT 305 TH/MM3 (150-450); RED BLOOD COUNT 3.06 MIL/MM3 (4.00-5.30); RED CELL DISTRIBUTION WIDTH 17.9 % (11.6-17.2); WHITE BLOOD COUNT 11.4 TH/MM3 (4.0-11.0)
[2018-01-21] MEDS: CHLORHEXIDINE 0.12% (ORAL KIT) 15 ML CUP MT SCH ×2 (08:00→19:46)
[2018-01-21] MEDS: NIFEdipine 30 MG SUSTAINED RELEASE TAB PO SCH ×2 (09:00→19:58)
[2018-01-21] MEDS: PATIENT OWN MEDICATION PO SCH ×2 (09:00→19:46)
--- NOTE | 2018-01-21 09:29 | HHI.PR ---
Subjective Remarks pt asking to get oob. coughing Objective Vitals heart reg lung rhonci garland abd distended. bs ext no edema rectal tube intermittent confusion. Vital Signs Date Time Temp Pulse Resp B/P (MAP) Pulse Ox O2 Delivery O2 Flow Rate FiO2 01/21/18 08:50 94 01/21/18 08:37 91 21 01/21/18 08:00 97.7 100 18 113/58 (76) 93 01/21/18 07:33 Room Air 01/21/18 05:15 98.3 94 18 120/57 (78) 96 01/21/18 04:00 84 01/20/18 23:57 97 01/20/18 23:35 97.6 98 18 132/61 (84) 95 01/20/18 21:33 117 01/20/18 20:00 98 01/20/18 19:35 98.0 116 18 163/74 (103) 96 01/20/18 18:00 113 01/20/18 16:00 99.3 118 162/69 (100) 97 01/20/18 16:00 118 01/20/18 15:00 104 189/83 (118) 96 01/20/18 14:00 104 01/20/18 14:00 104 167/77 (107) 96 01/20/18 13:00 100 157/66 (96) 97 01/20/18 12:00 90 01/20/18 12:00 98.6 90 185/77 (113) 96 01/20/18 11:00 91 167/77 (107) 97 01/20/18 10:00 90 149/68 (95) 95 01/20/18 10:00 82 Result Diagram: 01/21/18 0430 01/20/18 0700 Imaging Last Impressions Abdomen X-Ray 01/18/18 0600 Signed Impressions: Service Date/Time: Thursday, January 18, 2018 04:47 - CONCLUSION: Diffuse gaseous distention of the colon Loy Obregon MD Chest X-Ray 01/15/18 0600 Signed Impressions: Service Date/Time: Monday, January 15, 2018 02:56 - CONCLUSION: Lungs have significantly improved with minimal residual disease in the lung bases. Silvano Hoskins MD Upper Extremity Ultrasound 01/15/18 0000 Signed Impressions: Service Date/Time: Monday, January 15, 2018 10:11 - CONCLUSION: Nonocclusive thrombus within the right internal jugular vein and left distal cephalic vein. Gianluca Jackson MD Renal Ultrasound 01/15/18 Signed Impressions: Service Date/Time: Monday, January 15, 2018 10:37 - CONCLUSION: 1. Bilateral echogenic kidneys consistent with medical renal disease. 2. No obstructive uropathy. 3. 2 cm complex cystic lesion in the inferior right kidney not demonstrated on recent CT examination. Consider followup ultrasound examination to validate this finding. If persistent and complex, consider MRI examination of better characterization. [place] Almodovar MD CT Angiography 01/15/18 Signed Impressions: Service Date/Time: Monday, January 15, 2018 15:11 - CONCLUSION: 1. Small pulmonary emboli are noted within right lower lobe segmental branches. 2. Mild diffuse ground-glass opacities bilaterally. 3. Stable bilateral thyroid nodules. 4. Coronary artery calcifications. Gianluca Jackson MD Abdomen/Pelvis CT 01/15/18 Signed Impressions: Service Date/Time: Monday, January 15, 2018 23:18 - CONCLUSION: 1. Mildly dilated and fluid filled large bowel loops likely ileus or possible colitis. No bowel obstruction. 2. Groundglass densities in the lung bases. Silvano Hoskins MD Head CT 01/09/18 Signed Impressions: Service Date/Time: Tuesday, January 09, 2018 15:39 - CONCLUSION: 1. No acute findings in the brain. No evidence of acute hemorrhage. 2. Stable diffuse ischemic demyelination and left lacunar infarcts. Markus Phillips MD A/P Problem List: (1) Respiratory failure ICD Codes: J96.90 - Respiratory failure, unspecified, unspecified whether with hypoxia or hypercapnia Status: Acute Plan: This is a 62-year-old female with a medical history significant for multiple sclerosis, asthma, COPD who was recently discharged after being admitted for pneumonia from which she was intubated in the ICU for a few days following extubation patient insisted on being discharged on the floor and was discharged on 01/03 on by mouth antibiotics. Family member found her unresponsive and not breathing. The patient was found pulseless and apneic. She was in PEA and CPR was initiated. She was given 2 rounds of epinephrine and intubated. After 10 minutes of CPR she regained a pulse. She never regained consciousness. She arrives intubated and unresponsive. Patient was treated in ICU, extubated 01/14. Patient was also evaluated and treated by ID while in ICU. Patient received Zosyn from (01/09 to 01/13), Vancomycin (01/09 - 01/11) and Levaquin from (01/10 - 01/17) ID DC abx. CTA demonstrated PE patient initially on heparin drip continue Xarelto 15 mg PO BID duonebs. symbicort. increase activity. oob. incentive spirometer. plan for snf soon. (2) PEA (Pulseless electrical activity) ICD Codes: I46.9 - Cardiac arrest, cause unspecified Plan: see above (3) Pulmonary embolism ICD Codes: I26.99 - Other pulmonary embolism without acute cor pulmonale Status: Acute Plan: CTA 01/15/18 revealed small pulmonary emboli are noted within right lower lobe segmental branches. Mild diffuse ground-glass opacities bilaterally. Stable bilateral thyroid nodules. Coronary artery calcifications. Patient currently on heparin drip will DC heparin drip and start Xarelto 15 mg PO BID (4) Fungus present in urine ICD Codes: B49 - Unspecified mycosis Status: Acute Plan: urine culture 01/13/18 reveled 50,000 - 75,000 Emerald Krusei per ID recommendation continue oral Diflucan (5) Renal cyst ICD Codes: N28.1 - Cyst of kidney, acquired Status: Chronic Plan: Renal US (01/15) reveled Bilateral echogenic kidneys consistent with medical renal disease. No obstructive uropathy. 2 cm complex cystic lesion in the inferior right kidney not demonstrated on recent CT examination. Consider follow up US if persistent consider MRI (6) Low TSH level ICD Codes: R94.6 - Abnormal results of thyroid function studies Status: Chronic (7) Ileus ICD Codes: K56.7 - Ileus, unspecified Status: Acute Plan: high pitched bowel sounds, abd is distended and tympanic on percussion. KUB (01/18) --> diffuse gaseous distension KUB (01/19) --> Moderate colonic distention with minimal progression from 01/18. repeat KUB (01/19) 1614 --> no change Small bowel series pending consult GI, appreciated input. Considering colonoscopy pending clinical course C diff negative patient also had hemocult positive stool 01/15 hgb drifting down (01/16) 11.2 --> (01/17) 10.5 --> (01/18) 9.8 --> (01/19) 9.7 --> (01/20) 9.4 remove rectal tube. (8) Agitation ICD Codes: R45.1 - Restlessness and agitation Plan: Patient appear agitated Ativan IV as needed for agitation patient has also been refusing Lactulose ammonia level 13 (01/20) (9) HTN (hypertension) ICD Codes: I10 - Essential (primary) hypertension Status: Chronic Plan: Add Procardia Xl 30 mg PO BID will increase as needed decrease clonidine to 0.1 mg PO TID will continue to wean Conor De Los aSntos MD Jan 21, 2018 09:28
[2018-01-21] MEDS: NICOTINE 14 MG/24 HR PATCH T-DERMAL SCH (09:41)
[2018-01-21] MEDS: MORPHINE SULFATE 15 MG CONTROLLED RELEASE TAB PO SCH ×2 (09:41→19:59)
[2018-01-21] MEDS: PREGABALIN 25 MG CAP PO SCH ×2 (09:41→19:58)
[2018-01-21] MEDS: DULoxetine HCl DR 60 MG CAP PO SCH (09:41)
[2018-01-21] MEDS: RIVAROXABAN 15 MG TAB PO SCH ×2 (09:42→19:58)
[2018-01-21] MEDS: FAMOTIDINE 20 MG TAB NG SCH ×2 (09:42→19:58)
[2018-01-21] MEDS: FLUCONAZOLE 100 MG TAB PO SCH (09:42)
[2018-01-21] MEDS: METOPROLOL TARTRATE 25 MG TAB PO SCH ×2 (09:42→19:58)
[2018-01-21] MEDS: POTASSIUM CHLORIDE 10 MEQ CAP PO SCH ×2 (09:42→19:59)
[2018-01-21] MEDS: FUROSEMIDE 20 MG TAB PO SCH (09:43)
[2018-01-21] MEDS: SODIUM CHLORIDE 0.9% FLUSH 10 ML FLUSH IV FLUSH SCH ×2 (09:44→19:59)
[2018-01-21] MEDS: BUDESONIDE-FORMOTEROL 160/4.5 MCG INHALER INH SCH ×2 (09:45→19:59)
--- NOTE | 2018-01-21 11:56 | HHI.GIFU ---
Subjective Remarks Pt says she had formed BM this morning. Says her belly is distended b/c she eats out alot. (Zahira Pace) Objective Vitals I&O Vital Signs Date Time Temp Pulse Resp B/P (MAP) Pulse Ox O2 Delivery O2 Flow Rate FiO2 01/21/18 08:50 94 01/21/18 08:37 91 21 01/21/18 08:00 97.7 100 18 113/58 (76) 93 01/21/18 07:33 Room Air 01/21/18 05:15 98.3 94 18 120/57 (78) 96 01/21/18 04:00 84 01/20/18 23:57 97 01/20/18 23:35 97.6 98 18 132/61 (84) 95 01/20/18 21:33 117 01/20/18 20:00 98 01/20/18 19:35 98.0 116 18 163/74 (103) 96 01/20/18 18:00 113 01/20/18 16:00 99.3 118 162/69 (100) 97 01/20/18 16:00 118 01/20/18 15:00 104 189/83 (118) 96 01/20/18 14:00 104 01/20/18 14:00 104 167/77 (107) 96 01/20/18 13:00 100 157/66 (96) 97 01/20/18 12:00 90 01/20/18 12:00 98.6 90 185/77 (113) 96 I/O 01/20/18 01/20/18 01/20/18 01/21/18 01/21/18 01/21/18 07:00 15:00 23:00 07:00 15:00 23:00 Intake Total 1000 ml 1723 ml 1480 ml Output Total 350 ml 1600 ml 1000 ml Balance 650 ml 123 ml 480 ml Intake Oral 0 ml 250 ml 480 ml IV Total 1000 ml 1473 ml 1000 ml Output Urine Total 350 ml 1000 ml 550 ml Stool Total 600 ml 450 ml # Bowel Movements 1 Laboratory Laboratory Tests Test 01/21/18 04:30 White Blood Count 11.4 Red Blood Count 3.06 Hemoglobin 8.9 Hematocrit 26.5 Mean Corpuscular Volume 86.6 Mean Corpuscular Hemoglobin 29.1 Mean Corpuscular Hemoglobin Concent 33.6 Red Cell Distribution Width 17.9 Platelet Count 305 Mean Platelet Volume 8.6 Neutrophils (%) (Auto) 81.1 Lymphocytes (%) (Auto) 4.2 Monocytes (%) (Auto) 14.4 Eosinophils (%) (Auto) 0.2 Basophils (%) (Auto) 0.1 Neutrophils # (Auto) 9.3 Lymphocytes # (Auto) 0.5 Monocytes # (Auto) 1.6 Eosinophils # (Auto) 0.0 Basophils # (Auto) 0.0 CBC Comment DIFF FINAL Differential Comment Date/Time Source Procedure Growth Status 01/13/18 14:30 Blood Peripheral Aerobic Blood Culture - Final NO GROWTH IN 5 DAYS Complete 01/13/18 14:30 Blood Peripheral Anaerobic Blood Culture - Final NO GROWTH IN 5 DAYS Complete 01/15/18 13:50 Stool Stool Stool Occult Blood (EVARISTO) - Final HEMOCCULT POSITIVE Complete 01/13/18 13:53 Sputum Endotracheal Gram Stain - Final Complete 01/13/18 13:53 Sputum Endotracheal Sputum Culture - Final HEAVY GROWTH NORMAL RESPIRATORY ALEX Complete 01/13/18 14:30 Urine Catheterized Urine Urine Culture - Final Emerald Krusei Complete Imaging Last Impressions Small Bowel X-Ray 01/20/18 1843 Signed Impressions: Service Date/Time: Saturday, January 20, 2018 12:14 - CONCLUSION: Unremarkable small bowel. Diffusely dilated colon. Loy Obregon MD Chest X-Ray 01/19/18 0800 Signed Impressions: Service Date/Time: Friday, January 19, 2018 10:02 - CONCLUSION: Minimal parenchymal changes left base. Oziel Dow MD FACR Abdomen X-Ray 01/19/18 0600 Signed Impressions: Service Date/Time: Friday, January 19, 2018 10:10 - CONCLUSION: Moderate colonic distention with minimal progression from 01/18. No nasogastric tube visualized. Oziel Dow MD FACR Upper Extremity Ultrasound 01/15/18 0000 Signed Impressions: Service Date/Time: Monday, January 15, 2018 10:11 - CONCLUSION: Nonocclusive thrombus within the right internal jugular vein and left distal cephalic vein. Gianluca Jackson MD Renal Ultrasound 01/15/18 0000 Signed Impressions: Service Date/Time: Monday, January 15, 2018 10:37 - CONCLUSION: 1. Bilateral echogenic kidneys consistent with medical renal disease. 2. No obstructive uropathy. 3. 2 cm complex cystic lesion in the inferior right kidney not demonstrated on recent CT examination. Consider followup ultrasound examination to validate this finding. If persistent and complex, consider MRI examination of better characterization. [place] Almodovar MD CT Angiography 01/15/18 Signed Impressions: Service Date/Time: Monday, January 15, 2018 15:11 - CONCLUSION: 1. Small pulmonary emboli are noted within right lower lobe segmental branches. 2. Mild diffuse ground-glass opacities bilaterally. 3. Stable bilateral thyroid nodules. 4. Coronary artery calcifications. Gianluca Jackson MD Abdomen/Pelvis CT 01/15/18 Signed Impressions: Service Date/Time: Monday, January 15, 2018 23:18 - CONCLUSION: 1. Mildly dilated and fluid filled large bowel loops likely ileus or possible colitis. No bowel obstruction. 2. Groundglass densities in the lung bases. Silvano Hoskins MD Head CT 01/09/18 Signed Impressions: Service Date/Time: Tuesday, January 09, 2018 15:39 - CONCLUSION: 1. No acute findings in the brain. No evidence of acute hemorrhage. 2. Stable diffuse ischemic demyelination and left lacunar infarcts. Markus Phillips MD Physical Exam HEENT: PERRL; normocephalic; atraumatic; no jaundice. LUNGS: CTA CARDIAC: RRR ABDOMEN: semifirm, soft, nontender; no hepatosplenomegaly; BS faint EXTREMITIES: No clubbing, cyanosis, or edema. SKIN: Normal; no rash; no jaundice. 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 She has nausea and distended abd. No hematochezia or melena. Pt with hx of gastroparesis and has been on regimen of Protonix, Bethanechol and Sucralfate as needed. Her GI was Dr. Malik. CT on 01/15/18 showed mildly dilated and fluid filled large bowel loops likely ileus or possible colitis, no obstruction. abd X-ray on 01/18 showed diffuse gaseous distension of the colon, X-ray on 01/19 with no change, SBFT pending. Pt states she is due for colonoscopy, not sure timing of last one. Stool studies pending - PEA s/p CPR, intubation - multiple sclerosis, asthma, COPD per attending 01/21/18 pt says she had a formed BM but not sure she is reliable historian. she is paranoid. SBFT unremarkable, diffuse dilatation colon HH trending down. No obvious bleeding but heme pos stool c diff neg Plan: - liquid diet - consider colonoscopy inpt vs outpt - Supportive care - Pt seen and examined by Dr. Clayton and myself and this note is on her behalf (Zahira Pace) Physician Comments agree with above (Chuyita Clayton MD) Zahira Pace Jan 21, 2018 11:56 Chuyita Clayton MD Jan 21, 2018 16:37
--- NOTE | 2018-01-21 12:08 | PD.PSY.CON ---
Provisional Diagnosis Admission Date Jan 09, 2018 at 18:28 [place] I. Delirium due to another underlying medical condition History of Present Illness Service Psychiatry Consult Requested By Critical care Reason for Consult Visual hallucinations, anxiety Primary Care Physician No Primary Care Physician HPI This is a 62-year-old woman, with psychiatric history of anxiety, no previous psychiatric hospitalizations, no suicidal attempts, with a medical history significant for multiple sclerosis, asthma, COPD who was recently discharged after being admitted for pneumonia from which she was intubated in the ICU for a few days following extubation patient insisted on being discharged on the floor and was discharged on 01/03 on by mouth antibiotics. Family member found her unresponsive and not breathing. The patient was found pulseless and apneic. She was in PEA and CPR was initiated. She was given 2 rounds of epinephrine and intubated. After 10 minutes of CPR she regained a pulse. She never regained consciousness. She arrives intubated and unresponsive.Patient was treated in ICU, extubated 01/14. Patient was also evaluated and treated by ID while in ICU. Patient received Zosyn from (01/09 to ), Vancomycin (01/09 - 01/11) and Levaquin from (01/10 - 01/17) ID DC abx. Consulted to psychiatry to manage anxiety and visual hallucinations. Communication with patient is limited due to the patient is very hard of hearing. Patient states that she lost her hearing aids, but we communicated by writing. The patient reports feeling much better today. Reports good mood. Patient is fully oriented 3. At this moment the patient states she does not have any major problem. She does report frequent anxiety and difficulty sleeping at night. She denies depressive symptoms, denies suicidal and homicidal ideation, denies visual and auditory hallucinations. Patient seems to be in a good spirits, calm, cooperative. The patient states that she has not have any visual lesion in the last 24 hours. Past Family Social History Coded Allergies: No Known Allergies (Verified Allergy, Unknown, 01/09/18) Reported Medications Donepezil (Donepezil) 10 Mg Tab, 10 MG PO HS for Dementia, #30 TAB 0 Refills 01/20/18 Dimethyl Fumarate (Tecfidera) 240 Mg Cap, 240 MG PO BID for Multiple sclerosis, #60 CAP 0 Refills 01/20/18 Rosuvastatin (Rosuvastatin) 10 Mg Tab, 10 MG PO DAILY for Cholesterol Management , TAB 0 Refills 01/19/18 Pantoprazole (Pantoprazole) 40 Mg Tab, 40 MG PO BID for Reflux, #30 TAB 0 Refills 01/19/18 Potassium Chloride ER (Potassium Chloride ER) 20 Meq Tab, 20 MEQ PO BID for Electrolyte Replacement, #60 TAB 0 Refills 01/19/18 Furosemide (Furosemide) 40 Mg Tab, 40 MG PO DIRECTED, #30 TAB 0 Refills 01/19/18 Tizanidine (Tizanidine) 4 Mg Tab, 4 MG PO HS for Muscle Spasm, TAB 0 Refills 01/19/18 Metoclopramide (Reglan) 10 Mg Tab, 10 MG PO ACHS, TAB 0 Refills 01/19/18 Metoprolol Tartrate (Metoprolol Tartrate) 25 Mg Tab, 25 MG PO BID, #60 TAB 0 Refills 01/19/18 Cholecalciferol (Vitamin D-1000) 1,000 Unit Tab, 5000 UNITS PO WEEKLY for Nutritional Supplement, #1 BOTTLE 0 Refills 01/19/18 Zolpidem (Zolpidem) 10 Mg Tab, 10 MG PO HS Y for INSOMNIA, TAB 0 Refills 01/19/[address] (Duloxetine DR) 60 Mg Capdr, 60 MG PO BID, #30 CAP 0 Refills 01/19/18 Dronabinol (Dronabinol) 5 Mg Cap, 5 MG PO BID for Nausea, #1 CAP 0 Refills 01/19/18 Bethanechol (Bethanechol) 10 Mg Tab, 10 MG PO TID for Urinary Symptom Managemen , #2 TAB 0 Refills 01/19/18 Alprazolam (Alprazolam) 0.5 Mg Tab, 0.5 MG PO TID Y for ANXIETY, TAB 0 Refills 01/19/18 Albuterol 18 GM Inh (Ventolin Hfa 18 GM Inh) 90 Mcg/Act Aer, 2 PUFF INH Q4H Y for SHORTNESS OF BREATH, #1 INHALER 0 Refills 01/19/18 Albuterol Neb (Albuterol Neb) 2.5 Mg/0.5 Ml Neb, 2.5 MG NEB Q4HR NEB Y for WHEEZING, EA Note: The Albuterol Sulfate Inhalation Solution is concentrated and must be diluted. Read complete instructions carefully before using. 01/19/18 Pregabalin (Lyrica) 150 Mg Cap, 150 MG PO BID, #60 CAP 0 Refills 01/19/18 Colchicine (Colchicine) 0.6 Mg Cap, 0.6 MG PO DAILY for Gout, CAP 0 Refills 01/19/18 Oxycodone-Acetaminophen (Percocet) 10-325 mg Tab, 1 TAB PO Q6HR Y for PAIN, TAB 0 Refills 01/19/18 Morphine IR (Morphine IR) 30 Mg Tab, 30 MG PO Q4H Y for PAIN, TAB 0 Refills 01/19/18 Current Medications Medications (Trade) Dose Ordered Sig/Herminio Route Start Time Stop Time Status Last Admin (Brethine Inj) 1 mg UNSCH PRN SQ 01/09/18 14:30 (NS Flush) 2 ml UNSCH PRN IV FLUSH 01/09/18 19:30 01/20/18 07:47 (NS Flush) 2 ml BID IV FLUSH 01/09/18 21:00 01/21/18 09:44 (Peridex 0.12% Liq) 15 ml BID@08,20 MT 01/09/18 20:00 01/17/18 20:00 Miscellaneous Information 1 [id number] XX 01/09/18 19:30 (Chlorhexidine 2% Cloth) Taper DAILY@04 TOP 01/10/18 04:00 01/06/19 03:59 01/16/18 01:53 (Chlorhexidine 2% Cloth) 3 pack UNSCH PRN TOP 01/09/18 19:30 (D50w (Vial) Inj) 25 ml UNSCH PRN IV PUSH 01/12/18 12:15 (Tylenol 650 Mg/ 20 ml Liq) 650 mg Q6H PRN PO 01/13/18 13:00 01/21/18 02:32 (Albuterol Neb) 2.5 mg Q2HR NEB PRN NEB 01/13/18 13:00 (Trandate Inj) 10 mg Q1H PRN IV PUSH 01/13/18 15:00 01/14/18 21:06 (Pepcid) 10 mg BID NG 01/15/18 09:00 01/21/18 09:42 (Symbicort 160-4.5 Mcg Inh) 2 puff Q12HR INH 01/15/18 09:00 01/21/18 09:45 (Lipitor) 10 mg HS PO 01/15/18 21:00 01/20/18 21:13 (Lyrica) 50 mg Q12HR PO 01/15/18 09:00 01/21/18 09:41 (Nitroglycerin 2% Oint) 2 inch Q6HR PRN TOPICAL 01/15/18 08:15 (Pill Splitter) 1 ea UNSCH PRN OTHER 01/15/18 08:30 (Lasix) 20 mg DAILY PO 01/15/18 09:00 01/21/18 09:43 (KCl) 10 meq BID PO 01/15/18 09:00 01/21/18 09:42 (Xanax) 0.5 mg Q8H PRN PO 01/15/18 08:30 01/21/18 05:46 (Cymbalta Dr) 60 mg DAILY PO 01/15/18 09:00 01/21/18 09:41 (Diflucan) 100 mg DAILY PO 01/15/18 11:30 01/21/18 09:42 (Ambien) 10 mg HS PRN PO 01/15/18 21:00 01/19/18 20:29 (Adderall) 10 mg DAILY PO 01/16/18 09:00 01/20/18 07:48 (Oramorph Sr) 15 mg Q12HR PO 01/15/18 21:00 01/21/18 09:41 (Zofran Inj) 4 mg Q4HR PRN IV PUSH 01/17/18 08:45 01/18/18 17:18 (Mag-Al Plus Susp Liq) 30 ml Q6H PRN PO 01/17/18 08:30 01/18/18 17:18 (Habitrol 14 Mg Patch.24 Hr) 1 patch DAILY T-DERMAL 01/17/18 09:00 01/21/18 09:41 Miscellaneous Information 1 HS T-DERMAL 01/17/18 21:00 01/20/18 21:00 (Xarelto) 15 mg BID PO 01/18/18 21:00 01/21/18 09:42 Potassium Chloride/Sodium Chloride 1,000 ml @ 84 mls/hr [id number] IV 01/19/18 18:30 01/21/18 05:39 (Ativan Inj) 1 mg Q4H PRN IV PUSH 01/19/18 18:30 01/20/18 16:43 (Duoneb Neb) 1 ampule Q4HR NEB INH 01/20/18 20:00 01/21/18 08:37 (Catapres) 0.1 mg Q8HR PO 01/20/18 22:00 01/21/18 05:46 (Lopressor) 50 mg Q12HR PO 01/20/18 21:00 01/21/18 09:42 (Procardia Xl) 30 mg BID PO 01/20/18 17:00 01/20/18 21:13 Patient Own Medication 240 ea BID PO 01/20/18 21:00 (Aricept) 10 mg HS PO 01/20/18 21:00 01/20/18 21:12 Physical Exam Vital Signs Vital Signs Date Time Temp Pulse Resp B/P (MAP) Pulse Ox O2 Delivery O2 Flow Rate FiO2 01/21/18 08:50 94 01/21/18 08:37 91 21 01/21/18 08:00 97.7 18 113/58 (76) 01/21/18 07:33 Room Air I/O 01/21/18 01/21/18 01/22/18 08:00 16:00 00:00 Intake Total 1480 ml Output Total 1000 ml Balance 480 ml Lab Results Test 01/21/18 04:30 White Blood Count 11.4 TH/MM3 Red Blood Count 3.06 MIL/MM3 Hemoglobin 8.9 GM/DL Hematocrit 26.5 % Mean Corpuscular Volume 86.6 FL Mean Corpuscular Hemoglobin 29.1 PG Mean Corpuscular Hemoglobin Concent 33.6 % Red Cell Distribution Width 17.9 % Platelet Count 305 TH/MM3 Mean Platelet Volume 8.6 FL Neutrophils (%) (Auto) 81.1 % Lymphocytes (%) (Auto) 4.2 % Monocytes (%) (Auto) 14.4 % Eosinophils (%) (Auto) 0.2 % Basophils (%) (Auto) 0.1 % Neutrophils # (Auto) 9.3 TH/MM3 Lymphocytes # (Auto) 0.5 TH/MM3 Monocytes # (Auto) 1.6 TH/MM3 Eosinophils # (Auto) 0.0 TH/MM3 Basophils # (Auto) 0.0 TH/MM3 CBC Comment DIFF FINAL Differential Comment Date/Time Source Procedure Growth Status 01/13/18 14:30 Blood Peripheral Aerobic Blood Culture - Final NO GROWTH IN 5 DAYS Complete 01/13/18 14:30 Blood Peripheral Anaerobic Blood Culture - Final NO GROWTH IN 5 DAYS Complete 01/15/18 13:50 Stool Stool Stool Occult Blood (EVARISTO) - Final HEMOCCULT POSITIVE Complete 01/13/18 13:53 Sputum Endotracheal Gram Stain - Final Complete 01/13/18 13:53 Sputum Endotracheal Sputum Culture - Final HEAVY GROWTH NORMAL RESPIRATORY ALEX Complete 01/13/18 14:30 Urine Catheterized Urine Urine Culture - Final Emearld Krusei Complete Mental Status Examination Appearance: Appropriate Consciousness: Alert Orientation: x4 Motor Activity: Normal gait Speech: Unremarkable Language: Adequate Fund of Knowledge: Adequate Attention and Concentration: Adequate Memory: Unremarkable Mood: Appropriate Affect: Appropriate Thought Process & Associations: Intact Thought Content: Appropriate Hallucination Type: None Delusion Type: None Suicidal Ideation: No Suicidal Plan: No Suicidal Intention: No Homicidal Ideation: No Homicidal Plan: No Homicidal Intention: No Insight: Adequate Judgment: Adequate Assessment & Plan Problem List: (1) Delirium due to another medical condition ICD Codes: F05 - Delirium due to known physiological condition Assessment & Plan: At the moment of the psychiatric evaluation even though the patient is hard of hearing and communication is kind of limited, the patient does not present any evidence of depression, edilson or psychosis. She does report anxiety related with being hospitalized and difficult to sleep at night. Patient denies suicidal and homicidal ideation, she denies visual and auditory hallucinations at the moment. The patient is fully oriented 3, there is no fluctuation of consciousness, attention deficit at this moment. She does not meet criteria for involuntary psychiatric admission. Will order a low dose of clonazepam, 0.5 mg twice daily to help with anxiety, Remeron 7.5 mg at bedtime to help with insomnia. (2) PEA (Pulseless electrical activity) ICD Codes: I46.9 - Cardiac arrest, cause unspecified Assessment & Plan Estimated LOS: Foster Arboleda MD Jan 21, 2018 12:08
[2018-01-21] MEDS: DEXTROAMPHETAMINE/AMPHETAMINE 10 MG TAB PO SCH (14:18)
[2018-01-21] MEDS: DONEPEZIL HCL 5 MG TAB PO SCH (19:59)
[2018-01-21] MEDS: ATORVASTATIN 10 MG TAB PO SCH (19:59)
[2018-01-21] MEDS: REMOVE OLD PATCH T-DERMAL SCH (20:03)
[2018-01-21] MEDS: ZOLPIDEM TARTRATE 10 MG TAB PO PRN (21:48)
[2018-01-22] VITALS (12 sets, daily range): BP systolic 113–136; BP diastolic 56–64; PULSE 100–120; RESP 16–18; TEMP 97.4–98.9; O2SAT 94–98
[2018-01-22] MEDS: CHLORHEXIDINE GLUCONATE 2 % 1 PACK (2 CLOTHS) TOP SCH (00:27)
[2018-01-22] MEDS: RESP: ALBUTEROL 2.5 MG/IPRATROPIUM 0.5 MG NEB (SCH) INH ×5 (03:24→20:02)
[2018-01-22] MEDS: ACETAMINOPHEN 650 MG/20.3 ML UDC PO PRN (04:25)
[2018-01-22] MEDS: ALPRAZolam 0.5 MG TAB PO PRN ×2 (05:44→20:54)
[2018-01-22] MEDS: cloNIDine HCL 0.2 MG TAB PO SCH (05:44)
[2018-01-22] MEDS: 1/2 NS + KCL 20 MEQ INJ 1,000 ML IV SCH (06:05)
[2018-01-22] MEDS: CHLORHEXIDINE 0.12% (ORAL KIT) 15 ML CUP MT SCH ×2 (08:00→20:00)
[2018-01-22] MEDS: PATIENT OWN MEDICATION PO SCH ×2 (09:00→20:54)
[2018-01-22] MEDS: NICOTINE 14 MG/24 HR PATCH T-DERMAL SCH (09:58)
[2018-01-22] MEDS: FAMOTIDINE 20 MG TAB NG SCH ×2 (09:59→20:54)
[2018-01-22] MEDS: FUROSEMIDE 20 MG TAB PO SCH (09:59)
[2018-01-22] MEDS: PREGABALIN 25 MG CAP PO SCH ×2 (09:59→20:54)
[2018-01-22] MEDS: NIFEdipine 30 MG SUSTAINED RELEASE TAB PO SCH ×2 (09:59→20:55)
[2018-01-22] MEDS: DULoxetine HCl DR 60 MG CAP PO SCH (09:59)
[2018-01-22] MEDS: FLUCONAZOLE 100 MG TAB PO SCH (09:59)
[2018-01-22] MEDS: RIVAROXABAN 15 MG TAB PO SCH ×2 (09:59→20:55)
[2018-01-22] MEDS: POTASSIUM CHLORIDE 10 MEQ CAP PO SCH ×2 (09:59→20:54)
[2018-01-22] MEDS: SODIUM CHLORIDE 0.9% FLUSH 10 ML FLUSH IV FLUSH SCH ×2 (10:00→20:54)
[2018-01-22] MEDS: DEXTROAMPHETAMINE/AMPHETAMINE 10 MG TAB PO SCH (10:00)
[2018-01-22] MEDS: MORPHINE SULFATE 15 MG CONTROLLED RELEASE TAB PO SCH ×2 (10:00→20:55)
[2018-01-22] MEDS ORDERED: cloNIDine HCL 0.2 MG TAB PO PRN (10:00)
--- NOTE | 2018-01-22 10:17 | HHI.PR ---
Subjective Remarks Patient offers no new concerns/complaints reports feeling well positive flatus and stool Asking when she will be DC'd Objective Vitals Vital Signs Date Time Temp Pulse Resp B/P (MAP) Pulse Ox O2 Delivery O2 Flow Rate FiO2 01/22/18 09:00 120 01/22/18 08:21 98 Nasal Cannula 1.50 01/22/18 08:05 Nasal Cannula 2.00 01/22/18 08:00 98.4 103 16 113/56 (75) 98 01/22/18 06:39 102 01/22/18 04:09 98.4 104 18 126/64 (84) 95 01/21/18 23:55 98.2 90 16 132/74 (93) 98 01/21/18 23:37 94 Nasal Cannula 2.00 01/21/18 19:52 98.0 104 18 140/63 (88) 97 01/21/18 19:22 97 21 01/21/18 16:00 97.5 97 18 100/50 (67) 98 01/21/18 12:00 98.1 85 18 125/62 (83) 96 Result Diagram: 01/21/18 0430 01/20/18 0700 Other Results Laboratory Tests Test 01/19/18 18:55 01/20/18 06:20 01/20/18 07:00 01/21/18 04:30 Ammonia 17 MCMOL/L 13 MCMOL/L Stool C. difficile Toxin (PCR) NEGATIVE Stl C. difficile Toxin Epiderm 027 PRESUMPTIVE NEGATIVE White Blood Count 9.3 TH/MM3 11.4 TH/MM3 Red Blood Count 3.24 MIL/MM3 3.06 MIL/MM3 Hemoglobin 9.4 GM/DL 8.9 GM/DL Hematocrit 28.1 % 26.5 % Mean Corpuscular Volume 86.6 FL 86.6 FL Mean Corpuscular Hemoglobin 29.1 PG 29.1 PG Mean Corpuscular Hemoglobin Concent 33.5 % 33.6 % Red Cell Distribution Width 17.2 % 17.9 % Platelet Count 260 TH/MM3 305 TH/MM3 Mean Platelet Volume 8.5 FL 8.6 FL Neutrophils (%) (Auto) 84.5 % 81.1 % Lymphocytes (%) (Auto) 4.5 % 4.2 % Monocytes (%) (Auto) 10.4 % 14.4 % Eosinophils (%) (Auto) 0.2 % 0.2 % Basophils (%) (Auto) 0.4 % 0.1 % Neutrophils # (Auto) 7.8 TH/MM3 9.3 TH/MM3 Lymphocytes # (Auto) 0.4 TH/MM3 0.5 TH/MM3 Monocytes # (Auto) 1.0 TH/MM3 1.6 TH/MM3 Eosinophils # (Auto) 0.0 TH/MM3 0.0 TH/MM3 Basophils # (Auto) 0.0 TH/MM3 0.0 TH/MM3 CBC Comment DIFF FINAL DIFF FINAL Differential Comment Blood Urea Nitrogen 14 MG/DL Creatinine 0.79 MG/DL Random Glucose 89 MG/DL Calcium Level 8.9 MG/DL Magnesium Level 1.9 MG/DL Sodium Level 138 MEQ/L Potassium Level 3.7 MEQ/L Chloride Level 109 MEQ/L Carbon Dioxide Level 20.0 MEQ/L Anion Gap 9 MEQ/L Estimat Glomerular Filtration Rate 73 ML/MIN Imaging Last Impressions Abdomen X-Ray 01/18/18599 Signed Impressions: Service Date/Time: Thursday, January 18, 2018 04:47 - CONCLUSION: Diffuse gaseous distention of the colon Loy Obregon MD Chest X-Ray 01/15/18 06 Signed Impressions: Service Date/Time: Monday, January 15, 2018 02:56 - CONCLUSION: Lungs have significantly improved with minimal residual disease in the lung bases. Silvano Hoskins MD Upper Extremity Ultrasound 01/15/18 Signed Impressions: Service Date/Time: Monday, January 15, 2018 10:11 - CONCLUSION: Nonocclusive thrombus within the right internal jugular vein and left distal cephalic vein. Gianluca Jakcson MD Renal Ultrasound 01/15/18 Signed Impressions: Service Date/Time: Monday, January 15, 2018 10:37 - CONCLUSION: 1. Bilateral echogenic kidneys consistent with medical renal disease. 2. No obstructive uropathy. 3. 2 cm complex cystic lesion in the inferior right kidney not demonstrated on recent CT examination. Consider followup ultrasound examination to validate this finding. If persistent and complex, consider MRI examination of better characterization. Cuba Almodovar MD CT Angiography 01/15/18 Signed Impressions: Service Date/Time: Monday, January 15, 2018 15:11 - CONCLUSION: 1. Small pulmonary emboli are noted within right lower lobe segmental branches. 2. Mild diffuse ground-glass opacities bilaterally. 3. Stable bilateral thyroid nodules. 4. Coronary artery calcifications. Gianluca Jackson MD Abdomen/Pelvis CT 01/15/18 0000 Signed Impressions: Service Date/Time: Monday, January 15, 2018 23:18 - CONCLUSION: 1. Mildly dilated and fluid filled large bowel loops likely ileus or possible colitis. No bowel obstruction. 2. Groundglass densities in the lung bases. Silvano Hoskins MD Head CT 01/09/18 0000 Signed Impressions: Service Date/Time: Tuesday, January 09, 2018 15:39 - CONCLUSION: 1. No acute findings in the brain. No evidence of acute hemorrhage. 2. Stable diffuse ischemic demyelination and left lacunar infarcts. Markus Phillips MD Objective Remarks GENERAL: This is a well-nourished, well-developed patient, in no apparent distress. CARDIOVASCULAR: Tachycardic RESPIRATORY: few scattered rhonchi cleared after cough GASTROINTESTINAL: Abdomen soft, non-tender, distended (improved from yesterday) . Normal active bowel sounds MUSCULOSKELETAL: Extremities without clubbing, cyanosis, or edema. NEURO: Awake and alert. Moves all ext x4 A/P Problem List: (1) Respiratory failure ICD Codes: J96.90 - Respiratory failure, unspecified, unspecified whether with hypoxia or hypercapnia Status: Acute Plan: Respiratory failure This is a 62-year-old female with a medical history significant for multiple sclerosis, asthma, COPD who was recently discharged after being admitted for pneumonia from which she was intubated in the ICU for a few days following extubation patient insisted on being discharged on the floor and was discharged on 01/03 on by mouth antibiotics. Family member found her unresponsive and not breathing. The patient was found pulseless and apneic. She was in PEA and CPR was initiated. She was given 2 rounds of epinephrine and intubated. After 10 minutes of CPR she regained a pulse. She never regained consciousness. She arrives intubated and unresponsive. Patient was treated in ICU, extubated 01/14. Patient was also evaluated and treated by ID while in ICU. Patient received Zosyn from (01/09 to 01/13), Vancomycin (01/09 - 01/11) and Levaquin from (01/10 - 01/17) ID DC abx. CTA demonstrated PE patient initially on heparin drip continue Xarelto 15 mg PO BID for a total of 21 days then transition to Xarelto 20 mg daily duonebs. symbicort. increase activity. oob. incentive spirometer. plan for snf in AM PEA (Pulseless electrical activity) see above Pulmonary embolism non oclusive thrombus R IJ and Left cephalic vein CTA 01/15/18 revealed small pulmonary emboli are noted within right lower lobe segmental branches. Mild diffuse ground-glass opacities bilaterally. Stable bilateral thyroid nodules. Coronary artery calcifications. US upper extremity revealed Nonocclusive thrombus R IJ and L distal cephalic vein Patient currently on heparin drip will DC heparin drip and start Xarelto 15 mg PO BID see above Fungus present in urine urine culture 01/13/18 reveled 50,000 - 75,000 Emerald Krusei oral Diflucan Renal cyst Renal US (01/15) reveled Bilateral echogenic kidneys consistent with medical renal disease. No obstructive uropathy. 2 cm complex cystic lesion in the inferior right kidney not demonstrated on recent CT examination. Consider follow up US if persistent consider MRI Low TSH level Chronic Ileus high pitched bowel sounds, abd is distended and tympanic on percussion. KUB (01/18) --> diffuse gaseous distension KUB (01/19) --> Moderate colonic distention with minimal progression from 01/18. repeat KUB (01/19) 1614 --> no change Small bowel series consult GI, appreciated input. Considering colonoscopy pending clinical course C diff negative patient also had hemocult positive stool 01/15 hgb drifting down (01/16) 11.2 --> (01/17) 10.5 --> (01/18) 9.8 --> (01/19) 9.7 --> (01/20) 9.4 remove rectal tube. Abdominal distention decreasing, positive flatus and stool advance diet Agitation Patient appear agitated Ativan IV as needed for agitation patient has also been refusing Lactulose ammonia level 13 (01/20) HTN (hypertension) Continue Procardia Xl 30 mg PO BID and metoprolol 75 mg PO BID clonidine to 0.1 mg PO TID PRN HTN (2) PEA (Pulseless electrical activity) ICD Codes: I46.9 - Cardiac arrest, cause unspecified Plan: see above (3) Pulmonary embolism ICD Codes: I26.99 - Other pulmonary embolism without acute cor pulmonale Status: Acute (4) Fungus present in urine ICD Codes: B49 - Unspecified mycosis Status: Acute (5) Renal cyst ICD Codes: N28.1 - Cyst of kidney, acquired Status: Chronic (6) Low TSH level ICD Codes: R94.6 - Abnormal results of thyroid function studies Status: Chronic (7) Ileus ICD Codes: K56.7 - Ileus, unspecified Status: Acute (8) Agitation ICD Codes: R45.1 - Restlessness and agitation (9) HTN (hypertension) ICD Codes: I10 - Essential (primary) hypertension Status: Chronic Assessment and Plan Patient examined. Assessment and plan formulated with Miladis Spears PA-C. I agree with the above. pt is eager for d/c. will need to make adjustments on bp and rate control. advance diet. stop ivf. will plan for d/c to snf in AM. Miladis Spears Jan 22, 2018 10:17 Conor De Los Santos MD Jan 22, 2018 10:52
[2018-01-22] MEDS ORDERED: XARE15TA PO (10:26)
[2018-01-22] MEDS ORDERED: CLON.2 PO (10:26)
[2018-01-22] MEDS ORDERED: FURO20TA PO (10:26)
--- NOTE | 2018-01-22 10:30 | HHI.DCPOC ---
Discharge Care Plan Diagnosis: (1) PEA (Pulseless electrical activity) (2) Respiratory failure (3) Tachycardia (4) HTN (hypertension) (5) Ileus (6) Pulmonary embolism (7) Delirium due to another medical condition (8) Chronic pain Goals to Promote Your Health * To prevent worsening of your condition and complications * To maintain your health at the optimal level Directions to Meet Your Goals Take your medications as prescribed Follow your dietary instruction Follow activity as directed Keep your appointments as scheduled Take your immunizations and boosters as scheduled If your symptoms worsen call your PCP, if no PCP go to Urgent Care Center or Emergency Room Smoking is Dangerous to Your Health. Avoid second hand smoke Call the 24-hour hour crisis hotline for domestic abuse at Miladis Spears Jan 22, 2018 10:30
--- NOTE | 2018-01-22 10:34 | HHI.DS ---
Discharge Summary Admission Date Jan 09, 2018 at 18:28 Discharge Date: Jan 23, 2018 Admitting Diagnosis cardiac arrest,unresponsive,?hypoxic brain injury (1) Respiratory failure Diagnosis: Principal ICD Codes: J96.90 - Respiratory failure, unspecified, unspecified whether with hypoxia or hypercapnia Status: Acute (2) PEA (Pulseless electrical activity) Diagnosis: Principal ICD Codes: I46.9 - Cardiac arrest, cause unspecified (3) Pulmonary embolism Diagnosis: Principal ICD Codes: I26.99 - Other pulmonary embolism without acute cor pulmonale Status: Acute (4) Fungus present in urine Diagnosis: Principal ICD Codes: B49 - Unspecified mycosis Status: Acute (5) Renal cyst Diagnosis: Secondary ICD Codes: N28.1 - Cyst of kidney, acquired Status: Chronic (6) Low TSH level Diagnosis: Secondary ICD Codes: R94.6 - Abnormal results of thyroid function studies Status: Chronic (7) Ileus Diagnosis: Secondary ICD Codes: K56.7 - Ileus, unspecified Status: Acute (8) Agitation Diagnosis: Secondary ICD Codes: R45.1 - Restlessness and agitation (9) HTN (hypertension) Diagnosis: Secondary ICD Codes: I10 - Essential (primary) hypertension Status: Chronic Consultants Dr. Pimentel, ICU Dr. Sapp, Cardiology Dr. Pimentel, ID Dr. Bowen, Psych Dr. Barr, GI Procedures No surgery Brief History 62-year-old female with a medical history significant for multiple sclerosis, asthma, COPD who was recently discharged after being admitted for pneumonia from which she was intubated in the ICU for a few days following extubation patient insisted on being discharged on the floor and was discharged on 01/03 on by mouth antibiotics. According to the POA she was doing okay at home however was extremely tired. Per documentation by ER physician the patient went down for a nap at noon. At 1 PM a family member found her unresponsive and not breathing. Paramedics were called. The patient was found pulseless and apneic. She was in PEA and CPR was initiated. She was given 2 rounds of epinephrine and intubated. After 10 minutes of CPR she regained a pulse. She never regained consciousness. She arrives intubated and unresponsive with a GCS of 3. She cannot provide any history or review of systems. Patient was started on Levophed for pressor support and received IV Zosyn in the ER. Her chest x-ray showed bilateral infiltrates. She was also noted have a creatinine of 2 and a borderline elevated troponin. Head CT was negative for any bleed. Patient was accepted for admission by critical care medicine service. When I evaluated the patient she was sedated with propofol 10 mics per KG per minute and was on Levophed 4 mics per minute with a systolic blood pressure of 155. She was arousable easily and focused at me during my exam. Per patient's daughter who is also at the bedside she was trying to mouth words at her earlier. History was obtained by reviewing records and discussion with patient' s POA as well as daughter. CBC/BMP: 01/21/18 0430 01/20/18 0700 Significant Findings Laboratory Tests Test 01/19/18 18:55 01/20/18 06:20 01/20/18 07:00 01/21/18 04:30 Red Blood Count 3.24 MIL/MM3 (4.00-5.30) 3.06 MIL/MM3 (4.00-5.30) Hemoglobin 9.4 GM/DL (11.6-15.3) 8.9 GM/DL (11.6-15.3) Hematocrit 28.1 % (35.0-46.0) 26.5 % (35.0-46.0) Neutrophils (%) (Auto) 84.5 % (16.0-70.0) 81.1 % (16.0-70.0) Lymphocytes (%) (Auto) 4.5 % (9.0-44.0) 4.2 % (9.0-44.0) Monocytes (%) (Auto) 10.4 % (0.0-8.0) 14.4 % (0.0-8.0) Neutrophils # (Auto) 7.8 TH/MM3 (1.8-7.7) 9.3 TH/MM3 (1.8-7.7) Lymphocytes # (Auto) 0.4 TH/MM3 (1.0-4.8) 0.5 TH/MM3 (1.0-4.8) Monocytes # (Auto) 1.0 TH/MM3 (0-0.9) 1.6 TH/MM3 (0-0.9) Chloride Level 109 MEQ/L (98-107) Carbon Dioxide Level 20.0 MEQ/L (21.0-32.0) Estimat Glomerular Filtration Rate 73 ML/MIN (>89) White Blood Count 11.4 TH/MM3 (4.0-11.0) Red Cell Distribution Width 17.9 % (11.6-17.2) Imaging Last Impressions Small Bowel X-Ray 01/20/18 1843 Signed Impressions: Service Date/Time: Saturday, January 20, 2018 12:14 - CONCLUSION: Unremarkable small bowel. Diffusely dilated colon. Loy Obregon MD Chest X-Ray 01/19/18 0800 Signed Impressions: Service Date/Time: Friday, January 19, 2018 10:02 - CONCLUSION: Minimal parenchymal changes left base. Oziel Dow MD FACR Abdomen X-Ray 01/19/18 0600 Signed Impressions: Service Date/Time: Friday, January 19, 2018 10:10 - CONCLUSION: Moderate colonic distention with minimal progression from 01/18. No nasogastric tube visualized. Oziel Dow MD FACR Upper Extremity Ultrasound 01/15/18 0000 Signed Impressions: Service Date/Time: Monday, January 15, 2018 10:11 - CONCLUSION: Nonocclusive thrombus within the right internal jugular vein and left distal cephalic vein. Gianluca Jackson MD Renal Ultrasound 01/15/18 0000 Signed Impressions: Service Date/Time: Monday, January 15, 2018 10:37 - CONCLUSION: 1. Bilateral echogenic kidneys consistent with medical renal disease. 2. No obstructive uropathy. 3. 2 cm complex cystic lesion in the inferior right kidney not demonstrated on recent CT examination. Consider followup ultrasound examination to validate this finding. If persistent and complex, consider MRI examination of better characterization. Cuba Almodovar MD CT Angiography 01/15/18 0000 Signed Impressions: Service Date/Time: Monday, January 15, 2018 15:11 - CONCLUSION: 1. Small pulmonary emboli are noted within right lower lobe segmental branches. 2. Mild diffuse ground-glass opacities bilaterally. 3. Stable bilateral thyroid nodules. 4. Coronary artery calcifications. Gianluca Jackson MD Abdomen/Pelvis CT 01/15/18 0000 Signed Impressions: Service Date/Time: Monday, January 15, 2018 23:18 - CONCLUSION: 1. Mildly dilated and fluid filled large bowel loops likely ileus or possible colitis. No bowel obstruction. 2. Groundglass densities in the lung bases. Silvano Hoskins MD Head CT 01/09/18 0000 Signed Impressions: Service Date/Time: Tuesday, January 09, 2018 15:39 - CONCLUSION: 1. No acute findings in the brain. No evidence of acute hemorrhage. 2. Stable diffuse ischemic demyelination and left lacunar infarcts. Markus Phillips MD Hospital Course Respiratory failure This is a 62-year-old female with a medical history significant for multiple sclerosis, asthma, COPD who was recently discharged after being admitted for pneumonia from which she was intubated in the ICU for a few days following extubation patient insisted on being discharged on the floor and was discharged on 01/03 on by mouth antibiotics. Family member found her unresponsive and not breathing. The patient was found pulseless and apneic. She was in PEA and CPR was initiated. She was given 2 rounds of epinephrine and intubated. After 10 minutes of CPR she regained a pulse. She never regained consciousness. She arrives intubated and unresponsive. Patient was treated in ICU, extubated 01/14. Patient was also evaluated and treated by ID while in ICU. Patient received Zosyn from (01/09 to 01/13), Vancomycin (01/09 - 01/11) and Levaquin from (01/10 - 01/17) ID DC abx. CTA demonstrated PE patient initially on heparin drip continue Xarelto 15 mg PO BID for a total of 21 days then transition to Xarelto 20 mg daily duonebs. symbicort. pt very eager for d/c to snf. not interested in staying here for further inpt care PEA (Pulseless electrical activity) see above Pulmonary embolism non oclusive thrombus R IJ and Left cephalic vein CTA 01/15/18 revealed small pulmonary emboli are noted within right lower lobe segmental branches. Mild diffuse ground-glass opacities bilaterally. Stable bilateral thyroid nodules. Coronary artery calcifications. US upper extremity revealed Nonocclusive thrombus R IJ and L distal cephalic vein Patient currently on heparin drip will DC heparin drip and start Xarelto 15 mg PO BID see above Fungus present in urine urine culture 01/13/18 reveled 50,000 - 75,000 Emerald Krusei oral Diflucan Renal cyst Renal US (01/15) reveled Bilateral echogenic kidneys consistent with medical renal disease. No obstructive uropathy. 2 cm complex cystic lesion in the inferior right kidney not demonstrated on recent CT examination. Consider follow up US if persistent consider MRI Low TSH level Chronic Ileus high pitched bowel sounds, abd is distended and tympanic on percussion. KUB (01/18) --> diffuse gaseous distension KUB (01/19) --> Moderate colonic distention with minimal progression from 01/18. repeat KUB (01/19) 1614 --> no change Small bowel series consult GI, appreciated input. Considering colonoscopy pending clinical course C diff negative patient also had hemocult positive stool 01/15 hgb drifting down (01/16) 11.2 --> (01/17) 10.5 --> (01/18) 9.8 --> (01/19) 9.7 --> (01/20) 9.4 remove rectal tube. Abdominal distention decreasing, positive flatus and stool advance diet Agitation Patient appear agitated Ativan IV as needed for agitation patient has also been refusing Lactulose ammonia level 13 (01/20) HTN (hypertension) Continue Procardia Xl 30 mg PO BID and metoprolol 75 mg PO BID clonidine to 0.1 mg PO TID PRN HTN Pt Condition on Discharge: Stable Discharge Disposition: Discharge to SNF Discharge Instructions DIET: Follow Instructions for: Heart Healthy Diet Speech Therapy-Diet Recommends: Mechanical Soft, Burns Flat Thickened Liquids Follow up Referrals: PCP Follow-up - [address] Garcia New Medications: Oxycodone-Acetaminophen (Percocet) 5-325 mg Tab 1 TAB PO Q4H PRN for PAIN, #30 TAB 0 Refills Rivaroxaban (Xarelto) 15 Mg Tab 15 MG PO Q12HR for Blood Clot Prevention for 16 Days, TAB 0 Refills Rivaroxaban (Xarelto) 20 Mg Tab 20 MG PO DAILY for Blood Clot Prevention, #30 TAB 3 Refills start on February 09 or the day after her 15mg po bid dosing is complete. Clonidine (Catapres) 0.2 Mg Tab 0.1 MG PO Q8HR PRN for SBP>170, DBP>90 for 10 Days, TAB Fluconazole (Diflucan) 100 Mg Tab 100 MG PO DAILY for Infection for 5 Days, #5 TAB Furosemide (Furosemide) 20 Mg Tab 20 MG PO DAILY for fluid retention, #30 TAB Metoprolol Tartrate (Metoprolol Tartrate) 25 Mg Tab 75 MG PO Q12HR for Blood Pressure Management for 30 Days, TAB Morphine ER (Morphine ER) 15 Mg Tab 15 MG PO Q12HR for Pain Management, #28 TAB Nifedipine ER 24 HR (Nifedipine ER 24 HR) 30 Mg Tab 30 MG PO BID for Blood Pressure Management for 30 Days, #60 TAB Potassium Chloride ER (Potassium Chloride ER) 10 Meq Cap 10 MEQ PO BID for supplement for 30 Days, #60 CAP Pregabalin (Lyrica) 25 Mg Cap 50 MG PO Q12HR for Pain Management for 30 Days, CAP Rivaroxaban (Xarelto) 15 Mg Tab 15 MG PO BID for clot in lung for 17 Days, #34 TAB 0 Refills take Xarelto 15 mg by mouth twice a day for total of 21 days then on 02/09/18 start taking Xarelto 20 mg by mouth daily follow up with PCP to determine total durantion of Xarelto treatment [Budeson-Formot 160-4.5 Mcg Inh] () 60 PUFF AERO 2 PUFF INH Q12HR for asthma for 30 Days Continued Medications: Albuterol 18 GM Inh (Ventolin Hfa 18 GM Inh) 90 Mcg/Act Aer 2 PUFF INH Q4H PRN for SHORTNESS OF BREATH, #1 INHALER 0 Refills Albuterol Neb (Albuterol Neb) 2.5 Mg/0.5 Ml Neb 2.5 MG NEB Q4HR NEB PRN for WHEEZING, EA Note: The Albuterol Sulfate Inhalation Solution is concentrated and must be diluted. Read complete instructions carefully before using. Alprazolam (Alprazolam) 0.5 Mg Tab 0.5 MG PO TID PRN for ANXIETY for 30 Days, TAB 0 Refills (This prescription has been renewed) Bethanechol (Bethanechol) 10 Mg Tab 10 MG PO TID for Urinary Symptom Managemen, #2 TAB 0 Refills Cholecalciferol (Vitamin D-1000) 1,000 Unit Tab 5000 UNITS PO WEEKLY for Nutritional Supplement, #1 BOTTLE 0 Refills Colchicine (Colchicine) 0.6 Mg Cap 0.6 MG PO DAILY for Gout, CAP 0 Refills Dimethyl Fumarate (Tecfidera) 240 Mg Cap 240 MG PO BID for Multiple sclerosis, #60 CAP 0 Refills Donepezil (Donepezil) 10 Mg Tab 10 MG PO HS for Dementia, #30 TAB [address] (Duloxetine DR) 60 Mg Capdr 60 MG PO BID, #30 CAP 0 Refills Metoclopramide (Reglan) 10 Mg Tab 10 MG PO ACHS, TAB 0 Refills Pantoprazole (Pantoprazole) 40 Mg Tab 40 MG PO BID for Reflux, #30 TAB 0 Refills Rosuvastatin (Rosuvastatin) 10 Mg Tab 10 MG PO DAILY for Cholesterol Management, TAB 0 Refills Zolpidem (Zolpidem) 10 Mg Tab 10 MG PO HS PRN for INSOMNIA, TAB 0 Refills Discontinued Medications: Dronabinol (Dronabinol) 5 Mg Cap 5 MG PO BID for Nausea, #1 CAP 0 Refills Furosemide (Furosemide) 40 Mg Tab 40 MG PO DIRECTED, #30 TAB 0 Refills Metoprolol Tartrate (Metoprolol Tartrate) 25 Mg Tab 25 MG PO BID, #60 TAB 0 Refills Morphine IR (Morphine IR) 30 Mg Tab 30 MG PO Q4H PRN for PAIN, TAB 0 Refills Oxycodone-Acetaminophen (Percocet) 10-325 mg Tab 1 TAB PO Q6HR PRN for PAIN, TAB 0 Refills Potassium Chloride ER (Potassium Chloride ER) 20 Meq Tab 20 MEQ PO BID for Electrolyte Replacement, #60 TAB 0 Refills Pregabalin (Lyrica) 150 Mg Cap 150 MG PO BID, #60 CAP 0 Refills Tizanidine (Tizanidine) 4 Mg Tab 4 MG PO HS for Muscle Spasm, TAB 0 Refills Miladis Spears Jan 22, 2018 10:34 Conor De Los Santos MD Jan 23, 2018 11:10
[2018-01-22] MEDS ORDERED: METOPROLOL TARTRATE 25 MG TAB PO ONE (10:45)
[2018-01-22] MEDS: BUDESONIDE-FORMOTEROL 160/4.5 MCG INHALER INH SCH ×2 (12:23→20:54)
--- NOTE | 2018-01-22 14:37 | HHI.GIFU ---
Subjective Remarks Up in chair and ambulated with PT, Weakened , Abdominal tautness continues afebrile HGB 9.4 to 8.9 (Marielos Baron) Objective Vitals I&O Vital Signs Date Time Temp Pulse Resp B/P (MAP) Pulse Ox O2 Delivery O2 Flow Rate FiO2 01/22/18 12:17 98 21 01/22/18 11:37 97.4 100 16 136/61 (86) 98 01/22/18 09:00 120 01/22/18 08:21 98 Nasal Cannula 1.50 01/22/18 08:05 Nasal Cannula 2.00 01/22/18 08:00 98.4 103 16 113/56 (75) 98 01/22/18 06:39 102 01/22/18 04:09 98.4 104 18 126/64 (84) 95 01/21/18 23:55 98.2 90 16 132/74 (93) 98 01/21/18 23:37 94 Nasal Cannula 2.00 01/21/18 19:52 98.0 104 18 140/63 (88) 97 01/21/18 19:22 97 21 01/21/18 16:00 97.5 97 18 100/50 (67) 98 I/O 01/21/18 01/21/18 01/21/18 01/22/18 01/22/18 01/22/18 07:00 15:00 23:00 07:00 15:00 23:00 Intake Total 1480 ml 240 ml 360 ml Output Total 1000 ml Balance 480 ml 240 ml 360 ml Intake Oral 480 ml 240 ml 360 ml IV Total 1000 ml Output Urine Total 550 ml Stool Total 450 ml # Voids 1 3 # Bowel Movements 0 Laboratory Date/Time Source Procedure Growth Status 01/13/18 14:30 Blood Peripheral Aerobic Blood Culture - Final NO GROWTH IN 5 DAYS Complete 01/13/18 14:30 Blood Peripheral Anaerobic Blood Culture - Final NO GROWTH IN 5 DAYS Complete 01/15/18 13:50 Stool Stool Stool Occult Blood (EVARISTO) - Final HEMOCCULT POSITIVE Complete 01/13/18 13:53 Sputum Endotracheal Gram Stain - Final Complete 01/13/18 13:53 Sputum Endotracheal Sputum Culture - Final HEAVY GROWTH NORMAL RESPIRATORY ALEX Complete 01/13/18 14:30 Urine Catheterized Urine Urine Culture - Final Emerald Krusei Complete Imaging Last Impressions Small Bowel X-Ray 01/20/18 1843 Signed Impressions: Service Date/Time: Saturday, January 20, 2018 12:14 - CONCLUSION: Unremarkable small bowel. Diffusely dilated colon. Loy Obregon MD Chest X-Ray 01/19/18 0800 Signed Impressions: Service Date/Time: Friday, January 19, 2018 10:02 - CONCLUSION: Minimal parenchymal changes left base. Oziel Dow MD FACR Abdomen X-Ray 01/19/18 0600 Signed Impressions: Service Date/Time: Friday, January 19, 2018 10:10 - CONCLUSION: Moderate colonic distention with minimal progression from 01/18. No nasogastric tube visualized. Oziel Dow MD FACR Upper Extremity Ultrasound 01/15/18 0000 Signed Impressions: Service Date/Time: Monday, January 15, 2018 10:11 - CONCLUSION: Nonocclusive thrombus within the right internal jugular vein and left distal cephalic vein. Gianluca Jackson MD Renal Ultrasound 01/15/18 0000 Signed Impressions: Service Date/Time: Monday, January 15, 2018 10:37 - CONCLUSION: 1. Bilateral echogenic kidneys consistent with medical renal disease. 2. No obstructive uropathy. 3. 2 cm complex cystic lesion in the inferior right kidney not demonstrated on recent CT examination. Consider followup ultrasound examination to validate this finding. If persistent and complex, consider MRI examination of better characterization. Cuba Almodovar MD CT Angiography 01/15/18 0000 Signed Impressions: Service Date/Time: Monday, January 15, 2018 15:11 - CONCLUSION: 1. Small pulmonary emboli are noted within right lower lobe segmental branches. 2. Mild diffuse ground-glass opacities bilaterally. 3. Stable bilateral thyroid nodules. 4. Coronary artery calcifications. Gianluca Jackson MD Abdomen/Pelvis CT 01/15/18 0000 Signed Impressions: Service Date/Time: Monday, January 15, 2018 23:18 - CONCLUSION: 1. Mildly dilated and fluid filled large bowel loops likely ileus or possible colitis. No bowel obstruction. 2. Groundglass densities in the lung bases. Silvano Hoskins MD Head CT 01/09/18 0000 Signed Impressions: Service Date/Time: Tuesday, January 09, 2018 15:39 - CONCLUSION: 1. No acute findings in the brain. No evidence of acute hemorrhage. 2. Stable diffuse ischemic demyelination and left lacunar infarcts. Markus Phillips MD Physical Exam HEENT: PERRL; normocephalic; atraumatic; no jaundice. oral cavity clean, LUNGS: No audible rhonchi CARDIAC: RRR, tachycardiac with mild increased activity ABDOMEN: semifirm, taut, nontender; no palpable hepatosplenomegaly; BS minimal EXTREMITIES: No clubbing, cyanosis, or edema. SKIN: Armand; no rash; no jaundice. FULL TIME: alert, speech mildly slow, slurred, but understandable (Marielos Baron) Assessment and Plan Plan Colitis vs ileus- Patient has been having liquid stools, currently has rectal tube in. She has nausea and distended abd. No hematochezia or melena. Pt with hx of gastroparesis and has been on regimen of Protonix, Bethanechol and Sucralfate as needed. Her GI was Dr. Malik. CT on 01/15/18 showed mildly dilated and fluid filled large bowel loops likely ileus or possible colitis, no obstruction. abd X-ray on 01/18 showed diffuse gaseous distension of the colon, X-ray on 01/19 with no change, SBFT pending. Pt states she is due for colonoscopy, not sure timing of last one. Stool studies pending - PEA s/p CPR, intubation - multiple sclerosis, asthma, COPD per attending 01/21/18 pt says she had a formed BM but not sure she is reliable historian. she is paranoid. SBFT unremarkable, diffuse dilatation colon HH trending down. No obvious bleeding but heme pos stool c diff neg 01/22/18, Up with PT today, and encouraged patient to move around as much as possible, up in chair. Stool diarrhea , but no obvious bleeding. Patient requesting Colonoscopy as OP if possible. Abd. distention lessens today , gradual improvement Hx of Gastroparesis and bloating patient states Plan: - Full liquid diet trial - antiemetics - Bowel regimen - consider colonoscopy - Supportive care - Pt seen and examined by Dr. Clayton and myself and this note is on her behalf (Marielos Baron) Physician Comments seen, examined agree with above (Chuyita Clayton MD) Marielos Baron Jan 22, 2018 14:37 Chuyita Clayton MD Jan 22, 2018 20:51
[2018-01-22] MEDS: ATORVASTATIN 10 MG TAB PO SCH (20:54)
[2018-01-22] MEDS: METOPROLOL TARTRATE 25 MG TAB PO SCH (20:54)
[2018-01-22] MEDS: ZOLPIDEM TARTRATE 10 MG TAB PO PRN (20:54)
[2018-01-22] MEDS: DONEPEZIL HCL 5 MG TAB PO SCH (20:54)
[2018-01-22] MEDS: REMOVE OLD PATCH T-DERMAL SCH (20:55)
[2018-01-23 00:16] VITALS: PULSE 112
[2018-01-23] MEDS: RESP: ALBUTEROL 2.5 MG/IPRATROPIUM 0.5 MG NEB (SCH) INH ×4 (00:27→11:37)
[2018-01-23] MEDS: CHLORHEXIDINE GLUCONATE 2 % 1 PACK (2 CLOTHS) TOP SCH (02:08)
[2018-01-23] MEDS: CHLORHEXIDINE 0.12% (ORAL KIT) 15 ML CUP MT SCH (02:08)
[2018-01-23] MEDS: ALPRAZolam 0.5 MG TAB PO PRN (05:26)
[2018-01-23 07:54] VITALS: O2SAT 94
[2018-01-23 08:00] VITALS: BP 111/59; PULSE 121; RESP 16; TEMP 97.8; O2SAT 99
[2018-01-23] MEDS: PREGABALIN 25 MG CAP PO SCH (08:36)
[2018-01-23] MEDS: NIFEdipine 30 MG SUSTAINED RELEASE TAB PO SCH (08:36)
[2018-01-23] MEDS: FUROSEMIDE 20 MG TAB PO SCH (08:36)
[2018-01-23] MEDS: METOPROLOL TARTRATE 25 MG TAB PO SCH (08:36)
[2018-01-23] MEDS: DEXTROAMPHETAMINE/AMPHETAMINE 10 MG TAB PO SCH (08:37)
[2018-01-23] MEDS: RIVAROXABAN 15 MG TAB PO SCH (08:37)
[2018-01-23] MEDS: POTASSIUM CHLORIDE 10 MEQ CAP PO SCH (08:37)
[2018-01-23] MEDS: NICOTINE 14 MG/24 HR PATCH T-DERMAL SCH (08:38)
[2018-01-23] MEDS ORDERED: FAMOTIDINE 20 MG TAB NG SCH (09:00)
[2018-01-23] MEDS ORDERED: PREG25 PO (10:48)
[2018-01-23] MEDS ORDERED: PERC5TAB12 PO (10:48)
[2018-01-23] MEDS ORDERED: ALPR0.5T3 PO (10:48)
[2018-01-23] MEDS ORDERED: MORP1TAB24 PO (10:48)
[2018-01-23] MEDS ORDERED: POTA10CA PO (10:56)
[2018-01-23] MEDS ORDERED: METO25TA3 PO (10:56)
[2018-01-23] MEDS ORDERED: DIFL100T PO (10:56)
[2018-01-23] MEDS ORDERED: NIFE30TA8 PO (10:56)
[2018-01-23] MEDS ORDERED: Budeson-Formot 160-4.5 Mcg Inh INH (10:56)
[2018-01-23] MEDS ORDERED: XARE20TA PO (11:00)
[2018-01-23] MEDS ORDERED: XARE15TA PO (11:00)
[2018-01-23 11:10] LABS: DIRECT BILIRUBIN ADULT 0.1 MG/DL (0.0-0.2)
[2018-01-23 11:12] LABS: INDIRECT BILIRUBIN 0.4 MG/DL (0.0-0.8); TOTAL BILIRUBIN ADULT 0.5 MG/DL (0.2-1.0); TOTAL PROTEIN 6.7 GM/DL (6.4-8.2)
[2018-01-23 12:00] VITALS: BP 122/61; PULSE 91; RESP 16; TEMP 97.4; O2SAT 100
== END 2018-01-23 15:03 | DRG 296 ==
LOC: NEPC 14:06 → NEDA 18:28 → HIMW 20:35 → N06A 01-20 18:50
PROVIDERS: ADMIT Internal Medicine Critical Care Medicine; ATTEND Internal Medicine Critical Care Medicine
PROC: 5A1955Z Respiratory Ventilation, Greater than 96 Consecutive Hours (ICD-10-PCS; principal; 2018-01-09)
PROC: 0T9B70Z Drainage of Bladder with Drainage Device, Via Natural or Artificial Opening (ICD-10-PCS; 2018-01-09)
PROC: 0D9670Z Drainage of Stomach with Drainage Device, Via Natural or Artificial Opening (ICD-10-PCS; 2018-01-09)
DX: I46.9 Cardiac arrest, cause unspecified (principal); G93.1 Anoxic brain damage, not elsewhere classified; I50.33 Acute on chronic diastolic (congestive) heart failure; I26.99 Other pulmonary embolism without acute cor pulmonale; K72.00 Acute and subacute hepatic failure without coma; A41.9 Sepsis, unspecified organism; J96.01 Acute respiratory failure with hypoxia; J96.02 Acute respiratory failure with hypercapnia; I95.9 Hypotension, unspecified; J18.9 Pneumonia, unspecified organism; E87.2 Acidosis; J44.0 Chronic obstructive pulmonary disease with (acute) lower respiratory infection; J45.901 Unspecified asthma with (acute) exacerbation; N17.9 Acute kidney failure, unspecified; I82.C11 Acute embolism and thrombosis of right internal jugular vein; E87.0 Hyperosmolality and hypernatremia; B37.49 Other urogenital candidiasis; K56.7 Ileus, unspecified; F05 Delirium due to known physiological condition; I11.0 Hypertensive heart disease with heart failure; G35 Multiple sclerosis; Z78.1 Physical restraint status; Z87.442 Personal history of urinary calculi; K44.9 Diaphragmatic hernia without obstruction or gangrene; K21.9 Gastro-esophageal reflux disease without esophagitis; Z86.73 Personal history of transient ischemic attack (TIA), and cerebral infarction without residual deficits; E78.5 Hyperlipidemia, unspecified; F17.200 Nicotine dependence, unspecified, uncomplicated; Z87.01 Personal history of pneumonia (recurrent); R74.8 Abnormal levels of other serum enzymes; M19.90 Unspecified osteoarthritis, unspecified site; F41.9 Anxiety disorder, unspecified; H91.90 Unspecified hearing loss, unspecified ear; Z79.52 Long term (current) use of systemic steroids; G89.4 Chronic pain syndrome; Z79.891 Long term (current) use of opiate analgesic; F12.10 Cannabis abuse, uncomplicated; K31.84 Gastroparesis; I25.10 Atherosclerotic heart disease of native coronary artery without angina pectoris; M10.9 Gout, unspecified; N28.1 Cyst of kidney, acquired; I48.91 Unspecified atrial fibrillation; G47.00 Insomnia, unspecified; F32.9 Major depressive disorder, single episode, unspecified; E87.6 Hypokalemia; E04.2 Nontoxic multinodular goiter; Z90.710 Acquired absence of both cervix and uterus; Z90.49 Acquired absence of other specified parts of digestive tract
CPT/HCPCS: 36600; 70450; 71045; 71046; 71275; 74018; 74176; 74250; 76775; 76937; 80048; 80053; 80074; 80076; 80162; 80307; 81001; 82140; 82150; 82272; 82550; 82552; 82570; 82805; 82948; 83735; 83880; 84100; 84132; 84145; 84300; 84439; 84443; 84481; 84484; 85007; 85025; 85027; 85384; 85610; 85730; 86703; 87040; 87070; 87086; 87106; 87205; 87449; 87493; 87633; 87641; 87804; 93005; 93308; 93970; 94002; 94003; 94150; 94640; 94664; 94667; 94668; 96365; 96366; 96368; 96375; 99292; J0171; J0360; J0610; J1160; J1644; J1650; J1720; J1815; J1940; J1956; J2060; J2250; J2270; J2405; J2543; J2765; J3370; J3475; J3480; J7030; J7040; J7050; J7626; P9047; Q9963; Q9967

== ENCOUNTER 2018-02-10 08:50 | Emergency (ER) | payer MEDICARE ==
[2018-02-10] MEDS: LIDOCAINE 1%/EPINEPHrine 1:100,000 SOLN 20 ML VIAL INFIL (10:05)
== END 2018-02-10 12:32 | disposition home or self-care (01) ==
LOC: PHED 08:50
DX: S81.011A Laceration without foreign body, right knee, initial encounter (principal); S00.83XA Contusion of other part of head, initial encounter; M17.11 Unilateral primary osteoarthritis, right knee; R07.81 Pleurodynia; M25.559 Pain in unspecified hip; I11.0 Hypertensive heart disease with heart failure; I50.9 Heart failure, unspecified; W18.00XA Striking against unspecified object with subsequent fall, initial encounter; Y92.009 Unspecified place in unspecified non-institutional (private) residence as the place of occurrence of the external cause
CPT/HCPCS: 12004; 70450; 70486; 71045; 72170; 73564; 99284-25

== ENCOUNTER 2018-02-19 03:38 | Emergency (ER) | payer MEDICARE ==
[~2018-02-19] VITALS: Ht 160 cm; Wt 78.3 kg
[~2018-02-19 03:38] MED LIST changes: -ADVA100A INH; +Budeson-Formot 160-4.5 Mcg Inh INH; -CALC1TAB12 PO; -CALC500C16 PO; -CLOB0.0571 TOPICAL; +DONE10TA7 PO; -DRON2.5C PO; -EPINEPHrine HCL (1:10,000) 1 MG/10 ML SYRINGE IV ONE; -FURO1TAB62 PO; -LEVA500T33 PO; -LYRI100C PO; +MORP1TAB24 PO; +MSIR30 PO; -MUPI2OIN TOPICAL; -ONDA8TAB7 PO; +ONDA8TAB8 SL; -PERC5TAB12 PO; -POTA-163 PO; +POTA10CA PO; -PROP10TA6 PO; -ROSU1TAB4 PO; +ROSU1TAB6 PO; -SODIUM BICARBONATE 8.4% INJ 50 MEQ/50 ML SYR IV ONE; -TIZA4CAP3 PO; -VARE1PAK3 PO; +VITA1000 PO; +XARE20TA PO
[2018-02-19 03:42] VITALS: BP 103/54; PULSE 81; RESP 16; TEMP 97.7; O2SAT 96
--- NOTE | 2018-02-19 04:39 | RADRPT ---
EXAM DATE/TIME: 02/19/2018 04:09 [facility] COMPARISON: No previous studies available for comparison. INDICATIONS : Trauma, fall. MEDICAL HISTORY : None. SURGICAL HISTORY : None. ENCOUNTER: Initial ACUITY: 1 day PAIN SCORE: Non-responsive. LOCATION: lumbar FINDINGS: There is a mild scoliosis. Degenerative disc disease is present. No acute fracture. No bony destructive changes. Facet arthropat hy noted. CONCLUSION: 1. Mild scoliosis. Moderate to advanced degenerative disc disease. No acute fracture. Clint Gallo MD on February 19, 2018 at 4:34 Board Certified Radiologist. This report was verified electronically.
--- NOTE | 2018-02-19 04:40 | RADRPT ---
EXAM DATE/TIME: 02/19/2018 04:09 [facility] COMPARISON: No previous studies available for comparison. INDICATIONS : Trauma, fall. MEDICAL HISTORY : None. SURGICAL HISTORY : None. ENCOUNTER: Initial ACUITY: 1 day PAIN SCORE: Non-responsive. LOCATION: Left knee. FINDINGS: Two view examination of the left knee demonstrates no evidence of fracture or dislocation. Bony mine ralization is normal. The suprapatellar soft tissues have a normal configuration. CONCLUSION: 1. No acute findings. Mild osteoarthritis at the left knee. Clint Gallo MD on February 19, 2018 at 4:37 Board Certified Radiologist. This report was verified electronically.
--- NOTE | 2018-02-19 04:40 | RADRPT ---
EXAM DATE/TIME: 02/19/2018 04:09 [facility] COMPARISON: No previous studies available for comparison. INDICATIONS : Trauma, fall. MEDICAL HISTORY : None. SURGICAL HISTORY : None. ENCOUNTER: Initial ACUITY: 1 day PAIN SCORE: Non-responsive. LOCATION: buttock FINDINGS: Two-view examination of the sacrum and coccyx demonstrates no evidence of fracture or malalignment. The sacral ala and foramina appear symmetric and intact. The coccyx appears unremarkable. The preve rtebral soft tissues are within normal limits. Previous mario fixation of the right femur. CONCLUSION: 1. No acute findings. Clint Gallo MD on February 19, 2018 at 4:37 Board Certified Radiologist. This report was verified electronically.
--- NOTE | 2018-02-19 04:41 | RADRPT ---
EXAM DATE/TIME: 02/19/2018 04:09 [facility] COMPARISON: No previous studies available for comparison. INDICATIONS : Trauma, fall. MEDICAL HISTORY : None. SURGICAL HISTORY : Femoral mario. ENCOUNTER: Initial ACUITY: 1 day PAIN SCORE: Non-responsive. LOCATION: Right knee. FINDINGS: Two view examination of the right knee demonstrates no evidence of fracture or dislocation. Bony min eralization is normal. Previous mario fixation right femur. The suprapatellar soft tissues have a lisa l configuration. CONCLUSION: 1. No acute findings. Mild osteoarthritis of the right knee. Clint Gallo MD on February 19, 2018 at 4:38 Board Certified Radiologist. This report was verified electronically.
--- NOTE | 2018-02-19 04:42 | PD ---
HPI Chief Complaint: Fall Time Seen by Provider: 03:51 Travel History International Travel<30 days: No Contact w/Intl Traveler<30days: No Traveled to known affect area: No History of Present Illness HPI 62-year-old female with a history of COPD, CHF, TIAs, hypertension, hyperlipidemia, cardiac dysrhythmias, who presents today after falling while trying to get out of bed. Patient was just released from the hospital. She was in the hospital previously for quite some time and developed deconditioning. She was initially in a wheelchair now she is using a walker. Unfortunately this morning when she got up out of bed, she did not use her walker and fell forward striking her face. She has an abrasion/superficial laceration to the left eyebrow. The patient is on Xarelto. Reports head and neck pain. She also reports bilateral knee pain and coccyx pain. There is no paresthesias. There was no reported loss of consciousness. PFSH Past Medical History Hx Anticoagulant Therapy: Yes (XARELTO) Arthritis: Yes Asthma: Yes Blood Disorders: No Anxiety: Yes Depression: No Heart Rhythm Problems: Yes ("SKIPS A BEAT") Cancer: No Cardiovascular Problems: No High Cholesterol: Yes Chest Pain: Yes Congestive Heart Failure: Yes COPD: Yes Cerebrovascular Accident: Yes (TIA) Diabetes: No Diminished Hearing: No Endocrine: No Gastrointestinal Disorders: Yes GERD: Yes Genitourinary: Yes Headaches: Yes Hiatal Hernia: Yes Hypertension: Yes Immune Disorder: No Kidney Stones: Yes Musculoskeletal: Yes Neurologic: No Psychiatric: Yes Reproductive: No Respiratory: Yes Renal Failure: No Sleep Apnea: No Ulcer: Yes PNEUMOCCOCAL Vaccine (Year): 2 Menopausal: Yes Past Surgical History Abdominal Surgery: No Appendectomy: Yes (TOOK OUT WITH OTHER SURGERY) Body Medical Devices: ALLEGRA RIGHT LEG, 2 PLATES,8 SCREWS IN NECK Cardiac Surgery: No Cholecystectomy: Yes Ear Surgery: No Endocrine Surgery: No Eye Surgery: No Genitourinary Surgery: No Gynecologic Surgery: Yes Hysterectomy: Yes Joint Replacement: Yes (PLATES AND RODS) Neurologic Surgery: Yes Oral Surgery: No Thoracic Surgery: No Tonsillectomy: Yes Other Surgery: Yes (RECTAL FISSURE 12/2005, 2 L BREAST BIOPSIES, JACKIE-BSO @ AGE 27) Social History Alcohol Use: No Tobacco Use: Yes (1.5 AND ON CHANTIX) Substance Use: No Allergies-Medications (Allergen,Severity, Reaction): Coded Allergies: No Known Allergies (Verified Allergy, Unknown, 02/10/18) Reported Meds & Prescriptions Reported Meds & Active Scripts Active Xarelto (Rivaroxaban) 20 Mg Tab 20 Mg PO DAILY start on February 09 or the day after her 15mg po bid dosing is complete. [Budeson-Formot 160-4.5 Mcg Inh] 60 PUFF Aero 2 Puff INH Q12HR 30 Days Potassium Chloride ER (Potassium Chloride) 10 Meq Cap 10 Meq PO BID 30 Days Metoprolol Tartrate 25 Mg Tab 75 Mg PO Q12HR 30 Days Morphine ER (Morphine Sulfate) 15 Mg Tab 15 Mg PO Q12HR Alprazolam 0.5 Mg Tab 0.5 Mg PO TID PRN 30 Days Reported Morphine IR (Morphine Sulfate) 30 Mg Tab 30 Mg PO Q4H PRN Ondansetron Odt 8 Mg Tab 8 Mg SL Q12H PRN Lyrica (Pregabalin) 150 Mg Cap 150 Mg PO BID Furosemide 40 Mg Tab 40 Mg PO DAILY Donepezil 10 Mg Tab 10 Mg PO HS Tecfidera (Dimethyl Fumarate) 240 Mg Cap 240 Mg PO BID Rosuvastatin (Rosuvastatin Calcium) 10 Mg Tab 10 Mg PO DAILY Vitamin D-1000 (Cholecalciferol) 1,000 Unit Tab 5,000 Units PO WEEKLY Zolpidem (Zolpidem Tartrate) 10 Mg Tab 10 Mg PO HS PRN Duloxetine DR (Duloxetine HCl) 60 Mg Capdr 60 Mg PO BID Bethanechol 10 Mg Tab 10 Mg PO TID Ventolin Hfa 18 GM Inh (Albuterol Sulfate) 90 Mcg/Act Aer 2 Puff INH Q4H PRN Colchicine 0.6 Mg Cap 0.6 Mg PO DAILY Review of Systems Except as stated in HPI: all other systems reviewed are Neg Eyes: No: Diploplia HENT: Positive: Headaches, Neck Pain, Other (Left lateral eye well laceration) , No: Neck Stiffness Cardiovascular: No: Chest Pain or Discomfort Respiratory: No: Cough, Shortness of Breath Gastrointestinal: No: Nausea, Vomiting, Abdominal Pain Genitourinary: No: Dysuria, Incontinence Musculoskeletal: Positive: Weakness (Generalized), Pain (Bilateral knees and coccyx), No: Limited ROM Skin: Positive Other (Abrasions to the bilateral knees. Abrasion to the left lateral eyebrow.) Neurologic: Positive: Weakness (Generalized), Headache, No: Change in Mentation Physical Exam Narrative GENERAL: Well-developed well-nourished female, in no acute respiratory distress. SKIN: Focused skin assessment warm/dry. HEAD: Normocephalic. Patient has abrasion to the left lateral eyebrow. It is not deep enough to suture. It is roughly 1/4 cm in length. EYES: Pupils equal and round. No scleral icterus. No injection or drainage. ENT: No nasal bleeding or discharge. Mucous membranes pink and moist. NECK: Trachea midline. Paraspinous discomfort in the mid cervical spine distribution. No posterior spinous process tenderness. CARDIOVASCULAR: Regular rate and rhythm. No murmur appreciated. RESPIRATORY: No accessory muscle use. Clear to auscultation. Breath sounds equal bilaterally. GASTROINTESTINAL: Abdomen soft, non-tender, nondistended. MUSCULOSKELETAL: No obvious deformities. No clubbing. No cyanosis. No edema. Multiple bruising to her extremities of various ages. Patient has abrasion to the left knee. There is also healing sutured area of the right knee. She is scheduled to have the sutures removed tomorrow. There is good full range of motion on all 4 extremities. No lacerations that need suturing at this time. NEUROLOGICAL: Awake and sleepy.. No obvious cranial nerve deficits. Motor grossly within normal limits. Slight slurred speech. Patient had just taken her sleeping pill prior to following. Data Data Last Documented VS Vital Signs Date Time Temp Pulse Resp B/P (MAP) Pulse Ox O2 Delivery O2 Flow Rate FiO2 02/19/18 03:42 97.7 81 16 103/54 (70) [address] Brain W/O Iv Contrast(Rout) (02/19/18 03:51) Ct Cerv Spine W/O Contrast (02/19/18 03:51) Spine, Lumbar - Ltd (Ap & Lat) (02/19/18 03:51) Sacrum And Coccyx (02/19/18 ) Knee, Ltd (1 Or 2vws) (02/19/18 03:56) Knee, Ltd (1 Or 2vws) (02/19/18 03:56) Tetanus/Diphtheria Tox Adult (Tetanus/Di (02/19/18 04:45) MDM Medical Decision Making Medical Screen Exam Complete: Yes Emergency Medical Condition: Yes Differential Diagnosis Intracranial hemorrhage versus coccyx fracture versus knee fracture Narrative Course 62-year-old female with a history of COPD, previous pulmonary embolism, hypertension, hyperlipidemia, CHF, presents after mechanical fall trying to get out of bed this morning. Patient had taken a sleeping pill. She is also on pain medication and is prescribed Xanax. Patient was sleepy when she arrived. She was arousable and follows commands. CT scan of the brain shows no evidence of acute intracranial abnormalities. X-rays of the bilateral knees show no fracture dislocation. She does have abrasions to her extremities. Lumbar spine and sacrum and coccyx x-rays were negative for acute process. She also has an abrasion to the left lateral eyebrow. She has been given tetanus immunization. Son was instructed to keep the wounds clean and dry. He is also instructed to return if there is any evidence of infection. I have encouraged him to call her physician to go over the medications with him. Diagnosis Primary Impression: Closed head injury Additional Impressions: Bilateral knee contusions and abrasions Coccyx pain Status post mechanical fall. Additional Instructions: Keep abrasions/wounds clean and dry. Return of any evidence of infection. Call your physician today to discuss changing the dosages of your medication. Usual walker as required. Disposition: 01 DISCHARGE HOME Condition: Stable Jay Cantor MD February 19, 2018 04:42
[2018-02-19] MEDS ORDERED: TETANUS/DIPHTHERIA TOXOID ADULT 0.5 ML VIAL IM ONE (04:45)
--- NOTE | 2018-02-19 04:48 | RADRPT ---
EXAM DATE/TIME: 02/19/2018 04:23 [facility] COMPARISON: No previous studies available for comparison. INDICATIONS : Trauma. Fall. RADIATION DOSE: 59.85 CTDIvol (mGy) ; Patient motion MEDICAL HISTORY : Chronic obstructive pulmonary disease. Cardiovascular disease Cerebrovascular disease. SURGICAL HISTORY : None. ENCOUNTER: Initial ACUITY: 1 day PAIN SCALE: 6/10 LOCATION: Left frontal TECHNIQUE: Multiple contiguous axial images were obtained of the head. Using automated exposure control and adj ustment of the mA and/or kV according to patient size, radiation dose was kept as low as reasonably a chievable to obtain optimal diagnostic quality images. DICOM format image data is available electro nically for review and comparison. FINDINGS: CEREBRUM: The ventricles are normal for age. No evidence of midline shift, mass lesion, hemorrhage or acute in farction. Stable lacunar infarct left thalamus. No extra-axial fluid collections are seen. POSTERIOR FOSSA: The cerebellum and brainstem are intact. The 4th ventricle is midline. The cerebellopontine angle i s unremarkable. EXTRACRANIAL: The visualized portion of the orbits is intact. SKULL: The calvaria is intact. No evidence of skull fracture. CONCLUSION: 1. No acute findings. Chronic white matter ischemic changes and stable lacunar infarct left thalamus compared with February 10, 2018. Clint Gallo MD on February 19, 2018 at 4:45 Board Certified Radiologist. This report was verified electronically.
--- NOTE | 2018-02-19 04:53 | RADRPT ---
EXAM DATE/TIME: 02/19/2018 04:23 [facility] COMPARISON: No previous studies available for comparison. INDICATIONS : Trauma. Fall. RADIATION DOSE: 26.61 CTDIvol (mGy) MEDICAL HISTORY : Chronic obstructive pulmonary disease. Cerebrovascular disease. Cardiovascular disease SURGICAL HISTORY : None. ENCOUNTER: Initial ACUITY: 1 day PAIN SCALE: 6/10 LOCATION: Bilateral neck TECHNIQUE: Volumetric scanning of the cervical spine was performed. Multiplanar reconstructions in the sagittal, coronal and oblique axial planes were performed. Using automated exposure control and adjustment o f the mA and/or kV according to patient size, radiation dose was kept as low as reasonably achievable to obtain optimal diagnostic quality images. DICOM format image data is available electronically f or review and comparison. FINDINGS: Previous fusion C3-4-5 without fracture or spondylolisthesis. No prevertebral soft tissue swelling is present. No significant central canal stenosis. CONCLUSION: 1. Previous fusion C3-4-5. No acute bony abnormality. Clint Gallo MD on February 19, 2018 at 4:48 Board Certified Radiologist. This report was verified electronically.
[2018-02-19 06:00] VITALS: BP 128/62
[2018-02-25] MEDS ORDERED: ADDE20 PO (15:40)
[2018-02-25] MEDS ORDERED: CLOB0.055 TOPICAL (15:40)
[2018-02-25] MEDS ORDERED: POTA10TA2 PO (15:40)
[2018-02-25] MEDS ORDERED: CALC1TAB12 PO (15:40)
[2018-02-25] MEDS ORDERED: ONDA8TAB7 PO (15:40)
[2018-02-25] MEDS ORDERED: ALPR0.25 PO (15:40)
[2018-02-25] MEDS ORDERED: ALBU0.08 NEB (15:40)
[2018-02-25] MEDS ORDERED: TIZA4TAB PO (15:40)
[2018-02-25] MEDS ORDERED: OXYC1TAB35 PO (22:18)
== END 2018-02-19 06:22 | disposition home or self-care (01) ==
LOC: PHED 03:38
DX: S09.90XA Unspecified injury of head, initial encounter (principal); S80.01XA Contusion of right knee, initial encounter; S80.02XA Contusion of left knee, initial encounter; S00.212A Abrasion of left eyelid and periocular area, initial encounter; S39.92XA Unspecified injury of lower back, initial encounter; W06.XXXA Fall from bed, initial encounter; I11.0 Hypertensive heart disease with heart failure; I50.9 Heart failure, unspecified; F17.200 Nicotine dependence, unspecified, uncomplicated
CPT/HCPCS: 70450; 72100; 72125; 72220; 73560; 90471; 90714

== ENCOUNTER 2018-02-25 13:26 | Inpatient (IN) | END 2018-02-27 11:34 | disposition home health service (06) | DRG 690 | DX: N39.0 Urinary tract infection, site not specified (principal); Z86.74 Personal history of sudden cardiac arrest; I11.0 Hypertensive heart disease with heart failure; I50.9 Heart failure, unspecified; K31.84 Gastroparesis; E83.42 Hypomagnesemia; E83.51 Hypocalcemia; E87.6 Hypokalemia; J44.9 Chronic obstructive pulmonary disease, unspecified; E78.5 Hyperlipidemia, unspecified; K21.9 Gastro-esophageal reflux disease without esophagitis; R29.6 Repeated falls; G35 Multiple sclerosis; R13.10 Dysphagia, unspecified; M79.7 Fibromyalgia; R41.3 Other amnesia; S81.011A Laceration without foreign body, right knee, initial encounter; E78.00 Pure hypercholesterolemia, unspecified; R07.89 Other chest pain; D64.9 Anemia, unspecified; M19.90 Unspecified osteoarthritis, unspecified site; F17.210 Nicotine dependence, cigarettes, uncomplicated; F41.9 Anxiety disorder, unspecified; W19.XXXA Unspecified fall, initial encounter; Z79.01 Long term (current) use of anticoagulants; Z86.711 Personal history of pulmonary embolism; Z86.718 Personal history of other venous thrombosis and embolism; Z86.73 Personal history of transient ischemic attack (TIA), and cerebral infarction without residual deficits ==

== ENCOUNTER 2018-03-10 01:28 | Emergency (ER) | payer MEDICARE ==
[~2018-03-10] VITALS: Ht 160 cm; Wt 75.7 kg
[~2018-03-10 01:28] MED LIST changes: +ADDE20 PO; +ALPR0.25 PO; -ALPR0.5T3 PO; +CALC1TAB12 PO; +CLOB0.055 TOPICAL; -COLC1CAP3 PO; -DONE10TA7 PO; -MORP1TAB24 PO; -MSIR30 PO; +ONDA8TAB7 PO; -ONDA8TAB8 SL; +OXYC1TAB35 PO; +PANT20 PO; +POTA-163 PO; -POTA10CA PO; +TIZA4TAB PO
[2018-03-10 01:32] VITALS: BP 121/58; PULSE 77; RESP 18; TEMP 98.5; O2SAT 98
[2018-03-10] MEDS ORDERED: LIDOCAINE 1%/EPINEPHrine 1:100,000 SOLN 20 ML VIAL INFIL ONE (02:15)
--- NOTE | 2018-03-10 02:53 | PD ---
HPI Chief Complaint: Laceration/Skin Injury Time Seen by Provider: 02:11 Travel History International Travel<30 days: No Contact w/Intl Traveler<30days: No Traveled to known affect area: No History of Present Illness HPI The patient is a 62-year-old female that lacerated her leg at approximately 1 AM this morning on a metal pals specialist. Her last tetanus shot was 2017. The patient is on Xarelto. PFSH Past Medical History Hx Anticoagulant Therapy: Yes (XARELTO) Arthritis: Yes Asthma: Yes Blood Disorders: No Anxiety: Yes Depression: No Heart Rhythm Problems: Yes ("SKIPS A BEAT") Cancer: No Cardiovascular Problems: Yes High Cholesterol: Yes Chest Pain: Yes Congestive Heart Failure: Yes COPD: Yes Cerebrovascular Accident: Yes Diabetes: No Diminished Hearing: No Endocrine: No Fibromyalgia: Yes Gastrointestinal Disorders: Yes (GASTROPORESIS) GERD: Yes Genitourinary: Yes Headaches: Yes Hiatal Hernia: Yes Hypertension: Yes Immune Disorder: No Kidney Stones: Yes Musculoskeletal: Yes Neurologic: Yes (MS) Psychiatric: Yes Reproductive: No Respiratory: Yes (ASTHMA) Renal Failure: No Sleep Apnea: No Ulcer: Yes Influenza Vaccination: No PNEUMOCCOCAL Vaccine (Year): 2 ?: Not Menopausal: Yes : 2 Para: 2 Past Surgical History Abdominal Surgery: No Appendectomy: Yes (TOOK OUT WITH OTHER SURGERY) Body Medical Devices: ALLEGRA RIGHT LEG, 2 PLATES,8 SCREWS IN NECK Cardiac Surgery: No Cholecystectomy: Yes Ear Surgery: No Endocrine Surgery: No Eye Surgery: No Genitourinary Surgery: No Gynecologic Surgery: Yes Hysterectomy: Yes Joint Replacement: Yes (PLATE IN CERVICAL SPIN AND ALLEGRA RIGHT LEG) Neurologic Surgery: Yes Oral Surgery: No Thoracic Surgery: No Tonsillectomy: Yes Other Surgery: Yes (RECTAL FISSURE 12/2005, 2 L BREAST BIOPSIES, JACKIE-BSO @ AGE 27) Social History Alcohol Use: No Tobacco Use: Yes (6 CIGS DAILY, trying to quit) Substance Use: No Allergies-Medications (Allergen,Severity, Reaction): Coded Allergies: No Known Allergies (Verified Allergy, Unknown, 03/10/18) Reported Meds & Prescriptions Reported Meds & Active Scripts Active Bactrim DS (Sulfamethoxazole-Trimethoprim) 800-160 Mg Tab 1 Tab PO BID Doxycycline Hyclate 100 Mg Cap 100 Mg PO BID Protonix (Pantoprazole Sodium) 20 Mg Tab 20 Mg PO DAILY 14 Days Potassium Chloride ER (Potassium Chloride) 20 Meq Tab 20 Meq PO BID 14 Days Xarelto (Rivaroxaban) 20 Mg Tab 20 Mg PO DAILY start on February 09 or the day after her 15mg po bid dosing is complete. [Budeson-Formot 160-4.5 Mcg Inh] 60 PUFF Aero 2 Puff INH Q12HR 30 Days Metoprolol Tartrate 25 Mg Tab 75 Mg PO Q12HR 30 Days Reported Oxycodone-Acetaminophen 7.5-325 mg Tab 1 Tab PO Q6H PRN Tizanidine (Tizanidine HCl) 4 Mg Tab 4 Mg PO HS Ondansetron (Ondansetron HCl) 8 Mg Tab 8 Mg PO BID PRN Clobetasol Topical (Clobetasol Propionate) 0.05% Cream 1 Applic TOPICAL BID Calcium 500 +D (Calcium Carbonate-Cholecalciferol) 500-400 Mg-Unit Tab 1 Tab PO BID Alprazolam 0.25 Mg Tab 0.25 Mg PO Q8H PRN Adderall (Amphetamine-Dextroamphetamine) 20 Mg Tab 20 Mg PO BID Avoid late evening doses. Space doses at least 4 to 6 hours if more than once/day dosing. Lyrica (Pregabalin) 150 Mg Cap 150 Mg PO BID Furosemide 40 Mg Tab 40 Mg PO DIRECTED Tecfidera (Dimethyl Fumarate) 240 Mg Cap 240 Mg PO BID Rosuvastatin (Rosuvastatin Calcium) 10 Mg Tab 10 Mg PO DAILY Vitamin D-1000 (Cholecalciferol) 1,000 Unit Tab 5,000 Units PO WEEKLY Zolpidem (Zolpidem Tartrate) 10 Mg Tab 10 Mg PO HS PRN Duloxetine DR (Duloxetine HCl) 60 Mg Capdr 60 Mg PO BID Bethanechol 10 Mg Tab 20 Mg PO TID Ventolin Hfa 18 GM Inh (Albuterol Sulfate) 90 Mcg/Act Aer 2 Puff INH Q4H PRN Review of Systems Except as stated in HPI: all other systems reviewed are Neg Physical Exam Narrative GENERAL: The patient is alert, oriented 3 in minimal apparent distress with her leg laceration. SKIN: Focused skin assessment warm/dry. The skin shows a skin flap laceration with 4 cm on the perimeter of the flap. It also shows an infected laceration of the right knee. HEAD: Atraumatic. Normocephalic. EYES: Pupils equal and round. No scleral icterus. No injection or drainage. ENT: No nasal bleeding or discharge. Mucous membranes pink and moist. NECK: Trachea midline. No JVD. CARDIOVASCULAR: Regular rate and rhythm. No murmur appreciated. RESPIRATORY: No accessory muscle use. Clear to auscultation. Breath sounds equal bilaterally. GASTROINTESTINAL: Abdomen soft, non-tender, nondistended. Hepatic and splenic margins not palpable. MUSCULOSKELETAL: No obvious deformities. No clubbing. No cyanosis. No edema. NEUROLOGICAL: Awake and alert. No obvious cranial nerve deficits. Motor grossly within normal limits. Normal speech. PSYCHIATRIC: Appropriate mood and affect; insight and judgment normal. Data Data Last Documented VS Vital Signs Date Time Temp Pulse Resp B/P (MAP) Pulse Ox O2 Delivery O2 Flow Rate FiO2 03/10/18 01:32 98.5 77 18 121/58 (79) 98 Orders Orders Lidocai-Epi 1%-1:100,000 Inj (Xylocaine- (03/10/18 02:15) Doxycycline (Vibramycin) (03/10/18 03:00) Sulfamet-Trimeth Ds 800-160 Mg (Bactrim (03/10/18 03:00) MDM Medical Decision Making Medical Screen Exam Complete: Yes Emergency Medical Condition: Yes Medical Record Reviewed: Yes Differential Diagnosis Laceration needing suturing, laceration needing taping, laceration not needing suturing. Narrative Course Tape would not last on this laceration because of continual fluid discharge from the wound. The flap laceration closed entirely over the exposed tissue. The patient should return immediately should she have any problems. Procedures Procedure Narrative The skin flap it is 2 cm on each edge, on the perimeter 4 cm total. This was sutured with 9 stitches, mostly running of 5 0 nylon. The flap totally covered the wound. Unfortunately, the patient continually exudes fluid from the cuts on her legs and this will likely lead to infection. The patient is put on antibiotics, Bactrim and doxycycline. A field block was done and suturing was done under sterile technique. The patient tolerated the procedure well. Diagnosis Primary Impression: Laceration of lower extremity Additional Instructions: Return in 12 days for suture removal. If you get infected, which is extremely likely, return immediately. Elevate your leg above your heart to keep the fluid draining from the lacerations at a minimum. Med/Other Pt SpecificInfo: Prescription(s) given Scripts Sulfamethoxazole-Trimethoprim (Bactrim DS) 800-160 Mg Tab 1 TAB PO BID for Infection, #20 TAB 0 Refills Prov: Jonathan Redmond MD 03/10/18 Doxycycline Hyclate (Doxycycline Hyclate) 100 Mg Cap 100 MG PO BID for Infection, #20 CAP 0 Refills Prov: Jonathan Redmond MD 03/10/18 Disposition: 01 DISCHARGE HOME Condition: Stable Jonathan Redmond MD Mar 10, 2018 02:53
[2018-03-10] MEDS ORDERED: DOXY100C PO (02:55)
[2018-03-10] MEDS ORDERED: BACT800T5 PO (02:55)
[2018-03-10] MEDS ORDERED: SULFAMETHOXAZOLE-TRIMETHOPRIM DS 800-160 MG TAB PO ONE (03:00)
[2018-03-10] MEDS ORDERED: DOXYCYCLINE HYCLATE 100 MG CAP PO ONE (03:00)
[2018-03-10] MEDS ORDERED: PERC5TAB12 PO (03:49)
[2018-03-10] MEDS ORDERED: oxyCODONE/ACETAMINOPHEN 7.5 MG/325 MG TAB PO ONE (04:00)
== END 2018-03-10 03:56 | disposition home or self-care (01) ==
LOC: PHED 01:28
DX: S81.811A Laceration without foreign body, right lower leg, initial encounter (principal); I11.0 Hypertensive heart disease with heart failure; I50.9 Heart failure, unspecified; J44.9 Chronic obstructive pulmonary disease, unspecified; M79.7 Fibromyalgia; K21.9 Gastro-esophageal reflux disease without esophagitis; E78.00 Pure hypercholesterolemia, unspecified; Z86.73 Personal history of transient ischemic attack (TIA), and cerebral infarction without residual deficits; W45.8XXA Other foreign body or object entering through skin, initial encounter
CPT/HCPCS: 12002